=== PATIENT | male | born 1930 | race Caucasian/White ===

== ENCOUNTER 2016-04-03 12:03 | Emergency (ER) | payer MEDICARE, BC ==
[2016-04-03] MEDS ORDERED: Lidocaine 2% Jelly 10 ML Urojet ONE (12:18)
--- NOTE | 2016-04-03 12:25 | EDM.PDOC ---
ED HPI RENAL/ - General Chief Complaint: Genitourinary Problem Stated Complaint: NOT FEELING WELL Time Seen by Provider: 04/03/16 12:15 Source: Reports: Patient, Family History Limitations: Reports: No limitations - History of Present Illness INITIAL COMMENTS - FREE TEXT/NARRATIVE: 86-year-old male who recently had back surgery he has been having trouble with emptying his bladder and also was recently diagnosed with a UTI. He has been on sulfa for the past 2 days. This morning he was very uncomfortable and can't pass his urine, he just had a Weiss removed on Monday. Location: Reports: suprapubic Quality: Reports: fullness, stabbing Worsens with: Reports: urinating Associated Symptoms: Reports: burning, dysuria, unable to urinate. Denies: fever/chills - Related Data Allergies/ADRs: Allergies Allergy/AdvReac Type Severity Reaction Status Date / Time lisinopril Allergy Severe Anaphylactic Verified 03/01/16 08:06 Shock tetanus toxoid, adsorbed Allergy Cannot Verified 03/01/16 08:06 Remember Home Meds: Home Meds Clobetasol [Temovate 0.05% Crm] 1 lotion TOP ASDIRECTED 03/13/14 [History] Hydrochlorothiazide 25 mg PO DAILY 03/13/14 [History] Niacin [Niaspan] 1,000 mg PO DAILY 03/13/14 [History] Tamsulosin [Flomax] 0.4 mg PO DAILY 03/13/14 [History] atorvaSTATin [Lipitor] 10 mg PO BEDTIME 03/13/14 [History] Diltiazem [Cardizem CD] 360 mg PO DAILY 04/29/15 [History] Metoprolol Succinate [Toprol XL] 25 mg PO DAILY 09/30/15 [History] Naproxen Sodium [Naproxen Sodium Ds] 550 mg PO BID PRN 12/23/15 [History] Tadalafil [Cialis] 10 mg PO DAILY PRN 12/23/15 [History] Calcium Carbonate/Vitamin D3 [Calcium 500 + Vit D 400] 2 tab PO DAILY 02/25/16 [ History] Multivitamin [Multiple Vitamins] 1 tab PO DAILY 02/25/16 [History] Warfarin [Coumadin] 5 mg PO DAILY 02/25/16 [History] Acetaminophen/oxyCODONE [Percocet 325-5 MG] 1 tab PO Q6HR #120 tablet 03/04/16 [ Rx] Past Medical History HEENT History: Reports: Allergic rhinitis, Cataract, Impaired vision, Sinusitis Cardiovascular History: Reports: Arrhythmia, Heart murmur, High cholesterol, Hypertension Respiratory History: Reports: Other (see below) Other Respiratory History: silicosis Gastrointestinal History: Reports: Chronic constipation, Colon polyp, Hiatal hernia Genitourinary History: Reports: Prostate disorder Musculoskeletal History: Reports: Arthritis, Osteoarthritis Endocrine/Metabolic History: Reports: Diabetes, type II, Obesity/BMI 30+, Other (see below) Other Endocrine/Metabolic History: borderline type II Oncologic (Cancer) History: Reports: Other (see below) Other Oncologic History: skin Dermatologic History: Reports: Psoriasis, Other (see below) Other Dermatologic History: keratosis - Infectious Disease History Infectious Disease History: Reports: Mumps - Past Surgical History Cardiovascular Surgical History: Reports: None Respiratory Surgical History: Reports: None GI Surgical History: Reports: Colonoscopy Male Surgical History: Reports: None Endocrine Surgical History: Reports: None Oncologic Surgical History: Reports: Other (see below) Other Oncologic Surgeries/Procedures: skin bx. Dermatological Surgical History: Reports: None Social & Family History - Tobacco Use Smoking Status *Q: Never Smoker Second Hand Smoke Exposure: No - Caffeine Use Caffeine Use: Reports: Coffee - Alcohol Use Days Per Week of Alcohol Use: 7 Number of Drinks Per Day: 2 Total Drinks Per Week: 14 - Recreational Drug Use Recreational Drug Use: No ED ROS GENERAL - Review of Systems Review Of Systems: See Below Constitutional: Denies: fever, chills Respiratory: Denies: shortness of breath Cardiovascular: Denies: Chest pain GI/Abdominal: Reports: Abdominal pain : Reports: frequency, urinary retention ED EXAM, RENAL/ - Physical Exam Exam: See Below Exam Limited By: No limitations General Appearance: alert, anxious, mild distress (Very uncomfortable) Respiratory/Chest: no respiratory distress GI/Abdominal: tender (Lower abdomen is tender with a distended bladder) Course - Vital Signs Last Recorded V/S: Last Vital Signs Temp 97.4 F 04/03/16 12:55 Pulse 118 H 04/03/16 12:55 Resp 16 04/03/16 12:55 BP 126/72 04/03/16 12:55 Pulse Ox 95 04/03/16 12:55 - Orders/Labs/Meds Orders: Active Orders 24 hr Category Date Time Status Insert Weiss Catheter [Insert Urinary Catheter] [OM.PC] Care 04/03/16 12:30 Ordered Q24H Urinary Catheter Assessment [RC] ASDIRECTED Care 04/03/16 12:22 Active Meds: Medications Discontinued Medications Generic Name Dose Route Start Last Admin Trade Name Stephanie PRN Reason Stop Dose Admin Lidocaine HCl Confirm 04/03/16 12:18 04/03/16 13:10 Xylocaine 2% Jelly Administered 04/03/16 12:19 10 ml Dose Administration 10 ml .ROUTE .STK-MED ONE - Re-Assessments/Exams Free Text/Narrative Re-Assessment/Exam: 04/03/16 12:24 A bladder scan was done which showed over 1000 mL of urine in the bladder. A Weiss was then placed without difficulty. 04/03/16 12:46 Almost 2 L of urine was released after the Weiss was placed. Patient's symptoms improved, basically resolved and the Weiss was left in place. He was given 10 additional Percocet to use for pain control over the next 48 hours and should recheck in the clinic on Monday for Weiss removal. Hopefully after a few more days of antibiotic his bladder will function more normally Departure - Departure Time of Disposition: 13:27 Disposition: Home, Self-Care 01 Condition: good Clinical Impression: Acute urinary retention, UTI, Urinary tract infectious disease Instructions: Acute Urinary Retention, Male Referrals: Yogesh Monsivais MD [Primary Care Provider] - Forms: ED Department Discharge Care Plan Goals: Continue with antibiotic as prescribed. Use pain medication to help with resting or any recurrence of pain, and recheck at the clinic on Monday to have Weiss removed. Return sooner if worsening or concerns. - My Orders Last 24 Hours: My Active Orders 04/03/16 12:22 Urinary Catheter Assessment [RC] ASDIRECTED 04/03/16 12:30 Insert Weiss Catheter [Insert Urinary Catheter] [OM.PC] Q24H - Assessment/Plan Last 24 Hours: My Active Orders 04/03/16 12:22 Urinary Catheter Assessment [RC] ASDIRECTED 04/03/16 12:30 Insert Weiss Catheter [Insert Urinary Catheter] [OM.PC] Q24H
[2016-04-03 12:56] VITALS: BP 126/72
== END 2016-04-03 13:27 | disposition home or self-care (01) ==
LOC: JP.ED 12:03 → EEVIPCON 12:03 → JP.ED 13:27
DX: R33.8 Other retention of urine (principal); N39.0 Urinary tract infection, site not specified; I10 Essential (primary) hypertension; E78.00 Pure hypercholesterolemia, unspecified; E11.9 Type 2 diabetes mellitus without complications; E66.9 Obesity, unspecified; Z68.28 Body mass index [BMI] 28.0-28.9, adult; Z79.01 Long term (current) use of anticoagulants; Z79.899 Other long term (current) drug therapy; Z88.8 Allergy status to other drugs, medicaments and biological substances
CPT/HCPCS: 51702; 99282-25; 99283-25

== ENCOUNTER 2016-10-25 07:56 | Inpatient (IN) | payer MEDICARE, BC ==
[~2016-10-25 07:56] MED LIST: Gentamicin 40 MG/ML 2 ML Vial ONE; Midazolam 1 MG/ML 2 ML SDV ONE; Povidone-Iodine 10% Soln 118.25 ML Bottle ONE; Propofol 200 MG/20 ML SDV ONE; fentaNYL 100 MCG/2 ML SDV ONE
[2016-10-25] MEDS ORDERED: ceFAZolin 1 GM Vial ONE (08:06)
[2016-10-25] MEDS ORDERED: Lactated Ringers 1,000 ML IV SCH ×2 (08:50→09:15)
[2016-10-25] MEDS ORDERED: Gabapentin 300 MG Cap PO ONE (09:15)
[2016-10-25] MEDS ORDERED: Scopolamine 1.5 MG Transdermal Patch TOP SCH (09:15)
[2016-10-25] MEDS ORDERED: ceFAZolin 2 GM in Sodium Chloride 0.9% 50 ML IV ONE (09:15)
[2016-10-25] MEDS ORDERED: Ketamine 500 MG/5 ML MDV IV SCH (09:30)
[2016-10-25] MEDS ORDERED: Ropivacaine 49.25 ML, Ketorolac 30 MG, EPINEPHrine 0.5 MG, cloNIDine 80 MCG, Sodium Chl... INJECT ONE ×5 (09:30)
[2016-10-25] MEDS ORDERED: Sodium Chloride 0.9% 10 ML ONE (10:51)
[2016-10-25] MEDS ORDERED: Phenylephrine 1% 10 MG/ML SDV ONE (10:51)
[2016-10-25] MEDS ORDERED: Lactated Ringers 1,000 ML ONE (11:05)
[2016-10-25] MEDS ORDERED: Zolpidem 5 MG Tab PO PRN (12:36)
[2016-10-25] MEDS ORDERED: Bisacodyl 5 MG Tab PO PRN (12:36)
[2016-10-25] MEDS ORDERED: Ondansetron 4 MG/2 ML SDV IVPUSH PRN (12:36)
[2016-10-25] MEDS ORDERED: Sennosides 8.6 MG Tab PO PRN (12:36)
[2016-10-25] MEDS ORDERED: Morphine 2 MG/ML Syringe IVPUSH PRN (12:36)
[2016-10-25] MEDS ORDERED: Diazepam 5 MG Tab PO PRN (12:36)
[2016-10-25] MEDS ORDERED: Aluminum Hydroxide/Magnesium Hydroxide/Simethicone Susp 30 ML Cup PO PRN (12:36)
[2016-10-25] MEDS ORDERED: Magnesium Hydroxide 400 MG/5 ML Susp 30 ML Cup PO PRN (12:36)
[2016-10-25] MEDS ORDERED: traMADol 50 MG Tab PO PRN (12:36)
[2016-10-25] MEDS ORDERED: Ketorolac 30 MG/ML SDV IVPUSH PRN (12:36)
[2016-10-25] MEDS ORDERED: diphenhydrAMINE 50 MG/ML SDV IVPUSH PRN (12:36)
[2016-10-25] MEDS ORDERED: Naloxone 0.4 MG/ML SDV IVPUSH PRN (12:36)
[2016-10-25] MEDS ORDERED: Docusate Sodium 100 MG Cap PO PRN (12:36)
--- NOTE | 2016-10-25 13:18 | CR ---
Knee 1V or 2V Rt INDICATION: RIGHT PARTIAL KNEE REPLACEMENT FINDINGS: Postoperative changes medial compartment hemiarthroplasty. Negative for postoperative purpo ses.
[2016-10-25] MEDS ORDERED: Acetaminophen 1,000 MG in Premix Bag 1 BAG IV ONE (13:30)
[2016-10-25] MEDS: SCOPOLAMINE PATCH TOP SCH (14:31)
[2016-10-25] MEDS ORDERED: 50% Dextrose in Water 50 ML Syringe IV PRN (15:01)
[2016-10-25] MEDS ORDERED: Glucose Gel 15 GM in 37.5 GM Tube PO PRN (15:01)
[2016-10-25] MEDS: Insulin Aspart 100 Units/ML 3 ML Pen SUBCUT SCH ×2 (16:38→21:26)
--- NOTE | 2016-10-25 17:22 | PCM.CONS ---
H&P History of Present Illness - General Date of Service: 10/25/16 Admit Problem/Dx: Admission Diagnosis/Problem Admission Diagnosis/Problem Osteoarthritis Source of Information: Patient, Provider, RN Notes Reviewed History Limitations: Reports: No Limitations - History of Present Illness Initial Comments - Free Text/Narative: Mr. Marks is an 86-year-old gentleman who I been asked to see by Dr. Micheal Mustafa for assistance in medical management during the postoperative period. Mr. Marks underwent a total right knee arthroplasty earlier today by Dr. Mustafa. He is doing well during the initial postoperative period and denies any symptoms of chest pain, shortness of breath, nausea or vomiting. - Related Data Allergies/Adverse Reactions: Allergies Allergy/AdvReac Type Severity Reaction Status Date / Time lisinopril Allergy Severe Anaphylactic Verified 10/21/16 14:40 Shock tetanus toxoid, adsorbed Allergy Cannot Verified 10/21/16 14:40 Remember Home Medications: Home Meds Clobetasol [Temovate 0.05% Crm] 1 applic TOP ASDIRECTED PRN 03/13/14 [History] Hydrochlorothiazide 25 mg PO DAILY 03/13/14 [History] Niacin [Niaspan] 1,000 mg PO DAILY 03/13/14 [History] atorvaSTATin [Lipitor] 10 mg PO BEDTIME 03/13/14 [History] Diltiazem [Cardizem CD] 360 mg PO DAILY 04/29/15 [History] Metoprolol Succinate [Toprol XL] 25 mg PO DAILY 09/30/15 [History] Calcium Carbonate/Vitamin D3 [Calcium 500 + Vit D 400] 2 tab PO DAILY 02/25/16 [ History] Multivitamin [Multiple Vitamins] 1 tab PO DAILY 02/25/16 [History] Warfarin [Coumadin] 5 mg PO DAILY 02/25/16 [History] Magnesium Hydroxide [Milk of Magnesia] 30 ml PO DAILY PRN 10/25/16 [History] Past Medical History HEENT History: Reports: Allergic Rhinitis, Cataract, Impaired Vision, Sinusitis Cardiovascular History: Reports: Arrhythmia, Heart Murmur, High Cholesterol, Hypertension Respiratory History: Reports: Other (See Below) Other Respiratory History: silicosis Gastrointestinal History: Reports: Chronic Constipation, Colon Polyp, Hiatal Hernia Genitourinary History: Reports: Prostate Disorder Musculoskeletal History: Reports: Other (See Below) Other Musculoskeletal History: right knee pain Endocrine/Metabolic History: Reports: Diabetes, Type II, Obesity/BMI 30+, Other (See Below) Other Endocrine/Metabolic History: borderline type II - checks blood sugar just a few times a year Hematologic History: Reports: Other (See Below) Other Hematologic History: coumadin Oncologic (Cancer) History: Reports: Other (See Below) Other Oncologic History: skin Dermatologic History: Reports: Psoriasis, Other (See Below) Other Dermatologic History: keratosis - Infectious Disease History Infectious Disease History: Reports: Mumps - Past Surgical History Musculoskeletal Surgical History: Reports: Carpal Tunnel, Knee Replacement Other Musculoskeletal Surgeries/Procedures:: left knee x 4 Oncologic Surgical History: Reports: Other (See Below) Social & Family History - Family History Family Medical History: Noncontributory - Tobacco Use Smoking Status *Q: Former Smoker Used Tobacco, but Quit: Yes Month Tobacco Last Used: years Second Hand Smoke Exposure: No - Caffeine Use Caffeine Use: Reports: Coffee - Alcohol Use Days Per Week of Alcohol Use: 7 Number of Drinks Per Day: 2 Total Drinks Per Week: 14 Date of Last Drink: 10/23/16 Time of Last Drink: 18:00 - Recreational Drug Use Recreational Drug Use: No H&P Review of Systems - Review of Systems: Review Of Systems: See Below General: Reports: No Symptoms Pulmonary: Reports: No Symptoms Cardiovascular: Reports: No Symptoms Gastrointestinal: Reports: No Symptoms Genitourinary: Reports: No Symptoms Musculoskeletal: Reports: Joint Pain Skin: Reports: No Symptoms Exam - Exam Exam: See Below - Vital Signs Vital Signs: Last Vital Signs Temp 96 F 10/25/16 16:30 Pulse 75 10/25/16 16:30 Resp 16 10/25/16 16:30 BP 131/91 H 10/25/16 16:30 Pulse Ox 95 10/25/16 16:30 Weight: 185 lb - Exam Quality Assessment: Urinary Catheter, DVT Prophylaxis General: Alert, Oriented, Cooperative Neck: Supple, Trachea Midline, +2 Carotid Pulse wo Bruit Lungs: Clear to Auscultation, Normal Respiratory Effort Cardiovascular: Regular Rate, Regular Rhythm, Normal S1, Normal S2. No: Systolic Murmur, Diastolic Murmur GI/Abdominal Exam: Normal Bowel Sounds, Soft, Non-Tender, No Organomegaly, No Distention Skin: Warm, Dry, Intact Neurological: Cranial Nerves Intact, Strength Equal Bilateral, Normal Speech, Normal Tone, Sensation Intact. No: Focal Deficit - Patient Data Lab Results Last 24 hrs: Laboratory Results - last 24 hr 10/25/16 10/25/16 Range/Units 08:09 08:10 PT 11.6 (9.5-12.0) sec INR 1.08 (0.80-1.20) Blood Type B NEGATIVE Gel Antibody Screen Negative Consult PN Assessment/Plan Procedures: Procedures ASSAY OF CK (CPK) (04/29/15) ASSAY OF TROPONIN QUANT (04/29/15) BLOOD TYPING SEROLOGIC ABO (03/02/16) BLOOD TYPING SEROLOGIC RH(D) (03/02/16) CARDIOVASCULAR STRESS TEST (03/14/14) CARDIOVASCULAR STRESS TEST (03/14/14) CHEST X-RAY 2VW FRONTAL&LATL (02/11/16) COMPLETE CBC AUTOMATED (10/13/16) COMPLETE CBC W/AUTO DIFF WBC (03/02/16) COMPREHEN METABOLIC PANEL (10/13/16) CULTURE OTHR SPECIMN AEROBIC (10/13/16) ELECTROCARDIOGRAM REPORT (03/02/16) ELECTROCARDIOGRAM TRACING (10/13/16) EMERGENCY DEPT VISIT (04/03/16) EMERGENCY DEPT VISIT (04/29/15) EMERGENCY DEPT VISIT (03/13/14) EXTRACRANIAL BILAT STUDY (09/02/14) FLUOROSCOPE EXAM EXTENSIVE (03/02/16) GAIT TRAINING THERAPY (03/02/16) GLUCOSE BLOOD TEST (03/02/16) HT MUSCLE IMAGE SPECT MULT (03/14/14) INITIAL OBSERVATION CARE (03/02/16) INJECT SPINE LUMBAR/SACRAL (10/28/15) INSERT TEMP BLADDER CATH (04/03/16) MANUAL THERAPY 1/> REGIONS (03/02/16) MEASURE BLOOD OXYGEN LEVEL (03/02/16) METABOLIC PANEL TOTAL CA (03/02/16) MRI LUMBAR SPINE W/O DYE (12/04/15) OBSERVATION CARE DISCHARGE (03/02/16) OFFICE/OUTPATIENT VISIT NEW (12/24/15) OT EVAL LOW COMPLEX 30 MIN (03/02/16) POSTOP FOLLOW-UP VISIT (03/14/16) PROTHROMBIN TIME (03/02/16) PT EVAL LOW COMPLEX 20 MIN (03/02/16) RBC ANTIBODY SCREEN (03/02/16) REMOVE SPINE LAMINA 1 LMBR (03/02/16) REMOVE SPINE LAMINA >2 LMBR (03/02/16) ROUTINE VENIPUNCTURE (10/13/16) SELF CARE MNGMENT TRAINING (03/02/16) SUBSEQUENT OBSERVATION CARE (03/02/16) THER/PROPH/DIAG INJ IV PUSH (03/13/14) THERAPEUTIC ACTIVITIES (03/02/16) THERAPEUTIC EXERCISES (03/02/16) TTE W/DOPPLER COMPLETE (05/11/15) URINALYSIS AUTO W/O SCOPE (10/13/16) URINALYSIS AUTO W/SCOPE (03/02/16) US URINE CAPACITY MEASURE (03/02/16) X-RAY EXAM KNEE 4 OR MORE (10/13/16) X-RAY EXAM L-2 SPINE 4/>VWS (12/24/15) X-RAY EXAM NECK SPINE 2-3 VW (03/13/14) Problem List Initiated/Reviewed/Updated: Yes My Orders Last 24 Hours: My Active Orders 10/25/16 15:01 Blood Glucose Check, Bedside [RC] QIDACANDBED Communication Order [RC] ASDIRECTED Diabetes Education [RC] Click to Edit Notify Provider [RC] PRN Dextrose 50% in Water 50 ml IV ONETIME PRN Dextrose [Glutose 15] 15 gm PO ONETIME PRN 10/25/16 17:00 Insulin Aspart [NovoLOG] See Protocol SUBCUT QIDACANDBED 10/25/16 21:00 GLUCOSE POC LAB TO COLLECT [POC] QIDACANDBED atorvaSTATin [Lipitor] 10 mg PO BEDTIME 10/26/16 07:30 GLUCOSE POC LAB TO COLLECT [POC] QIDACANDBED 10/26/16 09:00 Diltiazem [Cardizem CD] 360 mg PO DAILY Hydrochlorothiazide 25 mg PO DAILY Metoprolol Succinate [Toprol XL] 25 mg PO DAILY 10/26/16 11:30 GLUCOSE POC LAB TO COLLECT [POC] QIDACANDBED 10/26/16 16:30 GLUCOSE POC LAB TO COLLECT [POC] QIDACANDBED 10/26/16 21:00 GLUCOSE POC LAB TO COLLECT [POC] QIDACANDBED 10/27/16 07:30 GLUCOSE POC LAB TO COLLECT [POC] QIDACANDBED 10/27/16 11:30 GLUCOSE POC LAB TO COLLECT [POC] QIDACANDBED 10/27/16 16:30 GLUCOSE POC LAB TO COLLECT [POC] QIDACANDBED 10/27/16 21:00 GLUCOSE POC LAB TO COLLECT [POC] QIDACANDBED 10/28/16 07:30 GLUCOSE POC LAB TO COLLECT [POC] QIDACANDBED 10/28/16 11:30 GLUCOSE POC LAB TO COLLECT [POC] QIDACANDBED 10/28/16 16:30 GLUCOSE POC LAB TO COLLECT [POC] QIDACANDBED 10/28/16 21:00 GLUCOSE POC LAB TO COLLECT [POC] QIDACANDBED 10/29/16 07:30 GLUCOSE POC LAB TO COLLECT [POC] QIDACANDBED 10/29/16 11:30 GLUCOSE POC LAB TO COLLECT [POC] QIDACANDBED 10/29/16 16:30 GLUCOSE POC LAB TO COLLECT [POC] QIDACANDBED 10/29/16 21:00 GLUCOSE POC LAB TO COLLECT [POC] QIDACANDBED 10/30/16 07:30 GLUCOSE POC LAB TO COLLECT [POC] QIDACANDBED 10/30/16 11:30 GLUCOSE POC LAB TO COLLECT [POC] QIDACANDBED 10/30/16 16:30 GLUCOSE POC LAB TO COLLECT [POC] QIDACANDBED 10/30/16 21:00 GLUCOSE POC LAB TO COLLECT [POC] QIDACANDBED 10/31/16 07:30 GLUCOSE POC LAB TO COLLECT [POC] QIDACANDBED 10/31/16 11:30 GLUCOSE POC LAB TO COLLECT [POC] QIDACANDBED 10/31/16 16:30 GLUCOSE POC LAB TO COLLECT [POC] QIDACANDBED 10/31/16 21:00 GLUCOSE POC LAB TO COLLECT [POC] QIDACANDBED 11/01/16 07:30 GLUCOSE POC LAB TO COLLECT [POC] QIDACANDBED 11/01/16 11:30 GLUCOSE POC LAB TO COLLECT [POC] QIDACANDBED 11/01/16 16:30 GLUCOSE POC LAB TO COLLECT [POC] QIDACANDBED 11/01/16 21:00 GLUCOSE POC LAB TO COLLECT [POC] QIDACANDBED 11/02/16 07:30 GLUCOSE POC LAB TO COLLECT [POC] QIDACANDBED 11/02/16 11:30 GLUCOSE POC LAB TO COLLECT [POC] QIDACANDBED 11/02/16 16:30 GLUCOSE POC LAB TO COLLECT [POC] QIDACANDBED 11/02/16 21:00 GLUCOSE POC LAB TO COLLECT [POC] QIDACANDBED 11/03/16 07:30 GLUCOSE POC LAB TO COLLECT [POC] QIDACANDBED 11/03/16 11:30 GLUCOSE POC LAB TO COLLECT [POC] QIDACANDBED 11/03/16 16:30 GLUCOSE POC LAB TO COLLECT [POC] QIDACANDBED 11/03/16 21:00 GLUCOSE POC LAB TO COLLECT [POC] QIDACANDBED 11/04/16 07:30 GLUCOSE POC LAB TO COLLECT [POC] QIDACANDBED 11/04/16 11:30 GLUCOSE POC LAB TO COLLECT [POC] QIDACANDBED 11/04/16 16:30 GLUCOSE POC LAB TO COLLECT [POC] QIDACANDBED 11/04/16 21:00 GLUCOSE POC LAB TO COLLECT [POC] QIDACANDBED 11/05/16 07:30 GLUCOSE POC LAB TO COLLECT [POC] QIDACANDBED 11/05/16 11:30 GLUCOSE POC LAB TO COLLECT [POC] QIDACANDBED Plan: ASSESSMENT AND RECOMMENDATIONS STATUS POST RIGHT TOTAL KNEE ARTHROPLASTY-stable and doing well during the initial postoperative period -Postoperative care per Dr. Mustafa HYPERTENSION -Continue outpatient medical regimen, adjust as needed during hospital stay TYPE 2 DIABETES MELLITUS -4 times a day glucometers -Low-dose sliding scale NovoLog Requesting Provider: ZURDO Date Consult Requested: 10/25/16 Reason for Consult: Postoperative medical management Patient History Reviewed: Yes
--- NOTE | 2016-10-25 18:19 | OR ---
DATE OF PROCEDURE: 10/25/2016 PREOPERATIVE DIAGNOSIS: Right knee primary osteoarthritis. POSTOPERATIVE DIAGNOSIS: Right knee primary osteoarthritis. PROCEDURE: Right knee unicompartmental medial arthroplasty. COMMODITY MANAGER: PHAN Huggins. ANESTHESIA: Spinal plus conscious sedation. FLUID: Lactated Ringer solution. ESTIMATED BLOOD LOSS: 25 mL. COMPLICATION: None. SPECIMEN: None. DISCHARGE DISPOSITION: Stable to PACU. INSTRUMENTATION: Biomet size F tibia, medium femur with 4 mm polyethylene. INDICATIONS: The patient is well known to me. I previously performed laminectomy many months ago. He failed nonoperative treatment, preoperative imaging confirmed the above- mentioned diagnosis. Risks and benefits of the procedure were explained to the patient. Informed consent was obtained. DETAILS OF PROCEDURE: The patient was seen preoperatively by myself and the Anesthesia Staff in the preoperative holding area where the operative site was marked. He was brought to the operative suite by the anesthesia staff where spinal and conscious sedation was administered. A well-padded tourniquet was placed on the right thigh. The right thigh was placed in a hip rivera. The left lower extremity was placed in the stirrup. The bed was dropped. The right lower extremity was then prepped and draped in sterile manner. Time-out was called identifying the correct patient, correct procedure, the correct site, and antibiotics had begun with appropriate period of time. I made an incision three fingerbreadths proximal to the patella down to the level of tibial tubercle and then made a medial parapatellar arthrotomy and then used Gelpi for retraction. I inserted a #2 spoon and then used my extramedullary tibial guide, which was pinned in place and then made a vertical cut in line with the anterior superior iliac spine and then made my horizontal cut. I then measured this to be a size F. I then drilled just 1 mm anterior to the medial notch from my reamer hole then all that and then placed my intramedullary guide alban. I then attached this to my femoral cutting guide. I then drilled my two holes for the guide. I then removed the intramedullary guide and then applied my posterior cutting block and then made my posterior cut on the femur. I then measured a 4 mm gap in flexion, which was appropriate. I then used my 0 spigot and then used a trial femur, which was 4 in flexion and 1 in extension. I then did a 3 spigot, which was too tight and so I did a 4 spigot for reaming. This provided good stability in flexion and extension with equal gaps and then at that point, I used my anterior reamer for the femur and removed some posterior osteophytes as well. I then focused on tibial preparation. I put the fin cutter base plate and then held this in place with the spike and then using the toothbrush saw I made my fin cut. I then inserted my tibia with a fin in the femur and then inserted my 4 trial which provided good stability. I then removed all my components, copiously irrigated with saline and then cemented these in place in 45 degrees of flexion with a [address] for my gaps let this harden. I then copiously irrigated with saline, removed any excess cement, inserted a 4 trial, which provided good stability. I then removed the trial and then placed the final implant, which was a 4 polyethylene right for medium femur. After this had been accomplished, we irrigated again with saline and then closed with #2 Stratafix, 3-0 Stratafix and arthur. The tourniquet was let down after cementing at 62 minutes. The patient was then taken, transferred to hospital bed, and taken to the PACU in stable condition. Gregory Mustafa DO /[id number]
[2016-10-25] MEDS: atorvaSTATin 10 MG Tab PO SCH (20:31)
[2016-10-25] MEDS: oxyCODONE 5 MG Tab PO PRN (21:30)
[2016-10-26] MEDS: Metoprolol Succinate 25 MG Tab.ER PO SCH (08:07)
[2016-10-26] MEDS: Hydrochlorothiazide 25 MG Tab PO SCH (08:07)
[2016-10-26] MEDS: Diltiazem 180 MG Cap.CD PO SCH (08:07)
[2016-10-26] MEDS: Aspirin 325 MG Tab.EC PO SCH (08:08)
[2016-10-26] MEDS: Insulin Aspart 100 Units/ML 3 ML Pen SUBCUT SCH ×4 (08:09→22:13)
[2016-10-26] MEDS: Sodium Chloride 0.9% 10 ML Syringe FLUSH SCH (08:11)
[2016-10-26] MEDS: SCOPOLAMINE PATCH TOP SCH (08:11)
[2016-10-26] MEDS ORDERED: Aspirin 325 MG Tab.EC PO SCH (09:00)
--- NOTE | 2016-10-26 12:16 | PCM.PN ---
- General Info Functional Status: Reports: Pain Controlled, Ambulating, Urinating - Review of Systems General: Reports: No Symptoms HEENT: Reports: No Symptoms Pulmonary: Reports: No Symptoms Cardiovascular: Reports: No Symptoms Gastrointestinal: Reports: No Symptoms Genitourinary: Reports: No Symptoms Musculoskeletal: Reports: Joint Pain Skin: Reports: No Symptoms Neurological: Reports: No Symptoms Psychiatric: Reports: No Symptoms - Patient Data Vitals - Most Recent: Last Vital Signs Temp 95.2 F L 10/26/16 08:01 Pulse 88 10/26/16 08:07 Resp 16 10/26/16 08:01 BP 133/94 H 10/26/16 08:07 Pulse Ox 93 L 10/26/16 08:01 Weight - Most Recent: 185 lb I&O - Last 24 Hours: Intake & Output 10/25/16 10/26/16 10/26/16 22:59 06:59 14:59 Intake Total 1080 240 Output Total 600 700 Balance 480 240 -700 Lab Results Last 24 Hours: Laboratory Results - last 24 hr 10/26/16 10/26/16 Range/Units 05:49 05:49 WBC 8.4 (4.5-11.0) K/uL RBC 3.79 L (4.30-5.90) M/uL Hgb 12.4 (12.0-15.0) g/dL Hct 36.3 L (40.0-54.0) % MCV 96 (80-98) fL MCH 33 H (27-31) pg MCHC 34 (32-36) % Plt Count 246 (150-400) K/uL Neut % (Auto) 60 (36-66) % Lymph % (Auto) 26 (24-44) % [facility] % (Auto) 13 H (2-6) % Eos % (Auto) 2 (2-4) % Baso % (Auto) 0 (0-1) % Sodium 139 L (140-148) mmol/L Potassium 4.2 (3.6-5.2) mmol/L Chloride 103 (100-108) mmol/L Carbon Dioxide 29 (21-32) mmol/L Anion Gap 11.2 (5.0-14.0) mmol/L BUN 15 (7-18) mg/dL Creatinine 0.9 (0.8-1.3) mg/dL Est Cr Clr Drug Dosing 58.06 mL/min Estimated GFR (MDRD) > 60 (>60) Glucose 86 (74-106) mg/dL Calcium 8.1 L (8.5-10.1) mg/dL Total Bilirubin 0.7 (0.2-1.0) mg/dL AST 24 (15-37) U/L ALT 21 (12-78) U/L Alkaline Phosphatase 117 H (46-116) U/L Total Protein 6.6 (6.4-8.2) g/dL Albumin 3.2 L (3.4-5.0) g/dL Globulin 3.4 (2.3-3.5) g/dL Albumin/Globulin Ratio 0.9 L (1.2-2.2) Med Orders - Current: Current Medications Al Hydroxide/Mg Hydroxide (Mag-Al Plus) 30 ml PO Q4H PRN PRN Reason: Constipation Aspirin (Ecotrin) 325 mg PO DAILY [facility] Last Admin: 10/26/16 08:08 Dose: 325 mg Atorvastatin Calcium (Lipitor) 10 mg PO BEDTIME [facility] Last Admin: 10/25/16 20:31 Dose: 10 mg Bisacodyl (Dulcolax) 10 mg PO DAILY PRN PRN Reason: Constipation Dextrose (Glutose 15) 15 gm PO ONETIME PRN PRN Reason: Hypoglycemia Dextrose/Water (Dextrose 50% In Water) 50 ml IV ONETIME PRN PRN Reason: Hypoglycemia Diazepam (Valium.) 5 mg PO Q6H PRN PRN Reason: Spasms Diltiazem HCl (Cardizem Cd) 360 mg PO DAILY [facility] Last Admin: 10/26/16 08:07 Dose: 360 mg Diphenhydramine HCl (Benadryl) 25 mg IVPUSH Q4H PRN PRN Reason: Itching Docusate Sodium (Colace) 100 mg PO BID PRN PRN Reason: Constipation Hydrochlorothiazide (Hydrochlorothiazide) 25 mg PO DAILY [facility] Last Admin: 10/26/16 08:07 Dose: 25 mg Lactated Ringer's (Ringers, Lactated) 1,000 mls @ 0 mls/hr IV ASDIRECTED [facility] PRN Reason: KVO Last Admin: 10/25/16 08:56 Dose: 500 mls/hr Insulin Aspart (Novolog) 0 unit SUBCUT QIDACANDBED [facility] PRN Reason: Protocol Last Admin: 10/26/16 08:09 Dose: Not Given Ketorolac Tromethamine (Toradol) 30 mg IVPUSH Q8H PRN PRN Reason: Pain Stop: 10/30/16 12:36 Magnesium Hydroxide (Milk Of Magnesia) 30 ml PO BID PRN PRN Reason: Constipation Metoprolol Succinate (Toprol Xl) 25 mg PO DAILY [facility] Last Admin: 10/26/16 08:07 Dose: 25 mg Morphine Sulfate (Morphine) 2 mg IVPUSH Q2H PRN PRN Reason: Pain Naloxone HCl (Narcan) 0.1 mg IVPUSH ONETIME PRN PRN Reason: Oversedation Scopolamine Patch 1 each TOP DAILY [facility] Last Admin: 10/26/16 08:11 Dose: 1 each Ondansetron HCl (Zofran) 8 mg IVPUSH Q4H PRN PRN Reason: Nausea/Vomiting Oxycodone HCl (Oxycodone) 10 mg PO Q4H PRN PRN Reason: Pain Last Admin: 10/25/16 21:30 Dose: 10 mg Scopolamine (Transderm-Scop) 1.5 mg TOP Q72H [facility] Stop: 10/28/16 09:00 Last Admin: 10/25/16 08:26 Dose: 1.5 mg Senna (Senna) 8.6 mg PO BID PRN PRN Reason: Constipation Sodium Chloride (Saline Flush) 10 ml FLUSH DAILY [facility] Last Admin: 10/26/16 08:11 Dose: 10 ml Tramadol HCl (Ultram) 100 mg PO Q6H PRN PRN Reason: Pain Last Admin: 10/26/16 10:27 Dose: 100 mg Zolpidem Tartrate (Ambien) 5 mg PO BEDTIME PRN PRN Reason: Sleep Discontinued Medications Aspirin (Ecotrin) 325 mg PO DAILY [facility] Cefazolin Sodium (Ancef) Confirm Administered Dose 2 gm .ROUTE .STK-MED ONE Stop: 10/25/16 08:07 Last Admin: 10/25/16 09:56 Dose: Not Given Ropivacaine 49.25 ml/Ketorolac Tromethamine 30 mg/Epinephrine HCl 0.5 mg/ Clonidine HCl 80 mcg/ Sodium Chloride 48.45 ml 0 ml INJECT ONETIME ONE Stop: 10/25/16 09:31 Last Admin: 10/25/16 11:36 Dose: 100 ml Fentanyl (Sublimaze) Confirm Administered Dose 100 mcg .ROUTE .STK-MED ONE Stop: 10/25/16 07:42 Gabapentin (Neurontin) 300 mg PO ONETIME ONE Stop: 10/25/16 09:16 Last Admin: 10/25/16 08:26 Dose: 300 mg Gentamicin Sulfate (Gentamicin) Confirm Administered Dose 240 mg .ROUTE .STK- MED ONE Stop: 10/25/16 06:58 Last Admin: 10/25/16 11:14 Dose: 240 mg Cefazolin Sodium 2 gm/ Sodium (Chloride) 50 mls @ 100 mls/hr IV ONETIME ONE Stop: 10/25/16 09:44 Last Admin: 10/25/16 10:24 Dose: 100 mls/hr Tranexamic Acid 870 mg/ Sodium (Chloride) 58.7 mls @ 234.8 mls/hr IV Q3H [facility] Stop: 10/25/16 12:44 Last Admin: 10/25/16 13:02 Dose: 234.8 mls/hr Lactated Ringer's (Ringers, Lactated) 1,000 mls @ 500 mls/hr IV .BOLUS [facility] Stop: 10/25/16 09:50 Sodium Chloride (Normal Saline) Confirm Administered Dose 10 mls @ as directed .ROUTE .ST-MED ONE Stop: 10/25/16 10:52 Lactated Ringer's (Ringers, Lactated) Confirm Administered Dose 1,000 mls @ as directed .ROUTE .STK-MED ONE Stop: 10/25/16 11:06 Acetaminophen 1,000 mg/ Premix 100 mls @ 400 mls/hr IV NOW ONE Stop: 10/25/16 13:44 Last Admin: 10/25/16 14:00 Dose: 400 mls/hr Ketamine HCl (Ketalar) 34 mg IV ASDIRECTED [facility] Midazolam HCl (Versed 1 Mg/Ml) Confirm Administered Dose 2 mg .ROUTE .STK-MED ONE Stop: 10/25/16 07:42 Phenylephrine HCl (Juan-Synephrine) Confirm Administered Dose 10 mg .ROUTE .STK- MED ONE Stop: 10/25/16 10:52 Povidone Iodine (Betadine 10% Soln) Confirm Administered Dose 1 ml .ROUTE .STK- MED ONE Stop: 10/25/16 06:59 Last Admin: 10/25/16 11:14 Dose: 30 ml Propofol (Diprivan 20 Ml) Confirm Administered Dose 200 mg .ROUTE .STK-MED ONE Stop: 10/25/16 07:42 - Exam General: Alert, Oriented HEENT: Pupils Equal, Pupils Reactive, EOMI, Mucous Membr. Moist/[place] Neck: Supple Back Exam: Normal Inspection, Decreased Range of Motion Extremities: Leg Pain Peripheral Pulses: 2+: Dorsalis Pedis (R) Skin: Warm, Dry, Intact Wound/Incisions: Drainage Neurological: No New Focal Deficit Psy/Mental Status: Alert, Normal Affect Physical Findings Comments:: rom [id number] - Problem List Review Problem List Initiated/Reviewed/Updated: Yes - My Orders Last 24 Hours: My Active Orders 10/25/16 12:00 Non-Formulary Medication [NF Drug] 1 each TOP DAILY - Plan Plan:: pt/ot pain control dvt prophylaxis d/c to home pt with [facility] starting monday
--- NOTE | 2016-10-26 17:37 | PCM.CONSN ---
- General Info Date of Service: 10/26/16 Functional Status: Reports: Pain Controlled, Tolerating Diet, Ambulating, Urinating - Review of Systems General: Denies: Fever, Weakness, Chills Pulmonary: Reports: No Symptoms Cardiovascular: Reports: No Symptoms Gastrointestinal: Reports: No Symptoms Systems Review Comment:: Mr. Marks has been stable and doing well since surgery yesterday, vital signs have been good and he has remained afebrile. Good appetite with no symptoms of nausea vomiting. Pain control has been adequate and he is already ambulated several times today. - Patient Data Vitals - Most Recent: Last Vital Signs Temp 97.5 F 10/26/16 13:47 Pulse 71 10/26/16 13:47 Resp 16 10/26/16 13:47 BP 126/75 10/26/16 13:47 Pulse Ox 100 10/26/16 13:47 Weight - Most Recent: 185 lb 0.014 oz I&O - Last 24 Hours: Intake & Output 10/26/16 10/26/16 10/26/16 06:59 14:59 22:59 Intake Total 240 Output Total 700 Balance 240 -700 Lab Results Last 24 Hours: Laboratory Results - last 24 hr 10/26/16 10/26/16 Range/Units 05:49 05:49 WBC 8.4 (4.5-11.0) K/uL RBC 3.79 L (4.30-5.90) M/uL Hgb 12.4 (12.0-15.0) g/dL Hct 36.3 L (40.0-54.0) % MCV 96 (80-98) fL MCH 33 H (27-31) pg MCHC 34 (32-36) % Plt Count 246 (150-400) K/uL Neut % (Auto) 60 (36-66) % Lymph % (Auto) 26 (24-44) % [facility] % (Auto) 13 H (2-6) % Eos % (Auto) 2 (2-4) % Baso % (Auto) 0 (0-1) % Sodium 139 L (140-148) mmol/L Potassium 4.2 (3.6-5.2) mmol/L Chloride 103 (100-108) mmol/L Carbon Dioxide 29 (21-32) mmol/L Anion Gap 11.2 (5.0-14.0) mmol/L BUN 15 (7-18) mg/dL Creatinine 0.9 (0.8-1.3) mg/dL Est Cr Clr Drug Dosing 58.06 mL/min Estimated GFR (MDRD) > 60 (>60) Glucose 86 (74-106) mg/dL Calcium 8.1 L (8.5-10.1) mg/dL Total Bilirubin 0.7 (0.2-1.0) mg/dL AST 24 (15-37) U/L ALT 21 (12-78) U/L Alkaline Phosphatase 117 H (46-116) U/L Total Protein 6.6 (6.4-8.2) g/dL Albumin 3.2 L (3.4-5.0) g/dL Globulin 3.4 (2.3-3.5) g/dL Albumin/Globulin Ratio 0.9 L (1.2-2.2) Med Orders - Current: Current Medications Al Hydroxide/Mg Hydroxide (Mag-Al Plus) 30 ml PO Q4H PRN PRN Reason: Constipation Aspirin (Ecotrin) 325 mg PO DAILY [facility] Last Admin: 10/26/16 08:08 Dose: 325 mg Atorvastatin Calcium (Lipitor) 10 mg PO BEDTIME [facility] Last Admin: 10/25/16 20:31 Dose: 10 mg Bisacodyl (Dulcolax) 10 mg PO DAILY PRN PRN Reason: Constipation Dextrose (Glutose 15) 15 gm PO ONETIME PRN PRN Reason: Hypoglycemia Dextrose/Water (Dextrose 50% In Water) 50 ml IV ONETIME PRN PRN Reason: Hypoglycemia Diazepam (Valium.) 5 mg PO Q6H PRN PRN Reason: Spasms Diltiazem HCl (Cardizem Cd) 360 mg PO DAILY [facility] Last Admin: 10/26/16 08:07 Dose: 360 mg Diphenhydramine HCl (Benadryl) 25 mg IVPUSH Q4H PRN PRN Reason: Itching Docusate Sodium (Colace) 100 mg PO BID PRN PRN Reason: Constipation Hydrochlorothiazide (Hydrochlorothiazide) 25 mg PO DAILY [facility] Last Admin: 10/26/16 08:07 Dose: 25 mg Lactated Ringer's (Ringers, Lactated) 1,000 mls @ 0 mls/hr IV ASDIRECTED [facility] PRN Reason: KVO Last Admin: 10/25/16 08:56 Dose: 500 mls/hr Insulin Aspart (Novolog) 0 unit SUBCUT QIDACANDBED [facility] PRN Reason: Protocol Last Admin: 10/26/16 14:08 Dose: Not Given Ketorolac Tromethamine (Toradol) 30 mg IVPUSH Q8H PRN PRN Reason: Pain Stop: 10/30/16 12:36 Last Admin: 10/26/16 15:02 Dose: 30 mg Magnesium Hydroxide (Milk Of Magnesia) 30 ml PO BID PRN PRN Reason: Constipation Metoprolol Succinate (Toprol Xl) 25 mg PO DAILY [facility] Last Admin: 10/26/16 08:07 Dose: 25 mg Morphine Sulfate (Morphine) 2 mg IVPUSH Q2H PRN PRN Reason: Pain Naloxone HCl (Narcan) 0.1 mg IVPUSH ONETIME PRN PRN Reason: Oversedation Scopolamine Patch 1 each TOP DAILY [facility] Last Admin: 10/26/16 08:11 Dose: 1 each Ondansetron HCl (Zofran) 8 mg IVPUSH Q4H PRN PRN Reason: Nausea/Vomiting Oxycodone HCl (Oxycodone) 10 mg PO Q4H PRN PRN Reason: Pain Last Admin: 10/25/16 21:30 Dose: 10 mg Scopolamine (Transderm-Scop) 1.5 mg TOP Q72H [facility] Stop: 10/28/16 09:00 Last Admin: 10/25/16 08:26 Dose: 1.5 mg Senna (Senna) 8.6 mg PO BID PRN PRN Reason: Constipation Sodium Chloride (Saline Flush) 10 ml FLUSH DAILY [facility] Last Admin: 10/26/16 08:11 Dose: 10 ml Tramadol HCl (Ultram) 100 mg PO Q6H PRN PRN Reason: Pain Last Admin: 10/26/16 10:27 Dose: 100 mg Zolpidem Tartrate (Ambien) 5 mg PO BEDTIME PRN PRN Reason: Sleep Discontinued Medications Aspirin (Ecotrin) 325 mg PO DAILY [facility] Cefazolin Sodium (Ancef) Confirm Administered Dose 2 gm .ROUTE .STK-MED ONE Stop: 10/25/16 08:07 Last Admin: 10/25/16 09:56 Dose: Not Given Ropivacaine 49.25 ml/Ketorolac Tromethamine 30 mg/Epinephrine HCl 0.5 mg/ Clonidine HCl 80 mcg/ Sodium Chloride 48.45 ml 0 ml INJECT ONETIME ONE Stop: 10/25/16 09:31 Last Admin: 10/25/16 11:36 Dose: 100 ml Fentanyl (Sublimaze) Confirm Administered Dose 100 mcg .ROUTE .STK-MED ONE Stop: 10/25/16 07:42 Gabapentin (Neurontin) 300 mg PO ONETIME ONE Stop: 10/25/16 09:16 Last Admin: 10/25/16 08:26 Dose: 300 mg Gentamicin Sulfate (Gentamicin) Confirm Administered Dose 240 mg .ROUTE .STK- MED ONE Stop: 10/25/16 06:58 Last Admin: 10/25/16 11:14 Dose: 240 mg Cefazolin Sodium 2 gm/ Sodium (Chloride) 50 mls @ 100 mls/hr IV ONETIME ONE Stop: 10/25/16 09:44 Last Admin: 10/25/16 10:24 Dose: 100 mls/hr Tranexamic Acid 870 mg/ Sodium (Chloride) 58.7 mls @ 234.8 mls/hr IV Q3H [facility] Stop: 10/25/16 12:44 Last Admin: 10/25/16 13:02 Dose: 234.8 mls/hr Lactated Ringer's (Ringers, Lactated) 1,000 mls @ 500 mls/hr IV .BOLUS [facility] Stop: 10/25/16 09:50 Sodium Chloride (Normal Saline) Confirm Administered Dose 10 mls @ as directed .ROUTE .STK-MED ONE Stop: 10/25/16 10:52 Lactated Ringer's (Ringers, Lactated) Confirm Administered Dose 1,000 mls @ as directed .ROUTE .STK-MED ONE Stop: 10/25/16 11:06 Acetaminophen 1,000 mg/ Premix 100 mls @ 400 mls/hr IV NOW ONE Stop: 10/25/16 13:44 Last Admin: 10/25/16 14:00 Dose: 400 mls/hr Ketamine HCl (Ketalar) 34 mg IV ASDIRECTED [facility] Midazolam HCl (Versed 1 Mg/Ml) Confirm Administered Dose 2 mg .ROUTE .STK-MED ONE Stop: 10/25/16 07:42 Phenylephrine HCl (Juan-Synephrine) Confirm Administered Dose 10 mg .ROUTE .STK- MED ONE Stop: 10/25/16 10:52 Povidone Iodine (Betadine 10% Soln) Confirm Administered Dose 1 ml .ROUTE .STK- MED ONE Stop: 10/25/16 06:59 Last Admin: 10/25/16 11:14 Dose: 30 ml Propofol (Diprivan 20 Ml) Confirm Administered Dose 200 mg .ROUTE .STK-MED ONE Stop: 10/25/16 07:42 - Exam General: Alert, Oriented, Cooperative, Mild Distress Lungs: Clear to Auscultation, Normal Respiratory Effort Cardiovascular: Regular Rate, Regular Rhythm, No Murmurs GI/Abdominal Exam: Normal Bowel Sounds, Soft, Non-Tender, No Organomegaly, No Distention Consult PN Assessment/Plan Procedures: Procedures ASSAY OF CK (CPK) (04/29/15) ASSAY OF TROPONIN QUANT (04/29/15) BLOOD TYPING SEROLOGIC ABO (03/02/16) BLOOD TYPING SEROLOGIC RH(D) (03/02/16) CARDIOVASCULAR STRESS TEST (03/14/14) CARDIOVASCULAR STRESS TEST (03/14/14) CHEST X-RAY 2VW FRONTAL&LATL (02/11/16) COMPLETE CBC AUTOMATED (10/13/16) COMPLETE CBC W/AUTO DIFF WBC (03/02/16) COMPREHEN METABOLIC PANEL (10/13/16) CULTURE OTHR SPECIMN AEROBIC (10/13/16) ELECTROCARDIOGRAM REPORT (03/02/16) ELECTROCARDIOGRAM TRACING (10/13/16) EMERGENCY DEPT VISIT (04/03/16) EMERGENCY DEPT VISIT (04/29/15) EMERGENCY DEPT VISIT (03/13/14) EXTRACRANIAL BILAT STUDY (09/02/14) FLUOROSCOPE EXAM EXTENSIVE (03/02/16) GAIT TRAINING THERAPY (03/02/16) GLUCOSE BLOOD TEST (03/02/16) HT MUSCLE IMAGE SPECT MULT (03/14/14) INITIAL OBSERVATION CARE (03/02/16) INJECT SPINE LUMBAR/SACRAL (10/28/15) INSERT TEMP BLADDER CATH (04/03/16) MANUAL THERAPY 1/> REGIONS (03/02/16) MEASURE BLOOD OXYGEN LEVEL (03/02/16) METABOLIC PANEL TOTAL CA (03/02/16) MRI LUMBAR SPINE W/O DYE (12/04/15) OBSERVATION CARE DISCHARGE (03/02/16) OFFICE/OUTPATIENT VISIT NEW (12/24/15) OT EVAL LOW COMPLEX 30 MIN (03/02/16) POSTOP FOLLOW-UP VISIT (03/14/16) PROTHROMBIN TIME (03/02/16) PT EVAL LOW COMPLEX 20 MIN (03/02/16) RBC ANTIBODY SCREEN (03/02/16) REMOVE SPINE LAMINA 1 LMBR (03/02/16) REMOVE SPINE LAMINA >2 LMBR (03/02/16) ROUTINE VENIPUNCTURE (10/13/16) SELF CARE MNGMENT TRAINING (03/02/16) SUBSEQUENT OBSERVATION CARE (03/02/16) THER/PROPH/DIAG INJ IV PUSH (03/13/14) THERAPEUTIC ACTIVITIES (03/02/16) THERAPEUTIC EXERCISES (03/02/16) TTE W/DOPPLER COMPLETE (05/11/15) URINALYSIS AUTO W/O SCOPE (10/13/16) URINALYSIS AUTO W/SCOPE (03/02/16) US URINE CAPACITY MEASURE (03/02/16) X-RAY EXAM KNEE 4 OR MORE (10/13/16) X-RAY EXAM L-2 SPINE 4/>VWS (12/24/15) X-RAY EXAM NECK SPINE 2-3 VW (03/13/14) Problem List Initiated/Reviewed/Updated: Yes My Orders Last 24 Hours: My Active Orders 10/25/16 17:00 Insulin Aspart [NovoLOG] See Protocol SUBCUT QIDACANDBED 10/25/16 21:00 atorvaSTATin [Lipitor] 10 mg PO BEDTIME 10/26/16 09:00 Diltiazem [Cardizem CD] 360 mg PO DAILY Hydrochlorothiazide 25 mg PO DAILY Metoprolol Succinate [Toprol XL] 25 mg PO DAILY 10/26/16 21:00 GLUCOSE POC LAB TO COLLECT [POC] QIDACANDBED 10/27/16 07:30 GLUCOSE POC LAB TO COLLECT [POC] QIDACANDBED 10/27/16 11:30 GLUCOSE POC LAB TO COLLECT [POC] QIDACANDBED 10/27/16 16:30 GLUCOSE POC LAB TO COLLECT [POC] QIDACANDBED 10/27/16 21:00 GLUCOSE POC LAB TO COLLECT [POC] QIDACANDBED 10/28/16 07:30 GLUCOSE POC LAB TO COLLECT [POC] QIDACANDBED 10/28/16 11:30 GLUCOSE POC LAB TO COLLECT [POC] QIDACANDBED 10/28/16 16:30 GLUCOSE POC LAB TO COLLECT [POC] QIDACANDBED 10/28/16 21:00 GLUCOSE POC LAB TO COLLECT [POC] QIDACANDBED 10/29/16 07:30 GLUCOSE POC LAB TO COLLECT [POC] QIDACANDBED 10/29/16 11:30 GLUCOSE POC LAB TO COLLECT [POC] QIDACANDBED 10/29/16 16:30 GLUCOSE POC LAB TO COLLECT [POC] QIDACANDBED 10/29/16 21:00 GLUCOSE POC LAB TO COLLECT [POC] QIDACANDBED 10/30/16 07:30 GLUCOSE POC LAB TO COLLECT [POC] QIDACANDBED 10/30/16 11:30 GLUCOSE POC LAB TO COLLECT [POC] QIDACANDBED 10/30/16 16:30 GLUCOSE POC LAB TO COLLECT [POC] QIDACANDBED 10/30/16 21:00 GLUCOSE POC LAB TO COLLECT [POC] QIDACANDBED 10/31/16 07:30 GLUCOSE POC LAB TO COLLECT [POC] QIDACANDBED 10/31/16 11:30 GLUCOSE POC LAB TO COLLECT [POC] QIDACANDBED 10/31/16 16:30 GLUCOSE POC LAB TO COLLECT [POC] QIDACANDBED 10/31/16 21:00 GLUCOSE POC LAB TO COLLECT [POC] QIDACANDBED 11/01/16 07:30 GLUCOSE POC LAB TO COLLECT [POC] QIDACANDBED 11/01/16 11:30 GLUCOSE POC LAB TO COLLECT [POC] QIDACANDBED 11/01/16 16:30 GLUCOSE POC LAB TO COLLECT [POC] QIDACANDBED 11/01/16 21:00 GLUCOSE POC LAB TO COLLECT [POC] QIDACANDBED 11/02/16 07:30 GLUCOSE POC LAB TO COLLECT [POC] QIDACANDBED 11/02/16 11:30 GLUCOSE POC LAB TO COLLECT [POC] QIDACANDBED 11/02/16 16:30 GLUCOSE POC LAB TO COLLECT [POC] QIDACANDBED 11/02/16 21:00 GLUCOSE POC LAB TO COLLECT [POC] QIDACANDBED 11/03/16 07:30 GLUCOSE POC LAB TO COLLECT [POC] QIDACANDBED 11/03/16 11:30 GLUCOSE POC LAB TO COLLECT [POC] QIDACANDBED 11/03/16 16:30 GLUCOSE POC LAB TO COLLECT [POC] QIDACANDBED 11/03/16 21:00 GLUCOSE POC LAB TO COLLECT [POC] QIDACANDBED 11/04/16 07:30 GLUCOSE POC LAB TO COLLECT [POC] QIDACANDBED 11/04/16 11:30 GLUCOSE POC LAB TO COLLECT [POC] QIDACANDBED 11/04/16 16:30 GLUCOSE POC LAB TO COLLECT [POC] QIDACANDBED 11/04/16 21:00 GLUCOSE POC LAB TO COLLECT [POC] QIDACANDBED 11/05/16 07:30 GLUCOSE POC LAB TO COLLECT [POC] QIDACANDBED 11/05/16 11:30 GLUCOSE POC LAB TO COLLECT [POC] QIDACANDBED Plan: ASSESSMENT AND RECOMMENDATIONS STATUS POST RIGHT TOTAL KNEE ARTHROPLASTY-stable and doing well since surgery yesterday -Postoperative care per Dr. Mustafa HYPERTENSION -Continue outpatient medical regimen, adjust as needed during hospital stay TYPE 2 DIABETES MELLITUS -4 times a day glucometers -Low-dose sliding scale NovoLog
[2016-10-26] MEDS: atorvaSTATin 10 MG Tab PO SCH (20:40)
[2016-10-26] MEDS: oxyCODONE 5 MG Tab PO PRN (21:53)
[2016-10-27] MEDS: Ondansetron 4 MG Tab.DIS PO PRN ×2 (07:40→12:23)
[2016-10-27] MEDS: Insulin Aspart 100 Units/ML 3 ML Pen SUBCUT SCH ×2 (07:41→12:23)
[2016-10-27] MEDS: Metoprolol Succinate 25 MG Tab.ER PO SCH (08:12)
[2016-10-27] MEDS: Diltiazem 180 MG Cap.CD PO SCH (08:12)
[2016-10-27] MEDS: SCOPOLAMINE PATCH TOP SCH (08:12)
[2016-10-27] MEDS: Hydrochlorothiazide 25 MG Tab PO SCH (08:12)
[2016-10-27] MEDS: Aspirin 325 MG Tab.EC PO SCH (08:12)
[2016-10-27] MEDS: Sodium Chloride 0.9% 10 ML Syringe FLUSH SCH (08:12)
--- NOTE | 2016-10-27 09:12 | PCM.DCSUM1 ---
Discharge Summary - Hospital Course Free Text/Narrative:: Abhishek is a pleasant 86-year-old male is status postop 2 days of partial right knee replacement. He is doing very well. He is ambulatory without any difficulties. Pain is under control with oral pain medication. - Discharge Data Discharge Date: 10/27/16 Discharge Disposition: Home, Self-Care 01 Condition: Good - Patient Summary/Data Consults: Consultations 10/25/16 12:36 Consult to Physician [CONS] Routine Consulting Provider: Jackson Tao Call Completed to Consulting Physician: Yes OT Evaluation and Treatment [CONS] Routine Please Evaluate and Treat. OT Reason for Consult: Strengthening This query below is only for informational purposes and is not editable. PT Evaluation and Treatment [CONS] Routine Please Evaluate and Treat. PT Reason for Consult: Strengthening This query below is only for informational purposes and is not editable. - Patient Instructions Diet: Usual Diet as Tolerated Activity: Apply Ice, As Tolerated Driving: Do Not Drive Showering/Bathing: May Shower, No Tub Bathing/Swimming Wound/Incision Care: Keep Operative Site/Wound Site Clean and Dry, Change Dressing Daily Notify Provider of: Fever, Increased Pain, Swelling and Redness, Drainage - Discharge Plan Prescriptions/Med Rec: Acetaminophen/oxyCODONE [Percocet 325-5 MG] 1 each PO Q6HR #90 tab Aspirin [Ecotrin] 325 mg PO DAILY #30 tab.ec Home Medications: Home Meds Clobetasol [Temovate 0.05% Crm] 1 applic TOP ASDIRECTED PRN 03/13/14 [History] Hydrochlorothiazide 25 mg PO DAILY 03/13/14 [History] Niacin [Niaspan] 1,000 mg PO DAILY 03/13/14 [History] atorvaSTATin [Lipitor] 10 mg PO BEDTIME 03/13/14 [History] Diltiazem [Cardizem CD] 360 mg PO DAILY 04/29/15 [History] Metoprolol Succinate [Toprol XL] 25 mg PO DAILY 09/30/15 [History] Calcium Carbonate/Vitamin D3 [Calcium 500 + Vit D 400] 2 tab PO DAILY 02/25/16 [ History] Multivitamin [Multiple Vitamins] 1 tab PO DAILY 02/25/16 [History] Warfarin [Coumadin] 5 mg PO DAILY 02/25/16 [History] Magnesium Hydroxide [Milk of Magnesia] 30 ml PO DAILY PRN 10/25/16 [History] Acetaminophen/oxyCODONE [Percocet 325-5 MG] 1 each PO Q6HR #90 tab 10/27/16 [Rx] Aspirin [Ecotrin] 325 mg PO DAILY #30 tab.ec 10/27/16 [Rx] Patient Handouts: Preventing Constipation After Surgery Referrals: Oneida Ocampo, [employer] [Nurse Practitioner] - (3 week recheck) - Discharge Summary/Plan Comment DC Time >30 min.: Yes Discharge Summary/Plan Comment: Patient will be discharged today to home. He will follow up with physical therapy within a few days. I want him to continue to work on exercises at home. I will send him home on Percocet. I did educate him to increase his fluids to avoid any constipation. Patient will see back in 3 weeks. - Patient Data Vitals - Most Recent: Last Vital Signs Temp 35.6 C 10/27/16 07:00 Pulse 77 10/27/16 08:12 Resp 18 10/27/16 07:00 BP 121/72 10/27/16 08:12 Pulse Ox 93 L 10/27/16 07:00 Weight - Most Recent: 185 lb 0.014 oz I&O - Last 24 hours: Intake & Output 10/26/16 10/27/16 10/27/16 22:59 06:59 14:59 Intake Total 740 Output Total 200 300 Balance -200 440 Lab Results - Last 24 hrs: Laboratory Results - last 24 hr 10/27/16 10/27/16 Range/Units 04:20 04:20 WBC 10.7 (4.5-11.0) K/uL RBC 3.96 L (4.30-5.90) M/uL Hgb 13.0 (12.0-15.0) g/dL Hct 37.6 L (40.0-54.0) % MCV 95 (80-98) fL MCH 33 H (27-31) pg MCHC 35 (32-36) % Plt Count 279 (150-400) K/uL Neut % (Auto) 79 H (36-66) % Lymph % (Auto) 10 L (24-44) % Gem % (Auto) 10 H (2-6) % Eos % (Auto) 1 L (2-4) % Baso % (Auto) 0 (0-1) % Sodium 134 L (140-148) mmol/L Potassium 3.7 (3.6-5.2) mmol/L Chloride 97 L (100-108) mmol/L Carbon Dioxide 28 (21-32) mmol/L Anion Gap 12.7 (5.0-14.0) mmol/L BUN 15 (7-18) mg/dL Creatinine 0.9 (0.8-1.3) mg/dL Est Cr Clr Drug Dosing 58.27 mL/min Estimated GFR (MDRD) > 60 (>60) Glucose 155 H (74-106) mg/dL Calcium 8.5 (8.5-10.1) mg/dL Total Bilirubin 0.9 (0.2-1.0) mg/dL AST 24 (15-37) U/L ALT 22 (12-78) U/L Alkaline Phosphatase 128 H (46-116) U/L Total Protein 7.4 (6.4-8.2) g/dL Albumin 3.5 (3.4-5.0) g/dL Globulin 3.9 H (2.3-3.5) g/dL Albumin/Globulin Ratio 0.9 L (1.2-2.2) Med Orders - Current: Current Medications Al Hydroxide/Mg Hydroxide (Mag-Al Plus) 30 ml PO Q4H PRN PRN Reason: Constipation Aspirin (Ecotrin) 325 mg PO DAILY [facility] Last Admin: 10/27/16 08:12 Dose: 325 mg Atorvastatin Calcium (Lipitor) 10 mg PO BEDTIME [facility] Last Admin: 10/26/16 20:40 Dose: 10 mg Bisacodyl (Dulcolax) 10 mg PO DAILY PRN PRN Reason: Constipation Last Admin: 10/27/16 07:32 Dose: 10 mg Dextrose (Glutose 15) 15 gm PO ONETIME PRN PRN Reason: Hypoglycemia Dextrose/Water (Dextrose 50% In Water) 50 ml IV ONETIME PRN PRN Reason: Hypoglycemia Diazepam (Valium.) 5 mg PO Q6H PRN PRN Reason: Spasms Diltiazem HCl (Cardizem Cd) 360 mg PO DAILY [facility] Last Admin: 10/27/16 08:12 Dose: 360 mg Diphenhydramine HCl (Benadryl) 25 mg IVPUSH Q4H PRN PRN Reason: Itching Docusate Sodium (Colace) 100 mg PO BID PRN PRN Reason: Constipation Last Admin: 10/26/16 21:54 Dose: 100 mg Hydrochlorothiazide (Hydrochlorothiazide) 25 mg PO DAILY [facility] Last Admin: 10/27/16 08:12 Dose: 25 mg Lactated Ringer's (Ringers, Lactated) 1,000 mls @ 0 mls/hr IV ASDIRECTED [facility] PRN Reason: KVO Last Admin: 10/25/16 08:56 Dose: 500 mls/hr Insulin Aspart (Novolog) 0 unit SUBCUT QIDACANDBED [facility] PRN Reason: Protocol Last Admin: 10/27/16 07:41 Dose: Not Given Ketorolac Tromethamine (Toradol) 30 mg IVPUSH Q8H PRN PRN Reason: Pain Stop: 10/30/16 12:36 Last Admin: 10/26/16 15:02 Dose: 30 mg Magnesium Hydroxide (Milk Of Magnesia) 30 ml PO BID PRN PRN Reason: Constipation Metoprolol Succinate (Toprol Xl) 25 mg PO DAILY [facility] Last Admin: 10/27/16 08:12 Dose: 25 mg Morphine Sulfate (Morphine) 2 mg IVPUSH Q2H PRN PRN Reason: Pain Naloxone HCl (Narcan) 0.1 mg IVPUSH ONETIME PRN PRN Reason: Oversedation Scopolamine Patch 1 each TOP DAILY [facility] Last Admin: 10/27/16 08:12 Dose: 1 each Ondansetron HCl (Zofran) 8 mg IVPUSH Q4H PRN PRN Reason: Nausea/Vomiting Last Admin: 10/27/16 01:55 Dose: 8 mg Ondansetron HCl (Zofran Odt) 4 mg PO Q4H PRN PRN Reason: Nausea/Vomiting Last Admin: 10/27/16 07:40 Dose: 4 mg Oxycodone HCl (Oxycodone) 10 mg PO Q4H PRN PRN Reason: Pain Last Admin: 10/26/16 21:53 Dose: 10 mg Scopolamine (Transderm-Scop) 1.5 mg TOP Q72H [facility] Stop: 10/28/16 09:00 Last Admin: 10/25/16 08:26 Dose: 1.5 mg Senna (Senna) 8.6 mg PO BID PRN PRN Reason: Constipation Sodium Chloride (Saline Flush) 10 ml FLUSH DAILY [facility] Last Admin: 10/27/16 08:12 Dose: 10 ml Tramadol HCl (Ultram) 100 mg PO Q6H PRN PRN Reason: Pain Last Admin: 10/26/16 10:27 Dose: 100 mg Zolpidem Tartrate (Ambien) 5 mg PO BEDTIME PRN PRN Reason: Sleep Discontinued Medications Aspirin (Ecotrin) 325 mg PO DAILY [facility] Cefazolin Sodium (Ancef) Confirm Administered Dose 2 gm .ROUTE .STK-MED ONE Stop: 10/25/16 08:07 Last Admin: 10/25/16 09:56 Dose: Not Given Ropivacaine 49.25 ml/Ketorolac Tromethamine 30 mg/Epinephrine HCl 0.5 mg/ Clonidine HCl 80 mcg/ Sodium Chloride 48.45 ml 0 ml INJECT ONETIME ONE Stop: 10/25/16 09:31 Last Admin: 10/25/16 11:36 Dose: 100 ml Fentanyl (Sublimaze) Confirm Administered Dose 100 mcg .ROUTE .STK-MED ONE Stop: 10/25/16 07:42 Gabapentin (Neurontin) 300 mg PO ONETIME ONE Stop: 10/25/16 09:16 Last Admin: 10/25/16 08:26 Dose: 300 mg Gentamicin Sulfate (Gentamicin) Confirm Administered Dose 240 mg .ROUTE .STK- MED ONE Stop: 10/25/16 06:58 Last Admin: 10/25/16 11:14 Dose: 240 mg Cefazolin Sodium 2 gm/ Sodium (Chloride) 50 mls @ 100 mls/hr IV ONETIME ONE Stop: 10/25/16 09:44 Last Admin: 10/25/16 10:24 Dose: 100 mls/hr Tranexamic Acid 870 mg/ Sodium (Chloride) 58.7 mls @ 234.8 mls/hr IV Q3H [facility] Stop: 10/25/16 12:44 Last Admin: 10/25/16 13:02 Dose: 234.8 mls/hr Lactated Ringer's (Ringers, Lactated) 1,000 mls @ 500 mls/hr IV .BOLUS [facility] Stop: 10/25/16 09:50 Sodium Chloride (Normal Saline) Confirm Administered Dose 10 mls @ as directed .ROUTE .STK-MED ONE Stop: 10/25/16 10:52 Lactated Ringer's (Ringers, Lactated) Confirm Administered Dose 1,000 mls @ as directed .ROUTE .STK-MED ONE Stop: 10/25/16 11:06 Acetaminophen 1,000 mg/ Premix 100 mls @ 400 mls/hr IV NOW ONE Stop: 10/25/16 13:44 Last Admin: 10/25/16 14:00 Dose: 400 mls/hr Ketamine HCl (Ketalar) 34 mg IV ASDIRECTED [facility] Midazolam HCl (Versed 1 Mg/Ml) Confirm Administered Dose 2 mg .ROUTE .STK-MED ONE Stop: 10/25/16 07:42 Phenylephrine HCl (Juan-Synephrine) Confirm Administered Dose 10 mg .ROUTE .STK- MED ONE Stop: 10/25/16 10:52 Povidone Iodine (Betadine 10% Soln) Confirm Administered Dose 1 ml .ROUTE .STK- MED ONE Stop: 10/25/16 06:59 Last Admin: 10/25/16 11:14 Dose: 30 ml Propofol (Diprivan 20 Ml) Confirm Administered Dose 200 mg .ROUTE .STK-MED ONE Stop: 10/25/16 07:42 - Exam General: Reports: Alert, Oriented Extremities: Normal Inspection, Normal Range of Motion, Non-Tender, No Pedal Edema, Normal Capillary Refill Skin: Reports: Warm, Dry, Intact Wound/Incisions: Reports: Healing Well, Dressing Dry and Intact Neurological: Reports: No New Focal Deficit Psy/Mental Status: Reports: Alert *Q Meaningful Use (DIS) - VTE *Q VTE Criteria *Q: - Stroke *Q Stroke Criteria *Q: - AMI *Q AMI Criteria *Q:
[2016-10-27 10:57] VITALS: BP 127/86
== END 2016-10-27 15:00 | disposition home or self-care (01) | DRG 470 ==
LOC: JP.SDS 07:56 → JP.MS 07:56 → EDSTATUS 09:30 → JP.MS 12:36
PROVIDERS: ADMIT Orthopaedic Surgery; ATTEND Orthopaedic Surgery
PROC: 0SRC0L9 Replacement of Right Knee Joint with Medial Unicondylar Synthetic Substitute, Cemented, Open Approach (ICD-10-PCS; principal; 2016-10-25)
DX: M17.11 Unilateral primary osteoarthritis, right knee (principal); I10 Essential (primary) hypertension; E78.00 Pure hypercholesterolemia, unspecified; E11.9 Type 2 diabetes mellitus without complications; K59.09 Other constipation; Z87.891 Personal history of nicotine dependence; K44.9 Diaphragmatic hernia without obstruction or gangrene; Z85.828 Personal history of other malignant neoplasm of skin; Z88.7 Allergy status to serum and vaccine; Z88.8 Allergy status to other drugs, medicaments and biological substances; Z79.82 Long term (current) use of aspirin; Z79.01 Long term (current) use of anticoagulants
CPT/HCPCS: 36415; 73560-26-RT; 73560-RT; 80053; 82962; 85025; 85610; 86850; 86900; 86901; 94762; 97110-GP; 97116-GP; 97161-GP; 97165-GO; 97530-GP; A9270-GY; C1713; C1776; J0131; J0171; J0690; J0735; J1580; J1885; J2250; J2370; J2405; J2704; J2795; J3010; J7050; J7120

== ENCOUNTER 2017-04-15 15:59 | Emergency (ER) | payer MEDICARE, BC ==
[2017-04-15 17:34] VITALS: BP 137/78
--- NOTE | 2017-04-15 17:43 | EDM.PDOC ---
ED HPI GENERAL MEDICAL PROBLEM - General Chief Complaint: General Stated Complaint: HAND NUMBNESS Time Seen by Provider: 04/15/17 17:33 Source of Information: Reports: Patient, Family, RN Notes Reviewed History Limitations: Reports: No Limitations - History of Present Illness INITIAL COMMENTS - FREE TEXT/NARRATIVE: 87-year-old gentleman presents to the emergency department today with complaint of bilateral shoulder pain he states he's had this a couple of times once about a week ago and then early today sharp stabbing pain down both arms equally lasted about 15 minutes and then resolved. Denies any shortness of breath chest pain nausea or vomiting, feels back to his normal self at this time, does have a history of severe arthritis - Related Data Allergies Allergy/AdvReac Type Severity Reaction Status Date / Time lisinopril Allergy Severe Anaphylactic Verified 04/15/17 17:20 Shock tetanus toxoid, adsorbed Allergy Cannot Verified 04/15/17 17:20 Remember Home Meds: Home Meds Clobetasol [Temovate 0.05% Crm] 1 applic TOP ASDIRECTED PRN 03/13/14 [History] Hydrochlorothiazide 25 mg PO DAILY 03/13/14 [History] Niacin [Niaspan] 1,000 mg PO DAILY 03/13/14 [History] atorvaSTATin [Lipitor] 10 mg PO BEDTIME 03/13/14 [History] Diltiazem [Cardizem CD] 360 mg PO DAILY 04/29/15 [History] Metoprolol Succinate [Toprol XL] 25 mg PO DAILY 09/30/15 [History] Calcium Carbonate/Vitamin D3 [Calcium 500 + Vit D 400] 2 tab PO DAILY 02/25/16 [ History] Multivitamin [Multiple Vitamins] 1 tab PO DAILY 02/25/16 [History] Warfarin [Coumadin] 5 mg PO DAILY 02/25/16 [History] Magnesium Hydroxide [Milk of Magnesia] 30 ml PO DAILY PRN 10/25/16 [History] Acetaminophen/oxyCODONE [Percocet 325-5 MG] 1 each PO Q6HR #90 tab 10/27/16 [Rx] Aspirin [Ecotrin] 325 mg PO DAILY #30 tab.ec 10/27/16 [Rx] methylPREDNISolone [Medrol] 4 mg PO ASDIRECTED #1 dosepk 03/13/17 [Rx] Past Medical History HEENT History: Reports: Allergic Rhinitis, Cataract, Impaired Vision, Sinusitis Cardiovascular History: Reports: Arrhythmia, Heart Murmur, High Cholesterol, Hypertension Respiratory History: Reports: Other (See Below) Other Respiratory History: silicosis Gastrointestinal History: Reports: Chronic Constipation, Colon Polyp, Hiatal Hernia Genitourinary History: Reports: Prostate Disorder Musculoskeletal History: Reports: Other (See Below) Other Musculoskeletal History: right knee pain Endocrine/Metabolic History: Reports: Diabetes, Type II, Obesity/BMI 30+, Other (See Below) Other Endocrine/Metabolic History: borderline type II - checks blood sugar just a few times a year Hematologic History: Reports: Other (See Below) Other Hematologic History: coumadin Oncologic (Cancer) History: Reports: Other (See Below) Other Oncologic History: skin Dermatologic History: Reports: Psoriasis, Other (See Below) Other Dermatologic History: keratosis - Infectious Disease History Infectious Disease History: Reports: Mumps - Past Surgical History Other Musculoskeletal Surgeries/Procedures:: left knee x 4 Oncologic Surgical History: Reports: Other (See Below) Social & Family History - Family History Family Medical History: Noncontributory - Tobacco Use Smoking Status *Q: Never Smoker Used Tobacco, but Quit: Yes Month Tobacco Last Used: 100 Second Hand Smoke Exposure: No - Caffeine Use Caffeine Use: Reports: Coffee - Alcohol Use Days Per Week of Alcohol Use: 7 Number of Drinks Per Day: 2 Total Drinks Per Week: 14 - Recreational Drug Use Recreational Drug Use: No ED ROS GENERAL - Review of Systems Review Of Systems: See Below Constitutional: Reports: No Symptoms HEENT: Reports: No Symptoms Respiratory: Reports: No Symptoms Cardiovascular: Reports: No Symptoms GI/Abdominal: Reports: No Symptoms : Reports: No Symptoms Musculoskeletal: Reports: Arm Pain (Bilateral) Skin: Reports: No Symptoms Neurological: Reports: Numbness, Tingling ED EXAM, GENERAL - Physical Exam Exam: See Below Free Text/Narrative:: General: Male, not in any distress, alert and oriented x3 HEENT: head is atraumatic normocephalic, eyes pupils equal round reactive to light, sclera clear no conjunctivitis appreciated. Ears tympanic membranes clear and engel landmarks and light reflex are present bilaterally canals are clear. Nose no septal deviation, nares are clear, no blood present. Mouth mucosa is moist and pink no erythema or exudate noted in soft palate, tongue is midline uvula is midline, dentition is intact. Neck: Supple no thyromegaly no tracheal deviation. No tenderness to palpation Nodes: Cervical nodes subclavicular nodes nontender no palpable lymphadenopathy noted. Lungs: clear to auscultation bilaterally with symmetrical respirations, no adventitious noise appreciated. CV: Regular rate and rhythm S1 and S2 appreciated 2/6 systolic ejection murmur best appreciated left sternal border, no rubs no gallops noted. Abdomen: Soft, nontender, no palpable masses or organomegaly appreciated, no distention no guarding bowel sounds are present, . Neuro: Cranial nerves II through XII grossly intact, power is 5 x 5 in upper and lower extremities no dysdiadochokinesis noted Skin: Warm and dry, intact Extremities: No lower extremity edema appreciated, Course - Vital Signs Last Recorded V/S: Last Vital Signs Temp 97.9 F 04/15/17 17:27 Pulse 92 04/15/17 17:27 Resp 12 04/15/17 17:27 BP 137/78 04/15/17 17:27 Pulse Ox 95 04/15/17 17:27 - Orders/Labs/Meds Orders: Active Orders 24 hr Category Date Time Status Cardiac Monitoring [RC] .As Directed Care 04/15/17 17:40 Active Labs: Laboratory Tests 04/15/17 04/15/17 04/15/17 Range/Units 17:54 17:54 17:54 WBC 9.0 (4.5-11.0) K/uL RBC 4.29 L (4.30-5.90) M/uL Hgb 14.1 (12.0-15.0) g/dL Hct 40.5 (40.0-54.0) % MCV 94 (80-98) fL MCH 33 H (27-31) pg MCHC 35 (32-36) % Plt Count 288 (150-400) K/uL Neut % (Auto) 65 (36-66) % Lymph % (Auto) 21 L (24-44) % Mckenzie % (Auto) 13 H (2-6) % Eos % (Auto) 1 L (2-4) % Baso % (Auto) 0 (0-1) % PT 20.3 H (9.5-12.0) sec INR 1.85 H (0.80-1.20) Sodium 140 (140-148) mmol/L Potassium 4.1 (3.6-5.2) mmol/L Chloride 103 (100-108) mmol/L Carbon Dioxide 27 (21-32) mmol/L Anion Gap 9.7 (5.0-14.0) mmol/L BUN 16 (7-18) mg/dL Creatinine 1.1 (0.8-1.3) mg/dL Est Cr Clr Drug Dosing 46.64 mL/min Estimated GFR (MDRD) > 60 (>60) Glucose 128 H (74-106) mg/dL Calcium 8.9 (8.5-10.1) mg/dL Total Bilirubin 0.5 (0.2-1.0) mg/dL AST 26 (15-37) U/L ALT 26 (12-78) U/L Alkaline Phosphatase 138 H (46-116) U/L CK-MB (CK-2) 2.0 (0-3.6) mg/mL Troponin I < 0.017 (0.000-0.056) ng/mL Total Protein 7.0 (6.4-8.2) g/dL Albumin 3.8 (3.4-5.0) g/dL Globulin 3.2 (2.3-3.5) g/dL Albumin/Globulin Ratio 1.2 (1.2-2.2) Departure - Departure Time of Disposition: 18:42 Disposition: Home, Self-Care 01 Condition: Fair Clinical Impression: Arm pain Qualifiers: Laterality: bilateral Qualified Code(s): M79.601 - Pain in right arm; M79.602 - Pain in left arm; M79.602 - Pain in left arm - Discharge Information Referrals: Yogesh Monsivais MD [Primary Care Provider] - Forms: ED Department Discharge Additional Instructions: Continue with your regular medications, Please followup with your primary care provider in 3-5 days if not better, please call return to the emergency department with worsening of symptoms. - My Orders Last 24 Hours: My Active Orders 04/15/17 17:40 Cardiac Monitoring [RC] .As Directed - Assessment/Plan Last 24 Hours: My Active Orders 04/15/17 17:40 Cardiac Monitoring [RC] .As Directed Plan: Assessment Acuity = acute Site and laterality = bilateral arm pain now resolved Etiology = unclear etiology Manifestations = none Location of injury = Home Lab values = CBC, CMP unremarkable INR subtherapeutic at 1.86 Plan I did review lab work with him he remained pain-free while in the emergency department he is going to follow-up with his primary care in the next 3-5 days for reevaluation This note was dictated using [employer] voice recognition software please call with any questions on syntax or padmini.
== END 2017-04-15 18:42 | disposition home or self-care (01) ==
LOC: JP.ED 15:59
DX: M79.601 Pain in right arm (principal); M79.602 Pain in left arm; I10 Essential (primary) hypertension; E78.00 Pure hypercholesterolemia, unspecified; E11.9 Type 2 diabetes mellitus without complications; Z87.891 Personal history of nicotine dependence; Z79.82 Long term (current) use of aspirin; Z79.01 Long term (current) use of anticoagulants; Z79.899 Other long term (current) drug therapy; Z88.7 Allergy status to serum and vaccine; Z88.8 Allergy status to other drugs, medicaments and biological substances
CPT/HCPCS: 36415; 80053; 82553; 84484; 85025; 85610; 99282; 99284

== ENCOUNTER 2019-11-01 20:15 | Observation (INO) | payer MEDICARE, BC ==
--- NOTE | 2019-11-01 21:04 | EDM.PDOC ---
ED HPI GENERAL MEDICAL PROBLEM - General Chief Complaint: Neuro Symptoms/Deficits Stated Complaint: SPEACH PROBLEMS Time Seen by Provider: 11/01/19 20:42 Source of Information: Reports: Patient, Family, RN Notes Reviewed History Limitations: Reports: No Limitations - History of Present Illness INITIAL COMMENTS - FREE TEXT/NARRATIVE: 89-year-old gentleman presents emergency department today with complaint of difficulty with speech. He has a known history of diet-controlled diabetes mellitus type 2 as well as atrial fibrillation on chronic anticoagulation therapy. He recently has come off his anticoagulation but is bridged with Lovenox for a surgical procedure. He states his had 3 events with difficulty speaking the first 1 happened approximately 630 this evening 10 minutes where he describes garbled gibberish speech, next about an hour later he had a second event this time he could identify some of the words lasted less than 10 minutes and then another event about 1/2-hour later short duration this time he describes more slurring of words. No headache no nausea vomiting no shortness of breath or chest pain, describes no neurologic weakness - Related Data Allergies Allergy/AdvReac Type Severity Reaction Status Date / Time lisinopril Allergy Severe Anaphylactic Verified 11/01/19 20:26 Shock tetanus toxoid, adsorbed Allergy Cannot Verified 11/01/19 20:26 Remember Home Meds: Home Meds Clobetasol [Temovate 0.05% Oint] 1 applic TOP ASDIRECTED PRN 03/13/14 [History] Niacin [Niaspan] 1,000 mg PO DAILY 03/13/14 [History] atorvaSTATin [Lipitor] 10 mg PO BEDTIME 03/13/14 [History] Diltiazem [Cardizem CD] 360 mg PO DAILY 04/29/15 [History] Metoprolol Succinate [Toprol XL] 100 mg PO DAILY 09/30/15 [History] Calcium Carbonate/Vitamin D3 [Calcium 500 + Vit D 400] 2 tab PO DAILY 02/25/16 [History] Multivitamin [Multiple Vitamins] 1 tab PO DAILY 02/25/16 [History] Warfarin [Coumadin] 7.5 mg PO .WED 02/25/16 [History] Albuterol/Ipratropium [DuoNeb 3.0-0.5 MG/3 ML] 3 ml INH Q4H PRN 09/10/19 [History] Ferrous Sulfate 325 mg PO DAILY 09/10/19 [History] Furosemide [Lasix] 40 mg PO DAILY 09/10/19 [History] Ibuprofen 400 mg PO ASDIRECTED 09/10/19 [History] Losartan Potassium 25 mg PO DAILY 09/10/19 [History] Warfarin [Coumadin] 5 mg PO .ALLMINUSWED 09/10/19 [History] rOPINIRole [Requip] 0.25 mg PO BEDTIME 09/10/19 [History] cephALEXin [Keflex] 500 mg PO ASDIRECTED PRN 09/25/19 [History] Clobetasol [Clobetasol 0.05%] 1 gm TOP BID 11/01/19 [History] Enoxaparin Sodium [Lovenox] 120 mg SQ DAILY 11/01/19 [History] Halobetasol Propionate [Ultravate] 60 ml TP BID 11/01/19 [History] Past Medical History HEENT History: Reports: Allergic Rhinitis, Cataract, Impaired Vision, Sinusitis Cardiovascular History: Reports: Afib, Arrhythmia, Heart Murmur, High Cholesterol, Hypertension Respiratory History: Reports: Other (See Below) Other Respiratory History: silicosis Gastrointestinal History: Reports: Chronic Constipation, Colon Polyp, Hiatal Hernia Genitourinary History: Reports: Prostate Disorder Musculoskeletal History: Reports: Fracture, Other (See Below) Other Musculoskeletal History: right knee pain Endocrine/Metabolic History: Reports: Diabetes, Type II, Obesity/BMI 30+, Other (See Below) Other Endocrine/Metabolic History: borderline type II - checks blood sugar just a few times a year Hematologic History: Reports: Anticoagulation Therapy, Other (See Below) Other Hematologic History: coumadin Immunologic History: Reports: None Oncologic (Cancer) History: Reports: Prostate, Squamous Cell Carcinoma, Other (See Below) Other Oncologic History: skin Dermatologic History: Reports: Psoriasis, Other (See Below) Other Dermatologic History: keratosis - Infectious Disease History Infectious Disease History: Reports: Chicken Pox, Measles, Mumps - Past Surgical History HEENT Surgical History: Reports: Cataract Surgery Cardiovascular Surgical History: Reports: None Respiratory Surgical History: Reports: Thoracentesis Other Respiratory Surgeries/Procedures: recent thoracentesis GI Surgical History: Reports: Colonoscopy Male Surgical History: Reports: None Endocrine Surgical History: Reports: None Neurological Surgical History: Reports: None Musculoskeletal Surgical History: Reports: Joint Replacement Other Musculoskeletal Surgeries/Procedures:: left knee x 4. right partial knee Dermatological Surgical History: Reports: Skin Biopsy Social & Family History - Family History Family Medical History: Noncontributory - Tobacco Use Smoking Status *Q: Former Smoker Used Tobacco, but Quit: Yes Month/Year Tobacco Last Used: 1969 - Caffeine Use Caffeine Use: Reports: Coffee Caffeine Use Comment: 0-3 cups per day - Alcohol Use Days Per Week of Alcohol Use: 7 Number of Drinks Per Day: 1 Total Drinks Per Week: 7 - Recreational Drug Use Recreational Drug Use: No ED ROS GENERAL - Review of Systems Review Of Systems: See Below Constitutional: Reports: No Symptoms HEENT: Reports: No Symptoms Respiratory: Reports: No Symptoms Cardiovascular: Reports: No Symptoms GI/Abdominal: Reports: No Symptoms : Reports: No Symptoms Musculoskeletal: Reports: No Symptoms Skin: Reports: No Symptoms Neurological: Reports: Trouble Speaking, Other (Also describes a change in vision with the symptoms) ED EXAM, NEURO - Physical Exam Exam: See Below Text/Narrative:: General: Elderly male, not in any distress, alert and oriented x3 HEENT: head is atraumatic normocephalic, eyes pupils equal round reactive to light, sclera clear no conjunctivitis appreciated, extraocular eye movements are intact. Ears tympanic membranes clear and engel landmarks and light reflex are present bilaterally canals are clear. Nose no septal deviation, nares are clear, no blood present. Mouth mucosa is moist and pink no erythema or exudate noted in soft palate, tongue is midline uvula is midline, dentures in place. Neck: Supple no thyromegaly no tracheal deviation. Nodes: Cervical nodes subclavicular nodes nontender no palpable lymphadenopathy noted. Lungs: clear to auscultation bilaterally with symmetrical respirations, no adventitious noise appreciated. CV: IIR S1 and S2 appreciated 3/6 ROCIO at LSB, no rubs or gallops noted. Abdomen: Soft, nontender, no palpable masses or organomegaly appreciated, no distention no guarding bowel sounds are present, [scars ]. Neuro: Cranial nerves II test with pupillary light reflex 3 mm to 2 mm bilaterally, CN III test pupillary constriction, lid elevation and eye abduction bilaterally, however the right lid is slightly depressed with ptosis as baseline, CN IV downward movement of eyes bilaterally, CN V good jaw movement, CN lateral deviation of the eyes bilaterally to finger movement, CN VII symmetrical smile shows teeth without difficulty, CN VIII pass finger rub to ears bilaterally, CN IX adequate voice and tone, CN X adequate voice and tone no difficulty swallowing, CN XI can shrug shoulders without difficulty, CN XII can stick tongue out without difficulty, cranial nerves II to XII intact as tested, power is 5 x 5 upper lower extremities, no speech pattern deficits appreciated Skin: Warm and dry, intact Extremities: No lower extremity edema appreciated, Course - Vital Signs Last Recorded V/S: Last Vital Signs Temp 97.3 F 11/01/19 20:32 Pulse 73 11/01/19 23:25 Resp 12 11/01/19 23:25 BP 135/78 11/01/19 23:25 Pulse Ox 97 11/01/19 23:25 - Orders/Labs/Meds Orders: Active Orders 24 hr Category Date Time Status EKG Documentation Completion [RC] ASDIRECTED Care 11/01/19 20:57 Active UA W/MICROSCOPIC [URIN] Urgent Lab 11/01/19 20:58 Ordered Iopamidol [Isovue-370 (76%)] Med 11/01/19 22:45 Active 100 ml IV . DIRECTED Sodium Chloride 0.9% [Normal Saline] 1,000 ml Med 11/01/19 22:30 Active IV ASDIRECTED Sodium Chloride 0.9% [Normal Saline] 100 ml Med 11/01/19 22:45 Active IV ASDIRECTED EKG 12 Lead [EK] Stat Ther 11/01/19 20:57 Ordered Medication Orders Sodium Chloride (Normal Saline) 1,000 mls @ 500 mls/hr IV ASDIRECTED [facility] Last Admin: 11/01/19 22:23 Dose: 500 mls/hr Documented by: YVETTE Sodium Chloride (Normal Saline) 100 mls @ 3 mls/sec IV ASDIRECTED REBECA Last Admin: 11/01/19 23:04 Dose: 3 mls/sec Documented by: SIVA Iopamidol (Isovue-370 (76%)) 100 ml IV . DIRECTED [facility] Last Admin: 11/01/19 23:04 Dose: 100 ml Documented by: SIVA Labs: Laboratory Tests 11/01/19 11/01/19 11/01/19 Range/Units 21:15 21:15 21:15 WBC 5.5 (4.5-11.0) K/uL RBC 3.87 L (4.30-5.90) M/uL Hgb 11.6 L D (12.0-15.0) g/dL Hct 34.9 L (40.0-54.0) % MCV 90 (80-98) fL MCH 30 (27-31) pg MCHC 33 (32-36) % Plt Count 267 (150-400) K/uL Neut % (Auto) 48 (36-66) % Lymph % (Auto) 30 (24-44) % Bibb % (Auto) 18 H (2-6) % Eos % (Auto) 3 (2-4) % Baso % (Auto) 1 (0-1) % PT 11.9 (9.5-12.0) sec INR 1.09 (0.80-1.20) Sodium 135 L (140-148) mmol/L Potassium 4.3 (3.6-5.2) mmol/L Chloride 100 (100-108) mmol/L Carbon Dioxide 28 (21-32) mmol/L Anion Gap 11.3 (5.0-14.0) mmol/L BUN 26 H D (7-18) mg/dL Creatinine 1.1 (0.8-1.3) mg/dL Est Cr Clr Drug Dosing 44.91 mL/min Estimated GFR (MDRD) > 60 (>60) Glucose 110 H (74-106) mg/dL Calcium 8.8 (8.5-10.1) mg/dL Total Bilirubin 0.6 (0.2-1.0) mg/dL AST 36 (15-37) U/L ALT 34 (12-78) U/L Alkaline Phosphatase 366 H D (46-116) U/L Troponin I (0.000-0.056) ng/mL Total Protein 6.7 (6.4-8.2) g/dL Albumin 3.0 L (3.4-5.0) g/dL Globulin 3.7 H (2.3-3.5) g/dL Albumin/Globulin Ratio 0.8 L (1.2-2.2) 10/31/ Range/Units 21:15 WBC (4.5-11.0) K/uL RBC (4.30-5.90) M/uL Hgb (12.0-15.0) g/dL Hct (40.0-54.0) % MCV (80-98) fL MCH (27-31) pg MCHC (32-36) % Plt Count (150-400) K/uL Neut % (Auto) (36-66) % Lymph % (Auto) (24-44) % Bibb % (Auto) (2-6) % Eos % (Auto) (2-4) % Baso % (Auto) (0-1) % PT (9.5-12.0) sec INR (0.80-1.20) Sodium (140-148) mmol/L Potassium (3.6-5.2) mmol/L Chloride (100-108) mmol/L Carbon Dioxide (21-32) mmol/L Anion Gap (5.0-14.0) mmol/L BUN (7-18) mg/dL Creatinine (0.8-1.3) mg/dL Est Cr Clr Drug Dosing mL/min Estimated GFR (MDRD) (>60) Glucose (74-106) mg/dL Calcium (8.5-10.1) mg/dL Total Bilirubin (0.2-1.0) mg/dL AST (15-37) U/L ALT (12-78) U/L Alkaline Phosphatase (46-116) U/L Troponin I < 0.017 (0.000-0.056) ng/mL Total Protein (6.4-8.2) g/dL Albumin (3.4-5.0) g/dL Globulin (2.3-3.5) g/dL Albumin/Globulin Ratio (1.2-2.2) Meds: Medications Generic Name Dose Route Start Last Admin Trade Name Freq PRN Reason Stop Dose Admin Sodium Chloride 1,000 mls @ 500 mls/hr 11/01/19 22:30 11/01/19 22:23 Normal Saline IV 500 mls/hr ASDIRECTED REBECA Administration Sodium Chloride 100 mls @ 3 mls/sec 11/01/19 22:45 11/01/19 23:04 Normal Saline IV 3 mls/sec ASDIRECTED REBECA Administration Iopamidol 100 ml 11/01/19 22:45 11/01/19 23:04 Isovue-370 (76%) IV 100 ml . DIRECTED REBECA Administration Discontinued Medications Generic Name Dose Route Start Last Admin Trade Name Freq PRN Reason Stop Dose Admin Sodium Chloride 10 ml 11/01/19 22:39 11/01/19 23:04 Saline Flush FLUSH 11/01/19 22:40 10 ml ONETIME ONE Administration Departure - Departure Time of Disposition: 00:06 Disposition: Admitted As Inpatient 67 Condition: Fair Clinical Impression: Expressive aphasia - Discharge Information Referrals: Yogesh Monsivais MD [Primary Care Provider] - Forms: ED Department Discharge Sepsis Event Note (ED) - Evaluation Sepsis Screening Result: No Definite Risk - Focused Exam Vital Signs: Vital Signs Temp Pulse Resp BP Pulse Ox 11/01/19 23:25 73 12 135/78 97 11/01/19 22:25 71 128/66 11/01/19 21:55 62 13 121/62 95 11/01/19 21:25 67 15 117/66 95 11/01/19 20:32 97.3 F 66 18 134/70 97 - My Orders Last 24 Hours: My Active Orders 11/01/19 20:57 EKG Documentation Completion [RC] ASDIRECTED EKG 12 Lead [EK] Stat 11/01/19 20:58 UA W/MICROSCOPIC [URIN] Urgent 11/01/19 22:30 Sodium Chloride 0.9% [Normal Saline] 1,000 ml IV ASDIRECTED 11/01/19 22:45 Iopamidol [Isovue-370 (76%)] 100 ml IV . DIRECTED Sodium Chloride 0.9% [Normal Saline] 100 ml IV ASDIRECTED - Assessment/Plan Last 24 Hours: My Active Orders 11/01/19 20:57 EKG Documentation Completion [RC] ASDIRECTED EKG 12 Lead [EK] Stat 11/01/19 20:58 UA W/MICROSCOPIC [URIN] Urgent 11/01/19 22:30 Sodium Chloride 0.9% [Normal Saline] 1,000 ml IV ASDIRECTED 11/01/19 22:45 Iopamidol [Isovue-370 (76%)] 100 ml IV . DIRECTED Sodium Chloride 0.9% [Normal Saline] 100 ml IV ASDIRECTED Plan: Assessment Acuity = acute Site and laterality = expressive aphasia now resolved Etiology = unknown concern for underlying cerebrovascular accident Manifestations = none Location of injury = Home Lab values = CBC, CMP unremarkable troponin was negative EKG demonstrates atrial fibrillation there is no sign of ST elevation or depression initial CT scan shows no acute process CTA of the head reveals no hemodynamically significant stenosis in the anterior or posterior circulation CT of the neck does reveal mild arthrosclerotic calcifications left vertebral artery without significant stenosis as well as stenosis left carotid however less than 50% 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 Schultz at midnight he kindly agreed to admit the patient is hospital he will evaluate in the hospital I also discussed case initially with Dr. Peres interventional neurology [facility] recommended admission if CTA is normal for observation and an MRI as soon as practical and that will be Monday. This note was dictated using [employer] voice recognition software please call with any questions on syntax or grammar.
--- NOTE | 2019-11-01 22:02 | CRLCT ---
INDICATION: Expressive aphasia TECHNIQUE: CT head without contrast. COMPARISON: None FINDINGS: CSF spaces: Within normal limits for age. Brain parenchyma: The engel-white differentiation is normal. No sign of mass, hemorrhage, or midline shift. Periventricular white matter changes consistent chronic microvascular disease. Diffuse volume loss. Skull base and calvarium: The visualized paranasal sinuses and mastoid air cells demonstrate no acute or significant findings. The visualized orbits are grossly unremarkable. No skull fractures. IMPRESSION: No acute intracranial abnormalities. Periventricular white matter changes consistent chronic microvascular disease. Diffuse volume loss. Dictated by Justin Escobar MD @ 11/01/2019 10:02:04 PM Please note that all CT scans at this facility use dose modulation, iterative reconstruction, and/or weight-based dosing when appropriate to reduce radiation dose to as low as reasonably achievable. Dictated by: Justin Escobar MD @ 11/01/2019 22:02:11 (Electronically Signed)
[2019-11-01] MEDS ORDERED: Sodium Chloride 0.9% 1,000 ML IV SCH (22:30)
[2019-11-01] MEDS ORDERED: Sodium Chloride 0.9% 10 ML Syringe FLUSH ONE (22:39)
[2019-11-01] MEDS ORDERED: Sodium Chloride 0.9% 100 ML IV SCH (22:45)
[2019-11-01] MEDS ORDERED: Iopamidol 755 Mg/ML 100 ML Bottle IV SCH (22:45)
--- NOTE | 2019-11-01 23:39 | CRLCT ---
DATE: 11/01/2019. CLINICAL HISTORY: Patient with expressive aphasia. TECHNIQUE: Standard helical CT image acquisition through the head and neck was performed after intravenous contrast bolus enhancement. Multiplanar reconstructed images were performed and interpreted. COMPARISON: None. FINDINGS: The origins of the great vessels from the aortic arch are patent, noting atherosclerotic mild stenosis at the origin of the left common carotid and subclavian arteries. The origin of the right vertebral artery is patent. Moderate to severe atherosclerotic stenosis at the origin of the left vertebral artery. The common carotid arteries are patent. Atherosclerotic calcification involves the bilateral carotid bifurcations and carotid bulbs with mild luminal stenosis of the proximal right ICA (less than 50 percent by NASCET criteria) and no luminal stenosis of the proximal left ICA. The rest of the cervical segments of the internal carotid arteries are patent up to their intracranial segments. The intracranial segments of the internal carotid arteries are patent, noting dense atherosclerotic calcification of the cavernous and clinoid segments of the bilateral ICAs. The left vertebral artery is dominant. The cervical segments of the vertebral arteries are patent. The intracranial segments of the vertebral arteries are patent. The middle cerebral arteries are normal without aneurysm or proximal occlusion identified. The anterior cerebral arteries are normal without aneurysm or proximal occlusion identified. Note is made of markedly hypoplastic A1 segment of the right GARY. The anterior communicating artery is well visualized and appears normal. The basilar artery is normal without aneurysm or occlusion. The posterior cerebral arteries are normal without aneurysm or proximal occlusion. Note is made of origin of the right posterior cerebral artery. There is normal opacification of major intracranial venous structures. Mild emphysematous changes are seen at the visualized lung apices. The thyroid gland is unremarkable. Chronic fracture deformity of the odontoid process is visualized. Advanced degenerative changes of the cervical spine are present. IMPRESSION: 1. No intracranial proximal large vessel occlusion. 2. 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 3. Atherosclerotic calcification of the bilateral carotid bifurcations and carotid bulbs with resulting mild luminal stenosis of the proximal right internal carotid artery, less than 50 percent by NASCET criteria. Please note that all CT scans at this facility use dose modulation, iterative reconstruction, and/or weight-based dosing when appropriate to reduce radiation dose to as low as reasonably achievable. Dictated by Luis Borges MD @ Nov 02 2019 12:16PM Signed by Dr. Luis Borges @ Nov 02 2019 12:27PM
[2019-11-02] MEDS ORDERED: Sodium Chloride 0.9% 10 ML Syringe FLUSH PRN (00:08)
[2019-11-02] MEDS ORDERED: Albuterol/Ipratropium 3.0-0.5 MG/3 ML Neb Soln INH PRN (00:11)
[2019-11-02] MEDS ORDERED: CLOBETASOL 0.05% TOP PRN (00:11)
[2019-11-02] MEDS ORDERED: CEPHALEXIN 500 MG PO PRN (00:11)
[2019-11-02 07:32] VITALS: BP 132/69; PULSE 75
[2019-11-02] MEDS ORDERED: Ibuprofen 400 MG Tab PO PRN (07:45)
[2019-11-02] MEDS ORDERED: Metoprolol Succinate 50 MG Tab.ER PO SCH (09:00)
[2019-11-02] MEDS ORDERED: Furosemide 40 MG Tab PO SCH (09:00)
[2019-11-02] MEDS ORDERED: HALOBETASOL PROPIONATE TOP SCH ×2 (09:00)
[2019-11-02] MEDS ORDERED: Clobetasol 0.05% Crm 30 GM Tube TOP SCH (09:00)
[2019-11-02] MEDS ORDERED: Ferrous Sulfate 325 MG Tab PO SCH (09:00)
[2019-11-02] MEDS ORDERED: Multivitamins with Iron/Calcium/Folic Acid/Minerals Tab PO SCH (09:00)
[2019-11-02] MEDS ORDERED: Calcium Carbonate/Vitamin D3 1500 MG-400 Units Tab PO SCH (09:00)
[2019-11-02] MEDS ORDERED: Losartan 25 MG Tab PO SCH (09:00)
[2019-11-02] MEDS ORDERED: Niacin 500 MG Cap.ER PO SCH (09:00)
[2019-11-02] MEDS ORDERED: Diltiazem 180 MG Cap.CD PO SCH (09:00)
[2019-11-02] MEDS ORDERED: Enoxaparin 120 MG/0.8 ML Syringe SUBCUT SCH (09:00)
--- NOTE | 2019-11-02 11:51 | DISCH ---
DISCHARGE DIAGNOSIS: Expressive aphasia. REASON FOR HOSPITALIZATION: An 89-year-old who has chronic atrial fibrillation on chronic anticoagulation, but currently his Coumadin has been held and bridging with Lovenox, although he did restart his Coumadin yesterday. He is going to have heart valve surgery, is not sure exactly which valve, but the date is pending and so they are restarting his Coumadin. He had an episode on the evening of admission about 6:30 where he had garbled slurred speech. It lasted about 10 minutes, then an hour later it happened again, although he was able to understand some of his speech. It did go away after about 10 minutes and then had a short episode again about half hour later. He came into the emergency room. By the time he got into the emergency room, his symptoms completely resolved. He had no further episodes of speech trouble. He had a CTA of his head and neck and CT of his head which showed no acute abnormality in his brain, some mild disease in the left vertebral and left carotid artery, and the patient was admitted under observation for further evaluation and neuro checks as recommended by Interventional Neurology. Officer did talk to him in the emergency room. SIGNIFICANT FINDINGS: White count was 5.5, hemoglobin platelets 267,000. INR was 1.09. Sodium 135, potassium 4.3, chloride 100, BUN is 26, creatinine 1.1, glucose 110. Liver functions were normal other than alkaline phosphatase was 366. Troponin less than 0.017. Urinalysis was unremarkable. A CT of his brain was unremarkable with no acute findings. CTA of his head and neck showed mild disease in the left vertebral and carotid artery. HOSPITAL COURSE: The patient was admitted to observation, was watched overnight with neuro checks. No change in his neuro status. Had intact speech, was alert and oriented. No other neurologic findings and was felt to be able to be discharged. DISCHARGE DISPOSITION: Discharged to home. Activity as tolerated. He will follow up with Dr. Monsivais next week. Resume previous diet. He is supposed to have an MRI early this week which we will try to set up as an outpatient. MEDICATIONS: DuoNeb p.r.n., Lipitor 10 mg at bedtime, calcium and vitamin D two daily, topical clobetasol p.r.n., diltiazem CD 360 mg daily, Lovenox 120 mg daily until Monday, ferrous sulfate 325 mg daily, furosemide 40 mg daily, losartan 25 mg daily, metoprolol-XL 100 mg daily, multivitamin niacin 1000 mg daily, Ultravate b.i.d., Requip 0.25 mg at bedtime, warfarin 5 mg daily except 7.5 on Wednesdays.
--- NOTE | 2019-11-02 12:06 | HP ---
HISTORY OF PRESENT ILLNESS: An 89-year-old who has a valve that they are going to replace. He has history of atrial fibrillation on chronic anticoagulation, which is Coumadin, has been recently held and has been on Lovenox, and just started his Coumadin yesterday. He is going to have the valve replaced. He is not sure exactly which one it is, but the surgery date is pending. Otherwise, has been feeling well up until about 6:30 this evening. He had 10-minute episode of garbled gibberish speech, lasted about 10 minutes and then went away. About an hour later, had a 2nd event, at that time he could identify some of the speech, this again lasted for another 10 minutes. Then had another event about 1/2 hour later of short duration of more slurring of words. Came in to the emergency room for further evaluation. By the time he arrived in the emergency room, his symptoms had completely resolved and his exam was normal. Dr. Baxterr, the emergency room physician did contact [facility] in [place], being that his symptoms had resolved and his CTA and CAT scan were essentially unremarkable, to admit him under observation with neuro checks and if he did well, potentially be discharged and set up for an MRI as an outpatient. I was asked to admit the patient for further evaluation and treatment. PAST MEDICAL HISTORY: 1. 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 He is not sure exactly which one. 2. History of chronic atrial fibrillation, on anticoagulation. 3. Hyperlipidemia. 4. Essential hypertension. 5. Allergic rhinitis. 6. Cataract. 7. History of silicosis. 8. Chronic constipation. 9. Colon polyp. 10.Hiatal hernia. 11.Chronic right knee pain. 12.Type 2 diabetes mellitus, diet controlled. 13.Obesity. 14.History of prostate cancer. 15.Squamous cell carcinoma. 16.Psoriasis. 17.Cataract surgery. 18.History of thoracentesis. 19.Left knee surgery, partial knee replacement on the right knee. ALLERGIES: TO LISINOPRIL, ANAPHYLACTIC SHOCK; TETANUS, HE CANNOT REMEMBER. CURRENT MEDICATIONS: 1. Lovenox 120 mg daily. 2. Warfarin 5 mg daily. 3. Requip 0.25 mg at bedtime. 4. Keflex p.r.n. 5. Clobetasol topically b.i.d. 6. Ultravate b.i.d. 7. Clobetasol topically p.r.n. 8. Niacin 1000 mg daily. 9. Lipitor 10 mg at bedtime. 10.Diltiazem CD 360 mg daily. 11.Metoprolol-XL 100 mg daily. 12.Calcium with vitamin D 2 daily. 13.Multivitamin daily. 14.DuoNeb p.r.n. 15.Ferrous sulfate 325 mg daily. 16.Lasix 40 mg daily. 17.Ibuprofen 400 mg p.r.n., which he really should not be doing if he is on warfarin. 18.Losartan 25 mg daily. SOCIAL HISTORY: Previous smoker, quit in 1969. Does drink alcohol daily, 1 per day he states. FAMILY HISTORY: There is cancer that runs in his family, heart disease and diabetes. REVIEW OF SYSTEMS: Denies headaches, vision changes, upper respiratory symptoms, chest pain, shortness of breath, cough, nausea, vomiting, diarrhea. He does have chronic problems with constipation. Denies any current swelling in his legs, but has had this in the past. NEUROLOGIC: He did have the garbled slurred speech 3 episodes earlier in the day, but none now. Denies any numbness or weakness of his extremities. No trouble swallowing. OBJECTIVE: VITAL SIGNS: Temp 97.3, pulse 73, respirations 12, blood pressure 135/78, pulse ox 97% on room air. GENERAL: The patient is alert and oriented to time, place, and person. HEENT: Pharynx is clear. Dentures in place. Ears, clear bilaterally. NECK: Supple. No adenopathy, thyromegaly, JVD, carotid bruits. LUNGS: Clear. HEART: Regular with a grade 3/6 systolic murmur, best heard at left sternal border. ABDOMEN: Soft, nontender. No mass or organomegaly palpated. EXTREMITIES: No edema. NEUROLOGIC: Cranial nerves 2 through 12 grossly intact. Strength and sensation are intact to the upper and lower extremities and symmetric bilaterally. SKIN: Negative. LABORATORY AND X-RAY DATA: White count 5.5, hemoglobin is 11.6, platelets 267,000. PT was 11.9, with an INR of 1.09. Sodium 135, potassium 4.3, chloride 100, BUN was 26, creatinine 1.1, glucose 110, calcium 8.8. Liver functions normal except alkaline phosphatase was elevated at 366. CT scan of the brain was unremarkable, so had no evidence of any bleeding or stroke. CTA of head and neck revealed mild atherosclerotic calcification left vertebral artery, no significant stenosis, as well as stenosis left carotid artery less than 50%. ASSESSMENT: 1. Abnormal speech, certainly concern of possible stroke. Officer did talk to [facility], who recommended that he be admitted for observation and watched overnight and if he has no further spells set him up for an outpatient MRI. 2. Abnormal heart valve that he is supposed to have replaced, but date is pending, so they put him back on his Coumadin which he started yesterday. He will continue bridging with Lovenox until Monday the patient states. 3. Type 2 diabetes mellitus, diet controlled. 4. Essential hypertension. 5. Chronic atrial fibrillation, on anticoagulation. 6. Other surgeries and medical problems as listed above. Justin Schultz MD /[id number]
[2019-11-02] MEDS ORDERED: Warfarin 5 MG Tab PO SCH (13:00)
[2019-11-02] MEDS ORDERED: atorvaSTATin 10 MG Tab PO SCH (21:00)
[2019-11-02] MEDS ORDERED: rOPINIRole 0.5 MG Tab PO SCH (21:00)
[2019-11-06] MEDS ORDERED: Warfarin 5 MG Tab PO SCH (13:00)
== END 2019-11-02 09:50 | disposition home or self-care (01) ==
LOC: JP.ED 20:15 → JP.ICU 11-02 00:08
PROVIDERS: ADMIT Family Medicine; ATTEND Family Medicine
DX: R47.01 Aphasia (principal); E78.00 Pure hypercholesterolemia, unspecified; I10 Essential (primary) hypertension; E66.9 Obesity, unspecified; E78.5 Hyperlipidemia, unspecified; I48.20 Chronic atrial fibrillation, unspecified; E11.9 Type 2 diabetes mellitus without complications; Z79.01 Long term (current) use of anticoagulants; Z79.899 Other long term (current) drug therapy; Z88.8 Allergy status to other drugs, medicaments and biological substances; Z88.7 Allergy status to serum and vaccine; Z87.891 Personal history of nicotine dependence; Z98.890 Other specified postprocedural states; Z68.26 Body mass index [BMI] 26.0-26.9, adult
CPT/HCPCS: 36415; 70450; 70496; 70498; 80053; 81001; 84484; 85025; 85610; 93005; A9270; J7030; J7050; Q9967

== ENCOUNTER 2020-06-05 17:01 | Inpatient (IN) | payer MEDICARE, BC ==
[2020-06-05] MEDS ORDERED: Lidocaine 2% Jelly 10 ML Urojet MUCMEM ONE (17:39)
[2020-06-05] MEDS ORDERED: Sodium Chloride 0.9% 10 ML Syringe FLUSH PRN ×2 (17:46→19:56)
--- NOTE | 2020-06-05 17:58 | EDM.PDOC ---
ED HPI GENERAL MEDICAL PROBLEM - General Chief Complaint: Genitourinary Problem Stated Complaint: UNABLE TO URINATE Time Seen by Provider: 06/05/20 17:46 Source of Information: Reports: Patient History Limitations: Reports: No Limitations - History of Present Illness INITIAL COMMENTS - FREE TEXT/NARRATIVE: Srinivasan is an 89-year-old male presenting to the ED for evaluation of possible urinary retention. Patient symptoms started several days ago when he was only able to pass small amounts of urine at a time. During that time he is also developed right lower quadrant abdominal pain radiating from the groin up to the right upper current. He has had decreased appetite and has been able to pass small amounts of stool at a time. Stools been fairly hard. Today he started doing really of his water intake because he felt very thirsty. He reports that he took in 3 bottles of water which is roughly 36 ounces. He has not had any urine output today. He denies any fever or chills. He has had some nausea but no vomiting. He denies any diarrhea. He does have a history for prostate cancer status post TURP. He said after the procedure he has been able to urinate just fine, however, that was several years ago. He denies any hematuria. - Related Data Allergies Allergy/AdvReac Type Severity Reaction Status Date / Time lisinopril Allergy Severe Anaphylactic Verified 06/05/20 17:49 Shock tetanus toxoid, adsorbed Allergy Cannot Verified 06/05/20 17:49 Remember Home Meds: Home Meds Clobetasol [Temovate 0.05% Oint] 1 applic TOP ASDIRECTED PRN 03/13/14 [History] atorvaSTATin [Lipitor] 10 mg PO BEDTIME 03/13/14 [History] Metoprolol Succinate [Toprol XL] 50 mg PO DAILY 09/30/15 [History] Calcium Carbonate/Vitamin D3 [Calcium 500 + Vit D 400] 2 tab PO DAILY 02/25/16 [History] Warfarin [Coumadin] 7.5 mg PO ASDIRECTED 02/25/16 [History] Albuterol/Ipratropium [DuoNeb 3.0-0.5 MG/3 ML] 3 ml INH Q4H PRN 09/10/19 [History] Ferrous Sulfate 325 mg PO DAILY 09/10/19 [History] Furosemide [Lasix] 40 mg PO DAILY 09/10/19 [History] Losartan Potassium 25 mg PO DAILY 09/10/19 [History] Warfarin [Coumadin] 10 mg PO ASDIRECTED 09/10/19 [History] rOPINIRole [Requip] 0.25 mg PO BEDTIME 09/10/19 [History] cephALEXin [Keflex] 500 mg PO ASDIRECTED PRN 09/25/19 [History] Clobetasol [Clobetasol 0.05%] 1 gm TOP BID 11/01/19 [History] Enoxaparin Sodium [Lovenox] 120 mg SQ DAILY 11/01/19 [History] Halobetasol Propionate [Ultravate] 60 ml TP BID 11/01/19 [History] Aspirin 1 tab PO DAILY 06/05/20 [History] Magnesium Hydroxide [Milk of Magnesia] 30 ml PO DAILY PRN 06/05/20 [History] Past Medical History HEENT History: Reports: Allergic Rhinitis, Cataract, Impaired Vision, Sinusitis Cardiovascular History: Reports: Afib, Arrhythmia, Heart Murmur, High Cholesterol, Hypertension Respiratory History: Reports: Other (See Below) Other Respiratory History: silicosis Gastrointestinal History: Reports: Chronic Constipation, Colon Polyp, Hiatal Hernia Genitourinary History: Reports: Prostate Disorder Musculoskeletal History: Reports: Fracture, Other (See Below) Other Musculoskeletal History: right knee pain Neurological History: Reports: None Psychiatric History: Reports: None Endocrine/Metabolic History: Reports: Diabetes, Type II, Obesity/BMI 30+, Other (See Below) Other Endocrine/Metabolic History: borderline type II - checks blood sugar just a few times a year Hematologic History: Reports: Anticoagulation Therapy, Other (See Below) Other Hematologic History: coumadin Immunologic History: Reports: None Oncologic (Cancer) History: Reports: Prostate, Squamous Cell Carcinoma, Other (See Below) Other Oncologic History: skin Dermatologic History: Reports: Psoriasis, Other (See Below) Other Dermatologic History: keratosis - Infectious Disease History Infectious Disease History: Reports: Chicken Pox, Measles, Mumps - Past Surgical History HEENT Surgical History: Reports: Cataract Surgery Cardiovascular Surgical History: Reports: None Respiratory Surgical History: Reports: Thoracentesis Other Respiratory Surgeries/Procedures: recent thoracentesis GI Surgical History: Reports: Colonoscopy Male Surgical History: Reports: None Endocrine Surgical History: Reports: None Neurological Surgical History: Reports: None Musculoskeletal Surgical History: Reports: Joint Replacement Other Musculoskeletal Surgeries/Procedures:: left knee x 4. right partial knee Dermatological Surgical History: Reports: Skin Biopsy Social & Family History - Family History Family Medical History: No Pertinent Family History - Caffeine Use Caffeine Use: Reports: Coffee Caffeine Use Comment: 0-3 cups per day ED ROS GENERAL - Review of Systems Review Of Systems: See Below Constitutional: Reports: Malaise, Decreased Appetite, Other (Generalized body aches) HEENT: Reports: No Symptoms Respiratory: Reports: No Symptoms Cardiovascular: Reports: No Symptoms Endocrine: Reports: No Symptoms GI/Abdominal: Reports: Abdominal Pain (Right lower quadrant pain), Anorexia, Constipation, Nausea. Denies: Vomiting : Reports: Urinary Retention Musculoskeletal: Reports: Muscle Pain Skin: Reports: No Symptoms Neurological: Reports: No Symptoms Psychiatric: Reports: No Symptoms Hematologic/Lymphatic: Reports: No Symptoms Immunologic: Reports: No Symptoms ED EXAM, RENAL/ - Physical Exam Exam: See Below Exam Limited By: No Limitations General Appearance: Alert, No Apparent Distress Eye Exam: Bilateral Eye: EOMI, PERRL Throat/Mouth: Normal Inspection, Normal Lips, Normal Oropharynx, Normal Voice, No Airway Compromise Head: Atraumatic, Normocephalic Neck: Normal Inspection, Supple Respiratory/Chest: No Respiratory Distress, Lungs Clear, Normal Breath Sounds Cardiovascular: Normal Peripheral Pulses, Regular Rate, Rhythm, No Edema, No Murmur GI/Abdominal: Distended (Mild abdominal distention), Tender (Right lower quadrant tenderness to palpation), Abnormal Bowel Sounds (Markedly diminished bowel sounds). No: Guarding, Rigid, Rebound Extremities: Normal Inspection, Normal Range of Motion Neurological: Alert, Oriented, Normal Cognition, No Motor/Sensory Deficits Psychiatric: Normal Affect, Normal Mood Skin Exam: Warm, Dry Lymphatic: No Adenopathy Course - Vital Signs Last Recorded V/S: Last Vital Signs Temp 36.4 C 06/05/20 17:58 Pulse 91 06/05/20 17:58 Resp 16 06/05/20 17:58 BP 96/46 L 06/05/20 17:58 Pulse Ox 92 L 06/05/20 17:58 - Orders/Labs/Meds Orders: Active Orders 24 hr Category Date Time Status Insert Urinary Catheter [OM.PC] Q24H Care 06/05/20 17:45 Ordered Urinary Catheter Assessment [RC] ASDIRECTED Care 06/05/20 17:35 Active Abdomen Pelvis wo Cont [CT] Stat Exams 06/05/20 17:46 Taken COVID-19/FLU A+B/RSV [MOLEC] Stat Lab 06/05/20 18:55 Ordered UA W/MICROSCOPIC [URIN] Stat Lab 06/05/20 17:34 Ordered Sodium Chloride 0.9% [Normal Saline] 1,000 ml Med 06/05/20 18:28 Active IV .BOLUS Sodium Chloride 0.9% [Saline Flush] Med 06/05/20 17:46 Active 10 ml FLUSH ASDIRECTED PRN Isolation [COMM] Stat Oth 06/05/20 18:55 Ordered Saline Lock Insert [OM.PC] Routine Oth 06/05/20 17:46 Ordered Medication Orders Sodium Chloride (Normal Saline) 1,000 mls @ 999 mls/hr IV .BOLUS ONE Stop: 06/05/20 19:28 Last Admin: 06/05/20 18:53 Dose: 999 mls/hr Documented by: MISTI Sodium Chloride (Sodium Chloride 0.9% 10 Ml Syringe) 10 ml FLUSH ASDIRECTED PRN PRN Reason: Keep Vein Open Last Admin: 06/05/20 17:57 Dose: 10 ml Documented by: MISTI Labs: Laboratory Tests 06/05/20 06/05/20 Range/Units 17:46 17:46 WBC 18.6 H (4.5-11.0) K/uL RBC 3.67 L (4.30-5.90) M/uL Hgb 11.8 L (12.0-15.0) g/dL Hct 34.6 L (40.0-54.0) % MCV 94 (80-98) fL MCH 32 H (27-31) pg MCHC 34 (32-36) % Plt Count 198 (150-400) K/uL Add Manual Diff Yes Neutrophils % (Manual) 79 H (36-66) % Band Neutrophils % 9 (5-11) % Lymphocytes % (Manual) 4 L (24-44) % Monocytes % (Manual) 8 H (2-6) % Sodium 139 L (140-148) mmol/L Potassium 5.0 (3.6-5.2) mmol/L Chloride 100 (100-108) mmol/L Carbon Dioxide 24 (21-32) mmol/L Anion Gap 20.0 H (5.0-14.0) mmol/L BUN 78 H* D (7-18) mg/dL Creatinine 2.5 H D (0.8-1.3) mg/dL Est Cr Clr Drug Dosing 18.08 mL/min Estimated GFR (MDRD) 24 L (>60) Glucose 129 H (74-106) mg/dL Calcium 9.0 (8.5-10.1) mg/dL Total Bilirubin 1.3 H D (0.2-1.0) mg/dL AST 78 H D (15-37) U/L ALT 61 D (12-78) U/L Alkaline Phosphatase 157 H (46-116) U/L Total Protein 6.4 (6.4-8.2) g/dL Albumin 2.6 L (3.4-5.0) g/dL Globulin 3.8 H (2.3-3.5) g/dL Albumin/Globulin Ratio 0.7 L (1.2-2.2) Meds: Medications Generic Name Dose Route Start Last Admin Trade Name Freq PRN Reason Stop Dose Admin Sodium Chloride 1,000 mls @ 999 mls/hr 06/05/20 18:28 06/05/20 18:53 Normal Saline IV 06/05/20 19:28 999 mls/hr .BOLUS ONE Administration Sodium Chloride 10 ml 06/05/20 17:46 06/05/20 17:57 Sodium Chloride 0.9% 10 Ml Syringe FLUSH 10 ml ASDIRECTED PRN Administration Keep Vein Open Discontinued Medications Generic Name Dose Route Start Last Admin Trade Name Freq PRN Reason Stop Dose Admin Lidocaine HCl 10 ml 06/05/20 17:39 Lidocaine 2% Jelly 10 Ml Urojet MUCMEM 06/05/20 17:40 ONETIME ONE - Radiology Interpretation Free Text/Narrative:: I reviewed the patient's CT of the abdomen and pelvis without contrast showing a large right lower lobe pneumonia with a large pleural effusion. His intra- abdominal exam is unremarkable for any significant findings. Bladder size is small. No evidence for nephro or ureterolithiasis. - Re-Assessments/Exams Free Text/Narrative Re-Assessment/Exam: 06/05/20 19:00 reviewed the patient's labs showing a significant leukocytosis at 18.9 with a left shift and 9% bands. He is very dry with a BUN of 78 and a creatinine of 2.5. We initiated fluids with a liter of normal saline. Blood cultures were drawn. We will initiate antibiotics with Levaquin 750 mg IV the patient does not normally wear oxygen at home and has been here satting at 92% on 2 L via nasal cannula. We will see what his oxygenation does off of the supplemental O2. If he becomes desaturated less than 90% we will likely admit him for treatment of pneumonia. 06/05/20 19:07 off supplemental oxygen, the patient desaturated to 86% on room air. He was placed back on 2 L nasal cannula. I will arrange for him to be admitted for IV antibiotics and oxygen for treatment of his right lower quadrant pneumonia. Of it is pending. Departure - Departure Time of Disposition: 19:08 Disposition: Admitted As Inpatient 67 Clinical Impression: Community acquired bacterial pneumonia, Hypoxia, Dehydration, Pleural effusion, right - Discharge Information Referrals: Yogesh Monsivais MD [Primary Care Provider] - Forms: ED Department Discharge Sepsis Event Note (ED) - Focused Exam Vital Signs: Vital Signs Temp Pulse Resp BP Pulse Ox 06/05/20 17:58 36.4 C 91 16 96/46 L 92 L 06/05/20 17:41 36.4 C 91 16 96/46 L 92 L - Problem List & Annotations (1) Type 2 diabetes mellitus SNOMED Code(s): 56981006 Code(s): E11.9 - TYPE 2 DIABETES MELLITUS WITHOUT COMPLICATIONS Status: Chronic Priority: Medium Current Visit: No (2) Community acquired bacterial pneumonia SNOMED Code(s): 792769060, 402137218 Code(s): J15.9 - UNSPECIFIED BACTERIAL PNEUMONIA Status: Acute Priority: High Current Visit: Yes (3) Dehydration SNOMED Code(s): 85604954 Code(s): E86.0 - DEHYDRATION Status: Acute Priority: High Current Visit: Yes (4) Hypoxia SNOMED Code(s): 474455361 Code(s): R09.02 - HYPOXEMIA Status: Acute Priority: High Current Visit: Yes (5) Pleural effusion, right SNOMED Code(s): 18478160 Code(s): J90 - PLEURAL EFFUSION, NOT ELSEWHERE CLASSIFIED Status: Acute Priority: High Current Visit: Yes - Problem List Review Problem List Initiated/Reviewed/Updated: Yes - My Orders Last 24 Hours: My Active Orders 06/05/20 17:34 UA W/MICROSCOPIC [URIN] Stat 06/05/20 17:35 Urinary Catheter Assessment [RC] ASDIRECTED 06/05/20 17:45 Insert Urinary Catheter [OM.PC] Q24H 06/05/20 17:46 Abdomen Pelvis wo Cont [CT] Stat Sodium Chloride 0.9% [Saline Flush] 10 ml FLUSH ASDIRECTED PRN Saline Lock Insert [OM.PC] Routine 06/05/20 18:28 Sodium Chloride 0.9% [Normal Saline] 1,000 ml IV .BOLUS 06/05/20 18:55 COVID-19/FLU A+B/RSV [MOLEC] Stat Isolation [COMM] Stat - Assessment/Plan Last 24 Hours: My Active Orders 06/05/20 17:34 UA W/MICROSCOPIC [URIN] Stat 06/05/20 17:35 Urinary Catheter Assessment [RC] ASDIRECTED 06/05/20 17:45 Insert Urinary Catheter [OM.PC] Q24H 06/05/20 17:46 Abdomen Pelvis wo Cont [CT] Stat Sodium Chloride 0.9% [Saline Flush] 10 ml FLUSH ASDIRECTED PRN Saline Lock Insert [OM.PC] Routine 06/05/20 18:28 Sodium Chloride 0.9% [Normal Saline] 1,000 ml IV .BOLUS 06/05/20 18:55 COVID-19/FLU A+B/RSV [MOLEC] Stat Isolation [COMM] Stat
[2020-06-05] MEDS ORDERED: Sodium Chloride 0.9% 1,000 ML IV ONE ×2 (18:28→19:33)
[2020-06-05] MEDS ORDERED: Levofloxacin/Dextrose 5%-Water 750 MG in Premix Bag 1 BAG IV ONE (19:03)
--- NOTE | 2020-06-05 19:15 | CRLCT ---
INDICATION: Urinary retention. Right lower quadrant pain. Anorexia. COMPARISON: None available TECHNIQUE: CT examination of the abdomen and pelvis was performed without contrast enhancement using 3 mm thick axial sections from the lung bases through the pubic symphysis. Oral contrast was not administered. Please note that all CT scans at this facility use dose modulation, iterative reconstruction, and/or weight-based dosing when appropriate to reduce radiation dose to as low as reasonably achievable. FINDINGS: In the abdomen, the unenhanced liver, spleen, pancreas, and adrenals are normal in appearance. The unenhanced kidneys are normal in appearance. The gallbladder is normal in appearance. The abdominal aorta is normal in caliber with no sign of dilatation. There is no sign of retroperitoneal mass or adenopathy. The stomach, loops of small bowel, and colon in the abdomen are normal in appearance. In the pelvis, the appendix is nonvisualized, but there is no sign of an inflammatory process in the area of the appendix. There is mild sigmoid diverticulosis without evidence of diverticulitis. The loops of small bowel and colon in the pelvis are otherwise normal in appearance. The prostate is absent, consistent with prostatectomy. The seminal vesicles are normal in appearance. The urinary bladder is normal in appearance. There is no sign of pelvic or inguinal mass or adenopathy. There is a small fat containing left inguinal hernia. There is no sign of free air or free fluid in the abdomen or pelvis. There is a moderate loculated right pleural effusion, with pleural fluid seen surrounding the right lower lung and extending superiorly along the posterior and lateral lung. There is moderate compressive atelectasis of the posterior right lower lobe and mild patchy density throughout the rest of the right lower lobe consistent with additional atelectasis. There is mild patchy density in the inferior right middle lobe which is probably also atelectasis. There is mild patchy infiltrate in the left lung base with tree-in-bud appearance consistent with inflammatory disease, possible aspiration. There is heavy calcification of the aortic valve annulus. There is heavy LAD coronary calcification. The heart is normal in size. There is severe disc degenerative disease throughout the lumbar spine. There are changes of laminectomy at L4-5. There is fusion of both sacroiliac joints from mild primary osteoarthritis. 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 IMPRESSION: Moderate right pleural effusion loculated along the posterior and lateral [place] of the right lower chest. Prominent compressive atelectasis of the posterior aspect of the right lower lobe with moderate patchy infiltrates throughout the rest of the right lower lobe. Mild patchy infiltrate in the left lung base with tree-in-bud appearance, suggestive of aspiration. CT of the abdomen shows no significant abnormality. CT of the pelvis shows mild sigmoid diverticulosis with no sign of diverticulitis. Status post prostatectomy. Small fat containing left inguinal hernia. Please note that all CT scans at this facility use dose modulation, iterative reconstruction, and/or weight-based dosing when appropriate to reduce radiation dose to as low as reasonably achievable. Dictated by Chukcy Stephens MD @ 06/05/2020 7:13:[address] Chucky Stephens @ Jun 05 2020 7:13PM
[2020-06-05] MEDS ORDERED: Clindamycin Phosphate 900 MG in Sodium Chloride 0.9% 100 ML IV ONE (19:16)
[2020-06-05] MEDS ORDERED: Piperacillin/Tazobactam 4.5 GM in Sodium Chloride 0.9% 100 ML IV ONE (19:33)
[2020-06-05 19:38] LABS: CORONAVIRUS COVID-19 NAA NEGATIVE (NEGATIVE)
[2020-06-05] MEDS ORDERED: Glucagon,Human Recombinant 1 MG Vial IM PRN (19:38)
[2020-06-05] MEDS ORDERED: 50% Dextrose in Water 50 ML Syringe IVPUSH PRN (19:38)
[2020-06-05] MEDS ORDERED: Warfarin 5 MG Tab PO SCH ×2 (19:45)
[2020-06-05] MEDS ORDERED: Ondansetron 4 MG/2 ML SDV IV PRN (19:56)
[2020-06-05] MEDS: cefTRIAXone 1 GM in Sodium Chloride 0.9% 50 ML IV SCH (19:58)
[2020-06-05] MEDS: Albuterol/Ipratropium 3.0-0.5 MG/3 ML Neb Soln NEB SCH (19:59)
--- NOTE | 2020-06-05 20:05 | PCM.SN.2 ---
- Free Text/Narrative Note: START OF DOCTOR EMAMIS HISTORY AND PHYSICAL / CONSULTATION NOTE Chief Complaint: Weakness History of Present Illness: The patient is a 10-year-old male who presents require generalized weakness. He states he started feeling unwell approximately 4 to 5 days prior to hospitalization. Since that time he is also developed anorexia. Upon further review of systems he admits to chills and cough which is nonproductive. He denies fever, nausea, vomiting, wheeze, abdominal pain, diarrhea, myalgia, dyspnea. He denies peripheral edema, a nose mouth, dysgeusia. He presents for further evaluation Surgical History: Left knee surgery x4, bilateral cataract surgery, left third finger surgical repair, right partial knee surgery, lumbar laminectomy, bioprosthetic cardiac valve replacementpatient uncertain as to which valve, prostatectomy-patient uncertain of whether he underwent this procedure, documented history of carpal tunnel surgery which the patient denies Family History: Cancer, stroke, diabetes, coronary artery disease, hypertension, hyperlipidemia Social History: Tobacco: Former smoker Alcohol: Denies Caffeine: Coffee Drugs: Never Allergies: Lisinopril, tetanus toxoid Code Status: DNR, DNI Pertinent Laboratory Results / Pertinent Radiology Results / Pertinent Diagnostic Results / Pertinent Vital Signs: Blood pressure 96/46, pulse 91, respirations 16, temperature 9 7.5 degrees, 92% room air, creatinine 2.5, alkaline phosphatase 157, AST 78, total bili is 1.3, white blood cell count 18.6, hemoglobin 11.8 Physical Examination: General: -Alert -No acute distress -No dyspnea -No tachypnea Head: -Atraumatic -Normocephalic Eyes: -Pupils equally round and reactive to light and accommodation -Extraocular muscles intact Neurological: -Cranial nerves II-XII intact Neck: -No jugular venous distention -No thyromegaly -No cervical lymphadenopathy Heart: -Regular rate -Regular rhythm -No murmurs -No gallops -No rubs Lungs: -No wheeze -No rhonchi -No rales -Distant breath sounds bilaterally Abdomen: -Normal bowel sounds in all four quadrants -No rebound -No guarding -No tenderness Extremities: -2/4 pulse in all four extremities -No clubbing -No cyanosis -Nonpitting bipedal edema present -No calf tenderness present bilaterally -Negative Homans sign bilaterally Musculoskeletal: -5/5 bilateral upper extremity strength -5/5 bilateral lower extremity strength -Sensorium of bilateral upper extremities are equal and intact -Sensorium of bilateral lower extremities are equal and intact Additional Details / Additional Findings / Exceptions / Miscellaneous: Assessment / Plan: Pneumonia. Azithromycin 500 mg IV daily plus Rocephin 1 g IV daily plus DuoNeb every 6 hours Moderate right pleural effusion, recurrence. I requested surgery evaluate the patient for thoracocentesis Elevated liver function test. Will monitor LFTs periodically with CMP Acute renal insufficiency. Will monitor creatinine level intermittently. IV normal saline at 75 mL's per hour History of prostate cancer, with questionable history of prostatectomy. Outpatient follow-up with his primary care physician or provider who indicates monitors his medical condition Osteoarthritis History of bioprosthetic cardiac valve replacement Psoriasis Spinal stenosis Anemia. Will monitor hemoglobin level intermittently. Ferrous sulfate 325 mg p.o. daily. Check serum ferritin, iron panel, fecal occult blood COPD Grade 2 diastolic dysfunction. Toprol-XL 50 mg p.o. daily Coronary artery disease, status post [place]. Aspirin 81 mg p.o. daily plus Lipitor 10 mg p.o. nightly plus Toprol-XL 50 mg p.o. daily Diabetes. Will check fasting glucose before every meal and at bedtime and provide insulin sliding scale Hyperlipidemia. Lipitor 10 mg p.o. nightly Hypertension. Toprol-XL 50 mg p.o. daily Restless leg syndrome. Requip 0.25 mg p.o. nightly Diverticulosis Seasonal allergies Atrial fibrillation. Toprol-XL 50 mg p.o. daily plus Coumadin p.o. per home dose/frequency Silicosis Constipation Erectile dysfunction Degenerative disc disease Obstructive sleep apnea. CPAP/BiPAP: Okay to use home device and/or pressure when sleeping if the patient uses CPAP/BiPAP at home DVT prophylaxis. Coumadin p.o. per home dose/frequency Disposition: Anticipate discharge within 48 hours END OF DOCTOR EMAMIS HISTORY AND PHYSICAL / CONSULTATION NOTE
[2020-06-05] MEDS: Azithromycin 500 MG in Sodium Chloride 0.9% 250 ML IV SCH (20:07)
[2020-06-05] MEDS ORDERED: Non-Formulary Medication 1 Each (Ropinirole [Requip] 0.25 MG Tablet) PO SCH (21:00)
[2020-06-05] MEDS ORDERED: Iron Sucrose Complex 200 MG in Sodium Chloride 0.9% 100 ML IV SCH (21:30)
[2020-06-05] MEDS: atorvaSTATin 10 MG Tab PO SCH (22:13)
[2020-06-05] MEDS: rOPINIRole 0.5 MG Tab PO SCH (22:13)
[2020-06-06] MEDS: Sodium Chloride 0.9% 1,000 ML IV SCH ×2 (01:06→14:32)
[2020-06-06] MEDS: Albuterol/Ipratropium 3.0-0.5 MG/3 ML Neb Soln NEB SCH ×4 (01:08→19:24)
[2020-06-06] MEDS: Insulin Lispro 100 Unit/ML 3 ML KwikPen SUBCUT SCH ×3 (08:13→18:08)
[2020-06-06] MEDS ORDERED: Bacitracin Oint 1 GM U/D Packet ONE (08:57)
[2020-06-06] MEDS ORDERED: Ferrous Sulfate 325 MG Tab PO SCH (09:00)
[2020-06-06] MEDS ORDERED: Metoprolol Succinate 25 MG Tab.ER PO SCH (09:00)
[2020-06-06] MEDS: Metoprolol Succinate 50 MG Tab.ER PO SCH (09:08)
[2020-06-06] MEDS: Ascorbic Acid 500 MG Tab PO SCH (09:08)
[2020-06-06] MEDS: Aspirin 81 MG Tab.EC PO SCH (09:08)
--- NOTE | 2020-06-06 09:49 | CRLCR ---
INDICATION: Status post right thoracentesis. TECHNIQUE: Chest 1 view. COMPARISON: Chest radiograph 09/26/2019. FINDINGS: Moderate right pleural effusion which has increased in size since prior exam. Consolidation in the right mid and lower lung may represent atelectasis or infiltrate. No pneumothorax. Near complete resolution of previously seen left midlung opacities. There are multiple tiny nodular densities in the left lower lung. Stable mild cardiomegaly. Degenerative changes of the shoulders. IMPRESSION: 1. Moderate right pleural effusion which has increased in size since prior exam. No pneumothorax. 2. Consolidation in the right mid and lower lung may represent atelectasis or infiltrate. 3. Near complete resolution of previously seen left midlung opacities. 4. Multiple tiny nodules in the left lower lung. Dictated by Cari Hernández MD @ 06/06/2020 9:48:[address] Cari Hernández @ Jun 06 2020 9:48AM
--- NOTE | 2020-06-06 10:42 | PCM.SN.2 ---
- Free Text/Narrative Note: START OF DOCTOR STUART PROGRESS NOTE Subjective: The patient Jaiden that his respiratory status has greatly improved compared to my encounter with him on May 09, 2020. Currently rates his respiratory status as an 8 out of 10 if 10 is his baseline. He denies fever, rigors, nausea, vomiting, wheeze, abdominal pain, chest pain. He states that he has occasional cough which is nonproductive. I explained to the patient his current medical c ondition and plan of care and I have answered all of his questions Objective: General: -Alert -No acute distress -No dyspnea -No tachypnea Heart: -iRegular rate -Regular rhythm -No murmurs -No gallops -No rubs Lungs: -No wheeze -No rhonchi -No rales Abdomen: -Normal bowel sounds in all four quadrants -No rebound -No guarding -No tenderness Extremities: -2/4 pulse in all four extremities -No clubbing -No cyanosis -No edema Additional Details / Additional Findings / Exceptions / Miscellaneous: Pertinent Laboratory Results / Pertinent Radiology Results / Pertinent Diagnostic Results / Pertinent Vital Signs: Heart rate 105 bpm, patient saturating at 7% 3 L, respirations 22, white blood count 20,000, hemoglobin 10.8, INR 4.36, creatinine 2, AST 64, alkaline phosphatase 129 Assessment / Plan: Pneumonia. Azithromycin 500 mg IV daily plus Rocephin 1 g IV daily plus DuoNeb every 6 hours plus Solu-Medrol 40 mg IV every 8 hours Urinary tract infection. Rocephin 1 g IV daily. PSA within normal limits Moderate right pleural effusion, recurrence. I appreciate surgery evaluate the patient. Patient status post thoracocentesis on June 06, 2020 Elevated liver function test. Will monitor LFTs periodically with CMP Acute renal insufficiency. Will monitor creatinine level intermittently. IV normal saline at 75 mL's per hour History of prostate cancer, with questionable history of prostatectomy. Outpatient follow-up with his primary care physician or provider who indicates monitors his medical condition Osteoarthritis History of bioprosthetic cardiac valve replacement Psoriasis Spinal stenosis Iron deficiency anemia. Will monitor hemoglobin level intermittently. Fecal occult blood pending. Vitamin C 500 mg p.o. daily plus Venna fair 200 mg IV every 48 hours COPD Grade 2 diastolic dysfunction. Toprol-XL 50 mg p.o. daily Coronary artery disease, status post [place]. Aspirin 81 mg p.o. daily plus Lipitor 10 mg p.o. nightly plus Toprol-XL 50 mg p.o. daily Diabetes. Will check fasting glucose before every meal and at bedtime and provide insulin sliding scale Hyperlipidemia. Lipitor 10 mg p.o. nightly Hypertension. Toprol-XL 50 mg p.o. daily Restless leg syndrome. Requip 0.25 mg p.o. nightly Diverticulosis Seasonal allergies Atrial fibrillation. Toprol-XL 50 mg p.o. daily. I will resume the patient's home dose/frequency of Coumadin once his PT/INR is therapeutic between the range of 2 and 3 Silicosis Constipation Erectile dysfunction Degenerative disc disease Obstructive sleep apnea. CPAP/BiPAP: Okay to use home device and/or pressure when sleeping if the patient uses CPAP/BiPAP at home Left pulmonary nodules. Outpatient follow-up with his primary care physician or provider although I would advise against further evaluation given the fact that the patient would not be a candidate for surgical intervention/treatment given his numerous medical comorbidities and age GI prophylaxis. Protonix 40 mg p.o. daily DVT prophylaxis. Bilateral SCD Disposition: Hopeful discharge within 48 hours END OF DOCTOR ASHANTIS PROGRESS NOTE
[2020-06-06] MEDS: methylPREDNISolone Sodium Succinate 40 MG/1 ML SDV IVPUSH SCH ×2 (12:13→18:12)
[2020-06-06] MEDS: Azithromycin 500 MG in Sodium Chloride 0.9% 250 ML IV SCH (19:26)
[2020-06-06] MEDS: atorvaSTATin 10 MG Tab PO SCH (20:33)
[2020-06-06] MEDS: rOPINIRole 0.5 MG Tab PO SCH (20:33)
[2020-06-06] MEDS: cefTRIAXone 1 GM in Sodium Chloride 0.9% 50 ML IV SCH (20:33)
[2020-06-06] MEDS: Acetaminophen 325 MG Tab PO PRN (20:39)
[2020-06-06] MEDS ORDERED: Insulin Lispro 100 Unit/ML 3 ML KwikPen SUBCUT ONE ×2 (21:35→23:10)
[2020-06-06] MEDS ORDERED: Benzocaine/Cetylpyridinium/Menthol Lozenge MUCMEM PRN (22:28)
[2020-06-07] MEDS: Albuterol/Ipratropium 3.0-0.5 MG/3 ML Neb Soln NEB SCH ×4 (00:34→19:43)
[2020-06-07] MEDS: methylPREDNISolone Sodium Succinate 40 MG/1 ML SDV IVPUSH SCH ×3 (02:42→17:59)
[2020-06-07] MEDS: Sodium Chloride 0.9% 1,000 ML IV SCH ×2 (05:25→19:40)
--- NOTE | 2020-06-07 05:32 | CRLCR ---
INDICATION: Shortness of breath TECHNIQUE: Chest 2 views. COMPARISON: June 06, 2020 FINDINGS/IMPRESSION: : Stable cardiomediastinal silhouette. Status post valve replacement. Normal pulmonary vasculature. Unchanged moderate-sized right pleural effusion with atelectasis or infiltrate in the right mid to lower lung field. No pneumothorax. Moderate degenerative changes in the spine. Dictated by Leah Fang MD @ 06/07/2020 5:29:[address] Leah Fang @ Jun 07 2020 5:29AM
[2020-06-07] MEDS: Pantoprazole 40 MG Tab.CR PO SCH (07:33)
[2020-06-07] MEDS: Insulin Lispro 100 Unit/ML 3 ML KwikPen SUBCUT SCH ×4 (07:33→21:48)
[2020-06-07] MEDS: Aspirin 81 MG Tab.EC PO SCH (08:25)
[2020-06-07] MEDS: Metoprolol Succinate 50 MG Tab.ER PO SCH (08:25)
[2020-06-07] MEDS: Ascorbic Acid 500 MG Tab PO SCH (08:25)
--- NOTE | 2020-06-07 08:25 | PCM.SN.2 ---
- Free Text/Narrative Note: START OF DOCTOR DEXMITraci PROGRESS NOTE Subjective: The patient endorses no complaints at this time. He denies fever, rigors, nausea, vomiting, cough, wheeze, abdominal pain, chest pain, dyspnea. I explained to the patient his current medical condition and plan of care and I have answered all his questions Objective: General: -Alert -No acute distress -No dyspnea -No tachypnea Heart: -iRegular rate -Regular rhythm -No murmurs -No gallops -No rubs Lungs: -No wheeze -No rhonchi -Bibasilar rales present however they are more prominent at the right lung base Abdomen: -Normal bowel sounds in all four quadrants -No rebound -No guarding -No tenderness Extremities: -2/4 pulse in all four extremities -No clubbing -No cyanosis -No edema Additional Details / Additional Findings / Exceptions / Miscellaneous: Pertinent Laboratory Results / Pertinent Radiology Results / Pertinent Diagnostic Results / Pertinent Vital Signs: Patient saturating 99% on 1.5 L, white blood cell count 20.3.2, hemoglobin 10.8, INR 4.76, alkaline phosphatase 163, AST 65 Assessment / Plan: Pneumonia. Azithromycin 500 mg IV daily plus Rocephin 1 g IV daily plus DuoNeb every 6 hours plus Solu-Medrol 40 mg IV every 8 hours Urinary tract infection. Rocephin 1 g IV daily. PSA within normal limits Moderate right pleural effusion, recurrence. I appreciate surgery evaluate the patient. Patient status post thoracocentesis on June 06, 2020 Elevated liver function test. Will monitor LFTs periodically with CMP. Right upper quadrant ultrasound pending Acute renal insufficiency. Will monitor creatinine level intermittently. IV normal saline at 75 mL's per hour History of prostate cancer, with questionable history of prostatectomy. Outpatient follow-up with his primary care physician or provider who indicates monitors his medical condition Osteoarthritis History of bioprosthetic cardiac valve replacement Psoriasis Spinal stenosis Iron deficiency anemia. Will monitor hemoglobin level intermittently. Fecal occult blood pending. Vitamin C 500 mg p.o. daily plus Venna fair 200 mg IV every 48 hours COPD Grade 2 diastolic dysfunction. Toprol-XL 50 mg p.o. daily Coronary artery disease, status post [place]. Aspirin 81 mg p.o. daily plus Lipitor 10 mg p.o. nightly plus Toprol-XL 50 mg p.o. daily Diabetes. Will check fasting glucose before every meal and at bedtime and provide insulin sliding scale Hyperlipidemia. Lipitor 10 mg p.o. nightly Hypertension. Toprol-XL 50 mg p.o. daily Restless leg syndrome. Requip 0.25 mg p.o. nightly Diverticulosis Seasonal allergies Atrial fibrillation. Toprol-XL 50 mg p.o. daily. I will resume the patient's home dose/frequency of Coumadin once his PT/INR is therapeutic between the range of 2 and 3 Silicosis Constipation Erectile dysfunction Degenerative disc disease Obstructive sleep apnea. CPAP/BiPAP: Okay to use home device and/or pressure when sleeping if the patient uses CPAP/BiPAP at home Left pulmonary nodules. Outpatient follow-up with his primary care physician or provider although I would advise against further evaluation given the fact that the patient would not be a candidate for surgical intervention/treatment given his numerous medical comorbidities and age GI prophylaxis. Protonix 40 mg p.o. daily DVT prophylaxis. Bilateral SCD Disposition: The patient may potentially be a candidate for discharge on this day of June 07, 2020. This will depend on whether we are able to wean the patient off of supplemental oxygen, the results of his INR to be rechecked at 1600 after administration of vitamin K, and the results of his right upper quadrant ultrasound. Although the patient exhibits leukocytosis, he is afebrile END OF DOCTOR STUART PROGRESS NOTE
[2020-06-07] MEDS ORDERED: Phytonadione 5 MG Tab PO ONE ×2 (09:30→17:06)
--- NOTE | 2020-06-07 13:17 | CRLUS ---
CLINICAL HISTORY: Elevated liver functions. FINDINGS: Sonographic imaging demonstrates normal size and uniform echotexture of the liver. The spleen is of normal size. Pancreas poorly seen. The proximal abdominal aorta and IVC appear normal. There is no evidence of ascites. The gallbladder is of normal size and there is no evidence of sludge or stones within the gallbladder lumen. Gallbladder appears contracted. The gallbladder wall measures 3 mm in thickness. The common bile duct measures 5 mm in size within the keo hepatis. Right pleural effusion. Right kidney measures 10.2 cm and appears unremarkable. IMPRESSION: Unremarkable abdominal ultrasound. Right pleural effusion. Dictated by Katlin Wright MD @ 06/07/2020 1:15:[address] Katlin Wright @ Jun 07 2020 1:15PM
[2020-06-07] MEDS: Iron Sucrose Complex 200 MG in Sodium Chloride 0.9% 100 ML IV SCH (15:40)
[2020-06-07] MEDS: Azithromycin 500 MG in Sodium Chloride 0.9% 250 ML IV SCH (19:41)
[2020-06-07] MEDS: cefTRIAXone 1 GM in Sodium Chloride 0.9% 50 ML IV SCH (20:58)
[2020-06-07] MEDS: rOPINIRole 0.5 MG Tab PO SCH (21:00)
[2020-06-07] MEDS: atorvaSTATin 10 MG Tab PO SCH (21:01)
[2020-06-08] MEDS: Albuterol/Ipratropium 3.0-0.5 MG/3 ML Neb Soln NEB SCH ×5 (00:14→20:36)
[2020-06-08] MEDS: methylPREDNISolone Sodium Succinate 40 MG/1 ML SDV IVPUSH SCH (01:51)
[2020-06-08] MEDS: Pantoprazole 40 MG Tab.CR PO SCH (07:15)
[2020-06-08] MEDS: Insulin Lispro 100 Unit/ML 3 ML KwikPen SUBCUT SCH ×4 (08:08→21:52)
[2020-06-08] MEDS: Aspirin 81 MG Tab.EC PO SCH (08:09)
[2020-06-08] MEDS: Metoprolol Succinate 50 MG Tab.ER PO SCH (08:09)
[2020-06-08] MEDS: Ascorbic Acid 500 MG Tab PO SCH (08:09)
--- NOTE | 2020-06-08 08:16 | OR ---
DATE OF PROCEDURE: 06/06/2020 SURGEON: Josesito Owens MD PROCEDURE: Thoracentesis. FINDINGS: Approximately 100 mL of thick, stahl-colored fluid concerning for infectious process. COMPLICATIONS: None. CHAIR MECHANIC: None. ANESTHESIA: MAC. PREOPERATIVE DIAGNOSIS: Pleural effusion, right. POSTOPERATIVE DIAGNOSIS: Pleural effusion, right. RISKS: Risks, benefits, alternatives, and limitations including but not limited to infection, bleeding, pneumothorax, or false positives and false negatives were explained to the patient who wished to proceed. PROCEDURE IN DETAIL: The patient was placed in supine position. The right chest was prepped and draped. This was anesthetized with lidocaine. A single makenzie was created in the skin. I did review the case before the case. the printing technician felt there was a small pocket of thick fluid. This was consistent with the results, which was approximately 100 mL to 150 mL of thick colored material concerning for infection. This was removed and sent for culture. This was then removed using the vacuum bottle system. Dressings were applied. The patient tolerated the procedure well. Josesito Owens MD /[id number]
--- NOTE | 2020-06-08 10:56 | PCM.PN ---
- General Info Date of Service: 06/08/20 Subjective Update: There were no acute events overnight. Patient does continue to require supplemental oxygen but this is minimal at this time and steadily improving. He is feeling stronger each day and has standby assist only at this time. He does not feel short of breath. Appetite is improving. He has not had any fevers. INR was therapeutic this morning. He did have a positive blood culture with gram-negative rods reported early this morning but identification is pending. Functional Status: Reports: Pain Controlled, Tolerating Diet - Review of Systems General: Denies: Fever Pulmonary: Denies: Shortness of Breath - Patient Data Vitals - Most Recent: Last Vital Signs Temp 35.4 C L 06/08/20 07:17 Pulse 78 06/08/20 08:09 Resp 22 H 06/08/20 07:17 BP 136/85 06/08/20 08:09 Pulse Ox 94 L 06/08/20 07:17 Weight - Most Recent: 81.374 kg I&O - Last 24 Hours: Intake & Output 06/07/20 06/08/20 06/08/20 22:59 06:59 14:59 Intake Total 2927 600 960 Balance 2927 600 960 Lab Results Last 24 Hours: Laboratory Results - last 24 hr 06/07/20 06/07/20 06/07/20 Range/Units 11:20 16:26 16:32 WBC (4.5-11.0) K/uL RBC (4.30-5.90) M/uL Hgb (12.0-15.0) g/dL Hct (40.0-54.0) % MCV (80-98) fL MCH (27-31) pg MCHC (32-36) % Plt Count (150-400) K/uL Add Manual Diff Neutrophils % (Manual) (36-66) % Band Neutrophils % (5-11) % Lymphocytes % (Manual) (24-44) % Monocytes % (Manual) (2-6) % PT 49.5 H (9.5-12.0) sec INR 4.68 H* (0.80-1.20) Sodium (140-148) mmol/L Potassium (3.6-5.2) mmol/L Chloride (100-108) mmol/L Carbon Dioxide (21-32) mmol/L Anion Gap (5.0-14.0) mmol/L BUN (7-18) mg/dL Creatinine (0.8-1.3) mg/dL Est Cr Clr Drug Dosing mL/min Estimated GFR (MDRD) (>60) Glucose (74-106) mg/dL POC Glucose 259 H 213 H (74-106) mg/dL Calcium (8.5-10.1) mg/dL Total Bilirubin (0.2-1.0) mg/dL AST (15-37) U/L ALT (12-78) U/L Alkaline Phosphatase (46-116) U/L Total Protein (6.4-8.2) g/dL Albumin (3.4-5.0) g/dL Globulin (2.3-3.5) g/dL Albumin/Globulin Ratio (1.2-2.2) 06/07/20 06/08/20 06/08/20 Range/Units 21:01 04:10 04:10 WBC 25.4 H (4.5-11.0) K/uL RBC 3.28 L (4.30-5.90) M/uL Hgb 10.5 L (12.0-15.0) g/dL Hct 30.8 L (40.0-54.0) % MCV 94 (80-98) fL MCH 32 H (27-31) pg MCHC 34 (32-36) % Plt Count 215 (150-400) K/uL Add Manual Diff Yes Neutrophils % (Manual) 92 H (36-66) % Band Neutrophils % 2 L (5-11) % Lymphocytes % (Manual) 4 L (24-44) % Monocytes % (Manual) 2 (2-6) % PT 21.3 H (9.5-12.0) sec INR 1.98 H D (0.80-1.20) Sodium (140-148) mmol/L Potassium (3.6-5.2) mmol/L Chloride (100-108) mmol/L Carbon Dioxide (21-32) mmol/L Anion Gap (5.0-14.0) mmol/L BUN (7-18) mg/dL Creatinine (0.8-1.3) mg/dL Est Cr Clr Drug Dosing mL/min Estimated GFR (MDRD) (>60) Glucose (74-106) mg/dL POC Glucose 272 H (74-106) mg/dL Calcium (8.5-10.1) mg/dL Total Bilirubin (0.2-1.0) mg/dL AST (15-37) U/L ALT (12-78) U/L Alkaline Phosphatase (46-116) U/L Total Protein (6.4-8.2) g/dL Albumin (3.4-5.0) g/dL Globulin (2.3-3.5) g/dL Albumin/Globulin Ratio (1.2-2.2) 06/08/20 06/08/20 Range/Units 04:10 07:27 WBC (4.5-11.0) K/uL RBC (4.30-5.90) M/uL Hgb (12.0-15.0) g/dL Hct (40.0-54.0) % MCV (80-98) fL MCH (27-31) pg MCHC (32-36) % Plt Count (150-400) K/uL Add Manual Diff Neutrophils % (Manual) (36-66) % Band Neutrophils % (5-11) % Lymphocytes % (Manual) (24-44) % Monocytes % (Manual) (2-6) % PT (9.5-12.0) sec INR (0.80-1.20) Sodium 142 (140-148) mmol/L Potassium 3.9 (3.6-5.2) mmol/L Chloride 106 (100-108) mmol/L Carbon Dioxide 22 (21-32) mmol/L Anion Gap 14.3 H (5.0-14.0) mmol/L BUN 56 H (7-18) mg/dL Creatinine 1.2 (0.8-1.3) mg/dL Est Cr Clr Drug Dosing 37.66 mL/min Estimated GFR (MDRD) 57 L (>60) Glucose 209 H (74-106) mg/dL POC Glucose 172 H (74-106) mg/dL Calcium 9.2 (8.5-10.1) mg/dL Total Bilirubin 0.9 (0.2-1.0) mg/dL AST 64 H (15-37) U/L ALT 75 (12-78) U/L Alkaline Phosphatase 201 H (46-116) U/L Total Protein 6.3 L (6.4-8.2) g/dL Albumin 2.2 L (3.4-5.0) g/dL Globulin 4.1 H (2.3-3.5) g/dL Albumin/Globulin Ratio 0.5 L (1.2-2.2) Atul Results Last 24 Hours: Microbiology 06/05/20 19:15 Aerobic Blood Culture - Preliminary Blood - Arm, Left Anaerobic Blood Culture - Preliminary NO GROWTH AFTER 2 DAYS 06/06/20 09:05 Gram Stain - Final Thoracentesis Fluid Body Fluid Culture - Preliminary NO GROWTH AFTER 2 DAYS 06/05/20 19:25 Aerobic Blood Culture - Preliminary Blood - Arm, Left NO GROWTH AFTER 2 DAYS Anaerobic Blood Culture - Preliminary NO GROWTH AFTER 2 DAYS Med Orders - Current: Current Medications Acetaminophen (Acetaminophen 325 Mg Tab) 650 mg PO Q4H PRN PRN Reason: Pain (Mild 1-3)/fever Last Admin: 06/06/20 20:39 Dose: 650 mg Documented by: Ascorbic Acid (Ascorbic Acid 500 Mg Tab) 500 mg PO DAILY [facility] Last Admin: 06/08/20 08:09 Dose: 500 mg Documented by: Aspirin (Aspirin 81 Mg Tab.Ec) 81 mg PO DAILY [facility] Last Admin: 06/08/20 08:09 Dose: 81 mg Documented by: Atorvastatin Calcium (Atorvastatin 10 Mg Tab) 10 mg PO BEDTIME [facility] Last Admin: 06/07/20 21:01 Dose: 10 mg Documented by: Benzocaine/Menthol (Benzocaine/Cetylpyridinium/Menthol Lozenge) 1 lozenge MUCMEM Q2H PRN PRN Reason: Sore Throat Last Admin: 06/06/20 22:34 Dose: 1 lozenge Documented by: Dextrose/Water (50% Dextrose In Water 50 Ml Syringe) 50 ml IVPUSH ASDIRECTED PRN PRN Reason: Hypoglycemia Glucagon (Glucagon,Human Recombinant 1 Mg Vial) 1 mg IM ASDIRECTED PRN PRN Reason: Hypoglycemia Ceftriaxone Sodium 1 gm/ (Sodium Chloride) 50 mls @ 100 mls/hr IV Q24H [facility] Last Admin: 06/07/20 20:58 Dose: 100 mls/hr Documented by: Iron Sucrose 200 mg/ Sodium (Chloride) 110 mls @ 400 mls/hr IV Q48H [facility] Stop: 06/13/20 15:47 Last Admin: 06/07/20 15:40 Dose: 400 mls/hr Documented by: Insulin Human Lispro (Insulin Lispro 100 Unit/Ml 3 Ml Kwikpen) 0 unit SUBCUT QIDACANDBED [facility]; Protocol Last Admin: 06/08/20 08:08 Dose: 1 units Documented by: Metoprolol Succinate (Metoprolol Succinate 50 Mg Tab.Er) 50 mg PO DAILY [facility] Last Admin: 06/08/20 08:09 Dose: 50 mg Documented by: Ondansetron HCl (Ondansetron 4 Mg/2 Ml Sdv) 4 mg IV Q4H PRN PRN Reason: Nausea/Vomiting Pantoprazole Sodium (Pantoprazole 40 Mg Tab.Cr) 40 mg PO ACBREAKFAST [facility] Last Admin: 06/08/20 07:15 Dose: 40 mg Documented by: Prednisone (Prednisone 20 Mg Tab) 20 mg PO ONETIME ONE Stop: 06/08/20 12:01 Prednisone (Prednisone 20 Mg Tab) 20 mg PO WITHBREAKFAST [facility] Stop: 06/10/20 08:01 Ropinirole HCl (Ropinirole 0.5 Mg Tab) 0.25 mg PO BEDTIME [facility] Last Admin: 06/07/20 21:00 Dose: 0.25 mg Documented by: Sodium Chloride (Sodium Chloride 0.9% 10 Ml Syringe) 10 ml FLUSH ASDIRECTED PRN PRN Reason: Keep Vein Open Discontinued Medications Albuterol/Ipratropium (Albuterol/Ipratropium 3.0-0.5 Mg/3 Ml Neb Soln) 3 ml NEB Q6H [facility] Last Admin: 06/06/20 07:02 Dose: 3 ml Documented by: Albuterol/Ipratropium (Albuterol/Ipratropium 3.0-0.5 Mg/3 Ml Neb Soln) 3 ml NEB Q6H [facility] Last Admin: 06/08/20 07:24 Dose: 3 ml Documented by: Bacitracin (Bacitracin Oint 1 Gm U/D Packet) Confirm Administered Dose 3 dose .ROUTE .STK-MED ONE Stop: 06/06/20 08:58 Last Admin: 06/06/20 09:08 Dose: Not Given Documented by: Ferrous Sulfate (Ferrous Sulfate 325 Mg Tab) 325 mg PO DAILY [facility] Sodium Chloride (Normal Saline) 1,000 mls @ 999 mls/hr IV .BOLUS ONE Stop: 06/05/20 19:28 Last Admin: 06/05/20 18:53 Dose: 999 mls/hr Documented by: Levofloxacin/Dextrose 750 mg/ (Premix) 150 mls @ 100 mls/hr IV ONETIME ONE Stop: 06/05/20 20:32 Last Admin: 06/05/20 22:00 Dose: Not Given Documented by: Clindamycin Phosphate 900 mg/ (Sodium Chloride) 106 mls @ 200 mls/hr IV ONETIME ONE Stop: 06/05/20 19:47 Last Admin: 06/05/20 22:01 Dose: Not Given Documented by: Sodium Chloride (Normal Saline) 1,000 mls @ 999 mls/hr IV BOLUS ONE; Protocol Stop: 06/05/20 20:33 Last Admin: 06/05/20 19:58 Dose: 999 mls/hr Documented by: Vancomycin HCl 1 gm/ Sodium (Chloride) 250 mls @ 167 mls/hr IV STAT ONE Stop: 06/05/20 21:02 Last Admin: 06/05/20 20:06 Dose: Not Given Documented by: Piperacillin Sod/Tazobactam (Sod 4.5 gm/ Sodium Chloride) 100 mls @ 100 mls/hr IV STAT ONE Stop: 06/05/20 20:32 Last Admin: 06/05/20 21:58 Dose: Not Given Documented by: Sodium Chloride (Normal Saline) 1,000 mls @ 75 mls/hr IV ASDIRECTED [facility] Last Admin: 06/07/20 19:40 Dose: 75 mls/hr Documented by: Azithromycin 500 mg/ Sodium (Chloride) 250 mls @ 250 mls/hr IV Q24H [facility] Last Admin: 06/07/20 19:41 Dose: 250 mls/hr Documented by: Iron Sucrose 200 mg/ Sodium (Chloride) 110 mls @ 400 mls/hr IV Q48H [facility] Last Admin: 06/05/20 23:28 Dose: 400 mls/hr Documented by: Insulin Human Lispro (Insulin Lispro 100 Unit/Ml 3 Ml Kwikpen) 0 unit SUBCUT TIDMEALS [facility]; Protocol Last Admin: 06/07/20 17:59 Dose: 2 unit Documented by: Insulin Human Lispro (Insulin Lispro 100 Unit/Ml 3 Ml Kwikpen) 14 unit SUBCUT O NETIME ONE Stop: 06/06/20 21:36 Last Admin: 06/06/20 21:46 Dose: 14 units Documented by: Insulin Human Lispro (Insulin Lispro 100 Unit/Ml 3 Ml Kwikpen) 6 unit SUBCUT ONETIME ONE Stop: 06/06/20 23:11 Last Admin: 06/06/20 23:19 Dose: 6 unit Documented by: Lidocaine HCl (Lidocaine 2% Jelly 10 Ml Urojet) 10 ml MUCMEM ONETIME ONE Stop: 06/05/20 17:40 Last Admin: 06/05/20 20:06 Dose: Not Given Documented by: Methylprednisolone Sodium Succinate (Methylprednisolone Sodium Succinate 40 Mg/1 Ml Sdv) 40 mg IVPUSH Q8H [facility] Last Admin: 06/08/20 01:51 Dose: 40 mg Documented by: Metoprolol Succinate (Metoprolol Succinate 25 Mg Tab.Er) 50 mg PO DAILY [facility] Non-Formulary Medication (Ropinirole [Requip]) 0.25 mg PO BEDTIME [facility] Last Admin: 06/05/20 22:01 Dose: Not Given Documented by: Phytonadione (Phytonadione 5 Mg Tab) 2.5 mg PO ONETIME ONE Stop: 06/07/20 09:31 Last Admin: 06/07/20 09:30 Dose: 2.5 mg Documented by: Phytonadione (Phytonadione 5 Mg Tab) 5 mg PO ONETIME ONE Stop: 06/07/20 17:07 Last Admin: 06/07/20 17:59 Dose: 5 mg Documented by: Sodium Chloride (Sodium Chloride 0.9% 10 Ml Syringe) 10 ml FLUSH ASDIRECTED PRN PRN Reason: Keep Vein Open Last Admin: 06/05/20 17:57 Dose: 10 ml Documented by: Warfarin Sodium (Warfarin 5 Mg Tab) 7.5 mg PO ASDIRECTED REBECA Warfarin Sodium (Warfarin 5 Mg Tab) 10 mg PO ASDIRECTED REBECA - Exam Quality Assessment: Supplemental Oxygen General: Alert, Oriented, Cooperative, No Acute Distress Lungs: Normal Respiratory Effort, Decreased Breath Sounds (right lower lung ), Crackles (few right mid lung ) Cardiovascular: Regular Rate, Regular Rhythm GI/Abdominal Exam: Soft, No Distention Extremities: No Pedal Edema. No: Increased Warmth Skin: Warm, Dry Psy/Mental Status: Alert, Normal Affect - Patient Data Lab Results Last 24 hrs: Laboratory Results - last 24 hr 06/07/20 06/07/20 06/07/20 Range/Units 11:20 16:26 16:32 WBC (4.5-11.0) K/uL RBC (4.30-5.90) M/uL Hgb (12.0-15.0) g/dL Hct (40.0-54.0) % MCV (80-98) fL MCH (27-31) pg MCHC (32-36) % Plt Count (150-400) K/uL Add Manual Diff Neutrophils % (Manual) (36-66) % Band Neutrophils % (5-11) % Lymphocytes % (Manual) (24-44) % Monocytes % (Manual) (2-6) % PT 49.5 H (9.5-12.0) sec INR 4.68 H* (0.80-1.20) Sodium (140-148) mmol/L Potassium (3.6-5.2) mmol/L Chloride (100-108) mmol/L Carbon Dioxide (21-32) mmol/L Anion Gap (5.0-14.0) mmol/L BUN (7-18) mg/dL Creatinine (0.8-1.3) mg/dL Est Cr Clr Drug Dosing mL/min Estimated GFR (MDRD) (>60) Glucose (74-106) mg/dL POC Glucose 259 H 213 H (74-106) mg/dL Calcium (8.5-10.1) mg/dL Total Bilirubin (0.2-1.0) mg/dL AST (15-37) U/L ALT (12-78) U/L Alkaline Phosphatase (46-116) U/L Total Protein (6.4-8.2) g/dL Albumin (3.4-5.0) g/dL Globulin (2.3-3.5) g/dL Albumin/Globulin Ratio (1.2-2.2) 06/07/20 06/08/20 06/08/20 Range/Units 21:01 04:10 04:10 WBC 25.4 H (4.5-11.0) K/uL RBC 3.28 L (4.30-5.90) M/uL Hgb 10.5 L (12.0-15.0) g/dL Hct 30.8 L (40.0-54.0) % MCV 94 (80-98) fL MCH 32 H (27-31) pg MCHC 34 (32-36) % Plt Count 215 (150-400) K/uL Add Manual Diff Yes Neutrophils % (Manual) 92 H (36-66) % Band Neutrophils % 2 L (5-11) % Lymphocytes % (Manual) 4 L (24-44) % Monocytes % (Manual) 2 (2-6) % PT 21.3 H (9.5-12.0) sec INR 1.98 H D (0.80-1.20) Sodium (140-148) mmol/L Potassium (3.6-5.2) mmol/L Chloride (100-108) mmol/L Carbon Dioxide (21-32) mmol/L Anion Gap (5.0-14.0) mmol/L BUN (7-18) mg/dL Creatinine (0.8-1.3) mg/dL Est Cr Clr Drug Dosing mL/min Estimated GFR (MDRD) (>60) Glucose (74-106) mg/dL POC Glucose 272 H (74-106) mg/dL Calcium (8.5-10.1) mg/dL Total Bilirubin (0.2-1.0) mg/dL AST (15-37) U/L ALT (12-78) U/L Alkaline Phosphatase (46-116) U/L Total Protein (6.4-8.2) g/dL Albumin (3.4-5.0) g/dL Globulin (2.3-3.5) g/dL Albumin/Globulin Ratio (1.2-2.2) 06/08/20 06/08/20 Range/Units 04:10 07:27 WBC (4.5-11.0) K/uL RBC (4.30-5.90) M/uL Hgb (12.0-15.0) g/dL Hct (40.0-54.0) % MCV (80-98) fL MCH (27-31) pg MCHC (32-36) % Plt Count (150-400) K/uL Add Manual Diff Neutrophils % (Manual) (36-66) % Band Neutrophils % (5-11) % Lymphocytes % (Manual) (24-44) % Monocytes % (Manual) (2-6) % PT (9.5-12.0) sec INR (0.80-1.20) Sodium 142 (140-148) mmol/L Potassium 3.9 (3.6-5.2) mmol/L Chloride 106 (100-108) mmol/L Carbon Dioxide 22 (21-32) mmol/L Anion Gap 14.3 H (5.0-14.0) mmol/L BUN 56 H (7-18) mg/dL Creatinine 1.2 (0.8-1.3) mg/dL Est Cr Clr Drug Dosing 37.66 mL/min Estimated GFR (MDRD) 57 L (>60) Glucose 209 H (74-106) mg/dL POC Glucose 172 H (74-106) mg/dL Calcium 9.2 (8.5-10.1) mg/dL Total Bilirubin 0.9 (0.2-1.0) mg/dL AST 64 H (15-37) U/L ALT 75 (12-78) U/L Alkaline Phosphatase 201 H (46-116) U/L Total Protein 6.3 L (6.4-8.2) g/dL Albumin 2.2 L (3.4-5.0) g/dL Globulin 4.1 H (2.3-3.5) g/dL Albumin/Globulin Ratio 0.5 L (1.2-2.2) Result Diagrams: 06/08/20 04:10 06/08/20 04:10 Atul Results Last 24 hrs: Microbiology 06/05/20 19:15 Aerobic Blood Culture - Preliminary Blood - Arm, Left Anaerobic Blood Culture - Preliminary NO GROWTH AFTER 2 DAYS 06/06/20 09:05 Gram Stain - Final Thoracentesis Fluid Body Fluid Culture - Preliminary NO GROWTH AFTER 2 DAYS 06/05/20 19:25 Aerobic Blood Culture - Preliminary Blood - Arm, Left NO GROWTH AFTER 2 DAYS Anaerobic Blood Culture - Preliminary NO GROWTH AFTER 2 DAYS Sepsis Event Note - Evaluation Sepsis Screening Result: Sepsis Risk - Focused Exam Vital Signs: Vital Signs Temp Pulse Pulse Resp BP BP Pulse Ox 06/08/20 08:09 78 136/85 06/08/20 07:17 35.4 C L 78 22 H 136/85 94 L 06/08/20 04:12 36.1 C 65 18 126/78 90 L 06/08/20 01:20 35.7 C L 92 18 146/90 H 94 L - Problem List Review Problem List Initiated/Reviewed/Updated: Yes - My Orders Last 24 Hours: My Active Orders 06/08/20 10:54 Convert IV to Saline Lock [OM.PC] Routine 06/08/20 11:00 Albuterol/Ipratropium [DuoNeb 3.0-0.5 MG/3 ML] 3 ml NEB QIDRT 06/08/20 12:00 predniSONE 20 mg PO ONETIME ONE 06/08/20 13:00 Warfarin [Coumadin] 10 mg PO DAILY@1300 06/08/20 21:00 Azithromycin [Zithromax] 500 mg PO BEDTIME 06/09/20 05:00 BASIC METABOLIC PANEL,BMP [CHEM] Timed CBC W/O DIFF,HEMOGRAM [HEME] Timed (1) INR,PT,PROTHROMBIN TIME [COAG] Timed 06/09/20 08:00 predniSONE 20 mg PO WITHBREAKFAST - Plan Plan:: ASSESSMENT AND PLAN - Bilateral lower lobe pneumonia-complicated by sepsis, complex pleural effusion on the right and acute respiratory failure with hypoxia. Status post thoracent esis on 06/06. Still requiring supplemental oxygen but steadily improving. He does now have a positive blood culture with gram-negative rods growing. Clinically he is doing well and steadily improving. White blood cell count is slightly higher but this could be related to his steroids. He is not having any fevers. -Continue ceftriaxone and a azithromycin -Transition to prednisone at reduced dose and plan to discontinue in 2 to 3 days -Follow-up cultures -Repeat chest x-ray in the morning -Supplement oxygen, wean as able -Physical therapy Acute kidney injury-resolved. Type 2 diabetes mellitus-diet controlled at home. He has had hyperglycemia here probably related to steroid use. -Sliding scale insulin Coronary artery disease-complicated by mild diastolic heart failure. Stable. -Medical management Chronic atrial fibrillation-rate controlled. Chronically anticoagulated. INR therapeutic today. -Restart warfarin Maintenance issues - -DVT prophylaxis-warfarin -GI prophylaxis-not indicated -Nutrition-heart healthy Disposition -I anticipate discharge home with home care after the hospital stay Remy Reyes M.D.
[2020-06-08] MEDS ORDERED: Furosemide 40 MG/4 ML VIAL IVPUSH ONE (11:10)
[2020-06-08] MEDS ORDERED: predniSONE 20 MG Tab PO ONE (12:00)
[2020-06-08] MEDS: Warfarin 5 MG Tab PO SCH (12:44)
[2020-06-08] MEDS: cefTRIAXone 1 GM in Sodium Chloride 0.9% 50 ML IV SCH (20:25)
[2020-06-08] MEDS: Azithromycin 250 MG Tab PO SCH (20:35)
[2020-06-08] MEDS: rOPINIRole 0.5 MG Tab PO SCH (20:36)
[2020-06-08] MEDS: atorvaSTATin 10 MG Tab PO SCH (20:36)
[2020-06-09] MEDS: Albuterol/Ipratropium 3.0-0.5 MG/3 ML Neb Soln NEB SCH ×4 (07:02→20:29)
[2020-06-09] MEDS: Furosemide 40 MG Tab PO SCH (08:59)
[2020-06-09] MEDS: predniSONE 20 MG Tab PO SCH (08:59)
[2020-06-09] MEDS: Metoprolol Succinate 50 MG Tab.ER PO SCH (08:59)
[2020-06-09] MEDS: Aspirin 81 MG Tab.EC PO SCH (08:59)
[2020-06-09] MEDS: Pantoprazole 40 MG Tab.CR PO SCH (08:59)
[2020-06-09] MEDS: Ascorbic Acid 500 MG Tab PO SCH (09:00)
[2020-06-09] MEDS: Insulin Lispro 100 Unit/ML 3 ML KwikPen SUBCUT SCH ×4 (09:01→21:08)
--- NOTE | 2020-06-09 11:10 | CR ---
CHEST: 2 view CLINICAL HISTORY:Follow-up pleural effusion COMPARISON:06/07/2020 FINDINGS: There is a moderate right pleural effusion which is similar to prior study. There is diffuse calcified pleural plaque formation bilaterally. Heart and pulmonary vascularity are normal. There is a slight increase in airspace disease in the right lung which may be some compressive atelectasis. There are atherosclerotic changes in the aorta.. Impression: Moderate right pleural effusion persists without significant change Mild increase in airspace disease in the right lung may represent some superimposed patchy atelectasis. Infiltrate is not excluded Asbestosis
--- NOTE | 2020-06-09 13:30 | PCM.PN ---
- General Info Date of Service: 06/09/20 Subjective Update: No acute events overnight. No fevers. No significant shortness of breath at rest but does get dyspneic with activity. White blood cell count is higher again today. Appetite has been good. A little weak but overall his strength is good. Chest x-ray this morning showed persistent pleural effusion. CT scan of the chest showed moderate right pleural effusion with possible loculations as well as some calcified pleural plaques. Functional Status: Reports: Pain Controlled, Tolerating Diet - Review of Systems General: Denies: Fever Cardiovascular: Reports: Dyspnea on Exertion - Patient Data Vitals - Most Recent: Last Vital Signs Temp 35.4 C L 06/09/20 11:39 Pulse 73 06/09/20 11:39 Resp 18 06/09/20 11:39 BP 148/100 H 06/09/20 11:39 Pulse Ox 94 L 06/09/20 11:39 Weight - Most Recent: 81.374 kg I&O - Last 24 Hours: Intake & Output 06/08/20 06/09/20 06/09/20 22:59 06:59 14:59 Intake Total 1070 Output Total 1250 550 Balance -180 -550 Lab Results Last 24 Hours: Laboratory Results - last 24 hr 06/08/20 06/08/20 06/09/20 Range/Units 16:22 21:50 05:30 WBC 28.1 H (4.5-11.0) K/uL RBC 3.35 L (4.30-5.90) M/uL Hgb 10.5 L (12.0-15.0) g/dL Hct 31.1 L (40.0-54.0) % MCV 93 (80-98) fL MCH 31 (27-31) pg MCHC 34 (32-36) % Plt Count 272 (150-400) K/uL PT (9.5-12.0) sec INR (0.80-1.20) Sodium (140-148) mmol/L Potassium (3.6-5.2) mmol/L Chloride (100-108) mmol/L Carbon Dioxide (21-32) mmol/L Anion Gap (5.0-14.0) mmol/L BUN (7-18) mg/dL Creatinine (0.8-1.3) mg/dL Est Cr Clr Drug Dosing mL/min Estimated GFR (MDRD) (>60) Glucose (74-106) mg/dL POC Glucose 304 H 232 H (74-106) mg/dL Calcium (8.5-10.1) mg/dL 06/09/20 06/09/20 06/09/20 Range/Units 05:30 05:30 07:30 WBC (4.5-11.0) K/uL RBC (4.30-5.90) M/uL Hgb (12.0-15.0) g/dL Hct (40.0-54.0) % MCV (80-98) fL MCH (27-31) pg MCHC (32-36) % Plt Count (150-400) K/uL PT 23.0 H (9.5-12.0) sec INR 2.14 H (0.80-1.20) Sodium 139 L (140-148) mmol/L Potassium 4.4 (3.6-5.2) mmol/L Chloride 104 (100-108) mmol/L Carbon Dioxide 19 L (21-32) mmol/L Anion Gap 20.4 H (5.0-14.0) mmol/L BUN 65 H (7-18) mg/dL Creatinine 1.4 H (0.8-1.3) mg/dL Est Cr Clr Drug Dosing 32.44 mL/min Estimated GFR (MDRD) 48 L (>60) Glucose 243 H (74-106) mg/dL POC Glucose 218 H (74-106) mg/dL Calcium 9.5 (8.5-10.1) mg/dL 06/09/20 Range/Units 11:23 WBC (4.5-11.0) K/uL RBC (4.30-5.90) M/uL Hgb (12.0-15.0) g/dL Hct (40.0-54.0) % MCV (80-98) fL MCH (27-31) pg MCHC (32-36) % Plt Count (150-400) K/uL PT (9.5-12.0) sec INR (0.80-1.20) Sodium (140-148) mmol/L Potassium (3.6-5.2) mmol/L Chloride (100-108) mmol/L Carbon Dioxide (21-32) mmol/L Anion Gap (5.0-14.0) mmol/L BUN (7-18) mg/dL Creatinine (0.8-1.3) mg/dL Est Cr Clr Drug Dosing mL/min Estimated GFR (MDRD) (>60) Glucose (74-106) mg/dL POC Glucose 246 H (74-106) mg/dL Calcium (8.5-10.1) mg/dL Atul Results Last 24 Hours: Microbiology 06/05/20 19:15 Aerobic Blood Culture - Final Blood - Arm, Left Haemophilus Influenzae V Anaerobic Blood Culture - Preliminary NO GROWTH AFTER 3 DAYS 06/05/20 19:25 Aerobic Blood Culture - Final Blood - Arm, Left Haemophilus Influenzae V Anaerobic Blood Culture - Preliminary NO GROWTH AFTER 3 DAYS 06/06/20 09:05 Gram Stain - Final Thoracentesis Fluid Body Fluid Culture - Final NO GROWTH AFTER 3 DAYS Med Orders - Current: Current Medications Acetaminophen (Acetaminophen 325 Mg Tab) 650 mg PO Q4H PRN PRN Reason: Pain (Mild 1-3)/fever Last Admin: 06/06/20 20:39 Dose: 650 mg Documented by: Albuterol/Ipratropium (Albuterol/Ipratropium 3.0-0.5 Mg/3 Ml Neb Soln) 3 ml NEB QIDRT [facility] Last Admin: 06/09/20 10:35 Dose: 3 ml Documented by: Ascorbic Acid (Ascorbic Acid 500 Mg Tab) 500 mg PO DAILY [facility] Last Admin: 06/09/20 09:00 Dose: 500 mg Documented by: Aspirin (Aspirin 81 Mg Tab.Ec) 81 mg PO DAILY [facility] Last Admin: 06/09/20 08:59 Dose: 81 mg Documented by: Atorvastatin Calcium (Atorvastatin 10 Mg Tab) 10 mg PO BEDTIME [facility] Last Admin: 06/08/20 20:36 Dose: 10 mg Documented by: Azithromycin (Azithromycin 250 Mg Tab) 500 mg PO BEDTIME [facility] Last Admin: 06/08/20 20:35 Dose: 500 mg Documented by: Benzocaine/Menthol (Benzocaine/Cetylpyridinium/Menthol Lozenge) 1 lozenge MUCMEM Q2H PRN PRN Reason: Sore Throat Last Admin: 06/06/20 22:34 Dose: 1 lozenge Documented by: Dextrose/Water (50% Dextrose In Water 50 Ml Syringe) 50 ml IVPUSH ASDIRECTED PRN PRN Reason: Hypoglycemia Furosemide (Furosemide 40 Mg Tab) 40 mg PO DAILY [facility] Last Admin: 06/09/20 08:59 Dose: 40 mg Documented by: Glucagon (Glucagon,Human Recombinant 1 Mg Vial) 1 mg IM ASDIRECTED PRN PRN Reason: Hypoglycemia Ceftriaxone Sodium 1 gm/ (Sodium Chloride) 50 mls @ 100 mls/hr IV Q24H [facility] Last Admin: 06/08/20 20:25 Dose: 100 mls/hr Documented by: Iron Sucrose 200 mg/ Sodium (Chloride) 110 mls @ 400 mls/hr IV Q48H [facility] Stop: 06/13/20 15:47 Last Admin: 06/07/20 15:40 Dose: 400 mls/hr Documented by: Insulin Human Lispro (Insulin Lispro 100 Unit/Ml 3 Ml Kwikpen) 0 unit SUBCUT QIDACANDBED [facility]; Protocol Last Admin: 06/09/20 11:43 Dose: 2 units Documented by: Metoprolol Succinate (Metoprolol Succinate 50 Mg Tab.Er) 50 mg PO DAILY [facility] Last Admin: 06/09/20 08:59 Dose: 50 mg Documented by: Ondansetron HCl (Ondansetron 4 Mg/2 Ml Sdv) 4 mg IV Q4H PRN PRN Reason: Nausea/Vomiting Pantoprazole Sodium (Pantoprazole 40 Mg Tab.Cr) 40 mg PO ACBREAKFAST [facility] Last Admin: 06/09/20 08:59 Dose: 40 mg Documented by: Prednisone (Prednisone 20 Mg Tab) 20 mg PO WITHBREAKFAST [facility] Stop: 06/10/20 08:01 Last Admin: 06/09/20 08:59 Dose: 20 mg Documented by: Ropinirole HCl (Ropinirole 0.5 Mg Tab) 0.25 mg PO BEDTIME [facility] Last Admin: 06/08/20 20:36 Dose: 0.25 mg Documented by: Sodium Chloride (Sodium Chloride 0.9% 10 Ml Syringe) 10 ml FLUSH ASDIRECTED PRN PRN Reason: Keep Vein Open Warfarin Sodium (Warfarin 5 Mg Tab) 10 mg PO DAILY@1300 [facility] Last Admin: 06/08/20 12:44 Dose: 10 mg Documented by: Discontinued Medications Albuterol/Ipratropium (Albuterol/Ipratropium 3.0-0.5 Mg/3 Ml Neb Soln) 3 ml NEB Q6H [facility] Last Admin: 06/06/20 07:02 Dose: 3 ml Documented by: Albuterol/Ipratropium (Albuterol/Ipratropium 3.0-0.5 Mg/3 Ml Neb Soln) 3 ml NEB Q6H REBECA Last Admin: 06/08/20 07:24 Dose: 3 ml Documented by: Bacitracin (Bacitracin Oint 1 Gm U/D Packet) Confirm Administered Dose 3 dose .ROUTE .STK-MED ONE Stop: 06/06/20 08:58 Last Admin: 06/06/20 09:08 Dose: Not Given Documented by: Ferrous Sulfate (Ferrous Sulfate 325 Mg Tab) 325 mg PO DAILY REBECA Furosemide (Furosemide 40 Mg/4 Ml Vial) 40 mg IVPUSH ONETIME ONE Stop: 06/08/20 11:11 Last Admin: 06/08/20 12:47 Dose: 40 mg Documented by: Sodium Chloride (Normal Saline) 1,000 mls @ 999 mls/hr IV .BOLUS ONE Stop: 06/05/20 19:28 Last Admin: 06/05/20 18:53 Dose: 999 mls/hr Documented by: Levofloxacin/Dextrose 750 mg/ (Premix) 150 mls @ 100 mls/hr IV ONETIME ONE Stop: 06/05/20 20:32 Last Admin: 06/05/20 22:00 Dose: Not Given Documented by: Clindamycin Phosphate 900 mg/ (Sodium Chloride) 106 mls @ 200 mls/hr IV ONETIME ONE Stop: 06/05/20 19:47 Last Admin: 06/05/20 22:01 Dose: Not Given Documented by: Sodium Chloride (Normal Saline) 1,000 mls @ 999 mls/hr IV BOLUS ONE; Protocol Stop: 06/05/20 20:33 Last Admin: 06/05/20 19:58 Dose: 999 mls/hr Documented by: Vancomycin HCl 1 gm/ Sodium (Chloride) 250 mls @ 167 mls/hr IV STAT ONE Stop: 06/05/20 21:02 Last Admin: 06/05/20 20:06 Dose: Not Given Documented by: Piperacillin Sod/Tazobactam (Sod 4.5 gm/ Sodium Chloride) 100 mls @ 100 mls/hr IV STAT ONE Stop: 06/05/20 20:32 Last Admin: 06/05/20 21:58 Dose: Not Given Documented by: Sodium Chloride (Normal Saline) 1,000 mls @ 75 mls/hr IV ASDIRECTED [facility] Last Admin: 06/07/20 19:40 Dose: 75 mls/hr Documented by: Azithromycin 500 mg/ Sodium (Chloride) 250 mls @ 250 mls/hr IV Q24H [facility] Last Admin: 06/07/20 19:41 Dose: 250 mls/hr Documented by: Iron Sucrose 200 mg/ Sodium (Chloride) 110 mls @ 400 mls/hr IV Q48H [facility] Last Admin: 06/05/20 23:28 Dose: 400 mls/hr Documented by: Insulin Human Lispro (Insulin Lispro 100 Unit/Ml 3 Ml Kwikpen) 0 unit SUBCUT TIDMEALS [facility]; Protocol Last Admin: 06/07/20 17:59 Dose: 2 unit Documented by: Insulin Human Lispro (Insulin Lispro 100 Unit/Ml 3 Ml Kwikpen) 14 unit SUBCUT ONETIME ONE Stop: 06/06/20 21:36 Last Admin: 06/06/20 21:46 Dose: 14 units Documented by: Insulin Human Lispro (Insulin Lispro 100 Unit/Ml 3 Ml Kwikpen) 6 unit SUBCUT ONETIME ONE Stop: 06/06/20 23:11 Last Admin: 06/06/20 23:19 Dose: 6 unit Documented by: Lidocaine HCl (Lidocaine 2% Jelly 10 Ml Urojet) 10 ml MUCMEM ONETIME ONE Stop: 06/05/20 17:40 Last Admin: 06/05/20 20:06 Dose: Not Given Documented by: Methylprednisolone Sodium Succinate (Methylprednisolone Sodium Succinate 40 Mg/1 Ml Sdv) 40 mg IVPUSH Q8H [facility] Last Admin: 06/08/20 01:51 Dose: 40 mg Documented by: Metoprolol Succinate (Metoprolol Succinate 25 Mg Tab.Er) 50 mg PO DAILY [facility] Non-Formulary Medication (Ropinirole [Requip]) 0.25 mg PO BEDTIME [facility] Last Admin: 06/05/20 22:01 Dose: Not Given Documented by: Phytonadione (Phytonadione 5 Mg Tab) 2.5 mg PO ONETIME ONE Stop: 06/07/20 09:31 Last Admin: 06/07/20 09:30 Dose: 2.5 mg Documented by: Phytonadione (Phytonadione 5 Mg Tab) 5 mg PO ONETIME ONE Stop: 06/07/20 17:07 Last Admin: 06/07/20 17:59 Dose: 5 mg Documented by: Prednisone (Prednisone 20 Mg Tab) 20 mg PO ONETIME ONE Stop: 06/08/20 12:01 Last Admin: 06/08/20 12:40 Dose: 20 mg Documented by: Sodium Chloride (Sodium Chloride 0.9% 10 Ml Syringe) 10 ml FLUSH ASDIRECTED PRN PRN Reason: Keep Vein Open Last Admin: 06/05/20 17:57 Dose: 10 ml Documented by: Warfarin Sodium (Warfarin 5 Mg Tab) 7.5 mg PO ASDIRECTED REBECA Warfarin Sodium (Warfarin 5 Mg Tab) 10 mg PO ASDIRECTED REBECA - Exam Quality Assessment: No: Supplemental Oxygen General: Alert, Oriented, Cooperative, No Acute Distress Lungs: Normal Respiratory Effort, Crackles (few right lung base) Cardiovascular: Regular Rate, Regular Rhythm GI/Abdominal Exam: Soft, No Distention Extremities: No Pedal Edema. No: Increased Warmth Skin: Warm, Dry Psy/Mental Status: Alert, Normal Affect - Patient Data Lab Results Last 24 hrs: Laboratory Results - last 24 hr 06/08/20 06/08/20 06/09/20 Range/Units 16:22 21:50 05:30 WBC 28.1 H (4.5-11.0) K/uL RBC 3.35 L (4.30-5.90) M/uL Hgb 10.5 L (12.0-15.0) g/dL Hct 31.1 L (40.0-54.0) % MCV 93 (80-98) fL MCH 31 (27-31) pg MCHC 34 (32-36) % Plt Count 272 (150-400) K/uL PT (9.5-12.0) sec INR (0.80-1.20) Sodium (140-148) mmol/L Potassium (3.6-5.2) mmol/L Chloride (100-108) mmol/L Carbon Dioxide (21-32) mmol/L Anion Gap (5.0-14.0) mmol/L BUN (7-18) mg/dL Creatinine (0.8-1.3) mg/dL Est Cr Clr Drug Dosing mL/min Estimated GFR (MDRD) (>60) Glucose (74-106) mg/dL POC Glucose 304 H 232 H (74-106) mg/dL Calcium (8.5-10.1) mg/dL 06/09/20 06/09/20 06/09/20 Range/Units 05:30 05:30 07:30 WBC (4.5-11.0) K/uL RBC (4.30-5.90) M/uL Hgb (12.0-15.0) g/dL Hct (40.0-54.0) % MCV (80-98) fL MCH (27-31) pg MCHC (32-36) % Plt Count (150-400) K/uL PT 23.0 H (9.5-12.0) sec INR 2.14 H (0.80-1.20) Sodium 139 L (140-148) mmol/L Potassium 4.4 (3.6-5.2) mmol/L Chloride 104 (100-108) mmol/L Carbon Dioxide 19 L (21-32) mmol/L Anion Gap 20.4 H (5.0-14.0) mmol/L BUN 65 H (7-18) mg/dL Creatinine 1.4 H (0.8-1.3) mg/dL Est Cr Clr Drug Dosing 32.44 mL/min Estimated GFR (MDRD) 48 L (>60) Glucose 243 H (74-106) mg/dL POC Glucose 218 H (74-106) mg/dL Calcium 9.5 (8.5-10.1) mg/dL 06/09/20 Range/Units 11:23 WBC (4.5-11.0) K/uL RBC (4.30-5.90) M/uL Hgb (12.0-15.0) g/dL Hct (40.0-54.0) % MCV (80-98) fL MCH (27-31) pg MCHC (32-36) % Plt Count (150-400) K/uL PT (9.5-12.0) sec INR (0.80-1.20) Sodium (140-148) mmol/L Potassium (3.6-5.2) mmol/L Chloride (100-108) mmol/L Carbon Dioxide (21-32) mmol/L Anion Gap (5.0-14.0) mmol/L BUN (7-18) mg/dL Creatinine (0.8-1.3) mg/dL Est Cr Clr Drug Dosing mL/min Estimated GFR (MDRD) (>60) Glucose (74-106) mg/dL POC Glucose 246 H (74-106) mg/dL Calcium (8.5-10.1) mg/dL Result Diagrams: 06/09/20 05:30 06/09/20 05:30 Atul Results Last 24 hrs: Microbiology 06/05/20 19:15 Aerobic Blood Culture - Final Blood - Arm, Left Haemophilus Influenzae V Anaerobic Blood Culture - Preliminary NO GROWTH AFTER 3 DAYS 06/05/20 19:25 Aerobic Blood Culture - Final Blood - Arm, Left Haemophilus Influenzae V Anaerobic Blood Culture - Preliminary NO GROWTH AFTER 3 DAYS 06/06/20 09:05 Gram Stain - Final Thoracentesis Fluid Body Fluid Culture - Final NO GROWTH AFTER 3 DAYS Sepsis Event Note - Evaluation Sepsis Screening Result: Severe Sepsis Risk - Focused Exam Vital Signs: Vital Signs Temp Pulse Pulse Resp BP BP Pulse Ox 06/09/20 11:39 35.4 C L 73 18 148/100 H 94 L 06/09/20 08:59 50 L 121/81 06/09/20 08:00 35.7 C L 50 L 18 121/81 93 L 06/09/20 03:35 35.8 C L 74 20 128/93 H 91 L - Problem List Review Problem List Initiated/Reviewed/Updated: Yes - My Orders Last 24 Hours: My Active Orders 06/08/20 13:00 Warfarin [Coumadin] 10 mg PO DAILY@1300 06/08/20 21:00 Azithromycin [Zithromax] 500 mg PO BEDTIME 06/09/20 08:00 predniSONE 20 mg PO WITHBREAKFAST 06/09/20 09:00 Furosemide [Lasix] 40 mg PO DAILY 06/09/20 13:28 Chest wo Cont [CT] Routine 06/10/20 05:00 BASIC METABOLIC PANEL,BMP [CHEM] Timed CBC W/O DIFF,HEMOGRAM [HEME] Timed (1) INR,PT,PROTHROMBIN TIME [COAG] Timed - Plan Plan:: ASSESSMENT AND PLAN - Bilateral lower lobe pneumonia-complicated by sepsis, complex pleural effusion on the right and acute respiratory failure with hypoxia. Status post thoracentesis on 06/06. He is off oxygen at this time but does have a persistent and seemingly increasing right pleural effusion. I think he would benefit from either thoracentesis or possibly chest tube drainage with the potential for loculations. Blood cultures grew out Haemophilus influenza. -Consultation with Dr. Mustafa for thoracentesis versus chest tube -Continue ceftriaxone and a azithromycin -Transition to prednisone at reduced dose and plan to discontinue after tomorrow's dose -Follow-up cultures -Supplement oxygen, wean as able -Physical therapy Acute kidney injury-resolved. Type 2 diabetes mellitus-diet controlled at home. He has had hyperglycemia here probably related to steroid use. Blood sugars have been improving. -Sliding scale insulin Coronary artery disease-complicated by mild diastolic heart failure. Stable. -Medical management Chronic atrial fibrillation-rate controlled. Chronically anticoagulated. INR therapeutic today. -Continue warfarin Maintenance issues - -DVT prophylaxis-warfarin -GI prophylaxis-not indicated -Nutrition-heart healthy Disposition -I anticipate discharge home with home care after the hospital stay Remy Reyes M.D.
[2020-06-09] MEDS: Warfarin 5 MG Tab PO SCH (13:55)
--- NOTE | 2020-06-09 15:19 | CT ---
Chest wo Cont CLINICAL HISTORY: Follow-up loculated effusion TECHNIQUE: Transverse scans were obtained from the thoracic inlet to the lung bases without contrast. Auto dosage reduction in intervertebral reconstruction techniques were employed COMPARISONS: July 2017 FINDINGS: Patient has a large right pleural effusion. There is diffuse calcified pleural plaque on the right. Patient has diffuse bilateral patchy groundglass opacities. There is some consolidation and atelectasis in the right lower lobe. There is aortic valve replacement. There are atherosclerotic changes in the aorta. There are moderate coronary artery calcifications. No mediastinal mass or is identified. There is numerous small lymph nodes in the mediastinum similar to prior study. There is some intra-abdominal ascites. 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 Right pleural effusion raises some concern for mesothelioma. Right pleural fluid sampling is consideration. Bilateral groundglass opacities suggesting pneumonitis Moderate right lower lobe atelectasis with some consolidation
[2020-06-09] MEDS: Iron Sucrose Complex 200 MG in Sodium Chloride 0.9% 100 ML IV SCH (15:49)
[2020-06-09] MEDS ORDERED: Phytonadione 5 MG in Sodium Chloride 0.9% 50 ML IV ONE (17:35)
[2020-06-09] MEDS: atorvaSTATin 10 MG Tab PO SCH (20:29)
[2020-06-09] MEDS: rOPINIRole 0.5 MG Tab PO SCH (20:29)
[2020-06-09] MEDS: Azithromycin 250 MG Tab PO SCH (20:29)
[2020-06-09] MEDS: cefTRIAXone 1 GM in Sodium Chloride 0.9% 50 ML IV SCH (20:33)
[2020-06-09] MEDS: Melatonin 3 MG Tab PO PRN (22:23)
[2020-06-10] MEDS ORDERED: Bupivacaine 0.5%/EPINEPHrine 1:200,000 50 ML MDV ONE (06:49)
[2020-06-10] MEDS ORDERED: Propofol 200 MG/20 ML SDV ONE (06:56)
[2020-06-10] MEDS: Albuterol/Ipratropium 3.0-0.5 MG/3 ML Neb Soln NEB SCH ×4 (07:06→20:30)
[2020-06-10] MEDS: Metoprolol Succinate 50 MG Tab.ER PO SCH (08:50)
[2020-06-10] MEDS: predniSONE 20 MG Tab PO SCH (08:53)
[2020-06-10] MEDS: Pantoprazole 40 MG Tab.CR PO SCH (08:53)
[2020-06-10] MEDS: Ascorbic Acid 500 MG Tab PO SCH (08:54)
[2020-06-10] MEDS: Furosemide 40 MG Tab PO SCH (08:54)
[2020-06-10] MEDS: Aspirin 81 MG Tab.EC PO SCH (08:55)
[2020-06-10] MEDS ORDERED: Diltiazem 25 MG/5 ML SDV IVPUSH ONE ×3 (09:06→11:45)
--- NOTE | 2020-06-10 09:08 | PCM.PN ---
- General Info Date of Service: 06/10/20 Subjective Update: There were no acute events overnight. Vital signs were stable. Patient did not sleep well. This morning he had a tube thoracostomy of the right side. He has been in atrial fibrillation with rapid ventricular response since then. 900 mL of fluid was removed and sent to the lab for analysis this morning. He is complaining of some pain in the right side of his chest in the area of the tube insertion. He does not feel short of breath more than he had. He is coughing but not producing any sputum. Functional Status: Reports: Pain Controlled, Tolerating Diet - Review of Systems General: Denies: Fever Pulmonary: Reports: Cough Cardiovascular: Denies: Chest Pain - Patient Data Vitals - Most Recent: Last Vital Signs Temp 34.7 C L 06/10/20 08:39 Pulse 146 H 06/10/20 08:50 Resp 20 06/10/20 08:39 BP 122/72 06/10/20 08:50 Pulse Ox 98 06/10/20 08:39 Weight - Most Recent: 81.374 kg I&O - Last 24 Hours: Intake & Output 06/09/20 06/10/20 06/10/20 22:59 06:59 14:59 Intake Total 1530 50 Output Total 1150 500 900 Balance 380 -500 -850 Lab Results Last 24 Hours: Laboratory Results - last 24 hr 06/09/20 06/09/20 06/09/20 Range/Units 11:23 16:22 21:01 WBC (4.5-11.0) K/uL RBC (4.30-5.90) M/uL Hgb (12.0-15.0) g/dL Hct (40.0-54.0) % MCV (80-98) fL MCH (27-31) pg MCHC (32-36) % Plt Count (150-400) K/uL PT (9.5-12.0) sec INR (0.80-1.20) Sodium (140-148) mmol/L Potassium (3.6-5.2) mmol/L Chloride (100-108) mmol/L Carbon Dioxide (21-32) mmol/L Anion Gap (5.0-14.0) mmol/L BUN (7-18) mg/dL Creatinine (0.8-1.3) mg/dL Est Cr Clr Drug Dosing mL/min Estimated GFR (MDRD) (>60) Glucose (74-106) mg/dL POC Glucose 246 H 221 H 266 H (74-106) mg/dL Calcium (8.5-10.1) mg/dL 06/10/20 06/10/20 06/10/20 Range/Units 04:00 04:00 04:00 WBC 29.1 H (4.5-11.0) K/uL RBC 3.22 L (4.30-5.90) M/uL Hgb 10.3 L (12.0-15.0) g/dL Hct 29.8 L (40.0-54.0) % MCV 93 (80-98) fL MCH 32 H (27-31) pg MCHC 35 (32-36) % Plt Count 273 (150-400) K/uL PT 31.1 H (9.5-12.0) sec INR 2.91 H (0.80-1.20) Sodium 142 (140-148) mmol/L Potassium 4.7 (3.6-5.2) mmol/L Chloride 105 (100-108) mmol/L Carbon Dioxide 21 (21-32) mmol/L Anion Gap 15.6 H (5.0-14.0) mmol/L BUN 65 H (7-18) mg/dL Creatinine 1.4 H (0.8-1.3) mg/dL Est Cr Clr Drug Dosing 32.44 mL/min Estimated GFR (MDRD) 48 L (>60) Glucose 217 H (74-106) mg/dL POC Glucose (74-106) mg/dL Calcium 9.1 (8.5-10.1) mg/dL Atul Results Last 24 Hours: Microbiology 06/10/20 07:38 Gram Stain - Final Lung - Right 06/05/20 19:15 Aerobic Blood Culture - Final Blood - Arm, Left Haemophilus Influenzae V Anaerobic Blood Culture - Preliminary NO GROWTH AFTER 4 DAYS 06/05/20 19:25 Aerobic Blood Culture - Final Blood - Arm, Left Haemophilus Influenzae V Anaerobic Blood Culture - Preliminary NO GROWTH AFTER 4 DAYS 06/06/20 09:05 Gram Stain - Final Thoracentesis Fluid Body Fluid Culture - Final NO GROWTH AFTER 3 DAYS Med Orders - Current: Current Medications Acetaminophen (Acetaminophen 325 Mg Tab) 650 mg PO Q4H PRN PRN Reason: Pain (Mild 1-3)/fever Last Admin: 06/06/20 20:39 Dose: 650 mg Documented by: Albuterol/Ipratropium (Albuterol/Ipratropium 3.0-0.5 Mg/3 Ml Neb Soln) 3 ml NEB QIDRT [facility] Last Admin: 06/10/20 07:06 Dose: 3 ml Documented by: Ascorbic Acid (Ascorbic Acid 500 Mg Tab) 500 mg PO DAILY [facility] Last Admin: 06/10/20 08:54 Dose: 500 mg Documented by: Aspirin (Aspirin 81 Mg Tab.Ec) 81 mg PO DAILY [facility] Last Admin: 06/10/20 08:55 Dose: 81 mg Documented by: Atorvastatin Calcium (Atorvastatin 10 Mg Tab) 10 mg PO BEDTIME [facility] Last Admin: 06/09/20 20:29 Dose: 10 mg Documented by: Azithromycin (Azithromycin 250 Mg Tab) 500 mg PO BEDTIME [facility] Last Admin: 06/09/20 20:29 Dose: 500 mg Documented by: Benzocaine/Menthol (Benzocaine/Cetylpyridinium/Menthol Lozenge) 1 lozenge MUCMEM Q2H PRN PRN Reason: Sore Throat Last Admin: 06/06/20 22:34 Dose: 1 lozenge Documented by: Dextrose/Water (50% Dextrose In Water 50 Ml Syringe) 50 ml IVPUSH ASDIRECTED PRN PRN Reason: Hypoglycemia Diltiazem HCl (Diltiazem 25 Mg/5 Ml Sdv) 10 mg IVPUSH ONETIME ONE Stop: 06/10/20 09:07 Furosemide (Furosemide 40 Mg Tab) 40 mg PO DAILY [facility] Last Admin: 06/10/20 08:54 Dose: 40 mg Documented by: Glucagon (Glucagon,Human Recombinant 1 Mg Vial) 1 mg IM ASDIRECTED PRN PRN Reason: Hypoglycemia Ceftriaxone Sodium 1 gm/ (Sodium Chloride) 50 mls @ 100 mls/hr IV Q24H [facility] Last Admin: 06/09/20 20:33 Dose: 100 mls/hr Documented by: Diltiazem HCl 100 mg/ Sodium (Chloride) 100 mls @ 5 mls/hr IV TITRATE [facility]; Protocol Insulin Human Lispro (Insulin Lispro 100 Unit/Ml 3 Ml Kwikpen) 0 unit SUBCUT QIDACANDBED [facility]; Protocol Last Admin: 06/09/20 21:08 Dose: 3 units Documented by: Melatonin (Melatonin 3 Mg Tab) 9 mg PO BEDTIME PRN PRN Reason: Sleep Last Admin: 06/09/20 22:23 Dose: 9 mg Documented by: Metoprolol Succinate (Metoprolol Succinate 50 Mg Tab.Er) 50 mg PO DAILY [facility] Last Admin: 06/10/20 08:50 Dose: 50 mg Documented by: Ondansetron HCl (Ondansetron 4 Mg/2 Ml Sdv) 4 mg IV Q4H PRN PRN Reason: Nausea/Vomiting Pantoprazole Sodium (Pantoprazole 40 Mg Tab.Cr) 40 mg PO ACBREAKFAST [facility] Last Admin: 06/10/20 08:53 Dose: 40 mg Documented by: Ropinirole HCl (Ropinirole 0.5 Mg Tab) 0.25 mg PO BEDTIME [facility] Last Admin: 06/09/20 20:29 Dose: 0.25 mg Documented by: Sodium Chloride (Sodium Chloride 0.9% 10 Ml Syringe) 10 ml FLUSH ASDIRECTED PRN PRN Reason: Keep Vein Open Discontinued Medications Albuterol/Ipratropium (Albuterol/Ipratropium 3.0-0.5 Mg/3 Ml Neb Soln) 3 ml NEB Q6H [facility] Last Admin: 06/06/20 07:02 Dose: 3 ml Documented by: Albuterol/Ipratropium (Albuterol/Ipratropium 3.0-0.5 Mg/3 Ml Neb Soln) 3 ml NEB Q6H [facility] Last Admin: 06/08/20 07:24 Dose: 3 ml Documented by: Bacitracin (Bacitracin Oint 1 Gm U/D Packet) Confirm Administered Dose 3 dose .ROUTE .STK-MED ONE Stop: 06/06/20 08:58 Last Admin: 06/06/20 09:08 Dose: Not Given Documented by: Bupivacaine HCl/Epinephrine Bitart (Bupivacaine 0.5%/Epinephrine 1:200,000 50 Ml Mdv) Confirm Administered Dose 50 ml .ROUTE .STK-MED ONE Stop: 06/10/20 06:50 Last Admin: 06/10/20 07:35 Dose: 40 ml Documented by: Ferrous Sulfate (Ferrous Sulfate 325 Mg Tab) 325 mg PO DAILY [facility] Furosemide (Furosemide 40 Mg/4 Ml Vial) 40 mg IVPUSH ONETIME ONE Stop: 06/08/20 11:11 Last Admin: 06/08/20 12:47 Dose: 40 mg Documented by: Sodium Chloride (Normal Saline) 1,000 mls @ 999 mls/hr IV .BOLUS ONE Stop: 06/05/20 19:28 Last Admin: 06/05/20 18:53 Dose: 999 mls/hr Documented by: Levofloxacin/Dextrose 750 mg/ (Premix) 150 mls @ 100 mls/hr IV ONETIME ONE Stop: 06/05/20 20:32 Last Admin: 06/05/20 22:00 Dose: Not Given Documented by: Clindamycin Phosphate 900 mg/ (Sodium Chloride) 106 mls @ 200 mls/hr IV ONETIME ONE Stop: 06/05/20 19:47 Last Admin: 06/05/20 22:01 Dose: Not Given Documented by: Sodium Chloride (Normal Saline) 1,000 mls @ 999 mls/hr IV BOLUS ONE; Protocol Stop: 06/05/20 20:33 Last Admin: 06/05/20 19:58 Dose: 999 mls/hr Documented by: Vancomycin HCl 1 gm/ Sodium (Chloride) 250 mls @ 167 mls/hr IV STAT ONE Stop: 06/05/20 21:02 Last Admin: 06/05/20 20:06 Dose: Not Given Documented by: Piperacillin Sod/Tazobactam (Sod 4.5 gm/ Sodium Chloride) 100 mls @ 100 mls/hr IV STAT ONE Stop: 06/05/20 20:32 Last Admin: 06/05/20 21:58 Dose: Not Given Documented by: Sodium Chloride (Normal Saline) 1,000 mls @ 75 mls/hr IV ASDIRECTED [facility] Last Admin: 06/07/20 19:40 Dose: 75 mls/hr Documented by: Azithromycin 500 mg/ Sodium (Chloride) 250 mls @ 250 mls/hr IV Q24H [facility] Last Admin: 06/07/20 19:41 Dose: 250 mls/hr Documented by: Iron Sucrose 200 mg/ Sodium (Chloride) 110 mls @ 400 mls/hr IV Q48H [facility] Last Admin: 06/05/20 23:28 Dose: 400 mls/hr Documented by: Iron Sucrose 200 mg/ Sodium (Chloride) 110 mls @ 400 mls/hr IV Q48H [facility] Stop: 06/13/20 15:47 Last Admin: 06/09/20 15:49 Dose: 400 mls/hr Documented by: Phytonadione 5 mg/ Sodium (Chloride) 50.5 mls @ 100 mls/hr IV NOW ONE Stop: 06/09/20 18:05 Last Admin: 06/09/20 19:19 Dose: 100 mls/hr Documented by: Insulin Human Lispro (Insulin Lispro 100 Unit/Ml 3 Ml Kwikpen) 0 unit SUBCUT TIDMEALS [facility]; Protocol Last Admin: 06/07/20 17:59 Dose: 2 unit Documented by: Insulin Human Lispro (Insulin Lispro 100 Unit/Ml 3 Ml Kwikpen) 14 unit SUBCUT ONETIME ONE Stop: 06/06/20 21:36 Last Admin: 06/06/20 21:46 Dose: 14 units Documented by: Insulin Human Lispro (Insulin Lispro 100 Unit/Ml 3 Ml Kwikpen) 6 unit SUBCUT ONETIME ONE Stop: 06/06/20 23:11 Last Admin: 06/06/20 23:19 Dose: 6 unit Documented by: Lidocaine HCl (Lidocaine 2% Jelly 10 Ml Urojet) 10 ml MUCMEM ONETIME ONE Stop: 06/05/20 17:40 Last Admin: 06/05/20 20:06 Dose: Not Given Documented by: Methylprednisolone Sodium Succinate (Methylprednisolone Sodium Succinate 40 Mg/1 Ml Sdv) 40 mg IVPUSH Q8H [facility] Last Admin: 06/08/20 01:51 Dose: 40 mg Documented by: Metoprolol Succinate (Metoprolol Succinate 25 Mg Tab.Er) 50 mg PO DAILY [facility] Non-Formulary Medication (Ropinirole [Requip]) 0.25 mg PO BEDTIME [facility] Last Admin: 06/05/20 22:01 Dose: Not Given Documented by: Phytonadione (Phytonadione 5 Mg Tab) 2.5 mg PO ONETIME ONE Stop: 06/07/20 09:31 Last Admin: 06/07/20 09:30 Dose: 2.5 mg Documented by: Phytonadione (Phytonadione 5 Mg Tab) 5 mg PO ONETIME ONE Stop: 06/07/20 17:07 Last Admin: 06/07/20 17:59 Dose: 5 mg Documented by: Prednisone (Prednisone 20 Mg Tab) 20 mg PO ONETIME ONE Stop: 06/08/20 12:01 Last Admin: 06/08/20 12:40 Dose: 20 mg Documented by: Prednisone (Prednisone 20 Mg Tab) 20 mg PO WITHBREAKFAST [facility] Stop: 06/10/20 08:01 Last Admin: 06/10/20 08:53 Dose: 20 mg Documented by: Propofol (Propofol 200 Mg/20 Ml Sdv) Confirm Administered Dose 200 mg .ROUTE .STK-MED ONE Stop: 06/10/20 06:57 Sodium Chloride (Sodium Chloride 0.9% 10 Ml Syringe) 10 ml FLUSH ASDIRECTED PRN PRN Reason: Keep Vein Open Last Admin: 06/05/20 17:57 Dose: 10 ml Documented by: Warfarin Sodium (Warfarin 5 Mg Tab) 7.5 mg PO ASDIRECTED [facility] Warfarin Sodium (Warfarin 5 Mg Tab) 10 mg PO ASDIRECTED [facility] Warfarin Sodium (Warfarin 5 Mg Tab) 10 mg PO DAILY@1300 [facility] Last Admin: 06/09/20 13:55 Dose: 10 mg Documented by: - Exam Quality Assessment: Supplemental Oxygen General: Alert, Oriented, Cooperative, No Acute Distress Lungs: Normal Respiratory Effort, Crackles (right mid and lower lung ). No: Wheezing Cardiovascular: Irregular Rhythm, Tachycardia GI/Abdominal Exam: Soft, No Distention Extremities: No Pedal Edema. No: Increased Warmth Skin: Warm, Dry Psy/Mental Status: Alert, Normal Affect - Patient Data Lab Results Last 24 hrs: Laboratory Results - last 24 hr 06/09/20 06/09/20 06/09/20 Range/Units 11:23 16:22 21:01 WBC (4.5-11.0) K/uL RBC (4.30-5.90) M/uL Hgb (12.0-15.0) g/dL Hct (40.0-54.0) % MCV (80-98) fL MCH (27-31) pg MCHC (32-36) % Plt Count (150-400) K/uL PT (9.5-12.0) sec INR (0.80-1.20) Sodium (140-148) mmol/L Potassium (3.6-5.2) mmol/L Chloride (100-108) mmol/L Carbon Dioxide (21-32) mmol/L Anion Gap (5.0-14.0) mmol/L BUN (7-18) mg/dL Creatinine (0.8-1.3) mg/dL Est Cr Clr Drug Dosing mL/min Estimated GFR (MDRD) (>60) Glucose (74-106) mg/dL POC Glucose 246 H 221 H 266 H (74-106) mg/dL Calcium (8.5-10.1) mg/dL 06/10/20 06/10/20 06/10/20 Range/Units 04:00 04:00 04:00 WBC 29.1 H (4.5-11.0) K/uL RBC 3.22 L (4.30-5.90) M/uL Hgb 10.3 L (12.0-15.0) g/dL Hct 29.8 L (40.0-54.0) % MCV 93 (80-98) fL MCH 32 H (27-31) pg MCHC 35 (32-36) % Plt Count 273 (150-400) K/uL PT 31.1 H (9.5-12.0) sec INR 2.91 H (0.80-1.20) Sodium 142 (140-148) mmol/L Potassium 4.7 (3.6-5.2) mmol/L Chloride 105 (100-108) mmol/L Carbon Dioxide 21 (21-32) mmol/L Anion Gap 15.6 H (5.0-14.0) mmol/L BUN 65 H (7-18) mg/dL Creatinine 1.4 H (0.8-1.3) mg/dL Est Cr Clr Drug Dosing 32.44 mL/min Estimated GFR (MDRD) 48 L (>60) Glucose 217 H (74-106) mg/dL POC Glucose (74-106) mg/dL Calcium 9.1 (8.5-10.1) mg/dL Result Diagrams: 06/10/20 04:00 06/10/20 04:00 Atul Results Last 24 hrs: Microbiology 06/10/20 07:38 Gram Stain - Final Lung - Right 06/05/20 19:15 Aerobic Blood Culture - Final Blood - Arm, Left Haemophilus Influenzae V Anaerobic Blood Culture - Preliminary NO GROWTH AFTER 4 DAYS 06/05/20 19:25 Aerobic Blood Culture - Final Blood - Arm, Left Haemophilus Influenzae V Anaerobic Blood Culture - Preliminary NO GROWTH AFTER 4 DAYS 06/06/20 09:05 Gram Stain - Final Thoracentesis Fluid Body Fluid Culture - Final NO GROWTH AFTER 3 DAYS Sepsis Event Note - Evaluation Sepsis Screening Result: No Definite Risk - Focused Exam Vital Signs: Vital Signs Temp Temp Pulse Pulse Resp BP BP 06/10/20 08:50 146 H 122/72 06/10/20 08:39 34.7 C L 158 H 20 122/72 06/10/20 08:20 36.4 C 146 H 14 06/10/20 08:15 156 H 14 06/10/20 08:10 138 H 14 06/10/20 08:05 36.5 C 147 H 14 06/10/20 08:00 149 H 14 06/10/20 07:55 137 H 14 06/10/20 07:50 144 H 14 06/10/20 07:45 36.1 C 146 H 14 06/10/20 02:36 35.4 C L 88 22 H 06/09/20 22:07 35.4 C L 81 20 BP Pulse Ox 06/10/20 08:50 06/10/20 08:39 98 06/10/20 08:20 109/69 96 06/10/20 08:15 104/63 96 06/10/20 08:10 112/75 94 L 06/10/20 08:05 100/71 94 L 06/10/20 08:00 102/69 97 06/10/20 07:55 106/57 L 94 L 06/10/20 07:50 106/55 L 92 L 06/10/20 07:45 94/58 L 91 L 06/10/20 02:36 120/99 H 91 L 06/09/20 22:07 134/84 90 L - Problem List Review Problem List Initiated/Reviewed/Updated: Yes - My Orders Last 24 Hours: My Active Orders 06/09/20 09:00 Furosemide [Lasix] 40 mg PO DAILY 06/09/20 15:33 US Guidance Thoracentesis NC [US] Routine 06/09/20 22:06 Melatonin 9 mg PO BEDTIME PRN 06/10/20 Breakfast Consistent Carbohydrate Diet [DIET] 06/10/20 09:05 Transfer Patient (Change bed) [ADT] Routine Cardiac Monitoring [RC] .As Directed 06/10/20 09:06 Diltiazem 10 mg IVPUSH ONETIME ONE 06/10/20 09:15 Diltiazem 100 MG in Normal Saline Adv @ 5 MG/HR(100ml) Diltiazem [Cardizem] 100 mg Sodium Chloride 0.9% [Normal Saline] 100 ml IV TITRATE - Plan Plan:: ASSESSMENT AND PLAN - Bilateral lower lobe pneumonia-complicated by sepsis, complex pleural effusion/empyema on the right side and acute respiratory failure with hypoxia. Status post thoracentesis on 06/06 and now tube thoracostomy on 06/10. He is back on oxygen. So far the cultures have only grown out Haemophilus influenza. -Consultation with Dr. Mustafa for chest tube management -Symptomatic management of pain and cough -Continue ceftriaxone and azithromycin -Discontinue prednisone -Follow-up cultures -Supplement oxygen, wean as able -Physical therapy Atrial fibrillation with rapid ventricular response-history of atrial fibrillation. Previously had been in sinus rhythm but went into A. fib this morning. -Transferred to the intensive care unit -Diltiazem bolus followed by infusion -Digoxin if needed for additional tachycardia -Continue metoprolol -Consider additional metoprolol if needed -Cardiac monitoring Acute kidney injury-resolved. Type 2 diabetes mellitus-diet controlled at home. He has had hyperglycemia here probably related to steroid use. Blood sugars have been improving. -Sliding scale insulin Coronary artery disease-complicated by mild diastolic heart failure. Stable. -Medical management Chronic atrial fibrillation-rate controlled. Chronically anticoagulated. INR slightly supra therapeutic today. -Hold warfarin Maintenance issues - -DVT prophylaxis-warfarin -GI prophylaxis-not indicated -Nutrition-heart healthy Disposition -I anticipate discharge home with home care after the hospital stay Remy Reyes M.D.
[2020-06-10] MEDS ORDERED: Diltiazem 125 MG in Sodium Chloride 0.9% 100 ML IV SCH ×2 (09:15→18:59)
--- NOTE | 2020-06-10 09:21 | CR ---
CHEST: Portable 06/10/2020 CLINICAL HISTORY:Post chest tube placement COMPARISON:CT 06/09/2020 FINDINGS: Patient is lordotically positioned. There is a low-level of inspiration. Lung pillai are increased. This may represent some CHF or fluid overload. There is reduction in right pleural effusion. There is also some pleural thickening. Impression: Very limited study Right chest tube placement with some reduction in right pleural effusion Increased lung markings may represent some CHF or fluid overload
[2020-06-10] MEDS: Insulin Lispro 100 Unit/ML 3 ML KwikPen SUBCUT SCH ×4 (09:48→20:31)
[2020-06-10] MEDS ORDERED: HYDROmorphone 2 MG Tab PO PRN (10:00)
[2020-06-10] MEDS: Acetaminophen 325 MG Tab PO PRN ×2 (10:57→14:58)
[2020-06-10] MEDS ORDERED: Digoxin 500 MCG/2 ML Amp IVPUSH ONE (13:12)
--- NOTE | 2020-06-10 13:29 | CT ---
Chest wo Cont CLINICAL HISTORY: Chest tube TECHNIQUE: Thin section axial contiguous tomographic sections were taken through the chest after bolus IV iodinated contrast administration. Coronal and sagittal images were reconstructed. Auto dosage reduction and iterative reconstruction techniques employed. FINDINGS: Patient has patchy bilateral infiltrates and some groundglass opacity similar to prior study. There has been decrease in atelectasis in the right lower lobe. There is still some consolidation. The chest tube remains in place posteriorly. There is a decrease in left pleural fluid. There is a small amount of pleural air. Patient has diffuse plaque formation previously described. IMPRESSION: Right chest tube is in place. There is a decrease in right pleural fluid. Decrease in atelectasis when compared to prior study. There is still a small area consolidation in the right lower lobe Scattered bilateral infiltrates and groundglass opacities are unchanged
[2020-06-10] MEDS ORDERED: Ketorolac 30 MG/ML SDV IVPUSH ONE (14:45)
[2020-06-10] MEDS ORDERED: Metoprolol Tartrate 25 MG Tab PO ONE (14:45)
[2020-06-10] MEDS ORDERED: Naloxone 0.4 MG/ML SDV IVPUSH PRN (15:51)
[2020-06-10] MEDS ORDERED: diphenhydrAMINE 50 MG/ML SDV IVPUSH PRN (15:51)
[2020-06-10] MEDS ORDERED: Ondansetron 4 MG/2 ML SDV IVPUSH PRN (15:51)
[2020-06-10] MEDS ORDERED: diphenhydrAMINE 25 MG Cap PO PRN (15:51)
[2020-06-10] MEDS ORDERED: HYDROmorphone/Normal Saline 15 MG/30 ML PCA IV PRN (16:00)
[2020-06-10] MEDS: Diltiazem 100 MG in Sodium Chloride 0.9% 100 ML IV SCH (19:09)
[2020-06-10] MEDS: cefTRIAXone 1 GM in Sodium Chloride 0.9% 50 ML IV SCH (20:20)
[2020-06-10] MEDS: Azithromycin 250 MG Tab PO SCH (20:31)
[2020-06-10] MEDS: atorvaSTATin 10 MG Tab PO SCH (20:32)
[2020-06-10] MEDS: rOPINIRole 0.5 MG Tab PO SCH (20:32)
[2020-06-11] MEDS: Diltiazem 100 MG in Sodium Chloride 0.9% 100 ML IV SCH ×2 (01:34→08:05)
[2020-06-11] MEDS: Albuterol/Ipratropium 3.0-0.5 MG/3 ML Neb Soln NEB SCH ×4 (07:09→20:48)
[2020-06-11] MEDS: Pantoprazole 40 MG Tab.CR PO SCH (07:57)
[2020-06-11] MEDS: Insulin Lispro 100 Unit/ML 3 ML KwikPen SUBCUT SCH ×4 (07:58→20:33)
--- NOTE | 2020-06-11 09:06 | CR ---
CHEST: Portable 06/11/2020 at 4:34 AM CLINICAL HISTORY:Chest tube COMPARISON:06/10/2020 FINDINGS: Right chest tube remains in place. There is a decrease in pleural fluid since prior study. There is also improved aeration in both lung pillai with some residual airspace disease in the right lower lung. IMPRESSION: Further decrease in right pleural effusion Improved aeration in both lung pillai
--- NOTE | 2020-06-11 09:57 | PCM.PN ---
- General Info Date of Service: 06/11/20 Subjective Update: There were no acute events overnight. He is still in atrial fibrillation but heart rate control has improved. He had some difficulty with right-sided chest pain yesterday afternoon but is much more comfortable today. He is on supplemental oxygen. Chest tube output has been greater than 200 mL since insertion yesterday. He does not feel short of breath and is able to take a deep breath. Minimal cough. Cultures are pending. Functional Status: Reports: Pain Controlled, Tolerating Diet - Review of Systems General: Denies: Fever Pulmonary: Denies: Cough - Patient Data Vitals - Most Recent: Last Vital Signs Temp 36.5 C 06/11/20 08:00 Pulse 96 06/11/20 07:10 Resp 15 06/11/20 08:00 BP 109/65 06/11/20 08:00 Pulse Ox 95 06/11/20 08:43 Weight - Most Recent: 81.374 kg I&O - Last 24 Hours: Intake & Output 06/10/20 06/11/20 06/11/20 22:59 06:59 14:59 Intake Total 400 238 Output Total 720 Balance 400 -482 Lab Results Last 24 Hours: Laboratory Results - last 24 hr 06/10/20 06/10/20 06/10/20 Range/Units 11:50 17:04 20:27 WBC (4.5-11.0) K/uL RBC (4.30-5.90) M/uL Hgb (12.0-15.0) g/dL Hct (40.0-54.0) % MCV (80-98) fL MCH (27-31) pg MCHC (32-36) % Plt Count (150-400) K/uL PT (9.5-12.0) sec INR (0.80-1.20) Sodium (140-148) mmol/L Potassium (3.6-5.2) mmol/L Chloride (100-108) mmol/L Carbon Dioxide (21-32) mmol/L Anion Gap (5.0-14.0) mmol/L BUN (7-18) mg/dL Creatinine (0.8-1.3) mg/dL Est Cr Clr Drug Dosing mL/min Estimated GFR (MDRD) (>60) Glucose (74-106) mg/dL POC Glucose 199 H 250 H 240 H (74-106) mg/dL Calcium (8.5-10.1) mg/dL Phosphorus (2.5-4.9) mg/dL Magnesium (1.8-2.4) mg/dL Total Bilirubin (0.2-1.0) mg/dL AST (15-37) U/L ALT (12-78) U/L Alkaline Phosphatase (46-116) U/L NT-Pro-B Natriuret Pep (5-450) pg/mL Total Protein (6.4-8.2) g/dL Albumin (3.4-5.0) g/dL Globulin (2.3-3.5) g/dL Albumin/Globulin Ratio (1.2-2.2) 06/11/20 06/11/20 06/11/20 Range/Units 04:01 04:01 04:01 WBC 24.8 H (4.5-11.0) K/uL RBC 2.94 L (4.30-5.90) M/uL Hgb 9.4 L (12.0-15.0) g/dL Hct 27.9 L (40.0-54.0) % MCV 95 (80-98) fL MCH 32 H (27-31) pg MCHC 34 (32-36) % Plt Count 315 (150-400) K/uL PT 24.6 H (9.5-12.0) sec INR 2.29 H (0.80-1.20) Sodium 146 (140-148) mmol/L Potassium 4.9 (3.6-5.2) mmol/L Chloride 108 (100-108) mmol/L Carbon Dioxide 26 (21-32) mmol/L Anion Gap 11.8 (5.0-14.0) mmol/L BUN 59 H (7-18) mg/dL Creatinine 1.3 (0.8-1.3) mg/dL Est Cr Clr Drug Dosing 34.94 mL/min Estimated GFR (MDRD) 52 L (>60) Glucose 215 H (74-106) mg/dL POC Glucose (74-106) mg/dL Calcium 8.5 (8.5-10.1) mg/dL Phosphorus 3.5 (2.5-4.9) mg/dL Magnesium 1.8 (1.8-2.4) mg/dL Total Bilirubin 0.9 (0.2-1.0) mg/dL AST 47 H (15-37) U/L ALT 82 H (12-78) U/L Alkaline Phosphatase 173 H (46-116) U/L NT-Pro-B Natriuret Pep 14256 H (5-450) pg/mL Total Protein 5.5 L (6.4-8.2) g/dL Albumin 2.1 L (3.4-5.0) g/dL Globulin 3.4 (2.3-3.5) g/dL Albumin/Globulin Ratio 0.6 L (1.2-2.2) Atul Results Last 24 Hours: Microbiology 06/10/20 07:38 Gram Stain - Final Lung - Right Wound Culture - Preliminary NO GROWTH AFTER 1 DAY Anaerobic Culture - Preliminary NO GROWTH AFTER 1 DAY 06/05/20 19:15 Aerobic Blood Culture - Final Blood - Arm, Left Haemophilus Influenzae V Anaerobic Blood Culture - Final NO GROWTH AFTER 5 DAYS 06/05/20 19:25 Aerobic Blood Culture - Final Blood - Arm, Left Haemophilus Influenzae V Anaerobic Blood Culture - Final NO GROWTH AFTER 5 DAYS Med Orders - Current: Current Medications Acetaminophen (Acetaminophen 325 Mg Tab) 650 mg PO Q4H PRN PRN Reason: Pain (Mild 1-3)/fever Last Admin: 06/10/20 14:58 Dose: 650 mg Documented by: Albuterol/Ipratropium (Albuterol/Ipratropium 3.0-0.5 Mg/3 Ml Neb Soln) 3 ml NEB QIDRT [facility] Last Admin: 06/11/20 07:09 Dose: 3 ml Documented by: Ascorbic Acid (Ascorbic Acid 500 Mg Tab) 500 mg PO DAILY [facility] Last Admin: 06/10/20 08:54 Dose: 500 mg Documented by: Aspirin (Aspirin 81 Mg Tab.Ec) 81 mg PO DAILY [facility] Last Admin: 06/10/20 08:55 Dose: 81 mg Documented by: Atorvastatin Calcium (Atorvastatin 10 Mg Tab) 10 mg PO BEDTIME [facility] Last Admin: 06/10/20 20:32 Dose: 10 mg Documented by: Azithromycin (Azithromycin 250 Mg Tab) 500 mg PO BEDTIME [facility] Last Admin: 06/10/20 20:31 Dose: 500 mg Documented by: Benzocaine/Menthol (Benzocaine/Cetylpyridinium/Menthol Lozenge) 1 lozenge MUCMEM Q2H PRN PRN Reason: Sore Throat Last Admin: 06/06/20 22:34 Dose: 1 lozenge Documented by: Bisacodyl (Bisacodyl 5 Mg Tab) 10 mg PO BID [facility] Dextrose/Water (50% Dextrose In Water 50 Ml Syringe) 50 ml IVPUSH ASDIRECTED PRN PRN Reason: Hypoglycemia Docusate Sodium (Docusate Sodium 100 Mg Cap) 100 mg PO BID [facility] Furosemide (Furosemide 40 Mg Tab) 40 mg PO DAILY [facility] Last Admin: 06/10/20 08:54 Dose: 40 mg Documented by: Glucagon (Glucagon,Human Recombinant 1 Mg Vial) 1 mg IM ASDIRECTED PRN PRN Reason: Hypoglycemia Hydromorphone HCl (Hydromorphone 2 Mg Tab) 2 mg PO Q6H PRN PRN Reason: PAIN Last Admin: 06/10/20 12:56 Dose: 2 mg Documented by: Hydromorphone HCl (Hydromorphone/Normal Saline 15 Mg/30 Ml Product Development Engineer) 0 mg IV ASDIRECTED PRN; Protocol PRN Reason: PAIN Last Admin: 06/10/20 16:04 Dose: 15 mg Documented by: Ceftriaxone Sodium 1 gm/ (Sodium Chloride) 50 mls @ 100 mls/hr IV Q24H [facility] Last Admin: 06/10/20 20:20 Dose: 100 mls/hr Documented by: Diltiazem HCl 100 mg/ Sodium (Chloride) 100 mls @ 5 mls/hr IV TITRATE [facility]; Protocol Stop: 06/11/20 13:45 Last Admin: 06/11/20 08:05 Dose: 15 mg/hr, 15 mls/hr Documented by: Diltiazem HCl 125 mg/ Sodium (Chloride) 125 mls @ 5 mls/hr IV TITRATE [facility]; Protocol Insulin Human Lispro (Insulin Lispro 100 Unit/Ml 3 Ml Kwikpen) 0 unit SUBCUT QIDACANDBED [facility]; Protocol Last Admin: 06/11/20 07:58 Dose: 2 units Documented by: Melatonin (Melatonin 3 Mg Tab) 9 mg PO BEDTIME PRN PRN Reason: Sleep Last Admin: 06/09/20 22:23 Dose: 9 mg Documented by: Metoprolol Succinate (Metoprolol Succinate 50 Mg Tab.Er) 50 mg PO DAILY [facility] Last Admin: 06/10/20 08:50 Dose: 50 mg Documented by: Naloxone HCl (Naloxone 0.4 Mg/Ml Sdv) 0.04 mg IVPUSH Q3M PRN PRN Reason: Respiratory Depression Ondansetron HCl (Ondansetron 4 Mg/2 Ml Sdv) 4 mg IV Q4H PRN PRN Reason: Nausea/Vomiting Pantoprazole Sodium (Pantoprazole 40 Mg Tab.Cr) 40 mg PO ACBREAKFAST [facility] Last Admin: 06/11/20 07:57 Dose: 40 mg Documented by: Ropinirole HCl (Ropinirole 0.5 Mg Tab) 0.25 mg PO BEDTIME [facility] Last Admin: 06/10/20 20:32 Dose: 0.25 mg Documented by: Sodium Chloride (Sodium Chloride 0.9% 10 Ml Syringe) 10 ml FLUSH ASDIRECTED PRN PRN Reason: Keep Vein Open Discontinued Medications Albuterol/Ipratropium (Albuterol/Ipratropium 3.0-0.5 Mg/3 Ml Neb Soln) 3 ml NEB Q6H [facility] Last Admin: 06/06/20 07:02 Dose: 3 ml Documented by: Albuterol/Ipratropium (Albuterol/Ipratropium 3.0-0.5 Mg/3 Ml Neb Soln) 3 ml NEB Q6H [facility] Last Admin: 06/08/20 07:24 Dose: 3 ml Documented by: Bacitracin (Bacitracin Oint 1 Gm U/D Packet) Confirm Administered Dose 3 dose .ROUTE .STK-MED ONE Stop: 06/06/20 08:58 Last Admin: 06/06/20 09:08 Dose: Not Given Documented by: Bupivacaine HCl/Epinephrine Bitart (Bupivacaine 0.5%/Epinephrine 1:200,000 50 Ml Mdv) Confirm Administered Dose 50 ml .ROUTE .STK-MED ONE Stop: 06/10/20 06:50 Last Admin: 06/10/20 07:35 Dose: 40 ml Documented by: Digoxin (Digoxin 500 Mcg/2 Ml Amp) 125 mcg IVPUSH ONETIME ONE Stop: 06/10/20 13:13 Last Admin: 06/10/20 13:22 Dose: 125 mcg Documented by: Diltiazem HCl (Diltiazem 25 Mg/5 Ml Sdv) 10 mg IVPUSH ONETIME ONE Stop: 06/10/20 09:07 Last Admin: 06/10/20 09:21 Dose: 10 mg Documented by: Diltiazem HCl (Diltiazem 25 Mg/5 Ml Sdv) 5 mg IVPUSH ONETIME ONE Stop: 06/10/20 10:31 Last Admin: 06/10/20 10:44 Dose: 5 mg Documented by: Diltiazem HCl (Diltiazem 25 Mg/5 Ml Sdv) 5 mg IVPUSH ONETIME ONE Stop: 06/10/20 11:46 Last Admin: 06/10/20 11:51 Dose: 5 mg Documented by: Ferrous Sulfate (Ferrous Sulfate 325 Mg Tab) 325 mg PO DAILY [facility] Furosemide (Furosemide 40 Mg/4 Ml Vial) 40 mg IVPUSH ONETIME ONE Stop: 06/08/20 11:11 Last Admin: 06/08/20 12:47 Dose: 40 mg Documented by: Sodium Chloride (Normal Saline) 1,000 mls @ 999 mls/hr IV .BOLUS ONE Stop: 06/05/20 19:28 Last Admin: 06/05/20 18:53 Dose: 999 mls/hr Documented by: Levofloxacin/Dextrose 750 mg/ (Premix) 150 mls @ 100 mls/hr IV ONETIME ONE Stop: 06/05/20 20:32 Last Admin: 06/05/20 22:00 Dose: Not Given Documented by: Clindamycin Phosphate 900 mg/ (Sodium Chloride) 106 mls @ 200 mls/hr IV ONETIME ONE Stop: 06/05/20 19:47 Last Admin: 06/05/20 22:01 Dose: Not Given Documented by: Sodium Chloride (Normal Saline) 1,000 mls @ 999 mls/hr IV BOLUS ONE; Protocol Stop: 06/05/20 20:33 Last Admin: 06/05/20 19:58 Dose: 999 mls/hr Documented by: Vancomycin HCl 1 gm/ Sodium (Chloride) 250 mls @ 167 mls/hr IV STAT ONE Stop: 06/05/20 21:02 Last Admin: 06/05/20 20:06 Dose: Not Given Documented by: Piperacillin Sod/Tazobactam (Sod 4.5 gm/ Sodium Chloride) 100 mls @ 100 mls/hr IV STAT ONE Stop: 06/05/20 20:32 Last Admin: 06/05/20 21:58 Dose: Not Given Documented by: Sodium Chloride (Normal Saline) 1,000 mls @ 75 mls/hr IV ASDIRECTED [facility] Last Admin: 06/07/20 19:40 Dose: 75 mls/hr Documented by: Azithromycin 500 mg/ Sodium (Chloride) 250 mls @ 250 mls/hr IV Q24H [facility] Last Admin: 06/07/20 19:41 Dose: 250 mls/hr Documented by: Iron Sucrose 200 mg/ Sodium (Chloride) 110 mls @ 400 mls/hr IV Q48H [facility] Last Admin: 06/05/20 23:28 Dose: 400 mls/hr Documented by: Iron Sucrose 200 mg/ Sodium (Chloride) 110 mls @ 400 mls/hr IV Q48H [facility] Stop: 06/13/20 15:47 Last Admin: 06/09/20 15:49 Dose: 400 mls/hr Documented by: Phytonadione 5 mg/ Sodium (Chloride) 50.5 mls @ 100 mls/hr IV NOW ONE Stop: 06/09/20 18:05 Last Admin: 06/09/20 19:19 Dose: 100 mls/hr Documented by: Diltiazem HCl 125 mg/ Sodium (Chloride) 125 mls @ 5 mls/hr IV TITRATE [facility]; Protocol Last Titration: 06/10/20 11:59 Dose: 15 mg/hr, 15 mls/hr Documented by: Diltiazem HCl 125 mg/ Sodium (Chloride) 125 mls @ 5 mls/hr IV TITRATE [facility]; Protocol Insulin Human Lispro (Insulin Lispro 100 Unit/Ml 3 Ml Kwikpen) 0 unit SUBCUT TIDMEALS [facility]; Protocol Last Admin: 06/07/20 17:59 Dose: 2 unit Documented by: Insulin Human Lispro (Insulin Lispro 100 Unit/Ml 3 Ml Kwikpen) 14 unit SUBCUT ONETIME ONE Stop: 06/06/20 21:36 Last Admin: 06/06/20 21:46 Dose: 14 units Documented by: Insulin Human Lispro (Insulin Lispro 100 Unit/Ml 3 Ml Kwikpen) 6 unit SUBCUT ONETIME ONE Stop: 06/06/20 23:11 Last Admin: 06/06/20 23:19 Dose: 6 unit Documented by: Ketorolac Tromethamine (Ketorolac 30 Mg/Ml Sdv) 15 mg IVPUSH ONETIME ONE Stop: 06/10/20 14:46 Last Admin: 06/10/20 14:56 Dose: 15 mg Documented by: Lidocaine HCl (Lidocaine 2% Jelly 10 Ml Urojet) 10 ml MUCMEM ONETIME ONE Stop: 06/05/20 17:40 Last Admin: 06/05/20 20:06 Dose: Not Given Documented by: Methylprednisolone Sodium Succinate (Methylprednisolone Sodium Succinate 40 Mg/1 Ml Sdv) 40 mg IVPUSH Q8H [facility] Last Admin: 06/08/20 01:51 Dose: 40 mg Documented by: Metoprolol Succinate (Metoprolol Succinate 25 Mg Tab.Er) 50 mg PO DAILY [facility] Metoprolol Tartrate (Metoprolol Tartrate 25 Mg Tab) 25 mg PO ONETIME ONE Stop: 06/10/20 14:46 Last Admin: 06/10/20 14:59 Dose: 25 mg Documented by: Non-Formulary Medication (Ropinirole [Requip]) 0.25 mg PO BEDTIME [facility] Last Admin: 06/05/20 22:01 Dose: Not Given Documented by: Phytonadione (Phytonadione 5 Mg Tab) 2.5 mg PO ONETIME ONE Stop: 06/07/20 09:31 Last Admin: 06/07/20 09:30 Dose: 2.5 mg Documented by: Phytonadione (Phytonadione 5 Mg Tab) 5 mg PO ONETIME ONE Stop: 06/07/20 17:07 Last Admin: 06/07/20 17:59 Dose: 5 mg Documented by: Prednisone (Prednisone 20 Mg Tab) 20 mg PO ONETIME ONE Stop: 06/08/20 12:01 Last Admin: 06/08/20 12:40 Dose: 20 mg Documented by: Prednisone (Prednisone 20 Mg Tab) 20 mg PO WITHBREAKFAST [facility] Stop: 06/10/20 08:01 Last Admin: 06/10/20 08:53 Dose: 20 mg Documented by: Propofol (Propofol 200 Mg/20 Ml Sdv) Confirm Administered Dose 200 mg .ROUTE .STK-MED ONE Stop: 06/10/20 06:57 Sodium Chloride (Sodium Chloride 0.9% 10 Ml Syringe) 10 ml FLUSH ASDIRECTED PRN PRN Reason: Keep Vein Open Last Admin: 06/05/20 17:57 Dose: 10 ml Documented by: Warfarin Sodium (Warfarin 5 Mg Tab) 7.5 mg PO ASDIRECTED [facility] Warfarin Sodium (Warfarin 5 Mg Tab) 10 mg PO ASDIRECTED [facility] Warfarin Sodium (Warfarin 5 Mg Tab) 10 mg PO DAILY@1300 [facility] Last Admin: 06/09/20 13:55 Dose: 10 mg Documented by: - Exam Quality Assessment: Supplemental Oxygen General: Alert, Oriented, Cooperative, No Acute Distress Neck: JVD Lungs: Normal Respiratory Effort, Crackles (right lower and mid lung ) Cardiovascular: Irregular Rhythm, Tachycardia GI/Abdominal Exam: Soft, No Distention Extremities: No Pedal Edema. No: Increased Warmth Skin: Warm, Dry Psy/Mental Status: Alert, Normal Affect - Patient Data Lab Results Last 24 hrs: Laboratory Results - last 24 hr 06/10/20 06/10/20 06/10/20 Range/Units 11:50 17:04 20:27 WBC (4.5-11.0) K/uL RBC (4.30-5.90) M/uL Hgb (12.0-15.0) g/dL Hct (40.0-54.0) % MCV (80-98) fL MCH (27-31) pg MCHC (32-36) % Plt Count (150-400) K/uL PT (9.5-12.0) sec INR (0.80-1.20) Sodium (140-148) mmol/L Potassium (3.6-5.2) mmol/L Chloride (100-108) mmol/L Carbon Dioxide (21-32) mmol/L Anion Gap (5.0-14.0) mmol/L BUN (7-18) mg/dL Creatinine (0.8-1.3) mg/dL Est Cr Clr Drug Dosing mL/min Estimated GFR (MDRD) (>60) Glucose (74-106) mg/dL POC Glucose 199 H 250 H 240 H (74-106) mg/dL Calcium (8.5-10.1) mg/dL Phosphorus (2.5-4.9) mg/dL Magnesium (1.8-2.4) mg/dL Total Bilirubin (0.2-1.0) mg/dL AST (15-37) U/L ALT (12-78) U/L Alkaline Phosphatase (46-116) U/L NT-Pro-B Natriuret Pep (5-450) pg/mL Total Protein (6.4-8.2) g/dL Albumin (3.4-5.0) g/dL Globulin (2.3-3.5) g/dL Albumin/Globulin Ratio (1.2-2.2) 06/11/20 06/11/20 06/11/20 Range/Units 04:01 04:01 04:01 WBC 24.8 H (4.5-11.0) K/uL RBC 2.94 L (4.30-5.90) M/uL Hgb 9.4 L (12.0-15.0) g/dL Hct 27.9 L (40.0-54.0) % MCV 95 (80-98) fL MCH 32 H (27-31) pg MCHC 34 (32-36) % Plt Count 315 (150-400) K/uL PT 24.6 H (9.5-12.0) sec INR 2.29 H (0.80-1.20) Sodium 146 (140-148) mmol/L Potassium 4.9 (3.6-5.2) mmol/L Chloride 108 (100-108) mmol/L Carbon Dioxide 26 (21-32) mmol/L Anion Gap 11.8 (5.0-14.0) mmol/L BUN 59 H (7-18) mg/dL Creatinine 1.3 (0.8-1.3) mg/dL Est Cr Clr Drug Dosing 34.94 mL/min Estimated GFR (MDRD) 52 L (>60) Glucose 215 H (74-106) mg/dL POC Glucose (74-106) mg/dL Calcium 8.5 (8.5-10.1) mg/dL Phosphorus 3.5 (2.5-4.9) mg/dL Magnesium 1.8 (1.8-2.4) mg/dL Total Bilirubin 0.9 (0.2-1.0) mg/dL AST 47 H (15-37) U/L ALT 82 H (12-78) U/L Alkaline Phosphatase 173 H (46-116) U/L NT-Pro-B Natriuret Pep 18136 H (5-450) pg/mL Total Protein 5.5 L (6.4-8.2) g/dL Albumin 2.1 L (3.4-5.0) g/dL Globulin 3.4 (2.3-3.5) g/dL Albumin/Globulin Ratio 0.6 L (1.2-2.2) Result Diagrams: 06/11/20 04:01 06/11/20 04:01 Atul Results Last 24 hrs: Microbiology 06/10/20 07:38 Gram Stain - Final Lung - Right Wound Culture - Preliminary NO GROWTH AFTER 1 DAY Anaerobic Culture - Preliminary NO GROWTH AFTER 1 DAY 06/05/20 19:15 Aerobic Blood Culture - Final Blood - Arm, Left Haemophilus Influenzae V Anaerobic Blood Culture - Final NO GROWTH AFTER 5 DAYS 06/05/20 19:25 Aerobic Blood Culture - Final Blood - Arm, Left Haemophilus Influenzae V Anaerobic Blood Culture - Final NO GROWTH AFTER 5 DAYS Sepsis Event Note - Evaluation Sepsis Screening Result: Severe Sepsis Risk - Focused Exam Vital Signs: Vital Signs Temp Pulse Resp BP Pulse Ox Pulse Ox 06/11/20 08:43 95 06/11/20 08:00 36.5 C 15 109/65 95 06/11/20 07:10 96 94 L 06/11/20 07:00 16 104/63 95 06/11/20 06:00 22 H 111/63 93 L 06/11/20 05:00 14 102/52 L 91 L 06/11/20 04:00 19 107/46 L 93 L 06/11/20 03:00 13 104/68 94 L 06/11/20 02:00 12 102/60 95 06/11/20 01:00 36.3 C 14 102/59 L 95 06/11/20 00:00 13 104/68 95 06/10/20 23:00 14 103/62 95 06/10/20 22:00 12 95/61 93 L - Problem List Review Problem List Initiated/Reviewed/Updated: Yes - My Orders Last 24 Hours: My Active Orders 06/10/20 09:05 Transfer Patient (Change bed) [ADT] Routine Cardiac Monitoring [RC] Q6H 06/10/20 09:10 Blood Glucose Check, Bedside [RC] QIDACANDBED 06/10/20 09:11 Notify Provider Consults [RC] ASDIRECTED Consult to Physician [CONS] Routine 06/10/20 19:02 Diltiazem [Cardizem] 100 mg Sodium Chloride 0.9% [Normal Saline] 100 ml IV TITRATE 06/11/20 09:54 Metoprolol Succinate [Toprol XL] 25 mg PO ONETIME ONE 06/11/20 09:55 PT Evaluation and Treatment [CONS] Routine 06/11/20 14:00 Diltiazem 125 mg Sodium Chloride 0.9% [Normal Saline] 100 ml IV TITRATE 06/11/20 15:00 Furosemide [Lasix] 40 mg PO ONETIME ONE 06/12/20 05:00 BASIC METABOLIC PANEL,BMP [CHEM] Timed CBC W/O DIFF,HEMOGRAM [HEME] Timed (1) INR,PT,PROTHROMBIN TIME [COAG] Timed - Plan Plan:: ASSESSMENT AND PLAN - Bilateral lower lobe pneumonia-complicated by sepsis, complex pleural effusion/empyema on the right side and acute respiratory failure with hypoxia. Status post thoracentesis on 06/06 and tube thoracostomy on 06/10. He continues to require supplemental oxygen but overall is doing fairly well. -Chest tube management per Dr. Mustafa -Follow-up cultures -Symptomatic management of pain and cough -Continue ceftriaxone -Stop azithromycin (7 doses complete) -Follow-up cultures -Supplement oxygen, wean as able -Physical therapy Atrial fibrillation with rapid ventricular response-rate control has improved. -Diltiazem infusion -Increased dose of metoprolol to 75 mg this morning -Digoxin if needed for additional tachycardia -Cardiac monitoring Acute kidney injury-resolved. Type 2 diabetes mellitus-well controlled so far. -Sliding scale insulin Coronary artery disease-complicated by mild diastolic heart failure. Stable. -Medical management Chronic atrial fibrillation-rate controlled. Chronically anticoagulated. INR therapeutic. -Hold warfarin -INR in the morning Maintenance issues - -DVT prophylaxis-warfarin -GI prophylaxis-not indicated -Nutrition-heart healthy Disposition -I anticipate discharge home with home care after the hospital stay Remy Reyes M.D.
[2020-06-11] MEDS ORDERED: Metoprolol Succinate 25 MG Tab.ER PO ONE (10:00)
[2020-06-11] MEDS: Bisacodyl 5 MG Tab PO SCH ×2 (10:12→20:39)
[2020-06-11] MEDS: Aspirin 81 MG Tab.EC PO SCH (10:12)
[2020-06-11] MEDS: Ascorbic Acid 500 MG Tab PO SCH (10:12)
[2020-06-11] MEDS: Docusate Sodium 100 MG Cap PO SCH ×2 (10:12→20:38)
[2020-06-11] MEDS: Furosemide 40 MG Tab PO SCH (10:13)
[2020-06-11] MEDS: Metoprolol Succinate 50 MG Tab.ER PO SCH (10:13)
[2020-06-11] MEDS: Diltiazem 125 MG in Sodium Chloride 0.9% 100 ML IV SCH (14:32)
[2020-06-11] MEDS ORDERED: Furosemide 40 MG Tab PO ONE (15:00)
[2020-06-11] MEDS: cefTRIAXone 1 GM in Sodium Chloride 0.9% 50 ML IV SCH (20:34)
[2020-06-11] MEDS: atorvaSTATin 10 MG Tab PO SCH (20:38)
[2020-06-11] MEDS: rOPINIRole 0.5 MG Tab PO SCH (20:38)
[2020-06-12] MEDS ORDERED: Diltiazem 25 MG/5 ML SDV ONE (02:57)
[2020-06-12] MEDS ORDERED: Sodium Chloride 0.9% 0 ML ONE (03:02)
[2020-06-12] MEDS ORDERED: Diltiazem 100 MG AdvVial ONE (03:07)
[2020-06-12] MEDS ORDERED: Sodium Chloride 0.9% 100 ML ONE (03:08)
[2020-06-12] MEDS: Albuterol/Ipratropium 3.0-0.5 MG/3 ML Neb Soln NEB SCH ×4 (07:04→20:46)
[2020-06-12] MEDS: Pantoprazole 40 MG Tab.CR PO SCH (07:42)
[2020-06-12] MEDS: Insulin Lispro 100 Unit/ML 3 ML KwikPen SUBCUT SCH ×4 (07:42→20:41)
--- NOTE | 2020-06-12 07:49 | CRLCR ---
Indication: Chest tube, follow-up pleural effusion Comparison: Single view chest June 11, 2020 Technique: Single AP view chest Findings: There is hyperinflation and chronic interstitial change. There is stable right-sided thoracostomy tube with right basilar pleural effusion. Patchy airspace opacities with right upper and right lower lobes are again seen. Additional airspace opacity within the left upper lobe is appreciated. There is no significant pneumothorax. The cardiac silhouette is stably enlarged. The bony thorax is grossly intact. Impression: Stable right-sided thoracostomy tube with minimal right sided residual pleural fluid. Persistent consolidative opacities in the right upper and right lower lobes with developing airspace disease within the left upper lobe which may represent developing infiltrate. Dictated by Odilon Alonzo MD @ 06/12/2020 7:48:[address] Odilon Alonzo @ Jun 12 2020 7:48AM
[2020-06-12] MEDS: Docusate Sodium 100 MG Cap PO SCH ×2 (08:06→20:43)
[2020-06-12] MEDS: Aspirin 81 MG Tab.EC PO SCH (08:06)
[2020-06-12] MEDS: Furosemide 40 MG Tab PO SCH (08:07)
[2020-06-12] MEDS: Metoprolol Succinate 50 MG Tab.ER PO SCH (08:07)
[2020-06-12] MEDS: Ascorbic Acid 500 MG Tab PO SCH (08:07)
[2020-06-12] MEDS: Bisacodyl 5 MG Tab PO SCH ×2 (08:07→20:43)
[2020-06-12] MEDS ORDERED: Phytonadione 5 MG Tab PO ONE (08:15)
[2020-06-12] MEDS: Diltiazem 125 MG in Sodium Chloride 0.9% 100 ML IV SCH (08:58)
[2020-06-12] MEDS: Diltiazem IR 30 MG Tab PO SCH ×3 (09:22→21:02)
--- NOTE | 2020-06-12 14:18 | PCM.PN ---
- General Info Date of Service: 06/12/20 Subjective Update: There were no acute events overnight. No fevers overnight. Cough is a little better. Shortness of breath is a little better. Still requiring 3 L of oxygen. He remains in atrial fibrillation but has had pretty good rate control. We were able to transition him to oral diltiazem this morning. He did have a bowel movement today. Appetite has been decent. Strength slowly improving. He has had a fair amount of chest tube output since yesterday with a light clear yellow fluid noted. Cultures from the chest tube insertion remain negative. Functional Status: Reports: Pain Controlled, Tolerating Diet - Patient Data Vitals - Most Recent: Last Vital Signs Temp 36.4 C 06/12/20 13:00 Pulse 101 H 06/12/20 10:55 Resp 16 06/12/20 13:00 BP 116/55 L 06/12/20 13:00 Pulse Ox 95 06/12/20 13:00 Weight - Most Recent: 81.374 kg I&O - Last 24 Hours: Intake & Output 06/11/20 06/12/20 06/12/20 22:59 06:59 14:59 Intake Total 675 260 840 Output Total 2075 50 700 Balance -1400 210 140 Lab Results Last 24 Hours: Laboratory Results - last 24 hr 06/11/20 06/11/20 06/12/20 Range/Units 16:55 20:31 04:35 WBC 20.3 H (4.5-11.0) K/uL RBC 2.93 L (4.30-5.90) M/uL Hgb 9.4 L (12.0-15.0) g/dL Hct 28.1 L (40.0-54.0) % MCV 96 (80-98) fL MCH 32 H (27-31) pg MCHC 34 (32-36) % Plt Count 310 (150-400) K/uL PT (9.5-12.0) sec INR (0.80-1.20) Sodium (140-148) mmol/L Potassium (3.6-5.2) mmol/L Chloride (100-108) mmol/L Carbon Dioxide (21-32) mmol/L Anion Gap (5.0-14.0) mmol/L BUN (7-18) mg/dL Creatinine (0.8-1.3) mg/dL Est Cr Clr Drug Dosing mL/min Estimated GFR (MDRD) (>60) Glucose (74-106) mg/dL POC Glucose 173 H 170 H (74-106) mg/dL Calcium (8.5-10.1) mg/dL 06/12/20 06/12/20 06/12/20 Range/Units 04:35 04:35 11:03 WBC (4.5-11.0) K/uL RBC (4.30-5.90) M/uL Hgb (12.0-15.0) g/dL Hct (40.0-54.0) % MCV (80-98) fL MCH (27-31) pg MCHC (32-36) % Plt Count (150-400) K/uL PT 50.0 H (9.5-12.0) sec INR 4.73 H* D (0.80-1.20) Sodium 143 (140-148) mmol/L Potassium 3.8 (3.6-5.2) mmol/L Chloride 105 (100-108) mmol/L Carbon Dioxide 27 (21-32) mmol/L Anion Gap 10.9 (5.0-14.0) mmol/L BUN 40 H (7-18) mg/dL Creatinine 1.0 (0.8-1.3) mg/dL Est Cr Clr Drug Dosing 45.42 mL/min Estimated GFR (MDRD) > 60 (>60) Glucose 133 H (74-106) mg/dL POC Glucose 210 H (74-106) mg/dL Calcium 8.2 L (8.5-10.1) mg/dL Atul Results Last 24 Hours: Microbiology 06/10/20 07:38 Gram Stain - Final Lung - Right Wound Culture - Preliminary NO GROWTH AFTER 2 DAYS Anaerobic Culture - Preliminary NO GROWTH AFTER 2 DAYS Med Orders - Current: Current Medications Acetaminophen (Acetaminophen 325 Mg Tab) 650 mg PO Q4H PRN PRN Reason: Pain (Mild 1-3)/fever Last Admin: 06/10/20 14:58 Dose: 650 mg Documented by: Albuterol/Ipratropium (Albuterol/Ipratropium 3.0-0.5 Mg/3 Ml Neb Soln) 3 ml NEB QIDRT [facility]BE[facility] Last Admin: 06/12/20 10:54 Dose: 3 ml Documented by: Ascorbic Acid (Ascorbic Acid 500 Mg Tab) 500 mg PO DAILY [facility] Last Admin: 06/12/20 08:07 Dose: 500 mg Documented by: Aspirin (Aspirin 81 Mg Tab.Ec) 81 mg PO DAILY [facility] Last Admin: 06/12/20 08:06 Dose: 81 mg Documented by: Atorvastatin Calcium (Atorvastatin 10 Mg Tab) 10 mg PO BEDTIME [facility] Last Admin: 06/11/20 20:38 Dose: 10 mg Documented by: Benzocaine/Menthol (Benzocaine/Cetylpyridinium/Menthol Lozenge) 1 lozenge MUCMEM Q2H PRN PRN Reason: Sore Throat Last Admin: 06/06/20 22:34 Dose: 1 lozenge Documented by: Bisacodyl (Bisacodyl 5 Mg Tab) 10 mg PO BID [facility] Last Admin: 06/12/20 08:07 Dose: 10 mg Documented by: Dextrose/Water (50% Dextrose In Water 50 Ml Syringe) 50 ml IVPUSH ASDIRECTED PRN PRN Reason: Hypoglycemia Diltiazem HCl (Diltiazem Ir 30 Mg Tab) 90 mg PO Q6HR [facility] Last Admin: 06/12/20 09:22 Dose: 90 mg Documented by: Docusate Sodium (Docusate Sodium 100 Mg Cap) 100 mg PO BID [facility] Last Admin: 06/12/20 08:06 Dose: 100 mg Documented by: Furosemide (Furosemide 40 Mg Tab) 40 mg PO DAILY [facility] Last Admin: 06/12/20 08:07 Dose: 40 mg Documented by: Glucagon (Glucagon,Human Recombinant 1 Mg Vial) 1 mg IM ASDIRECTED PRN PRN Reason: Hypoglycemia Hydromorphone HCl (Hydromorphone 2 Mg Tab) 2 mg PO Q6H PRN PRN Reason: PAIN Last Admin: 06/10/20 12:56 Dose: 2 mg Documented by: Ceftriaxone Sodium 1 gm/ (Sodium Chloride) 50 mls @ 100 mls/hr IV Q24H [facility] Last Admin: 06/11/20 20:34 Dose: 100 mls/hr Documented by: Insulin Human Lispro (Insulin Lispro 100 Unit/Ml 3 Ml Kwikpen) 0 unit SUBCUT QIDACANDBED [facility]; Protocol Last Admin: 06/12/20 11:11 Dose: 2 units Documented by: Melatonin (Melatonin 3 Mg Tab) 9 mg PO BEDTIME PRN PRN Reason: Sleep Last Admin: 06/09/20 22:23 Dose: 9 mg Documented by: Metoprolol Succinate (Metoprolol Succinate 50 Mg Tab.Er) 50 mg PO DAILY [facility] Last Admin: 06/12/20 08:07 Dose: 50 mg Documented by: Naloxone HCl (Naloxone 0.4 Mg/Ml Sdv) 0.04 mg IVPUSH Q3M PRN PRN Reason: Respiratory Depression Ondansetron HCl (Ondansetron 4 Mg/2 Ml Sdv) 4 mg IV Q4H PRN PRN Reason: Nausea/Vomiting Pantoprazole Sodium (Pantoprazole 40 Mg Tab.Cr) 40 mg PO ACBREAKFAST [facility] Last Admin: 06/12/20 07:42 Dose: 40 mg Documented by: Ropinirole HCl (Ropinirole 0.5 Mg Tab) 0.25 mg PO BEDTIME [facility] Last Admin: 06/11/20 20:38 Dose: 0.25 mg Documented by: Sodium Chloride (Sodium Chloride 0.9% 10 Ml Syringe) 10 ml FLUSH ASDIRECTED PRN PRN Reason: Keep Vein Open Discontinued Medications Albuterol/Ipratropium (Albuterol/Ipratropium 3.0-0.5 Mg/3 Ml Neb Soln) 3 ml NEB Q6H [facility] Last Admin: 06/06/20 07:02 Dose: 3 ml Documented by: Albuterol/Ipratropium (Albuterol/Ipratropium 3.0-0.5 Mg/3 Ml Neb Soln) 3 ml NEB Q6H [facility] Last Admin: 06/08/20 07:24 Dose: 3 ml Documented by: Azithromycin (Azithromycin 250 Mg Tab) 500 mg PO BEDTIME [facility] Last Admin: 06/10/20 20:31 Dose: 500 mg Documented by: Bacitracin (Bacitracin Oint 1 Gm U/D Packet) Confirm Administered Dose 3 dose .ROUTE .[employer]-MED ONE Stop: 06/06/20 08:58 Last Admin: 06/06/20 09:08 Dose: Not Given Documented by: Bupivacaine HCl/Epinephrine Bitart (Bupivacaine 0.5%/Epinephrine 1:200,000 50 Ml Mdv) Confirm Administered Dose 50 ml .ROUTE .STK-MED ONE Stop: 06/10/20 06:50 Last Admin: 06/10/20 07:35 Dose: 40 ml Documented by: Digoxin (Digoxin 500 Mcg/2 Ml Amp) 125 mcg IVPUSH ONETIME ONE Stop: 06/10/20 13:13 Last Admin: 06/10/20 13:22 Dose: 125 mcg Documented by: Diltiazem HCl (Diltiazem 25 Mg/5 Ml Sdv) 10 mg IVPUSH ONETIME ONE Stop: 06/10/20 09:07 Last Admin: 06/10/20 09:21 Dose: 10 mg Documented by: Diltiazem HCl (Diltiazem 25 Mg/5 Ml Sdv) 5 mg IVPUSH ONETIME ONE Stop: 06/10/20 10:31 Last Admin: 06/10/20 10:44 Dose: 5 mg Documented by: Diltiazem HCl (Diltiazem 25 Mg/5 Ml Sdv) 5 mg IVPUSH ONETIME ONE Stop: 06/10/20 11:46 Last Admin: 06/10/20 11:51 Dose: 5 mg Documented by: Diltiazem HCl (Diltiazem 25 Mg/5 Ml Sdv) Confirm Administered Dose 25 mg .ROUTE .STK-MED ONE Stop: 06/12/20 02:58 Last Admin: 06/12/20 07:13 Dose: Not Given Documented by: Diltiazem HCl (Diltiazem 100 Mg Advvial) Confirm Administered Dose 100 mg .ROUTE .STK-MED ONE Stop: 06/12/20 03:08 Last Admin: 06/12/20 07:13 Dose: Not Given Documented by: Ferrous Sulfate (Ferrous Sulfate 325 Mg Tab) 325 mg PO DAILY [facility] Furosemide (Furosemide 40 Mg/4 Ml Vial) 40 mg IVPUSH ONETIME ONE Stop: 06/08/20 11:11 Last Admin: 06/08/20 12:47 Dose: 40 mg Documented by: Furosemide (Furosemide 40 Mg Tab) 40 mg PO ONETIME ONE Stop: 06/11/20 15:01 Last Admin: 06/11/20 15:09 Dose: 40 mg Documented by: Hydromorphone HCl (Hydromorphone/Normal Saline 15 Mg/30 Ml [employer]) 0 mg IV ASDIRECTED PRN; Protocol PRN Reason: PAIN Last Admin: 06/10/20 16:04 Dose: 15 mg Documented by: Sodium Chloride (Normal Saline) 1,000 mls @ 999 mls/hr IV .BOLUS ONE Stop: 06/05/20 19:28 Last Admin: 06/05/20 18:53 Dose: 999 mls/hr Documented by: Levofloxacin/Dextrose 750 mg/ (Premix) 150 mls @ 100 mls/hr IV ONETIME ONE Stop: 06/05/20 20:32 Last Admin: 06/05/20 22:00 Dose: Not Given Documented by: Clindamycin Phosphate 900 mg/ (Sodium Chloride) 106 mls @ 200 mls/hr IV ONETIME ONE Stop: 06/05/20 19:47 Last Admin: 06/05/20 22:01 Dose: Not Given Documented by: Sodium Chloride (Normal Saline) 1,000 mls @ 999 mls/hr IV BOLUS ONE; Protocol Stop: 06/05/20 20:33 Last Admin: 06/05/20 19:58 Dose: 999 mls/hr Documented by: Vancomycin HCl 1 gm/ Sodium (Chloride) 250 mls @ 167 mls/hr IV STAT ONE Stop: 06/05/20 21:02 Last Admin: 06/05/20 20:06 Dose: Not Given Documented by: Piperacillin Sod/Tazobactam (Sod 4.5 gm/ Sodium Chloride) 100 mls @ 100 mls/hr IV STAT ONE Stop: 06/05/20 20:32 Last Admin: 06/05/20 21:58 Dose: Not Given Documented by: Sodium Chloride (Normal Saline) 1,000 mls @ 75 mls/hr IV ASDIRECTED [facility] Last Admin: 06/07/20 19:40 Dose: 75 mls/hr Documented by: Azithromycin 500 mg/ Sodium (Chloride) 250 mls @ 250 mls/hr IV Q24H [facility] Last Admin: 06/07/20 19:41 Dose: 250 mls/hr Documented by: Iron Sucrose 200 mg/ Sodium (Chloride) 110 mls @ 400 mls/hr IV Q48H [facility] Last Admin: 06/05/20 23:28 Dose: 400 mls/hr Documented by: Iron Sucrose 200 mg/ Sodium (Chloride) 110 mls @ 400 mls/hr IV Q48H [facility] Stop: 06/13/20 15:47 Last Admin: 06/09/20 15:49 Dose: 400 mls/hr Documented by: Phytonadione 5 mg/ Sodium (Chloride) 50.5 mls @ 100 mls/hr IV NOW ONE Stop: 06/09/20 18:05 Last Admin: 06/09/20 19:19 Dose: 100 mls/hr Documented by: Diltiazem HCl 125 mg/ Sodium (Chloride) 125 mls @ 5 mls/hr IV TITRATE [facility]; Protocol Last Titration: 06/10/20 11:59 Dose: 15 mg/hr, 15 mls/hr Documented by: Diltiazem HCl 125 mg/ Sodium (Chloride) 125 mls @ 5 mls/hr IV TITRATE [facility]; Protocol Diltiazem HCl 100 mg/ Sodium (Chloride) 100 mls @ 5 mls/hr IV TITRATE [facility]; Protocol Stop: 06/11/20 13:45 Last Admin: 06/11/20 08:05 Dose: 15 mg/hr, 15 mls/hr Documented by: Diltiazem HCl 125 mg/ Sodium (Chloride) 125 mls @ 5 mls/hr IV TITRATE [facility]; Protocol Last Titration: 06/12/20 10:40 Dose: 0 mg/hr, 0 mls/hr Documented by: Sodium Chloride (Normal Saline) Confirm Administered Dose 100 mls @ as directed .ROUTE .STK-MED ONE Stop: 06/12/20 03:03 Last Admin: 06/12/20 07:13 Dose: Not Given Documented by: Sodium Chloride (Normal Saline) Confirm Administered Dose 100 mls @ as directed .ROUTE .STK-MED ONE Stop: 06/12/20 03:09 Last Admin: 06/12/20 07:13 Dose: Not Given Documented by: Insulin Human Lispro (Insulin Lispro 100 Unit/Ml 3 Ml Kwikpen) 0 unit SUBCUT TIDMEALS [facility]; Protocol Last Admin: 06/07/20 17:59 Dose: 2 unit Documented by: Insulin Human Lispro (Insulin Lispro 100 Unit/Ml 3 Ml Kwikpen) 14 unit SUBCUT ONETIME ONE Stop: 06/06/20 21:36 Last Admin: 06/06/20 21:46 Dose: 14 units Documented by: Insulin Human Lispro (Insulin Lispro 100 Unit/Ml 3 Ml Kwikpen) 6 unit SUBCUT ONETIME ONE Stop: 06/06/20 23:11 Last Admin: 06/06/20 23:19 Dose: 6 unit Documented by: Ketorolac Tromethamine (Ketorolac 30 Mg/Ml Sdv) 15 mg IVPUSH ONETIME ONE Stop: 06/10/20 14:46 Last Admin: 06/10/20 14:56 Dose: 15 mg Documented by: Lidocaine HCl (Lidocaine 2% Jelly 10 Ml [employer]ro[employer]) 10 ml MUCMEM ONETIME ONE Stop: 06/05/20 17:40 Last Admin: 06/05/20 20:06 Dose: Not Given Documented by: Methylprednisolone Sodium Succinate (Methylprednisolone Sodium Succinate 40 Mg/1 Ml Sdv) 40 mg IVPUSH Q8H [facility] Last Admin: 06/08/20 01:51 Dose: 40 mg Documented by: Metoprolol Succinate (Metoprolol Succinate 25 Mg Tab.Er) 50 mg PO DAILY [facility] Metoprolol Succinate (Metoprolol Succinate 25 Mg Tab.Er) 25 mg PO ONETIME ONE Stop: 06/11/20 10:01 Last Admin: 06/11/20 10:13 Dose: 25 mg Documented by: Metoprolol Tartrate (Metoprolol Tartrate 25 Mg Tab) 25 mg PO ONETIME ONE Stop: 06/10/20 14:46 Last Admin: 06/10/20 14:59 Dose: 25 mg Documented by: Non-Formulary Medication (Ropinirole [Requip]) 0.25 mg PO BEDTIME [facility] Last Admin: 06/05/20 22:01 Dose: Not Given Documented by: Phytonadione (Phytonadione 5 Mg Tab) 2.5 mg PO ONETIME ONE Stop: 06/07/20 09:31 Last Admin: 06/07/20 09:30 Dose: 2.5 mg Documented by: Phytonadione (Phytonadione 5 Mg Tab) 5 mg PO ONETIME ONE Stop: 06/07/20 17:07 Last Admin: 06/07/20 17:59 Dose: 5 mg Documented by: Phytonadione (Phytonadione 5 Mg Tab) 5 mg PO ONETIME ONE Stop: 06/12/20 08:16 Last Admin: 06/12/20 08:16 Dose: 5 mg Documented by: Prednisone (Prednisone 20 Mg Tab) 20 mg PO ONETIME ONE Stop: 06/08/20 12:01 Last Admin: 06/08/20 12:40 Dose: 20 mg Documented by: Prednisone (Prednisone 20 Mg Tab) 20 mg PO WITHBREAKFAST [facility] Stop: 06/10/20 08:01 Last Admin: 06/10/20 08:53 Dose: 20 mg Documented by: Propofol (Propofol 200 Mg/20 Ml Sdv) Confirm Administered Dose 200 mg .ROUTE .STK-MED ONE Stop: 06/10/20 06:57 Sodium Chloride (Sodium Chloride 0.9% 10 Ml Syringe) 10 ml FLUSH ASDIRECTED PRN PRN Reason: Keep Vein Open Last Admin: 06/05/20 17:57 Dose: 10 ml Documented by: Warfarin Sodium (Warfarin 5 Mg Tab) 7.5 mg PO ASDIRECTED [facility] Warfarin Sodium (Warfarin 5 Mg Tab) 10 mg PO ASDIRECTED [facility] Warfarin Sodium (Warfarin 5 Mg Tab) 10 mg PO DAILY@1300 [facility] Last Admin: 06/09/20 13:55 Dose: 10 mg Documented by: - Exam Quality Assessment: Supplemental Oxygen General: Alert, Oriented, Cooperative, No Acute Distress Neck: Supple Lungs: Normal Respiratory Effort, Crackles (Right mid and lower lung) Cardiovascular: Regular Rate, Irregular Rhythm GI/Abdominal Exam: Soft, No Distention Extremities: No Pedal Edema. No: Increased Warmth Skin: Warm, Dry Psy/Mental Status: Alert, Normal Affect - Patient Data Lab Results Last 24 hrs: Laboratory Results - last 24 hr 06/11/20 06/11/20 06/12/20 Range/Units 16:55 20:31 04:35 WBC 20.3 H (4.5-11.0) K/uL RBC 2.93 L (4.30-5.90) M/uL Hgb 9.4 L (12.0-15.0) g/dL Hct 28.1 L (40.0-54.0) % MCV 96 (80-98) fL MCH 32 H (27-31) pg MCHC 34 (32-36) % Plt Count 310 (150-400) K/uL PT (9.5-12.0) sec INR (0.80-1.20) Sodium (140-148) mmol/L Potassium (3.6-5.2) mmol/L Chloride (100-108) mmol/L Carbon Dioxide (21-32) mmol/L Anion Gap (5.0-14.0) mmol/L BUN (7-18) mg/dL Creatinine (0.8-1.3) mg/dL Est Cr Clr Drug Dosing mL/min Estimated GFR (MDRD) (>60) Glucose (74-106) mg/dL POC Glucose 173 H 170 H (74-106) mg/dL Calcium (8.5-10.1) mg/dL 06/12/20 06/12/20 06/12/20 Range/Units 04:35 04:35 11:03 WBC (4.5-11.0) K/uL RBC (4.30-5.90) M/uL Hgb (12.0-15.0) g/dL Hct (40.0-54.0) % MCV (80-98) fL MCH (27-31) pg MCHC (32-36) % Plt Count (150-400) K/uL PT 50.0 H (9.5-12.0) sec INR 4.73 H* D (0.80-1.20) Sodium 143 (140-148) mmol/L Potassium 3.8 (3.6-5.2) mmol/L Chloride 105 (100-108) mmol/L Carbon Dioxide 27 (21-32) mmol/L Anion Gap 10.9 (5.0-14.0) mmol/L BUN 40 H (7-18) mg/dL Creatinine 1.0 (0.8-1.3) mg/dL Est Cr Clr Drug Dosing 45.42 mL/min Estimated GFR (MDRD) > 60 (>60) Glucose 133 H (74-106) mg/dL POC Glucose 210 H (74-106) mg/dL Calcium 8.2 L (8.5-10.1) mg/dL Result Diagrams: 06/12/20 04:35 06/12/20 04:35 Atul Results Last 24 hrs: Microbiology 06/10/20 07:38 Gram Stain - Final Lung - Right Wound Culture - Preliminary NO GROWTH AFTER 2 DAYS Anaerobic Culture - Preliminary NO GROWTH AFTER 2 DAYS Sepsis Event Note - Evaluation Sepsis Screening Result: Severe Sepsis Risk - Focused Exam Vital Signs: Vital Signs Temp Pulse Pulse Resp BP BP Pulse Ox 06/12/20 13:00 36.4 C 16 116/55 L 95 06/12/20 12:00 36.4 C 16 110/58 L 96 06/12/20 11:00 36.6 C 19 112/58 L 96 06/12/20 10:55 101 H 06/12/20 10:00 36.7 C 14 108/62 98 06/12/20 09:00 13 106/59 L 06/12/20 08:42 06/12/20 08:07 106 H 109/64 06/12/20 08:00 36.7 C 12 109/64 96 06/12/20 07:00 36.4 C 17 114/65 96 06/12/20 06:00 36.7 C 19 108/67 97 06/12/20 05:00 12 109/63 95 06/12/20 04:00 12 121/58 L 95 06/12/20 03:00 12 115/55 L 95 Pulse Ox 06/12/20 13:00 06/12/20 12:00 06/12/20 11:00 06/12/20 10:55 06/12/20 10:00 06/12/20 09:00 06/12/20 08:42 96 06/12/20 08:07 06/12/20 08:00 06/12/20 07:00 06/12/20 06:00 06/12/20 05:00 06/12/20 04:00 06/12/20 03:00 - Problem List Review Problem List Initiated/Reviewed/Updated: Yes - My Orders Last 24 Hours: My Active Orders 06/12/20 10:00 Diltiazem IR [Cardizem] 90 mg PO Q6HR 06/12/20 14:04 Transfer Patient (Change bed) [ADT] Routine 06/12/20 14:06 PT Evaluation and Treatment [CONS] Routine 06/12/20 14:08 Convert IV to Saline Lock [OM.PC] Routine 06/13/20 05:00 BASIC METABOLIC PANEL,BMP [CHEM] Timed CBC W/O DIFF,HEMOGRAM [HEME] Timed (1) INR,PT,PROTHROMBIN TIME [COAG] Timed - Plan Plan:: ASSESSMENT AND PLAN - Bilateral lower lobe pneumonia-complicated by sepsis, complex pleural effusion/empyema on the right side and acute respiratory failure with hypoxia. Status post thoracentesis on 06/06 and tube thoracostomy on 06/10. He continues to require supplemental oxygen but overall is doing fairly well. Moderate chest tube output overnight. -Chest tube management per Dr. Mustafa -Follow-up cultures -Symptomatic management of pain and cough -Continue ceftriaxone -Follow-up cultures -Supplement oxygen, wean as able -Physical therapy Atrial fibrillation with rapid ventricular response-rate control has improved. -Transition to oral diltiazem -Continue metoprolol -Digoxin if needed for additional tachycardia -Cardiac monitoring Acute kidney injury-resolved. Type 2 diabetes mellitus-well controlled so far. -Sliding scale insulin Coronary artery disease-complicated by mild diastolic heart failure. Stable. -Medical management Chronic atrial fibrillation Chronically anticoagulated. INR supra therapeutic. -5 mg of vitamin K given this morning -Hold warfarin -INR in the morning Maintenance issues - -DVT prophylaxis-warfarin -GI prophylaxis-not indicated -Nutrition-heart healthy Disposition -I anticipate discharge home with home care after the hospital stay. He is stable and safe for transition to medical/surgical status this morning. Remy Reyes M.D.
[2020-06-12] MEDS: cefTRIAXone 1 GM in Sodium Chloride 0.9% 50 ML IV SCH (20:42)
[2020-06-12] MEDS: rOPINIRole 0.5 MG Tab PO SCH (20:43)
[2020-06-12] MEDS: atorvaSTATin 10 MG Tab PO SCH (20:43)
[2020-06-13] MEDS: Diltiazem IR 30 MG Tab PO SCH (04:51)
[2020-06-13] MEDS: Albuterol/Ipratropium 3.0-0.5 MG/3 ML Neb Soln NEB SCH ×4 (06:56→20:27)
[2020-06-13] MEDS: Insulin Lispro 100 Unit/ML 3 ML KwikPen SUBCUT SCH (07:26)
[2020-06-13] MEDS: Pantoprazole 40 MG Tab.CR PO SCH (07:55)
[2020-06-13] MEDS: Aspirin 81 MG Tab.EC PO SCH (08:52)
[2020-06-13] MEDS: Diltiazem 180 MG Cap.CD PO SCH (08:52)
[2020-06-13] MEDS: Furosemide 40 MG Tab PO SCH (08:52)
[2020-06-13] MEDS: Docusate Sodium 100 MG Cap PO SCH ×2 (08:52→20:42)
[2020-06-13] MEDS: Bisacodyl 5 MG Tab PO SCH ×2 (08:52→20:42)
[2020-06-13] MEDS: Ascorbic Acid 500 MG Tab PO SCH (08:53)
[2020-06-13] MEDS: Metoprolol Succinate 25 MG Tab.ER PO SCH (08:53)
--- NOTE | 2020-06-13 09:04 | PCM.PN ---
- General Info Date of Service: 06/13/20 Subjective Update: No acute events overnight. No significant pain on the right side of the chest. He does have a cough that is occasionally productive for thick sputum. He remai ns in atrial fibrillation and rate control has been borderline with heart rates in the 90s and 100s. He does not feel significantly short of breath but does continue to require supplemental oxygen. Chest tube drainage was about 300 mL in the past 24 hours. No fevers. No new positive culture results. Blood sugars have been well controlled. Functional Status: Reports: Pain Controlled, Tolerating Diet - Review of Systems General: Reports: Weakness Pulmonary: Reports: Shortness of Breath, Cough - Patient Data Vitals - Most Recent: Last Vital Signs Temp 36.1 C 06/13/20 08:15 Pulse 110 H 06/13/20 08:53 Resp 17 06/13/20 08:15 BP 118/59 L 06/13/20 08:53 Pulse Ox 95 06/13/20 08:15 Weight - Most Recent: 81.374 kg I&O - Last 24 Hours: Intake & Output 06/12/20 06/13/20 06/13/20 22:59 06:59 14:59 Intake Total 400 550 Output Total 750 1010 Balance -350 -460 Lab Results Last 24 Hours: Laboratory Results - last 24 hr 06/12/20 06/12/20 06/12/20 Range/Units 11:03 16:42 20:40 WBC (4.5-11.0) K/uL RBC (4.30-5.90) M/uL Hgb (12.0-15.0) g/dL Hct (40.0-54.0) % MCV (80-98) fL MCH (27-31) pg MCHC (32-36) % Plt Count (150-400) K/uL PT (9.5-12.0) sec INR (0.80-1.20) Sodium (140-148) mmol/L Potassium (3.6-5.2) mmol/L Chloride (100-108) mmol/L Carbon Dioxide (21-32) mmol/L Anion Gap (5.0-14.0) mmol/L BUN (7-18) mg/dL Creatinine (0.8-1.3) mg/dL Est Cr Clr Drug Dosing mL/min Estimated GFR (MDRD) (>60) Glucose (74-106) mg/dL POC Glucose 210 H 164 H 222 H (74-106) mg/dL Calcium (8.5-10.1) mg/dL 06/13/20 06/13/20 06/13/20 Range/Units 05:47 05:47 05:47 WBC 18.0 H (4.5-11.0) K/uL RBC 2.93 L (4.30-5.90) M/uL Hgb 9.4 L (12.0-15.0) g/dL Hct 28.6 L (40.0-54.0) % MCV 98 (80-98) fL MCH 32 H (27-31) pg MCHC 33 (32-36) % Plt Count 328 (150-400) K/uL PT 21.8 H (9.5-12.0) sec INR 2.03 H D (0.80-1.20) Sodium 142 (140-148) mmol/L Potassium 3.7 (3.6-5.2) mmol/L Chloride 104 (100-108) mmol/L Carbon Dioxide 30 (21-32) mmol/L Anion Gap 8.1 (5.0-14.0) mmol/L BUN 25 H (7-18) mg/dL Creatinine 0.8 (0.8-1.3) mg/dL Est Cr Clr Drug Dosing 56.78 mL/min Estimated GFR (MDRD) > 60 (>60) Glucose 97 (74-106) mg/dL POC Glucose (74-106) mg/dL Calcium 8.0 L (8.5-10.1) mg/dL Atul Results Last 24 Hours: Microbiology 06/10/20 07:38 Gram Stain - Final Lung - Right Wound Culture - Final NO GROWTH AFTER 3 DAYS Anaerobic Culture - Final NO GROWTH AFTER 3 DAYS Med Orders - Current: Current Medications Acetaminophen (Acetaminophen 325 Mg Tab) 650 mg PO Q4H PRN PRN Reason: Pain (Mild 1-3)/fever Last Admin: 06/10/20 14:58 Dose: 650 mg Documented by: Albuterol/Ipratropium (Albuterol/Ipratropium 3.0-0.5 Mg/3 Ml Neb Soln) 3 ml NEB QIDRT REBECA Last Admin: 06/13/20 06:56 Dose: 3 ml Documented by: Ascorbic Acid (Ascorbic Acid 500 Mg Tab) 500 mg PO DAILY [facility] Last Admin: 06/13/20 08:53 Dose: 500 mg Documented by: Aspirin (Aspirin 81 Mg Tab.Ec) 81 mg PO DAILY [facility] Last Admin: 06/13/20 08:52 Dose: 81 mg Documented by: Atorvastatin Calcium (Atorvastatin 10 Mg Tab) 10 mg PO BEDTIME [facility] Last Admin: 06/12/20 20:43 Dose: 10 mg Documented by: Benzocaine/Menthol (Benzocaine/Cetylpyridinium/Menthol Lozenge) 1 lozenge MUCMEM Q2H PRN PRN Reason: Sore Throat Last Admin: 06/06/20 22:34 Dose: 1 lozenge Documented by: Bisacodyl (Bisacodyl 5 Mg Tab) 10 mg PO BID [facility] Last Admin: 06/13/20 08:52 Dose: 10 mg Documented by: Dextrose/Water (50% Dextrose In Water 50 Ml Syringe) 50 ml IVPUSH ASDIRECTED PRN PRN Reason: Hypoglycemia Diltiazem HCl (Diltiazem 180 Mg Cap.Cd) 360 mg PO DAILY [facility] Last Admin: 06/13/20 08:52 Dose: 360 mg Documented by: Docusate Sodium (Docusate Sodium 100 Mg Cap) 100 mg PO BID [facility] Last Admin: 06/13/20 08:52 Dose: 100 mg Documented by: Furosemide (Furosemide 40 Mg Tab) 40 mg PO DAILY [facility] Last Admin: 06/13/20 08:52 Dose: 40 mg Documented by: Glucagon (Glucagon,Human Recombinant 1 Mg Vial) 1 mg IM ASDIRECTED PRN PRN Reason: Hypoglycemia Hydromorphone HCl (Hydromorphone 2 Mg Tab) 2 mg PO Q6H PRN PRN Reason: PAIN Last Admin: 06/10/20 12:56 Dose: 2 mg Documented by: Ceftriaxone Sodium 1 gm/ (Sodium Chloride) 50 mls @ 100 mls/hr IV Q24H [facility] Last Admin: 06/12/20 20:42 Dose: 100 mls/hr Documented by: Melatonin (Melatonin 3 Mg Tab) 9 mg PO BEDTIME PRN PRN Reason: Sleep Last Admin: 06/09/20 22:23 Dose: 9 mg Documented by: Metoprolol Succinate (Metoprolol Succinate 25 Mg Tab.Er) 75 mg PO DAILY [facility] Last Admin: 06/13/20 08:53 Dose: 75 mg Documented by: Naloxone HCl (Naloxone 0.4 Mg/Ml Sdv) 0.04 mg IVPUSH Q3M PRN PRN Reason: Respiratory Depression Ondansetron HCl (Ondansetron 4 Mg/2 Ml Sdv) 4 mg IV Q4H PRN PRN Reason: Nausea/Vomiting Last Admin: 06/12/20 15:13 Dose: 4 mg Documented by: Pantoprazole Sodium (Pantoprazole 40 Mg Tab.Cr) 40 mg PO ACBREAKFAST [facility] Last Admin: 06/13/20 07:55 Dose: 40 mg Documented by: Ropinirole HCl (Ropinirole 0.5 Mg Tab) 0.25 mg PO BEDTIME [facility] Last Admin: 06/12/20 20:43 Dose: 0.25 mg Documented by: Sodium Chloride (Sodium Chloride 0.9% 10 Ml Syringe) 10 ml FLUSH ASDIRECTED PRN PRN Reason: Keep Vein Open Discontinued Medications Albuterol/Ipratropium (Albuterol/Ipratropium 3.0-0.5 Mg/3 Ml Neb Soln) 3 ml NEB Q6H [facility] Last Admin: 06/06/20 07:02 Dose: 3 ml Documented by: Albuterol/Ipratropium (Albuterol/Ipratropium 3.0-0.5 Mg/3 Ml Neb Soln) 3 ml NEB Q6H [facility] Last Admin: 06/08/20 07:24 Dose: 3 ml Documented by: Azithromycin (Azithromycin 250 Mg Tab) 500 mg PO BEDTIME [facility] Last Admin: 06/10/20 20:31 Dose: 500 mg Documented by: Bacitracin (Bacitracin Oint 1 Gm U/D Packet) Confirm Administered Dose 3 dose .ROUTE .STK-MED ONE Stop: 06/06/20 08:58 Last Admin: 06/06/20 09:08 Dose: Not Given Documented by: Bupivacaine HCl/Epinephrine Bitart (Bupivacaine 0.5%/Epinephrine 1:200,000 50 Ml Mdv) Confirm Administered Dose 50 ml .ROUTE .STK-MED ONE Stop: 06/10/20 06:50 Last Admin: 06/10/20 07:35 Dose: 40 ml Documented by: Digoxin (Digoxin 500 Mcg/2 Ml Amp) 125 mcg IVPUSH ONETIME ONE Stop: 06/10/20 13:13 Last Admin: 06/10/20 13:22 Dose: 125 mcg Documented by: Diltiazem HCl (Diltiazem 25 Mg/5 Ml Sdv) 10 mg IVPUSH ONETIME ONE Stop: 06/10/20 09:07 Last Admin: 06/10/20 09:21 Dose: 10 mg Documented by: Diltiazem HCl (Diltiazem 25 Mg/5 Ml Sdv) 5 mg IVPUSH ONETIME ONE Stop: 06/10/20 10:31 Last Admin: 06/10/20 10:44 Dose: 5 mg Documented by: Diltiazem HCl (Diltiazem 25 Mg/5 Ml Sdv) 5 mg IVPUSH ONETIME ONE Stop: 06/10/20 11:46 Last Admin: 06/10/20 11:51 Dose: 5 mg Documented by: Diltiazem HCl (Diltiazem 25 Mg/5 Ml Sdv) Confirm Administered Dose 25 mg .ROUTE .STK-MED ONE Stop: 06/12/20 02:58 Last Admin: 06/12/20 07:13 Dose: Not Given Documented by: Diltiazem HCl (Diltiazem 100 Mg Advvial) Confirm Administered Dose 100 mg .ROUTE .STK-MED ONE Stop: 06/12/20 03:08 Last Admin: 06/12/20 07:13 Dose: Not Given Documented by: Diltiazem HCl (Diltiazem Ir 30 Mg Tab) 90 mg PO Q6HR REBECA Last Admin: 06/13/20 04:51 Dose: 90 mg Documented by: Ferrous Sulfate (Ferrous Sulfate 325 Mg Tab) 325 mg PO DAILY REBECA Furosemide (Furosemide 40 Mg/4 Ml Vial) 40 mg IVPUSH ONETIME ONE Stop: 06/08/20 11:11 Last Admin: 06/08/20 12:47 Dose: 40 mg Documented by: Furosemide (Furosemide 40 Mg Tab) 40 mg PO ONETIME ONE Stop: 06/11/20 15:01 Last Admin: 06/11/20 15:09 Dose: 40 mg Documented by: Hydromorphone HCl (Hydromorphone/Normal Saline 15 Mg/30 Ml Post Doctoral Fellow) 0 mg IV ASDI RECTED PRN; Protocol PRN Reason: PAIN Last Admin: 06/10/20 16:04 Dose: 15 mg Documented by: Sodium Chloride (Normal Saline) 1,000 mls @ 999 mls/hr IV .BOLUS ONE Stop: 06/05/20 19:28 Last Admin: 06/05/20 18:53 Dose: 999 mls/hr Documented by: Levofloxacin/Dextrose 750 mg/ (Premix) 150 mls @ 100 mls/hr IV ONETIME ONE Stop: 06/05/20 20:32 Last Admin: 06/05/20 22:00 Dose: Not Given Documented by: Clindamycin Phosphate 900 mg/ (Sodium Chloride) 106 mls @ 200 mls/hr IV ONETIME ONE Stop: 06/05/20 19:47 Last Admin: 06/05/20 22:01 Dose: Not Given Documented by: Sodium Chloride (Normal Saline) 1,000 mls @ 999 mls/hr IV BOLUS ONE; Protocol Stop: 06/05/20 20:33 Last Admin: 06/05/20 19:58 Dose: 999 mls/hr Documented by: Vancomycin HCl 1 gm/ Sodium (Chloride) 250 mls @ 167 mls/hr IV STAT ONE Stop: 06/05/20 21:02 Last Admin: 06/05/20 20:06 Dose: Not Given Documented by: Piperacillin Sod/Tazobactam (Sod 4.5 gm/ Sodium Chloride) 100 mls @ 100 mls/hr IV STAT ONE Stop: 06/05/20 20:32 Last Admin: 06/05/20 21:58 Dose: Not Given Documented by: Sodium Chloride (Normal Saline) 1,000 mls @ 75 mls/hr IV ASDIRECTED [facility] Last Admin: 06/07/20 19:40 Dose: 75 mls/hr Documented by: Azithromycin 500 mg/ Sodium (Chloride) 250 mls @ 250 mls/hr IV Q24H [facility] Last Admin: 06/07/20 19:41 Dose: 250 mls/hr Documented by: Iron Sucrose 200 mg/ Sodium (Chloride) 110 mls @ 400 mls/hr IV Q48H [facility] Last Admin: 06/05/20 23:28 Dose: 400 mls/hr Documented by: Iron Sucrose 200 mg/ Sodium (Chloride) 110 mls @ 400 mls/hr IV Q48H [facility] Stop: 06/13/20 15:47 Last Admin: 06/09/20 15:49 Dose: 400 mls/hr Documented by: Phytonadione 5 mg/ Sodium (Chloride) 50.5 mls @ 100 mls/hr IV NOW ONE Stop: 06/09/20 18:05 Last Admin: 06/09/20 19:19 Dose: 100 mls/hr Documented by: Diltiazem HCl 125 mg/ Sodium (Chloride) 125 mls @ 5 mls/hr IV TITRATE REBECA; Protocol Last Titration: 06/10/20 11:59 Dose: 15 mg/hr, 15 mls/hr Documented by: Diltiazem HCl 125 mg/ Sodium (Chloride) 125 mls @ 5 mls/hr IV TITRATE REBECA; Protocol Diltiazem HCl 100 mg/ Sodium (Chloride) 100 mls @ 5 mls/hr IV TITRATE REBECA; Protocol Stop: 06/11/20 13:45 Last Admin: 06/11/20 08:05 Dose: 15 mg/hr, 15 mls/hr Documented by: Diltiazem HCl 125 mg/ Sodium (Chloride) 125 mls @ 5 mls/hr IV TITRATE REBECA; Protocol Last Titration: 06/12/20 10:40 Dose: 0 mg/hr, 0 mls/hr Documented by: Sodium Chloride (Normal Saline) Confirm Administered Dose 100 mls @ as directed .ROUTE .[facility] ONE Stop: 06/12/20 03:03 Last Admin: 06/12/20 07:13 Dose: Not Given Documented by: Sodium Chloride (Normal Saline) Confirm Administered Dose 100 mls @ as directed .ROUTE .STK-MED ONE Stop: 06/12/20 03:09 Last Admin: 06/12/20 07:13 Dose: Not Given Documented by: Insulin Human Lispro (Insulin Lispro 100 Unit/Ml 3 Ml Kwikpen) 0 unit SUBCUT TIDMEALS REBECA; Protocol Last Admin: 06/07/20 17:59 Dose: 2 unit Documented by: Insulin Human Lispro (Insulin Lispro 100 Unit/Ml 3 Ml Kwikpen) 14 unit SUBCUT ONETIME ONE Stop: 06/06/20 21:36 Last Admin: 06/06/20 21:46 Dose: 14 units Documented by: Insulin Human Lispro (Insulin Lispro 100 Unit/Ml 3 Ml Kwikpen) 6 unit SUBCUT ONETIME ONE Stop: 06/06/20 23:11 Last Admin: 06/06/20 23:19 Dose: 6 unit Documented by: Insulin Human Lispro (Insulin Lispro 100 Unit/Ml 3 Ml Kwikpen) 0 unit SUBCUT QIDACANDBED [facility]; Protocol Last Admin: 06/13/20 07:26 Dose: Not Given Documented by: Ketorolac Tromethamine (Ketorolac 30 Mg/Ml Sdv) 15 mg IVPUSH ONETIME ONE Stop: 06/10/20 14:46 Last Admin: 06/10/20 14:56 Dose: 15 mg Documented by: Lidocaine HCl (Lidocaine 2% Jelly 10 Ml Urojet) 10 ml MUCMEM ONETIME ONE Stop: 06/05/20 17:40 Last Admin: 06/05/20 20:06 Dose: Not Given Documented by: Methylprednisolone Sodium Succinate (Methylprednisolone Sodium Succinate 40 Mg/1 Ml Sdv) 40 mg IVPUSH Q8H [facility] Last Admin: 06/08/20 01:51 Dose: 40 mg Documented by: Metoprolol Succinate (Metoprolol Succinate 25 Mg Tab.Er) 50 mg PO DAILY [facility] Metoprolol Succinate (Metoprolol Succinate 50 Mg Tab.Er) 50 mg PO DAILY [facility] Last Admin: 06/12/20 08:07 Dose: 50 mg Documented by: Metoprolol Succinate (Metoprolol Succinate 25 Mg Tab.Er) 25 mg PO ONETIME ONE Stop: 06/11/20 10:01 Last Admin: 06/11/20 10:13 Dose: 25 mg Documented by: Metoprolol Tartrate (Metoprolol Tartrate 25 Mg Tab) 25 mg PO ONETIME ONE Stop: 06/10/20 14:46 Last Admin: 06/10/20 14:59 Dose: 25 mg Documented by: Non-Formulary Medication (Ropinirole [Requip]) 0.25 mg PO BEDTIME [facility] Last Admin: 06/05/20 22:01 Dose: Not Given Documented by: Phytonadione (Phytonadione 5 Mg Tab) 2.5 mg PO ONETIME ONE Stop: 06/07/20 09:31 Last Admin: 06/07/20 09:30 Dose: 2.5 mg Documented by: Phytonadione (Phytonadione 5 Mg Tab) 5 mg PO ONETIME ONE Stop: 06/07/20 17:07 Last Admin: 06/07/20 17:59 Dose: 5 mg Documented by: Phytonadione (Phytonadione 5 Mg Tab) 5 mg PO ONETIME ONE Stop: 06/12/20 08:16 Last Admin: 06/12/20 08:16 Dose: 5 mg Documented by: Prednisone (Prednisone 20 Mg Tab) 20 mg PO ONETIME ONE Stop: 06/08/20 12:01 Last Admin: 06/08/20 12:40 Dose: 20 mg Documented by: Prednisone (Prednisone 20 Mg Tab) 20 mg PO WITHBREAKFAST [facility] Stop: 06/10/20 08:01 Last Admin: 06/10/20 08:53 Dose: 20 mg Documented by: Propofol (Propofol 200 Mg/20 Ml Sdv) Confirm Administered Dose 200 mg .ROUTE .STK-MED ONE Stop: 06/10/20 06:57 Sodium Chloride (Sodium Chloride 0.9% 10 Ml Syringe) 10 ml FLUSH ASDIRECTED PRN PRN Reason: Keep Vein Open Last Admin: 06/05/20 17:57 Dose: 10 ml Documented by: Warfarin Sodium (Warfarin 5 Mg Tab) 7.5 mg PO ASDIRECTED [facility] Warfarin Sodium (Warfarin 5 Mg Tab) 10 mg PO ASDIRECTED [facility] Warfarin Sodium (Warfarin 5 Mg Tab) 10 mg PO DAILY@1300 [facility] Last Admin: 06/09/20 13:55 Dose: 10 mg Documented by: - Exam Quality Assessment: Supplemental Oxygen General: Alert, Oriented, Cooperative, No Acute Distress Neck: JVD Lungs: Normal Respiratory Effort, Crackles (right lung base) Cardiovascular: Irregular Rhythm, Tachycardia, Murmurs GI/Abdominal Exam: Soft, No Distention Extremities: No Pedal Edema. No: Increased Warmth Skin: Warm, Dry Psy/Mental Status: Alert, Normal Affect - Patient Data Lab Results Last 24 hrs: Laboratory Results - last 24 hr 06/12/20 06/12/20 06/12/20 Range/Units 11:03 16:42 20:40 WBC (4.5-11.0) K/uL RBC (4.30-5.90) M/uL Hgb (12.0-15.0) g/dL Hct (40.0-54.0) % MCV (80-98) fL MCH (27-31) pg MCHC (32-36) % Plt Count (150-400) K/uL PT (9.5-12.0) sec INR (0.80-1.20) Sodium (140-148) mmol/L Potassium (3.6-5.2) mmol/L Chloride (100-108) mmol/L Carbon Dioxide (21-32) mmol/L Anion Gap (5.0-14.0) mmol/L BUN (7-18) mg/dL Creatinine (0.8-1.3) mg/dL Est Cr Clr Drug Dosing mL/min Estimated GFR (MDRD) (>60) Glucose (74-106) mg/dL POC Glucose 210 H 164 H 222 H (74-106) mg/dL Calcium (8.5-10.1) mg/dL 06/13/20 06/13/20 06/13/20 Range/Units 05:47 05:47 05:47 WBC 18.0 H (4.5-11.0) K/uL RBC 2.93 L (4.30-5.90) M/uL Hgb 9.4 L (12.0-15.0) g/dL Hct 28.6 L (40.0-54.0) % MCV 98 (80-98) fL MCH 32 H (27-31) pg MCHC 33 (32-36) % Plt Count 328 (150-400) K/uL PT 21.8 H (9.5-12.0) sec INR 2.03 H D (0.80-1.20) Sodium 142 (140-148) mmol/L Potassium 3.7 (3.6-5.2) mmol/L Chloride 104 (100-108) mmol/L Carbon Dioxide 30 (21-32) mmol/L Anion Gap 8.1 (5.0-14.0) mmol/L BUN 25 H (7-18) mg/dL Creatinine 0.8 (0.8-1.3) mg/dL Est Cr Clr Drug Dosing 56.78 mL/min Estimated GFR (MDRD) > 60 (>60) Glucose 97 (74-106) mg/dL POC Glucose (74-106) mg/dL Calcium 8.0 L (8.5-10.1) mg/dL Result Diagrams: 06/13/20 05:47 06/13/20 05:47 Atul Results Last 24 hrs: Microbiology 06/10/20 07:38 Gram Stain - Final Lung - Right Wound Culture - Final NO GROWTH AFTER 3 DAYS Anaerobic Culture - Final NO GROWTH AFTER 3 DAYS Sepsis Event Note - Evaluation Sepsis Screening Result: Severe Sepsis Risk - Focused Exam Vital Signs: Vital Signs Temp Temp Pulse Pulse Resp BP BP 06/13/20 08:53 110 H 118/59 L 06/13/20 08:15 36.1 C 17 118/59 L 06/13/20 03:00 36.6 C 91 19 107/55 L 06/12/20 23:00 95 12 103/47 L Pulse Ox 06/13/20 08:53 06/13/20 08:15 95 06/13/20 03:00 96 06/12/20 23:00 95 - Problem List Review Problem List Initiated/Reviewed/Updated: Yes - My Orders Last 24 Hours: My Active Orders 06/12/20 14:04 Transfer Patient (Change bed) [ADT] Routine 06/12/20 14:06 PT Evaluation and Treatment [CONS] Routine 06/12/20 14:08 Convert IV to Saline Lock [OM.PC] Routine 06/13/20 09:00 Diltiazem [Cardizem CD] 360 mg PO DAILY Metoprolol Succinate [Toprol XL] 75 mg PO DAILY 06/13/20 09:01 Dextromethorphan/guaiFENesin [Robitussin DM] 10 ml PO Q4H PRN Potassium Chloride [Klor-Con M20] 40 meq PO ONETIME ONE 06/13/20 15:00 Furosemide [Lasix] 40 mg IVPUSH ONETIME ONE 06/14/20 05:00 BASIC METABOLIC PANEL,BMP [CHEM] Timed CBC W/O DIFF,HEMOGRAM [HEME] Timed (1) INR,PT,PROTHROMBIN TIME [COAG] Timed - Plan Plan:: ASSESSMENT AND PLAN - Bilateral lower lobe pneumonia-complicated by sepsis, complex pleural effusion/empyema on the right side and acute respiratory failure with hypoxia. Status post thoracentesis on 06/06 and tube thoracostomy on 06/10. He continues to require supplemental oxygen but is slowly improving. Still having a fair amount of chest tube drainage. -Second dose of furosemide this afternoon -Chest tube management per Dr. Mustafa -Follow-up cultures -Symptomatic management of pain and cough -Continue ceftriaxone -Follow-up cultures -Supplement oxygen, wean as able -Physical therapy Atrial fibrillation with rapid ventricular response-rate control has improved. -Transition to long-acting oral diltiazem -Continue metoprolol -Digoxin if needed for additional tachycardia -Continue cardiac monitoring Acute kidney injury-resolved. Type 2 diabetes mellitus-well controlled so far. -Discontinue sliding scale insulin Coronary artery disease-complicated by mild diastolic heart failure. Stable. -Medical management Chronic atrial fibrillation Chronically anticoagulated. INR therapeutic. -Hold warfarin -INR in the morning Maintenance issues - -DVT prophylaxis-warfarin -GI prophylaxis-not indicated -Nutrition-heart healthy Disposition -I anticipate discharge home with home care after the hospital stay. Remy Reyes M.D.
[2020-06-13] MEDS ORDERED: Potassium Chloride 20 MEQ Tab.ER PO ONE (10:00)
[2020-06-13] MEDS: guaiFENesin/Dextromethorphan 100-10 MG/5 ML Soln 10 ML Cup PO PRN ×2 (10:56→14:54)
[2020-06-13] MEDS: Acetaminophen 325 MG Tab PO PRN ×2 (12:16→22:21)
[2020-06-13] MEDS ORDERED: Furosemide 40 MG/4 ML VIAL IVPUSH ONE (15:00)
[2020-06-13] MEDS: cefTRIAXone 1 GM in Sodium Chloride 0.9% 50 ML IV SCH (20:31)
[2020-06-13] MEDS: rOPINIRole 0.5 MG Tab PO SCH (20:42)
[2020-06-13] MEDS: atorvaSTATin 10 MG Tab PO SCH (20:42)
[2020-06-13] MEDS: Melatonin 3 MG Tab PO PRN (22:27)
[2020-06-14] MEDS: Albuterol/Ipratropium 3.0-0.5 MG/3 ML Neb Soln NEB SCH ×4 (07:03→20:32)
[2020-06-14] MEDS: Diltiazem 180 MG Cap.CD PO SCH (08:09)
[2020-06-14] MEDS: Ascorbic Acid 500 MG Tab PO SCH (08:09)
[2020-06-14] MEDS: Furosemide 40 MG Tab PO SCH (08:09)
[2020-06-14] MEDS: Metoprolol Succinate 25 MG Tab.ER PO SCH (08:09)
[2020-06-14] MEDS: Bisacodyl 5 MG Tab PO SCH ×2 (08:09→20:32)
[2020-06-14] MEDS: Pantoprazole 40 MG Tab.CR PO SCH (08:10)
[2020-06-14] MEDS: Docusate Sodium 100 MG Cap PO SCH ×2 (08:10→20:36)
[2020-06-14] MEDS: Aspirin 81 MG Tab.EC PO SCH (08:10)
--- NOTE | 2020-06-14 11:19 | PCM.PN ---
- General Info Date of Service: 06/14/20 Subjective Update: No acute events overnight. Chest tube drainage was about 200 mL. This is a clear yellow-brown fluid. No fevers. White count is better today. Heart rate has been fairly well controlled. Good response to diuresis yesterday. No nausea or abdominal pain. Still weak but slowly improving. INR just below therapeutic range today. No significant pain in the right chest. Functional Status: Reports: Pain Controlled, Tolerating Diet - Review of Systems General: Reports: Weakness. Denies: Fever Cardiovascular: Denies: Chest Pain - Patient Data Vitals - Most Recent: Last Vital Signs Temp 36.6 C 06/14/20 11:00 Pulse 92 06/14/20 11:00 Resp 18 06/14/20 11:00 BP 107/58 L 06/14/20 11:00 Pulse Ox 97 06/14/20 11:00 Weight - Most Recent: 81.374 kg I&O - Last 24 Hours: Intake & Output 06/13/20 06/14/20 06/14/20 22:59 06:59 14:59 Intake Total 240 240 Output Total 110 125 Balance -110 115 240 Lab Results Last 24 Hours: Laboratory Results - last 24 hr 06/13/20 06/13/20 06/13/20 Range/Units 11:42 16:33 21:08 WBC (4.5-11.0) K/uL RBC (4.30-5.90) M/uL Hgb (12.0-15.0) g/dL Hct (40.0-54.0) % MCV (80-98) fL MCH (27-31) pg MCHC (32-36) % Plt Count (150-400) K/uL PT (9.5-12.0) sec INR (0.80-1.20) Sodium (140-148) mmol/L Potassium (3.6-5.2) mmol/L Chloride (100-108) mmol/L Carbon Dioxide (21-32) mmol/L Anion Gap (5.0-14.0) mmol/L BUN (7-18) mg/dL Creatinine (0.8-1.3) mg/dL Est Cr Clr Drug Dosing mL/min Estimated GFR (MDRD) (>60) Glucose (74-106) mg/dL POC Glucose 151 H 185 H 175 H (74-106) mg/dL Calcium (8.5-10.1) mg/dL 06/14/20 06/14/20 06/14/20 Range/Units 04:20 04:20 04:20 WBC 14.0 H (4.5-11.0) K/uL RBC 2.83 L (4.30-5.90) M/uL Hgb 8.9 L (12.0-15.0) g/dL Hct 27.7 L (40.0-54.0) % MCV 98 (80-98) fL MCH 31 (27-31) pg MCHC 32 (32-36) % Plt Count 313 (150-400) K/uL PT 20.1 H (9.5-12.0) sec INR 1.87 H (0.80-1.20) Sodium 144 (140-148) mmol/L Potassium 4.0 (3.6-5.2) mmol/L Chloride 104 (100-108) mmol/L Carbon Dioxide 30 (21-32) mmol/L Anion Gap 10.5 (5.0-14.0) mmol/L BUN 22 H (7-18) mg/dL Creatinine 0.9 (0.8-1.3) mg/dL Est Cr Clr Drug Dosing 50.47 mL/min Estimated GFR (MDRD) > 60 (>60) Glucose 124 H (74-106) mg/dL POC Glucose (74-106) mg/dL Calcium 7.9 L (8.5-10.1) mg/dL Med Orders - Current: Current Medications Acetaminophen (Acetaminophen 325 Mg Tab) 650 mg PO Q4H PRN PRN Reason: Pain (Mild 1-3)/fever Last Admin: 06/13/20 22:21 Dose: 650 mg Documented by: Albuterol/Ipratropium (Albuterol/Ipratropium 3.0-0.5 Mg/3 Ml Neb Soln) 3 ml NEB QIDRT [facility] Last Admin: 06/14/20 10:30 Dose: 3 ml Documented by: Ascorbic Acid (Ascorbic Acid 500 Mg Tab) 500 mg PO DAILY [facility] Last Admin: 06/14/20 08:09 Dose: 500 mg Documented by: Aspirin (Aspirin 81 Mg Tab.Ec) 81 mg PO DAILY [facility] Last Admin: 06/14/20 08:10 Dose: 81 mg Documented by: Atorvastatin Calcium (Atorvastatin 10 Mg Tab) 10 mg PO BEDTIME [facility] Last Admin: 06/13/20 20:42 Dose: 10 mg Documented by: Benzocaine/Menthol (Benzocaine/Cetylpyridinium/Menthol Lozenge) 1 lozenge MUC MEM Q2H PRN PRN Reason: Sore Throat Last Admin: 06/06/20 22:34 Dose: 1 lozenge Documented by: Bisacodyl (Bisacodyl 5 Mg Tab) 10 mg PO BID [facility] Last Admin: 06/14/20 08:09 Dose: 10 mg Documented by: Dextrose/Water (50% Dextrose In Water 50 Ml Syringe) 50 ml IVPUSH ASDIRECTED PRN PRN Reason: Hypoglycemia Diltiazem HCl (Diltiazem 180 Mg Cap.Cd) 360 mg PO DAILY [facility] Last Admin: 06/14/20 08:09 Dose: 360 mg Documented by: Docusate Sodium (Docusate Sodium 100 Mg Cap) 100 mg PO BID [facility] Last Admin: 06/14/20 08:10 Dose: 100 mg Documented by: Furosemide (Furosemide 40 Mg Tab) 40 mg PO DAILY [facility] Last Admin: 06/14/20 08:09 Dose: 40 mg Documented by: Glucagon (Glucagon,Human Recombinant 1 Mg Vial) 1 mg IM ASDIRECTED PRN PRN Reason: Hypoglycemia Guaifenesin/Dextromethorphan (Guaifenesin/Dextromethorphan 100-10 Mg/5 Ml Soln 10 Ml Cup) 10 ml PO Q4H PRN PRN Reason: Cough Last Admin: 06/13/20 14:54 Dose: 10 ml Documented by: Hydromorphone HCl (Hydromorphone 2 Mg Tab) 2 mg PO Q6H PRN PRN Reason: PAIN Last Admin: 06/10/20 12:56 Dose: 2 mg Documented by: Ceftriaxone Sodium 1 gm/ (Sodium Chloride) 50 mls @ 100 mls/hr IV Q24H [facility] Last Admin: 06/13/20 20:31 Dose: 100 mls/hr Documented by: Melatonin (Melatonin 3 Mg Tab) 9 mg PO BEDTIME PRN PRN Reason: Sleep Last Admin: 06/13/20 22:27 Dose: 9 mg Documented by: Metoprolol Succinate (Metoprolol Succinate 25 Mg Tab.Er) 75 mg PO DAILY [facility] Last Admin: 06/14/20 08:09 Dose: 75 mg Documented by: Ondansetron HCl (Ondansetron 4 Mg/2 Ml Sdv) 4 mg IV Q4H PRN PRN Reason: Nausea/Vomiting Last Admin: 06/12/20 15:13 Dose: 4 mg Documented by: Pantoprazole Sodium (Pantoprazole 40 Mg Tab.Cr) 40 mg PO ACBREAKFAST [facility] Last Admin: 06/14/20 08:10 Dose: 40 mg Documented by: Ropinirole HCl (Ropinirole 0.5 Mg Tab) 0.25 mg PO BEDTIME [facility] Last Admin: 06/13/20 20:42 Dose: 0.25 mg Documented by: Sodium Chloride (Sodium Chloride 0.9% 10 Ml Syringe) 10 ml FLUSH ASDIRECTED PRN PRN Reason: Keep Vein Open Discontinued Medications Albuterol/Ipratropium (Albuterol/Ipratropium 3.0-0.5 Mg/3 Ml Neb Soln) 3 ml NEB Q6H [facility] Last Admin: 06/06/20 07:02 Dose: 3 ml Documented by: Albuterol/Ipratropium (Albuterol/Ipratropium 3.0-0.5 Mg/3 Ml Neb Soln) 3 ml NEB Q6H [facility] Last Admin: 06/08/20 07:24 Dose: 3 ml Documented by: Azithromycin (Azithromycin 250 Mg Tab) 500 mg PO BEDTIME [facility] Last Admin: 06/10/20 20:31 Dose: 500 mg Documented by: Bacitracin (Bacitracin Oint 1 Gm U/D Packet) Confirm Administered Dose 3 dose .ROUTE .STK-MED ONE Stop: 06/06/20 08:58 Last Admin: 06/06/20 09:08 Dose: Not Given Documented by: Bupivacaine HCl/Epinephrine Bitart (Bupivacaine 0.5%/Epinephrine 1:200,000 50 Ml Mdv) Confirm Administered Dose 50 ml .ROUTE .STK-MED ONE Stop: 06/10/20 06:50 Last Admin: 06/10/20 07:35 Dose: 40 ml Documented by: Digoxin (Digoxin 500 Mcg/2 Ml Amp) 125 mcg IVPUSH ONETIME ONE Stop: 06/10/20 13:13 Last Admin: 06/10/20 13:22 Dose: 125 mcg Documented by: Diltiazem HCl (Diltiazem 25 Mg/5 Ml Sdv) 10 mg IVPUSH ONETIME ONE Stop: 06/10/20 09:07 Last Admin: 06/10/20 09:21 Dose: 10 mg Documented by: Diltiazem HCl (Diltiazem 25 Mg/5 Ml Sdv) 5 mg IVPUSH ONETIME ONE Stop: 06/10/20 10:31 Last Admin: 06/10/20 10:44 Dose: 5 mg Documented by: Diltiazem HCl (Diltiazem 25 Mg/5 Ml Sdv) 5 mg IVPUSH ONETIME ONE Stop: 06/10/20 11:46 Last Admin: 06/10/20 11:51 Dose: 5 mg Documented by: Diltiazem HCl (Diltiazem 25 Mg/5 Ml Sdv) Confirm Administered Dose 25 mg .ROUTE .STK-MED ONE Stop: 06/12/20 02:58 Last Admin: 06/12/20 07:13 Dose: Not Given Documented by: Diltiazem HCl (Diltiazem 100 Mg Advvial) Confirm Administered Dose 100 mg .ROUTE .STK-MED ONE Stop: 06/12/20 03:08 Last Admin: 06/12/20 07:13 Dose: Not Given Documented by: Diltiazem HCl (Diltiazem Ir 30 Mg Tab) 90 mg PO Q6HR [facility] Last Admin: 06/13/20 04:51 Dose: 90 mg Documented by: Ferrous Sulfate (Ferrous Sulfate 325 Mg Tab) 325 mg PO DAILY [facility] Furosemide (Furosemide 40 Mg/4 Ml Vial) 40 mg IVPUSH ONETIME ONE Stop: 06/08/20 11:11 Last Admin: 06/08/20 12:47 Dose: 40 mg Documented by: Furosemide (Furosemide 40 Mg Tab) 40 mg PO ONETIME ONE Stop: 06/11/20 15:01 Last Admin: 06/11/20 15:09 Dose: 40 mg Documented by: Furosemide (Furosemide 40 Mg/4 Ml Vial) 40 mg IVPUSH ONETIME ONE Stop: 06/13/20 15:01 Last Admin: 06/13/20 14:45 Dose: 40 mg Documented by: Hydromorphone HCl (Hydromorphone/Normal Saline 15 Mg/30 Ml [employer]) 0 mg IV ASDIRECTED PRN; Protocol PRN Reason: PAIN Last Admin: 06/10/20 16:04 Dose: 15 mg Documented by: Sodium Chloride (Normal Saline) 1,000 mls @ 999 mls/hr IV .BOLUS ONE Stop: 06/05/20 19:28 Last Admin: 06/05/20 18:53 Dose: 999 mls/hr Documented by: Levofloxacin/Dextrose 750 mg/ (Premix) 150 mls @ 100 mls/hr IV ONETIME ONE Stop: 06/05/20 20:32 Last Admin: 06/05/20 22:00 Dose: Not Given Documented by: Clindamycin Phosphate 900 mg/ (Sodium Chloride) 106 mls @ 200 mls/hr IV ONETIME ONE Stop: 06/05/20 19:47 Last Admin: 06/05/20 22:01 Dose: Not Given Documented by: Sodium Chloride (Normal Saline) 1,000 mls @ 999 mls/hr IV BOLUS ONE; Protocol Stop: 06/05/20 20:33 Last Admin: 06/05/20 19:58 Dose: 999 mls/hr Documented by: Vancomycin HCl 1 gm/ Sodium (Chloride) 250 mls @ 167 mls/hr IV STAT ONE Stop: 06/05/20 21:02 Last Admin: 06/05/20 20:06 Dose: Not Given Documented by: Piperacillin Sod/Tazobactam (Sod 4.5 gm/ Sodium Chloride) 100 mls @ 100 mls/hr IV STAT ONE Stop: 06/05/20 20:32 Last Admin: 06/05/20 21:58 Dose: Not Given Documented by: Sodium Chloride (Normal Saline) 1,000 mls @ 75 mls/hr IV ASDIRECTED [facility] Last Admin: 06/07/20 19:40 Dose: 75 mls/hr Documented by: Azithromycin 500 mg/ Sodium (Chloride) 250 mls @ 250 mls/hr IV Q24H [facility] Last Admin: 06/07/20 19:41 Dose: 250 mls/hr Documented by: Iron Sucrose 200 mg/ Sodium (Chloride) 110 mls @ 400 mls/hr IV Q48H [facility] Last Admin: 06/05/20 23:28 Dose: 400 mls/hr Documented by: Iron Sucrose 200 mg/ Sodium (Chloride) 110 mls @ 400 mls/hr IV Q48H [facility] Stop: 06/13/20 15:47 Last Admin: 06/09/20 15:49 Dose: 400 mls/hr Documented by: Phytonadione 5 mg/ Sodium (Chloride) 50.5 mls @ 100 mls/hr IV NOW ONE Stop: 06/09/20 18:05 Last Admin: 06/09/20 19:19 Dose: 100 mls/hr Documented by: Diltiazem HCl 125 mg/ Sodium (Chloride) 125 mls @ 5 mls/hr IV TITRATE [facility]; Protocol Last Titration: 06/10/20 11:59 Dose: 15 mg/hr, 15 mls/hr Documented by: Diltiazem HCl 125 mg/ Sodium (Chloride) 125 mls @ 5 mls/hr IV TITRATE [facility]; Protocol Diltiazem HCl 100 mg/ Sodium (Chloride) 100 mls @ 5 mls/hr IV TITRATE [facility]; Protocol Stop: 06/11/20 13:45 Last Admin: 06/11/20 08:05 Dose: 15 mg/hr, 15 mls/hr Documented by: Diltiazem HCl 125 mg/ Sodium (Chloride) 125 mls @ 5 mls/hr IV TITRATE [facility]; Protocol Last Titration: 06/12/20 10:40 Dose: 0 mg/hr, 0 mls/hr Documented by: Sodium Chloride (Normal Saline) Confirm Administered Dose 100 mls @ as directed .ROUTE .STK-MED ONE Stop: 06/12/20 03:03 Last Admin: 06/12/20 07:13 Dose: Not Given Documented by: Sodium Chloride (Normal Saline) Confirm Administered Dose 100 mls @ as directed .ROUTE .STK-MED ONE Stop: 06/12/20 03:09 Last Admin: 06/12/20 07:13 Dose: Not Given Documented by: Insulin Human Lispro (Insulin Lispro 100 Unit/Ml 3 Ml Kwikpen) 0 unit SUBCUT TIDMEALS [facility]; Protocol Last Admin: 06/07/20 17:59 Dose: 2 unit Documented by: Insulin Human Lispro (Insulin Lispro 100 Unit/Ml 3 Ml Kwikpen) 14 unit SUBCUT ONETIME ONE Stop: 06/06/20 21:36 Last Admin: 06/06/20 21:46 Dose: 14 units Documented by: Insulin Human Lispro (Insulin Lispro 100 Unit/Ml 3 Ml Kwikpen) 6 unit SUBCUT ONETIME ONE Stop: 06/06/20 23:11 Last Admin: 06/06/20 23:19 Dose: 6 unit Documented by: Insulin Human Lispro (Insulin Lispro 100 Unit/Ml 3 Ml Kwikpen) 0 unit SUBCUT QI DACANDBED [facility]; Protocol Last Admin: 06/13/20 07:26 Dose: Not Given Documented by: Ketorolac Tromethamine (Ketorolac 30 Mg/Ml Sdv) 15 mg IVPUSH ONETIME ONE Stop: 06/10/20 14:46 Last Admin: 06/10/20 14:56 Dose: 15 mg Documented by: Lidocaine HCl (Lidocaine 2% Jelly 10 Ml Urojet) 10 ml MUCMEM ONETIME ONE Stop: 06/05/20 17:40 Last Admin: 06/05/20 20:06 Dose: Not Given Documented by: Methylprednisolone Sodium Succinate (Methylprednisolone Sodium Succinate 40 Mg/1 Ml Sdv) 40 mg IVPUSH Q8H [facility] Last Admin: 06/08/20 01:51 Dose: 40 mg Documented by: Metoprolol Succinate (Metoprolol Succinate 25 Mg Tab.Er) 50 mg PO DAILY [facility] Metoprolol Succinate (Metoprolol Succinate 50 Mg Tab.Er) 50 mg PO DAILY [facility] Last Admin: 06/12/20 08:07 Dose: 50 mg Documented by: Metoprolol Succinate (Metoprolol Succinate 25 Mg Tab.Er) 25 mg PO ONETIME ONE Stop: 06/11/20 10:01 Last Admin: 06/11/20 10:13 Dose: 25 mg Documented by: Metoprolol Tartrate (Metoprolol Tartrate 25 Mg Tab) 25 mg PO ONETIME ONE Stop: 06/10/20 14:46 Last Admin: 06/10/20 14:59 Dose: 25 mg Documented by: Naloxone HCl (Naloxone 0.4 Mg/Ml Sdv) 0.04 mg IVPUSH Q3M PRN PRN Reason: Respiratory Depression Non-Formulary Medication (Ropinirole [Requip]) 0.25 mg PO BEDTIME [facility] Last Admin: 06/05/20 22:01 Dose: Not Given Documented by: Phytonadione (Phytonadione 5 Mg Tab) 2.5 mg PO ONETIME ONE Stop: 06/07/20 09:31 Last Admin: 06/07/20 09:30 Dose: 2.5 mg Documented by: Phytonadione (Phytonadione 5 Mg Tab) 5 mg PO ONETIME ONE Stop: 06/07/20 17:07 Last Admin: 06/07/20 17:59 Dose: 5 mg Documented by: Phytonadione (Phytonadione 5 Mg Tab) 5 mg PO ONETIME ONE Stop: 06/12/20 08:16 Last Admin: 06/12/20 08:16 Dose: 5 mg Documented by: Potassium Chloride (Potassium Chloride 20 Meq Tab.Er) 40 meq PO ONETIME ONE Stop: 06/13/20 10:01 Last Admin: 06/13/20 09:25 Dose: 40 meq Documented by: Prednisone (Prednisone 20 Mg Tab) 20 mg PO ONETIME ONE Stop: 06/08/20 12:01 Last Admin: 06/08/20 12:40 Dose: 20 mg Documented by: Prednisone (Prednisone 20 Mg Tab) 20 mg PO WITHBREAKFAST [facility] Stop: 06/10/20 08:01 Last Admin: 06/10/20 08:53 Dose: 20 mg Documented by: Propofol (Propofol 200 Mg/20 Ml Sdv) Confirm Administered Dose 200 mg .ROUTE .STK-MED ONE Stop: 06/10/20 06:57 Sodium Chloride (Sodium Chloride 0.9% 10 Ml Syringe) 10 ml FLUSH ASDIRECTED PRN PRN Reason: Keep Vein Open Last Admin: 06/05/20 17:57 Dose: 10 ml Documented by: Warfarin Sodium (Warfarin 5 Mg Tab) 7.5 mg PO ASDIRECTED [facility] Warfarin Sodium (Warfarin 5 Mg Tab) 10 mg PO ASDIRECTED [facility] Warfarin Sodium (Warfarin 5 Mg Tab) 10 mg PO DAILY@1300 [facility] Last Admin: 06/09/20 13:55 Dose: 10 mg Documented by: - Exam Quality Assessment: Supplemental Oxygen General: Alert, Oriented, Cooperative, No Acute Distress Neck: JVD Lungs: Normal Respiratory Effort, Crackles (right lower lung ) Cardiovascular: Irregular Rhythm, Tachycardia, Murmurs GI/Abdominal Exam: Soft, No Distention Extremities: No Pedal Edema. No: Increased Warmth Skin: Warm, Dry Psy/Mental Status: Alert, Normal Affect - Patient Data Lab Results Last 24 hrs: Laboratory Results - last 24 hr 06/13/20 06/13/20 06/13/20 Range/Units 11:42 16:33 21:08 WBC (4.5-11.0) K/uL RBC (4.30-5.90) M/uL Hgb (12.0-15.0) g/dL Hct (40.0-54.0) % MCV (80-98) fL MCH (27-31) pg MCHC (32-36) % Plt Count (150-400) K/uL PT (9.5-12.0) sec INR (0.80-1.20) Sodium (140-148) mmol/L Potassium (3.6-5.2) mmol/L Chloride (100-108) mmol/L Carbon Dioxide (21-32) mmol/L Anion Gap (5.0-14.0) mmol/L BUN (7-18) mg/dL Creatinine (0.8-1.3) mg/dL Est Cr Clr Drug Dosing mL/min Estimated GFR (MDRD) (>60) Glucose (74-106) mg/dL POC Glucose 151 H 185 H 175 H (74-106) mg/dL Calcium (8.5-10.1) mg/dL 06/14/20 06/14/20 06/14/20 Range/Units 04:20 04:20 04:20 WBC 14.0 H (4.5-11.0) K/uL RBC 2.83 L (4.30-5.90) M/uL Hgb 8.9 L (12.0-15.0) g/dL Hct 27.7 L (40.0-54.0) % MCV 98 (80-98) fL MCH 31 (27-31) pg MCHC 32 (32-36) % Plt Count 313 (150-400) K/uL PT 20.1 H (9.5-12.0) sec INR 1.87 H (0.80-1.20) Sodium 144 (140-148) mmol/L Potassium 4.0 (3.6-5.2) mmol/L Chloride 104 (100-108) mmol/L Carbon Dioxide 30 (21-32) mmol/L Anion Gap 10.5 (5.0-14.0) mmol/L BUN 22 H (7-18) mg/dL Creatinine 0.9 (0.8-1.3) mg/dL Est Cr Clr Drug Dosing 50.47 mL/min Estimated GFR (MDRD) > 60 (>60) Glucose 124 H (74-106) mg/dL POC Glucose (74-106) mg/dL Calcium 7.9 L (8.5-10.1) mg/dL Result Diagrams: 06/14/20 04:20 06/14/20 04:20 Sepsis Event Note - Evaluation Sepsis Screening Result: No Definite Risk - Focused Exam Vital Signs: Vital Signs Temp Pulse Pulse Resp BP BP BP 06/14/20 11:00 36.6 C 92 18 107/58 L 06/14/20 08:09 95 121/63 06/14/20 07:53 06/14/20 07:00 36.5 C 95 18 121/63 06/14/20 03:00 35.9 C L 106 H 108/58 L 06/14/20 01:00 Pulse Ox 06/14/20 11:00 97 06/14/20 08:09 06/14/20 07:53 94 L 06/14/20 07:00 98 06/14/20 03:00 97 06/14/20 01:00 98 - Problem List Review Problem List Initiated/Reviewed/Updated: Yes - My Orders Last 24 Hours: My Active Orders 06/14/20 11:18 Cardiac Monitoring Discontinue [RC] Click to Edit 06/14/20 13:00 Warfarin [Coumadin] 7.5 mg PO DAILY@1300 06/14/20 15:00 Furosemide [Lasix] 40 mg IVPUSH ONETIME ONE 06/15/20 05:00 BASIC METABOLIC PANEL,BMP [CHEM] Timed CBC W/O DIFF,HEMOGRAM [HEME] Timed (1) INR,PT,PROTHROMBIN TIME [COAG] Timed - Plan Plan:: ASSESSMENT AND PLAN - Bilateral lower lobe pneumonia-complicated by sepsis, complex pleural effusion/empyema on the right side and acute respiratory failure with hypoxia. Status post thoracentesis on 06/06 and tube thoracostomy on 06/10. He continues to require supplemental oxygen but is slowly improving. Moderate but decreasing chest tube drainage. Clinically improving. Mild evidence for volume overload again today. -Second dose of furosemide this afternoon -Chest tube management per Dr. Mustafa, plan is to remove this tomorrow -Symptomatic management of pain and cough -Continue ceftriaxone (day 10) -Follow-up cultures -Supplement oxygen, wean as able -Physical therapy Atrial fibrillation with rapid ventricular response-rate control has improved. -Continue long-acting oral diltiazem -Continue metoprolol -Digoxin if needed for additional tachycardia -Continue cardiac monitoring Acute kidney injury-resolved. Type 2 diabetes mellitus-diet controlled at home. He did have some hyperglycemia when he was on steroids but blood sugars have improved. -Discontinue sliding scale insulin Coronary artery disease-complicated by mild diastolic heart failure. Mild volume overload. -Second dose of Lasix today -Medical management Chronic atrial fibrillation Chronically anticoagulated. INR slightly sub-therapeutic. -Restart warfarin -INR in the morning Maintenance issues - -DVT prophylaxis-warfarin -GI prophylaxis-not indicated -Nutrition-heart healthy Disposition -I anticipate discharge [facility] the [facility] for subacute rehab after the hospital stay Remy Reyes M.D.
[2020-06-14] MEDS: Warfarin 2.5 MG Tab PO SCH (12:34)
[2020-06-14] MEDS ORDERED: Furosemide 40 MG/4 ML VIAL IVPUSH ONE (15:00)
[2020-06-14] MEDS: cefTRIAXone 1 GM in Sodium Chloride 0.9% 50 ML IV SCH (19:37)
[2020-06-14] MEDS: rOPINIRole 0.5 MG Tab PO SCH (20:31)
[2020-06-14] MEDS: atorvaSTATin 10 MG Tab PO SCH (20:32)
[2020-06-14] MEDS: Melatonin 3 MG Tab PO PRN (20:32)
[2020-06-15] MEDS: Albuterol/Ipratropium 3.0-0.5 MG/3 ML Neb Soln NEB SCH ×4 (07:33→20:54)
[2020-06-15] MEDS: Metoprolol Succinate 25 MG Tab.ER PO SCH (08:10)
[2020-06-15] MEDS: Docusate Sodium 100 MG Cap PO SCH ×2 (08:10→20:51)
[2020-06-15] MEDS: Furosemide 40 MG Tab PO SCH (08:10)
[2020-06-15] MEDS: Bisacodyl 5 MG Tab PO SCH ×2 (08:10→20:51)
[2020-06-15] MEDS: Pantoprazole 40 MG Tab.CR PO SCH (08:10)
[2020-06-15] MEDS: Aspirin 81 MG Tab.EC PO SCH (08:10)
[2020-06-15] MEDS: Ascorbic Acid 500 MG Tab PO SCH (08:11)
[2020-06-15] MEDS: Diltiazem 180 MG Cap.CD PO SCH (08:11)
--- NOTE | 2020-06-15 10:04 | PN ---
DATE OF SERVICE: 06/15/2020 SUBJECTIVE: Abhishek had his chest tube removed this morning. Chest x-ray was reviewed by Sameer Mustafa MD. He has no questions or concerns. Denies any pain. Vital signs have been stable. O2 is 92% to 93% on room air. OBJECTIVE: GENERAL: Abhishek Marks is a pleasant 89-year-old male. VITAL SIGNS: TPR is 96.7, 95, 18, blood pressure 97/56. HEENT: Negative. NECK: Supple. HEART: Regular rate and rhythm. LUNGS: Revealed decreased breath sounds on right. EXTREMITIES: Negative. ASSESSMENT: Placement of chest tube for right empyema. PLAN: Discharge per hospitalist. The chest tube pressure dressing is to be removed in a.m. and continue changing chest tube dressing as long as there is drainage. He is to follow up with his primary care provider and Yogesh Monsivais MD, in approximately 7 to 10 days, and to have a chest x-ray prior to that appointment. Discharge per hospitalist. Cari Crowe PA-C /[id number]
[2020-06-15] MEDS: Warfarin 2.5 MG Tab PO SCH (12:17)
--- NOTE | 2020-06-15 12:48 | PCM.PN ---
- General Info Date of Service: 06/15/20 Subjective Update: Mr. Marks has been stable over the last 24 hours. Chest tube was removed by Dr. Mustafa this morning and he has done well since that time. He does continue to require supplemental oxygen and remains fairly weak. Functional Status: Reports: Pain Controlled, Tolerating Diet, Urinating - Review of Systems General: Reports: Weakness, Fatigue Pulmonary: Reports: Shortness of Breath, Cough. Denies: Sputum, Hemoptysis, Wheezing Cardiovascular: Reports: Dyspnea on Exertion. Denies: Chest Pain, Palpitations, Orthopnea, PND, Edema Gastrointestinal: Reports: No Symptoms - Patient Data Vitals - Most Recent: Last Vital Signs Temp 96.3 F L 06/15/20 10:11 Pulse 96 06/15/20 10:11 Resp 18 06/15/20 10:11 BP 103/54 L 06/15/20 10:11 Pulse Ox 99 06/15/20 10:11 Weight - Most Recent: 179 lb 6.383 oz I&O - Last 24 Hours: Intake & Output 06/14/20 06/15/20 06/15/20 22:59 06:59 14:59 Intake Total 600 Output Total 2700 400 Balance -2100 -400 Lab Results Last 24 Hours: Laboratory Results - last 24 hr 06/15/20 06/15/20 06/15/20 Range/Units 04:10 04:10 04:10 WBC 12.9 H (4.5-11.0) K/uL RBC 2.77 L (4.30-5.90) M/uL Hgb 8.6 L (12.0-15.0) g/dL Hct 27.1 L (40.0-54.0) % MCV 98 (80-98) fL MCH 31 (27-31) pg MCHC 32 (32-36) % Plt Count 296 (150-400) K/uL PT 20.1 H (9.5-12.0) sec INR 1.87 H (0.80-1.20) Sodium 144 (140-148) mmol/L Potassium 3.4 L (3.6-5.2) mmol/L Chloride 103 (100-108) mmol/L Carbon Dioxide 32 (21-32) mmol/L Anion Gap 12.4 (5.0-14.0) mmol/L BUN 18 (7-18) mg/dL Creatinine 0.8 (0.8-1.3) mg/dL Est Cr Clr Drug Dosing 56.78 mL/min Estimated GFR (MDRD) > 60 (>60) Glucose 109 H (74-106) mg/dL Calcium 7.7 L (8.5-10.1) mg/dL Med Orders - Current: Current Medications Acetaminophen (Acetaminophen 325 Mg Tab) 650 mg PO Q4H PRN PRN Reason: Pain (Mild 1-3)/fever Last Admin: 06/13/20 22:21 Dose: 650 mg Documented by: Albuterol/Ipratropium (Albuterol/Ipratropium 3.0-0.5 Mg/3 Ml Neb Soln) 3 ml NEB QIDRT [facility] Last Admin: 06/15/20 10:58 Dose: 3 ml Documented by: Ascorbic Acid (Ascorbic Acid 500 Mg Tab) 500 mg PO DAILY [facility] Last Admin: 06/15/20 08:11 Dose: 500 mg Documented by: Aspirin (Aspirin 81 Mg Tab.Ec) 81 mg PO DAILY [facility] Last Admin: 06/15/20 08:10 Dose: 81 mg Documented by: Atorvastatin Calcium (Atorvastatin 10 Mg Tab) 10 mg PO BEDTIME [facility] Last Admin: 06/14/20 20:32 Dose: 10 mg Documented by: Benzocaine/Menthol (Benzocaine/Cetylpyridinium/Menthol Lozenge) 1 lozenge MUCMEM Q2H PRN PRN Reason: Sore Throat Last Admin: 06/06/20 22:34 Dose: 1 lozenge Documented by: Bisacodyl (Bisacodyl 5 Mg Tab) 10 mg PO BID [facility] Last Admin: 06/15/20 08:10 Dose: 10 mg Documented by: Dextrose/Water (50% Dextrose In Water 50 Ml Syringe) 50 ml IVPUSH ASDIRECTED PRN PRN Reason: Hypoglycemia Diltiazem HCl (Diltiazem 180 Mg Cap.Cd) 360 mg PO DAILY [facility] Last Admin: 06/15/20 08:11 Dose: 360 mg Documented by: Docusate Sodium (Docusate Sodium 100 Mg Cap) 100 mg PO BID [facility] Last Admin: 06/15/20 08:10 Dose: 100 mg Documented by: Furosemide (Furosemide 40 Mg Tab) 40 mg PO DAILY [facility] Last Admin: 06/15/20 08:10 Dose: 40 mg Documented by: Glucagon (Glucagon,Human Recombinant 1 Mg Vial) 1 mg IM ASDIRECTED PRN PRN Reason: Hypoglycemia Guaifenesin/Dextromethorphan (Guaifenesin/Dextromethorphan 100-10 Mg/5 Ml Soln 10 Ml Cup) 10 ml PO Q4H PRN PRN Reason: Cough Last Admin: 06/13/20 14:54 Dose: 10 ml Documented by: Hydromorphone HCl (Hydromorphone 2 Mg Tab) 2 mg PO Q6H PRN PRN Reason: PAIN Last Admin: 06/10/20 12:56 Dose: 2 mg Documented by: Ceftriaxone Sodium 1 gm/ (Sodium Chloride) 50 mls @ 100 mls/hr IV Q24H [facility] Last Admin: 06/14/20 19:37 Dose: 100 mls/hr Documented by: Melatonin (Melatonin 3 Mg Tab) 9 mg PO BEDTIME PRN PRN Reason: Sleep Last Admin: 06/14/20 20:32 Dose: 9 mg Documented by: Metoprolol Succinate (Metoprolol Succinate 25 Mg Tab.Er) 75 mg PO DAILY [facility] Last Admin: 06/15/20 08:10 Dose: 75 mg Documented by: Ondansetron HCl (Ondansetron 4 Mg/2 Ml Sdv) 4 mg IV Q4H PRN PRN Reason: Nausea/Vomiting Last Admin: 06/12/20 15:13 Dose: 4 mg Documented by: Pantoprazole Sodium (Pantoprazole 40 Mg Tab.Cr) 40 mg PO ACBREAKFAST [facility] Last Admin: 06/15/20 08:10 Dose: 40 mg Documented by: Ropinirole HCl (Ropinirole 0.5 Mg Tab) 0.25 mg PO BEDTIME [facility] Last Admin: 06/14/20 20:31 Dose: 0.25 mg Documented by: Sodium Chloride (Sodium Chloride 0.9% 10 Ml Syringe) 10 ml FLUSH ASDIRECTED PRN PRN Reason: Keep Vein Open Warfarin Sodium (Warfarin 2.5 Mg Tab) 7.5 mg PO DAILY@1300 [facility] Last Admin: 06/15/20 12:17 Dose: 7.5 mg Documented by: Discontinued Medications Albuterol/Ipratropium (Albuterol/Ipratropium 3.0-0.5 Mg/3 Ml Neb Soln) 3 ml NEB Q6H [facility] Last Admin: 06/06/20 07:02 Dose: 3 ml Documented by: Albuterol/Ipratropium (Albuterol/Ipratropium 3.0-0.5 Mg/3 Ml Neb Soln) 3 ml NEB Q6H [facility] Last Admin: 06/08/20 07:24 Dose: 3 ml Documented by: Azithromycin (Azithromycin 250 Mg Tab) 500 mg PO BEDTIME [facility] Last Admin: 06/10/20 20:31 Dose: 500 mg Documented by: Bacitracin (Bacitracin Oint 1 Gm U/D Packet) Confirm Administered Dose 3 dose .ROUTE .STK-MED ONE Stop: 06/06/20 08:58 Last Admin: 06/06/20 09:08 Dose: Not Given Documented by: Bupivacaine HCl/Epinephrine Bitart (Bupivacaine 0.5%/Epinephrine 1:200,000 50 Ml Mdv) Confirm Administered Dose 50 ml .ROUTE .STK-MED ONE Stop: 06/10/20 06:50 Last Admin: 06/10/20 07:35 Dose: 40 ml Documented by: Digoxin (Digoxin 500 Mcg/2 Ml Amp) 125 mcg IVPUSH ONETIME ONE Stop: 06/10/20 13:13 Last Admin: 06/10/20 13:22 Dose: 125 mcg Documented by: Diltiazem HCl (Diltiazem 25 Mg/5 Ml Sdv) 10 mg IVPUSH ONETIME ONE Stop: 06/10/20 09:07 Last Admin: 06/10/20 09:21 Dose: 10 mg Documented by: Diltiazem HCl (Diltiazem 25 Mg/5 Ml Sdv) 5 mg IVPUSH ONETIME ONE Stop: 06/10/20 10:31 Last Admin: 06/10/20 10:44 Dose: 5 mg Documented by: Diltiazem HCl (Diltiazem 25 Mg/5 Ml Sdv) 5 mg IVPUSH ONETIME ONE Stop: 06/10/20 11:46 Last Admin: 06/10/20 11:51 Dose: 5 mg Documented by: Diltiazem HCl (Diltiazem 25 Mg/5 Ml Sdv) Confirm Administered Dose 25 mg .ROUTE .STK-MED ONE Stop: 06/12/20 02:58 Last Admin: 06/12/20 07:13 Dose: Not Given Documented by: Diltiazem HCl (Diltiazem 100 Mg Advvial) Confirm Administered Dose 100 mg .ROUTE .STK-MED ONE Stop: 06/12/20 03:08 Last Admin: 06/12/20 07:13 Dose: Not Given Documented by: Diltiazem HCl (Diltiazem Ir 30 Mg Tab) 90 mg PO Q6HR [facility] Last Admin: 06/13/20 04:51 Dose: 90 mg Documented by: Ferrous Sulfate (Ferrous Sulfate 325 Mg Tab) 325 mg PO DAILY [facility] Furosemide (Furosemide 40 Mg/4 Ml Vial) 40 mg IVPUSH ONETIME ONE Stop: 06/08/20 11:11 Last Admin: 06/08/20 12:47 Dose: 40 mg Documented by: Furosemide (Furosemide 40 Mg Tab) 40 mg PO ONETIME ONE Stop: 06/11/20 15:01 Last Admin: 06/11/20 15:09 Dose: 40 mg Documented by: Furosemide (Furosemide 40 Mg/4 Ml Vial) 40 mg IVPUSH ONETIME ONE Stop: 06/13/20 15:01 Last Admin: 06/13/20 14:45 Dose: 40 mg Documented by: Furosemide (Furosemide 40 Mg/4 Ml Vial) 40 mg IVPUSH ONETIME ONE Stop: 06/14/20 15:01 Last Admin: 06/14/20 15:35 Dose: 40 mg Documented by: Hydromorphone HCl (Hydromorphone/Normal Saline 15 Mg/30 Ml Medical Records Custodian) 0 mg IV ASDIRECTED PRN; Protocol PRN Reason: PAIN Last Admin: 06/10/20 16:04 Dose: 15 mg Documented by: Sodium Chloride (Normal Saline) 1,000 mls @ 999 mls/hr IV .BOLUS ONE Stop: 06/05/20 19:28 Last Admin: 06/05/20 18:53 Dose: 999 mls/hr Documented by: Levofloxacin/Dextrose 750 mg/ (Premix) 150 mls @ 100 mls/hr IV ONETIME ONE Stop: 06/05/20 20:32 Last Admin: 06/05/20 22:00 Dose: Not Given Documented by: Clindamycin Phosphate 900 mg/ (Sodium Chloride) 106 mls @ 200 mls/hr IV ONETIME ONE Stop: 06/05/20 19:47 Last Admin: 06/05/20 22:01 Dose: Not Given Documented by: Sodium Chloride (Normal Saline) 1,000 mls @ 999 mls/hr IV BOLUS ONE; Protocol Stop: 06/05/20 20:33 Last Admin: 06/05/20 19:58 Dose: 999 mls/hr Documented by: Vancomycin HCl 1 gm/ Sodium (Chloride) 250 mls @ 167 mls/hr IV STAT ONE Stop: 06/05/20 21:02 Last Admin: 06/05/20 20:06 Dose: Not Given Documented by: Piperacillin Sod/Tazobactam (Sod 4.5 gm/ Sodium Chloride) 100 mls @ 100 mls/hr IV STAT ONE Stop: 06/05/20 20:32 Last Admin: 06/05/20 21:58 Dose: Not Given Documented by: Sodium Chloride (Normal Saline) 1,000 mls @ 75 mls/hr IV ASDIRECTED [facility] Last Admin: 06/07/20 19:40 Dose: 75 mls/hr Documented by: Azithromycin 500 mg/ Sodium (Chloride) 250 mls @ 250 mls/hr IV Q24H [facility] Last Admin: 06/07/20 19:41 Dose: 250 mls/hr Documented by: Iron Sucrose 200 mg/ Sodium (Chloride) 110 mls @ 400 mls/hr IV Q48H [facility] Last Admin: 06/05/20 23:28 Dose: 400 mls/hr Documented by: Iron Sucrose 200 mg/ Sodium (Chloride) 110 mls @ 400 mls/hr IV Q48H [facility] Stop: 06/13/20 15:47 Last Admin: 06/09/20 15:49 Dose: 400 mls/hr Documented by: Phytonadione 5 mg/ Sodium (Chloride) 50.5 mls @ 100 mls/hr IV NOW ONE Stop: 06/09/20 18:05 Last Admin: 06/09/20 19:19 Dose: 100 mls/hr Documented by: Diltiazem HCl 125 mg/ Sodium (Chloride) 125 mls @ 5 mls/hr IV TITRATE [facility]; Protocol Last Titration: 06/10/20 11:59 Dose: 15 mg/hr, 15 mls/hr Documented by: Diltiazem HCl 125 mg/ Sodium (Chloride) 125 mls @ 5 mls/hr IV TITRATE [facility]; Protocol Diltiazem HCl 100 mg/ Sodium (Chloride) 100 mls @ 5 mls/hr IV TITRATE [facility]; Protocol Stop: 06/11/20 13:45 Last Admin: 06/11/20 08:05 Dose: 15 mg/hr, 15 mls/hr Documented by: Diltiazem HCl 125 mg/ Sodium (Chloride) 125 mls @ 5 mls/hr IV TITRATE [facility]; Protocol Last Titration: 06/12/20 10:40 Dose: 0 mg/hr, 0 mls/hr Documented by: Sodium Chloride (Normal Saline) Confirm Administered Dose 100 mls @ as directed .ROUTE .STK-MED ONE Stop: 06/12/20 03:03 Last Admin: 06/12/20 07:13 Dose: Not Given Documented by: Sodium Chloride (Normal Saline) Confirm Administered Dose 100 mls @ as directed .ROUTE .[facility] ONE Stop: 06/12/20 03:09 Last Admin: 06/12/20 07:13 Dose: Not Given Documented by: Insulin Human Lispro (Insulin Lispro 100 Unit/Ml 3 Ml Kwikpen) 0 unit SUBCUT TIDMEALS [facility]; Protocol Last Admin: 06/07/20 17:59 Dose: 2 unit Documented by: Insulin Human Lispro (Insulin Lispro 100 Unit/Ml 3 Ml Kwikpen) 14 unit SUBCUT ONETIME ONE Stop: 06/06/20 21:36 Last Admin: 06/06/20 21:46 Dose: 14 units Documented by: Insulin Human Lispro (Insulin Lispro 100 Unit/Ml 3 Ml Kwikpen) 6 unit SUBCUT ONETIME ONE Stop: 06/06/20 23:11 Last Admin: 06/06/20 23:19 Dose: 6 unit Documented by: Insulin Human Lispro (Insulin Lispro 100 Unit/Ml 3 Ml Kwikpen) 0 unit SUBCUT Q IDACANDBED [facility]; Protocol Last Admin: 06/13/20 07:26 Dose: Not Given Documented by: Ketorolac Tromethamine (Ketorolac 30 Mg/Ml Sdv) 15 mg IVPUSH ONETIME ONE Stop: 06/10/20 14:46 Last Admin: 06/10/20 14:56 Dose: 15 mg Documented by: Lidocaine HCl (Lidocaine 2% Jelly 10 Ml Urojet) 10 ml MUCMEM ONETIME ONE Stop: 06/05/20 17:40 Last Admin: 06/05/20 20:06 Dose: Not Given Documented by: Methylprednisolone Sodium Succinate (Methylprednisolone Sodium Succinate 40 Mg/1 Ml Sdv) 40 mg IVPUSH Q8H [facility] Last Admin: 06/08/20 01:51 Dose: 40 mg Documented by: Metoprolol Succinate (Metoprolol Succinate 25 Mg Tab.Er) 50 mg PO DAILY [facility] Metoprolol Succinate (Metoprolol Succinate 50 Mg Tab.Er) 50 mg PO DAILY [facility] Last Admin: 06/12/20 08:07 Dose: 50 mg Documented by: Metoprolol Succinate (Metoprolol Succinate 25 Mg Tab.Er) 25 mg PO ONETIME ONE Stop: 06/11/20 10:01 Last Admin: 06/11/20 10:13 Dose: 25 mg Documented by: Metoprolol Tartrate (Metoprolol Tartrate 25 Mg Tab) 25 mg PO ONETIME ONE Stop: 06/10/20 14:46 Last Admin: 06/10/20 14:59 Dose: 25 mg Documented by: Naloxone HCl (Naloxone 0.4 Mg/Ml Sdv) 0.04 mg IVPUSH Q3M PRN PRN Reason: Respiratory Depression Non-Formulary Medication (Ropinirole [Requip]) 0.25 mg PO BEDTIME [facility] Last Admin: 06/05/20 22:01 Dose: Not Given Documented by: Phytonadione (Phytonadione 5 Mg Tab) 2.5 mg PO ONETIME ONE Stop: 06/07/20 09:31 Last Admin: 06/07/20 09:30 Dose: 2.5 mg Documented by: Phytonadione (Phytonadione 5 Mg Tab) 5 mg PO ONETIME ONE Stop: 06/07/20 17:07 Last Admin: 06/07/20 17:59 Dose: 5 mg Documented by: Phytonadione (Phytonadione 5 Mg Tab) 5 mg PO ONETIME ONE Stop: 06/12/20 08:16 Last Admin: 06/12/20 08:16 Dose: 5 mg Documented by: Potassium Chloride (Potassium Chloride 20 Meq Tab.Er) 40 meq PO ONETIME ONE Stop: 06/13/20 10:01 Last Admin: 06/13/20 09:25 Dose: 40 meq Documented by: Prednisone (Prednisone 20 Mg Tab) 20 mg PO ONETIME ONE Stop: 06/08/20 12:01 Last Admin: 06/08/20 12:40 Dose: 20 mg Documented by: Prednisone (Prednisone 20 Mg Tab) 20 mg PO WITHBREAKFAST [facility] Stop: 06/10/20 08:01 Last Admin: 06/10/20 08:53 Dose: 20 mg Documented by: Propofol (Propofol 200 Mg/20 Ml Sdv) Confirm Administered Dose 200 mg .ROUTE .STK-MED ONE Stop: 06/10/20 06:57 Sodium Chloride (Sodium Chloride 0.9% 10 Ml Syringe) 10 ml FLUSH ASDIRECTED PRN PRN Reason: Keep Vein Open Last Admin: 06/05/20 17:57 Dose: 10 ml Documented by: Warfarin Sodium (Warfarin 5 Mg Tab) 7.5 mg PO ASDIRECTED [facility] Warfarin Sodium (Warfarin 5 Mg Tab) 10 mg PO ASDIRECTED [facility] Warfarin Sodium (Warfarin 5 Mg Tab) 10 mg PO DAILY@1300 [facility] Last Admin: 06/09/20 13:55 Dose: 10 mg Documented by: - Exam Quality Assessment: Supplemental Oxygen, DVT Prophylaxis General: Alert, Oriented, Cooperative, Mild Distress Lungs: Clear to Auscultation, Normal Respiratory Effort, Decreased Breath Sounds Cardiovascular: Regular Rate, Regular Rhythm, No Murmurs GI/Abdominal Exam: Soft, Non-Tender, No Organomegaly, No Distention Extremities: Non-Tender, No Pedal Edema - Patient Data Lab Results Last 24 hrs: Laboratory Results - last 24 hr 06/15/20 06/15/20 06/15/20 Range/Units 04:10 04:10 04:10 WBC 12.9 H (4.5-11.0) K/uL RBC 2.77 L (4.30-5.90) M/uL Hgb 8.6 L (12.0-15.0) g/dL Hct 27.1 L (40.0-54.0) % MCV 98 (80-98) fL MCH 31 (27-31) pg MCHC 32 (32-36) % Plt Count 296 (150-400) K/uL PT 20.1 H (9.5-12.0) sec INR 1.87 H (0.80-1.20) Sodium 144 (140-148) mmol/L Potassium 3.4 L (3.6-5.2) mmol/L Chloride 103 (100-108) mmol/L Carbon Dioxide 32 (21-32) mmol/L Anion Gap 12.4 (5.0-14.0) mmol/L BUN 18 (7-18) mg/dL Creatinine 0.8 (0.8-1.3) mg/dL Est Cr Clr Drug Dosing 56.78 mL/min Estimated GFR (MDRD) > 60 (>60) Glucose 109 H (74-106) mg/dL Calcium 7.7 L (8.5-10.1) mg/dL Result Diagrams: 06/15/20 04:10 06/15/20 04:10 Sepsis Event Note - Evaluation Sepsis Screening Result: Severe Sepsis Risk - Focused Exam Vital Signs: Vital Signs Temp Pulse Pulse Resp BP BP Pulse Ox 06/15/20 10:11 96.3 F L 96 18 103/54 L 99 06/15/20 08:10 95 97/56 L 06/15/20 07:19 93 L 06/15/20 07:00 96.7 F L 95 18 97/56 L 92 L 06/15/20 04:00 90 96 06/15/20 02:00 97 - Problem List Review Problem List Initiated/Reviewed/Updated: Yes - My Orders Last 24 Hours: My Active Orders 06/16/20 05:00 BASIC METABOLIC PANEL,BMP [CHEM] Timed CBC WITH AUTO DIFF [HEME] Timed INR,PT,PROTHROMBIN TIME [COAG] Timed - Plan Plan:: ASSESSMENT AND PLAN - Bilateral lower lobe pneumonia-complicated by sepsis, complex pleural effusion/empyema on the right side and acute respiratory failure with hypoxia. Status post thoracentesis on 06/06 and tube thoracostomy on 06/10. He continues to require supplemental oxygen but is slowly improving. Chest tube removed this morning and he has done well since that time. -Surgical follow-up per Dr. Mustafa -Symptomatic management of pain and cough -Continue ceftriaxone (day 10) -Follow-up cultures -Supplement oxygen, wean as able -Physical therapy Atrial fibrillation with rapid ventricular response-rate control has improved. -Continue long-acting oral diltiazem -Continue metoprolol -Digoxin if needed for additional tachycardia -Continue cardiac monitoring Acute kidney injury-resolved. Type 2 diabetes mellitus-diet controlled at home. He did have some hyperglycemia when he was on steroids but blood sugars have improved. -Discontinue sliding scale insulin Coronary artery disease-complicated by mild diastolic heart failure. -Medical management Chronic atrial fibrillation Chronically anticoagulated. INR slightly sub- therapeutic. -Restart warfarin -INR in the morning Maintenance issues - -DVT prophylaxis-warfarin -GI prophylaxis-not indicated -Nutrition-heart healthy Disposition -I anticipate discharge to the shelter for subacute rehab after the hospital stay
--- NOTE | 2020-06-15 13:45 | CR ---
CHEST: Portable 06/25/2020 at 5:09 AM CLINICAL HISTORY:Chest tube COMPARISON:06/12/2020 FINDINGS: Right chest tube remains in place. There is some residual pleural fluid and pleural thickening. There is a slight increase in right upper lobe infiltrate when compared to prior study. Impression: Right chest tube remains in place Minimal fluid and pleural thickening persist Slight increase in right upper lobe infiltrate.
--- NOTE | 2020-06-15 13:46 | CR ---
CHEST: Portable 06/14/2020 at 4:43 AM CLINICAL HISTORY:Chest tube in place COMPARISON:06/13/2020 FINDINGS: Right chest tube remains in place. There is some minimal residual pleural fluid and/or pleural thickening. There is improved aeration in the right upper lobe. Impression: Chest tube remains in place Mild residual pleural fluid and/or pleural thickening Resolving right upper lobe infiltrate or atelectasis
--- NOTE | 2020-06-15 13:58 | CR ---
CHEST: Portable 06/15/2020 at 4:42 AM CLINICAL HISTORY:Chest tube COMPARISON:06/14/2020 FINDINGS: Right chest tube remains in place. There is been a slight accumulation of right pleural fluid. There are some patchy bilateral lower lobe airspace disease with slight increase since prior study. There is minimal infiltrate in the right upper lobe similar to prior study. Impression: Right chest tube remains in place Slight accumulation of right pleural fluid when compared to prior study Slight increase in bilateral infiltrates
--- NOTE | 2020-06-15 13:59 | CR ---
CHEST: Portable 06/15/2020 at 5:21 AM CLINICAL HISTORY:Post chest tube removal COMPARISON: Earlier 06/15/2020 FINDINGS: Right chest tube is been removed. There is a small right pleural effusion and some pleural thickening. There is some mild patchy airspace disease in both lower lung pillai and right upper lobe superimposed over chronic lung changes. Impression: Right chest tubes removed Small pleural effusion and/or pleural thickening No pneumothorax Residual bilateral airspace disease described above
[2020-06-15] MEDS: Melatonin 3 MG Tab PO PRN (20:50)
[2020-06-15] MEDS: rOPINIRole 0.5 MG Tab PO SCH (20:51)
[2020-06-15] MEDS: Acetaminophen 325 MG Tab PO PRN (20:51)
[2020-06-15] MEDS: atorvaSTATin 10 MG Tab PO SCH (20:51)
[2020-06-15] MEDS: cefTRIAXone 1 GM in Sodium Chloride 0.9% 50 ML IV SCH (20:55)
[2020-06-16] MEDS ORDERED: Magnesium Hydroxide 400 MG/5 ML Susp 30 ML Cup PO PRN (03:36)
[2020-06-16] MEDS: Albuterol/Ipratropium 3.0-0.5 MG/3 ML Neb Soln NEB SCH ×2 (07:22→10:44)
[2020-06-16] MEDS: Pantoprazole 40 MG Tab.CR PO SCH (07:54)
[2020-06-16] MEDS: Bisacodyl 5 MG Tab PO SCH (08:23)
[2020-06-16] MEDS: Docusate Sodium 100 MG Cap PO SCH (08:23)
[2020-06-16] MEDS: Aspirin 81 MG Tab.EC PO SCH (08:23)
[2020-06-16] MEDS: Diltiazem 180 MG Cap.CD PO SCH (08:23)
[2020-06-16] MEDS: Furosemide 40 MG Tab PO SCH (08:24)
[2020-06-16] MEDS: Metoprolol Succinate 25 MG Tab.ER PO SCH (08:24)
[2020-06-16] MEDS: Ascorbic Acid 500 MG Tab PO SCH (08:24)
[2020-06-16] MEDS ORDERED: Potassium Chloride 20 MEQ Tab.ER PO ONE (08:30)
--- NOTE | 2020-06-16 09:53 | PN ---
DATE OF SERVICE: 06/11/2020 The patient has been afebrile with stable vital signs. He was complaining of some increased discomfort from the area of the chest tube, that seems to be subsiding. Chest tube output is running around 270 mL. The chest tube showed no air leak. Chest x-ray was fairly good today. CT scan showed some minor infiltrative changes, but no masses or other problems, and the Gram stain and cultures on the pleural fluid chest tube was negative for cytology, and the pleural fluid was pending. At this point, we will leave the chest tube in place. Otherwise, we will continue medical management with Dr. Reyes blood cultures positive, so he will need to be treated with antibiotics for that. Sameer Mustafa MD /[id number]
[2020-06-16 11:01] VITALS: BP 106/51; PULSE 77
--- NOTE | 2020-06-16 11:45 | PN ---
DATE OF SERVICE: 06/14/2020 The patient has been afebrile with stable vital signs. Chest tube output went back up to around 310 over the last 24 hours. I think the plan at this point with the chest tube would be to leave it in until the day before he goes home. He probably is going to need some additional IV antibiotics with positive Haemophilus influenzae blood cultures and determine that duration. Sameer Mustafa MD /[id number]
--- NOTE | 2020-06-16 12:46 | PCM.DCSUM1 ---
Discharge Summary - Hospital Course Brief History: Mr. Marks is an 89-year-old gentleman who was admitted through the emergency department with progressive weakness secondary to right lung pneumonia and right pleural effusion. - Discharge Data Discharge Date: 06/16/20 Discharge Disposition: Home, Self-Care 01 Condition: Fair - Referral to Home Health Primary Care Physician: Yogesh Monsivais MD - Discharge Diagnosis/Problem(s) (1) Empyema of lung SNOMED Code(s): 15970473 ICD Code: J86.9 - PYOTHORAX WITHOUT FISTULA Status: Acute Current Visit: Yes (2) Community acquired bacterial pneumonia SNOMED Code(s): 216676234, 834046117 ICD Code: J15.9 - UNSPECIFIED BACTERIAL PNEUMONIA Status: Acute Priority: High Current Visit: Yes (3) Type 2 diabetes mellitus SNOMED Code(s): 17512489 ICD Code: E11.9 - TYPE 2 DIABETES MELLITUS WITHOUT COMPLICATIONS Status: Chronic Priority: Medium Current Visit: No - Patient Summary/Data Consults: Consultations 06/05/20 19:36 Consult to Physician [CONS] Routine Consulting Provider: Josesito Owens Call Completed to Consulting Physician: R pleural effusion 06/10/20 09:11 Consult to Physician [CONS] Routine Consulting Provider: Sameer Mustafa Call Completed to Consulting Physician: Yes Reason for Consult: right pleural effusion Person Notified: PORTILLO Date Notified: 06/09/20 06/12/20 14:06 PT Evaluation and Treatment [CONS] Routine Please Evaluate and Treat. PT Reason for Consult: Strengthening Special Instructions: transfer out of ICU This query below is only for informational purposes and is not editable. Admission Diagnosis/Problem: Pneumonia Hospital Course: Mr. Marks is a 89-year-old male who presents require generalized weakness. He states he started feeling unwell approximately 4 to 5 days prior to hospitalization. Since that time he is also developed anorexia. Upon further review of systems he admits to chills and cough which is nonproductive. He denies fever, nausea, vomiting, wheeze, abdominal pain, diarrhea, myalgia, dyspnea. He denies peripheral edema, a nose mouth, dysgeusia. On evaluation in the emergency department he was noted to have evidence of a right lung infiltrate and right pleural effusion. White blood cell count was elevated. There was no evidence of active sepsis, he was given IV fluids and started on IV antibiotic therapy with azithromycin and ceftriaxone after blood cultures were obtained. Despite antibiotic therapy there was a slow rise in white blood cell count over the next few days of hospitalization. White blood cell count peaked in the range of 28,000. Follow-up chest x-ray showed persistent infiltrate and pleural effusion. Surgical consult was obtained and thoracentesis was performed. Despite this there was continued increase in white blood cell count and a chest tube was then placed. He was felt to have probable underlying empyema as a cause of his ongoing infection. Following chest tube placement he had slow improvement in symptoms and white blood cell count. Chest tube was removed on the day prior to discharge. He had no further temperature elevations, white blood cell count remains modestly elevated so he will be discharged to the half-way with 5 additional days of oral antibiotic therapy with Omnicef and doxycycline. Abdominal ultrasound was obtained during hospitalization that was unremarkable. He continued to experience some weakness and will be discharged to the half-way for restorative physical therapy and Occupational Therapy. He does have a known history of diabetes and blood sugars were monitored throughout his hospital stay and managed with sliding scal e Humalog. Activity will be as tolerated and he will be on a diabetic low-salt diet. Follow-up INR will be obtained on June 18. - Patient Instructions Diet: Low Sodium, Diabetic Diet Activity: As Tolerated Other/Special Instructions: Daily physical therapy and Occupational Therapy while at the half-way. Please obtain the laboratory tests on June 18; INR. - Discharge Plan *PRESCRIPTION DRUG MONITORING PROGRAM REVIEWED*: Not Applicable *COPY OF PRESCRIPTION DRUG MONITORING REPORT IN PATIENT ERIC: Not Applicable Prescriptions/Med Rec: Warfarin [Coumadin] 7.5 mg PO DAILY #100 tab Cefdinir [Omnicef] 300 mg PO BID #10 cap Doxycycline [Vibra-Tabs] 100 mg PO Q12HR #10 tab Home Medications: Home Meds Clobetasol [Temovate 0.05% Oint] 1 applic TOP ASDIRECTED PRN 03/13/14 [History] atorvaSTATin [Lipitor] 10 mg PO BEDTIME 03/13/14 [History] Metoprolol Succinate [Toprol XL] 50 mg PO DAILY 09/30/15 [History] Calcium Carbonate/Vitamin D3 [Calcium 500 + Vit D 400] 2 tab PO DAILY 02/25/16 [History] Albuterol/Ipratropium [DuoNeb 3.0-0.5 MG/3 ML] 3 ml INH Q4H PRN 09/10/19 [History] Ferrous Sulfate 325 mg PO DAILY 09/10/19 [History] Furosemide [Lasix] 40 mg PO DAILY 09/10/19 [History] rOPINIRole [Requip] 0.25 mg PO BEDTIME 09/10/19 [History] Clobetasol [Clobetasol 0.05%] 1 gm TOP BID 11/01/19 [History] Halobetasol Propionate [Ultravate] 60 ml TP BID 11/01/19 [History] Aspirin 1 tab PO DAILY 06/05/20 [History] Magnesium Hydroxide [Milk of Magnesia] 30 ml PO DAILY PRN 06/05/20 [History] Cefdinir [Omnicef] 300 mg PO BID #10 cap 06/16/20 [Rx] Doxycycline [Vibra-Tabs] 100 mg PO Q12HR #10 tab 06/16/20 [Rx] Warfarin [Coumadin] 7.5 mg PO DAILY #100 tab 06/16/20 [Rx] Patient Handouts: Pleural Effusion, Community-Acquired Pneumonia, Adult, [id number] Referrals: Yogesh Monsivasi MD [Primary Care Provider] - (When discharged Check a Chest X Ray PA/Lat before follow up appointment with PCP ) - Discharge Summary/Plan Comment DC Time >30 min.: No - Patient Data Vitals - Most Recent: Last Vital Signs Temp 97.6 F 06/16/20 10:57 Pulse 77 06/16/20 10:57 Resp 18 06/16/20 10:57 BP 106/51 L 06/16/20 10:57 Pulse Ox 96 06/16/20 12:27 Weight - Most Recent: 179 lb 6.383 oz I&O - Last 24 hours: Intake & Output 06/15/20 06/16/20 06/16/20 22:59 06:59 14:59 Intake Total 960 300 Output Total 800 300 800 Balance 160 0 -800 Lab Results - Last 24 hrs: Laboratory Results - last 24 hr 06/16/20 06/16/20 06/16/20 Range/Units 04:00 04:00 04:00 WBC 13.3 H (4.5-11.0) K/uL RBC 2.91 L (4.30-5.90) M/uL Hgb 9.5 L (12.0-15.0) g/dL Hct 28.5 L (40.0-54.0) % MCV 98 (80-98) fL MCH 33 H (27-31) pg MCHC 33 (32-36) % Plt Count 368 (150-400) K/uL Neut % (Auto) 78 H (36-66) % Lymph % (Auto) 11 L (24-44) % [place] % (Auto) 10 H (2-6) % Eos % (Auto) 1 L (2-4) % Baso % (Auto) 0 (0-1) % PT 25.6 H (9.5-12.0) sec INR 2.39 H (0.80-1.20) Sodium 142 (140-148) mmol/L Potassium 3.5 L (3.6-5.2) mmol/L Chloride 100 (100-108) mmol/L Carbon Dioxide 32 (21-32) mmol/L Anion Gap 13.5 (5.0-14.0) mmol/L BUN 16 (7-18) mg/dL Creatinine 0.8 (0.8-1.3) mg/dL Est Cr Clr Drug Dosing 56.78 mL/min Estimated GFR (MDRD) > 60 (>60) Glucose 96 (74-106) mg/dL Calcium 7.7 L (8.5-10.1) mg/dL Med Orders - Current: Current Medications Acetaminophen (Acetaminophen 325 Mg Tab) 650 mg PO Q4H PRN PRN Reason: Pain (Mild 1-3)/fever Last Admin: 06/15/20 20:51 Dose: 650 mg Documented by: Albuterol/Ipratropium (Albuterol/Ipratropium 3.0-0.5 Mg/3 Ml Neb Soln) 3 ml NEB QIDRT [facility] Last Admin: 06/16/20 10:44 Dose: 3 ml Documented by: Ascorbic Acid (Ascorbic Acid 500 Mg Tab) 500 mg PO DAILY [facility] Last Admin: 06/16/20 08:24 Dose: 500 mg Documented by: Aspirin (Aspirin 81 Mg Tab.Ec) 81 mg PO DAILY [facility] Last Admin: 06/16/20 08:23 Dose: 81 mg Documented by: Atorvastatin Calcium (Atorvastatin 10 Mg Tab) 10 mg PO BEDTIME [facility] Last Admin: 06/15/20 20:51 Dose: 10 mg Documented by: Benzocaine/Menthol (Benzocaine/Cetylpyridinium/Menthol Lozenge) 1 lozenge MUCMEM Q2H PRN PRN Reason: Sore Throat Last Admin: 06/06/20 22:34 Dose: 1 lozenge Documented by: Bisacodyl (Bisacodyl 5 Mg Tab) 10 mg PO BID [facility] Last Admin: 06/16/20 08:23 Dose: 10 mg Documented by: Dextrose/Water (50% Dextrose In Water 50 Ml Syringe) 50 ml IVPUSH ASDIRECTED PRN PRN Reason: Hypoglycemia Diltiazem HCl (Diltiazem 180 Mg Cap.Cd) 360 mg PO DAILY [facility] Last Admin: 06/16/20 08:23 Dose: 360 mg Documented by: Docusate Sodium (Docusate Sodium 100 Mg Cap) 100 mg PO BID [facility] Last Admin: 06/16/20 08:23 Dose: 100 mg Documented by: Furosemide (Furosemide 40 Mg Tab) 40 mg PO DAILY [facility] Last Admin: 06/16/20 08:24 Dose: 40 mg Documented by: Glucagon (Glucagon,Human Recombinant 1 Mg Vial) 1 mg IM ASDIRECTED PRN PRN Reason: Hypoglycemia Guaifenesin/Dextromethorphan (Guaifenesin/Dextromethorphan 100-10 Mg/5 Ml Soln 10 Ml Cup) 10 ml PO Q4H PRN PRN Reason: Cough Last Admin: 06/13/20 14:54 Dose: 10 ml Documented by: Hydromorphone HCl (Hydromorphone 2 Mg Tab) 2 mg PO Q6H PRN PRN Reason: PAIN Last Admin: 06/10/20 12:56 Dose: 2 mg Documented by: Ceftriaxone Sodium 1 gm/ (Sodium Chloride) 50 mls @ 100 mls/hr IV Q24H [facility] Stop: 06/16/20 16:00 Last Admin: 06/15/20 20:55 Dose: 100 mls/hr Documented by: Magnesium Hydroxide (Magnesium Hydroxide 400 Mg/5 Ml Susp 30 Ml Cup) 30 ml PO DAILY PRN PRN Reason: Constipation Last Admin: 06/16/20 08:31 Dose: 30 ml Documented by: Melatonin (Melatonin 3 Mg Tab) 9 mg PO BEDTIME PRN PRN Reason: Sleep Last Admin: 06/15/20 20:50 Dose: 9 mg Documented by: Metoprolol Succinate (Metoprolol Succinate 25 Mg Tab.Er) 75 mg PO DAILY [facility] Last Admin: 06/16/20 08:24 Dose: 75 mg Documented by: Ondansetron HCl (Ondansetron 4 Mg/2 Ml Sdv) 4 mg IV Q4H PRN PRN Reason: Nausea/Vomiting Last Admin: 06/12/20 15:13 Dose: 4 mg Documented by: Pantoprazole Sodium (Pantoprazole 40 Mg Tab.Cr) 40 mg PO ACBREAKFAST [facility] Last Admin: 06/16/20 07:54 Dose: 40 mg Documented by: Ropinirole HCl (Ropinirole 0.5 Mg Tab) 0.25 mg PO BEDTIME [facility] Last Admin: 06/15/20 20:51 Dose: 0.25 mg Documented by: Sodium Chloride (Sodium Chloride 0.9% 10 Ml Syringe) 10 ml FLUSH ASDIRECTED PRN PRN Reason: Keep Vein Open Warfarin Sodium (Warfarin 2.5 Mg Tab) 7.5 mg PO DAILY@1300 [facility] Last Admin: 06/15/20 12:17 Dose: 7.5 mg Documented by: Discontinued Medications Albuterol/Ipratropium (Albuterol/Ipratropium 3.0-0.5 Mg/3 Ml Neb Soln) 3 ml NEB Q6H [facility] Last Admin: 06/06/20 07:02 Dose: 3 ml Documented by: Albuterol/Ipratropium (Albuterol/Ipratropium 3.0-0.5 Mg/3 Ml Neb Soln) 3 ml NEB Q6H [facility] Last Admin: 06/08/20 07:24 Dose: 3 ml Documented by: Azithromycin (Azithromycin 250 Mg Tab) 500 mg PO BEDTIME [facility] Last Admin: 06/10/20 20:31 Dose: 500 mg Documented by: Bacitracin (Bacitracin Oint 1 Gm U/D Packet) Confirm Administered Dose 3 dose .ROUTE .STK-MED ONE Stop: 06/06/20 08:58 Last Admin: 06/06/20 09:08 Dose: Not Given Documented by: Bupivacaine HCl/Epinephrine Bitart (Bupivacaine 0.5%/Epinephrine 1:200,000 50 Ml Mdv) Confirm Administered Dose 50 ml .ROUTE .STK-MED ONE Stop: 06/10/20 06:50 Last Admin: 06/10/20 07:35 Dose: 40 ml Documented by: Digoxin (Digoxin 500 Mcg/2 Ml Amp) 125 mcg IVPUSH ONETIME ONE Stop: 06/10/20 13:13 Last Admin: 06/10/20 13:22 Dose: 125 mcg Documented by: Diltiazem HCl (Diltiazem 25 Mg/5 Ml Sdv) 10 mg IVPUSH ONETIME ONE Stop: 06/10/20 09:07 Last Admin: 06/10/20 09:21 Dose: 10 mg Documented by: Diltiazem HCl (Diltiazem 25 Mg/5 Ml Sdv) 5 mg IVPUSH ONETIME ONE Stop: 06/10/20 10:31 Last Admin: 06/10/20 10:44 Dose: 5 mg Documented by: Diltiazem HCl (Diltiazem 25 Mg/5 Ml Sdv) 5 mg IVPUSH ONETIME ONE Stop: 06/10/20 11:46 Last Admin: 06/10/20 11:51 Dose: 5 mg Documented by: Diltiazem HCl (Diltiazem 25 Mg/5 Ml Sdv) Confirm Administered Dose 25 mg .ROUTE .STK-MED ONE Stop: 06/12/20 02:58 Last Admin: 06/12/20 07:13 Dose: Not Given Documented by: Diltiazem HCl (Diltiazem 100 Mg Advvial) Confirm Administered Dose 100 mg .ROUTE .STK-MED ONE Stop: 06/12/20 03:08 Last Admin: 06/12/20 07:13 Dose: Not Given Documented by: Diltiazem HCl (Diltiazem Ir 30 Mg Tab) 90 mg PO Q6HR [facility] Last Admin: 06/13/20 04:51 Dose: 90 mg Documented by: Ferrous Sulfate (Ferrous Sulfate 325 Mg Tab) 325 mg PO DAILY [facility] Furosemide (Furosemide 40 Mg/4 Ml Vial) 40 mg IVPUSH ONETIME ONE Stop: 06/08/20 11:11 Last Admin: 06/08/20 12:47 Dose: 40 mg Documented by: Furosemide (Furosemide 40 Mg Tab) 40 mg PO ONETIME ONE Stop: 06/11/20 15:01 Last Admin: 06/11/20 15:09 Dose: 40 mg Documented by: Furosemide (Furosemide 40 Mg/4 Ml Vial) 40 mg IVPUSH ONETIME ONE Stop: 06/13/20 15:01 Last Admin: 06/13/20 14:45 Dose: 40 mg Documented by: Furosemide (Furosemide 40 Mg/4 Ml Vial) 40 mg IVPUSH ONETIME ONE Stop: 06/14/20 15:01 Last Admin: 06/14/20 15:35 Dose: 40 mg Documented by: Hydromorphone HCl (Hydromorphone/Normal Saline 15 Mg/30 Ml Staff Scientist) 0 mg IV ASDIRECTED PRN; Protocol PRN Reason: PAIN Last Admin: 06/10/20 16:04 Dose: 15 mg Documented by: Sodium Chloride (Normal Saline) 1,000 mls @ 999 mls/hr IV .BOLUS ONE Stop: 06/05/20 19:28 Last Admin: 06/05/20 18:53 Dose: 999 mls/hr Documented by: Levofloxacin/Dextrose 750 mg/ (Premix) 150 mls @ 100 mls/hr IV ONETIME ONE Stop: 06/05/20 20:32 Last Admin: 06/05/20 22:00 Dose: Not Given Documented by: Clindamycin Phosphate 900 mg/ (Sodium Chloride) 106 mls @ 200 mls/hr IV ONETIME ONE Stop: 06/05/20 19:47 Last Admin: 06/05/20 22:01 Dose: Not Given Documented by: Sodium Chloride (Normal Saline) 1,000 mls @ 999 mls/hr IV BOLUS ONE; Protocol Stop: 06/05/20 20:33 Last Admin: 06/05/20 19:58 Dose: 999 mls/hr Documented by: Vancomycin HCl 1 gm/ Sodium (Chloride) 250 mls @ 167 mls/hr IV STAT ONE Stop: 06/05/20 21:02 Last Admin: 06/05/20 20:06 Dose: Not Given Documented by: Piperacillin Sod/Tazobactam (Sod 4.5 gm/ Sodium Chloride) 100 mls @ 100 mls/hr IV STAT ONE Stop: 06/05/20 20:32 Last Admin: 06/05/20 21:58 Dose: Not Given Documented by: Sodium Chloride (Normal Saline) 1,000 mls @ 75 mls/hr IV ASDIRECTED REBECA Last Admin: 06/07/20 19:40 Dose: 75 mls/hr Documented by: Azithromycin 500 mg/ Sodium (Chloride) 250 mls @ 250 mls/hr IV Q24H [facility] Last Admin: 06/07/20 19:41 Dose: 250 mls/hr Documented by: Iron Sucrose 200 mg/ Sodium (Chloride) 110 mls @ 400 mls/hr IV Q48H [facility] Last Admin: 06/05/20 23:28 Dose: 400 mls/hr Documented by: Iron Sucrose 200 mg/ Sodium (Chloride) 110 mls @ 400 mls/hr IV Q48H [facility] Stop: 06/13/20 15:47 Last Admin: 06/09/20 15:49 Dose: 400 mls/hr Documented by: Phytonadione 5 mg/ Sodium (Chloride) 50.5 mls @ 100 mls/hr IV NOW ONE Stop: 06/09/20 18:05 Last Admin: 06/09/20 19:19 Dose: 100 mls/hr Documented by: Diltiazem HCl 125 mg/ Sodium (Chloride) 125 mls @ 5 mls/hr IV TITRATE [facility]; Protocol Last Titration: 06/10/20 11:59 Dose: 15 mg/hr, 15 mls/hr Documented by: Diltiazem HCl 125 mg/ Sodium (Chloride) 125 mls @ 5 mls/hr IV TITRATE [facility]; Protocol Diltiazem HCl 100 mg/ Sodium (Chloride) 100 mls @ 5 mls/hr IV TITRATE REBECA; Protocol Stop: 06/11/20 13:45 Last Admin: 06/11/20 08:05 Dose: 15 mg/hr, 15 mls/hr Documented by: Diltiazem HCl 125 mg/ Sodium (Chloride) 125 mls @ 5 mls/hr IV TITRATE REBECA; Protocol Last Titration: 06/12/20 10:40 Dose: 0 mg/hr, 0 mls/hr Documented by: Sodium Chloride (Normal Saline) Confirm Administered Dose 100 mls @ as directed .ROUTE .STK-MED ONE Stop: 06/12/20 03:03 Last Admin: 06/12/20 07:13 Dose: Not Given Documented by: Sodium Chloride (Normal Saline) Confirm Administered Dose 100 mls @ as directed .ROUTE .STK-MED ONE Stop: 06/12/20 03:09 Last Admin: 06/12/20 07:13 Dose: Not Given Documented by: Insulin Human Lispro (Insulin Lispro 100 Unit/Ml 3 Ml Kwikpen) 0 unit SUBCUT TIDMEALS [facility]; Protocol Last Admin: 06/07/20 17:59 Dose: 2 unit Documented by: Insulin Human Lispro (Insulin Lispro 100 Unit/Ml 3 Ml Kwikpen) 14 unit SUBCUT ONETIME ONE Stop: 06/06/20 21:36 Last Admin: 06/06/20 21:46 Dose: 14 units Documented by: Insulin Human Lispro (Insulin Lispro 100 Unit/Ml 3 Ml Kwikpen) 6 unit SUBCUT ONETIME ONE Stop: 06/06/20 23:11 Last Admin: 06/06/20 23:19 Dose: 6 unit Documented by: Insulin Human Lispro (Insulin Lispro 100 Unit/Ml 3 Ml Kwikpen) 0 unit SUBCUT QIDACANDBED [facility]; Protocol Last Admin: 06/13/20 07:26 Dose: Not Given Documented by: Ketorolac Tromethamine (Ketorolac 30 Mg/Ml Sdv) 15 mg IVPUSH ONETIME ONE Stop: 06/10/20 14:46 Last Admin: 06/10/20 14:56 Dose: 15 mg Documented by: Lidocaine HCl (Lidocaine 2% Jelly 10 Ml Urojet) 10 ml MUCMEM ONETIME ONE Stop: 06/05/20 17:40 Last Admin: 06/05/20 20:06 Dose: Not Given Documented by: Methylprednisolone Sodium Succinate (Methylprednisolone Sodium Succinate 40 Mg/1 Ml Sdv) 40 mg IVPUSH Q8H [facility] Last Admin: 06/08/20 01:51 Dose: 40 mg Documented by: Metoprolol Succinate (Metoprolol Succinate 25 Mg Tab.Er) 50 mg PO DAILY [facility] Metoprolol Succinate (Metoprolol Succinate 50 Mg Tab.Er) 50 mg PO DAILY [facility] Last Admin: 06/12/20 08:07 Dose: 50 mg Documented by: Metoprolol Succinate (Metoprolol Succinate 25 Mg Tab.Er) 25 mg PO ONETIME ONE Stop: 06/11/20 10:01 Last Admin: 06/11/20 10:13 Dose: 25 mg Documented by: Metoprolol Tartrate (Metoprolol Tartrate 25 Mg Tab) 25 mg PO ONETIME ONE Stop: 06/10/20 14:46 Last Admin: 06/10/20 14:59 Dose: 25 mg Documented by: Naloxone HCl (Naloxone 0.4 Mg/Ml Sdv) 0.04 mg IVPUSH Q3M PRN PRN Reason: Respiratory Depression Non-Formulary Medication (Ropinirole [Requip]) 0.25 mg PO BEDTIME [facility] Last Admin: 06/05/20 22:01 Dose: Not Given Documented by: Phytonadione (Phytonadione 5 Mg Tab) 2.5 mg PO ONETIME ONE Stop: 06/07/20 09:31 Last Admin: 06/07/20 09:30 Dose: 2.5 mg Documented by: Phytonadione (Phytonadione 5 Mg Tab) 5 mg PO ONETIME ONE Stop: 06/07/20 17:07 Last Admin: 06/07/20 17:59 Dose: 5 mg Documented by: Phytonadione (Phytonadione 5 Mg Tab) 5 mg PO ONETIME ONE Stop: 06/12/20 08:16 Last Admin: 06/12/20 08:16 Dose: 5 mg Documented by: Potassium Chloride (Potassium Chloride 20 Meq Tab.Er) 40 meq PO ONETIME ONE Stop: 06/13/20 10:01 Last Admin: 06/13/20 09:25 Dose: 40 meq Documented by: Potassium Chloride (Potassium Chloride 20 Meq Tab.Er) 40 meq PO ONETIME ONE Stop: 06/16/20 08:31 Last Admin: 06/16/20 08:31 Dose: 40 meq Documented by: Prednisone (Prednisone 20 Mg Tab) 20 mg PO ONETIME ONE Stop: 06/08/20 12:01 Last Admin: 06/08/20 12:40 Dose: 20 mg Documented by: Prednisone (Prednisone 20 Mg Tab) 20 mg PO WITHBREAKFAST [facility] Stop: 06/10/20 08:01 Last Admin: 06/10/20 08:53 Dose: 20 mg Documented by: Propofol (Propofol 200 Mg/20 Ml Sdv) Confirm Administered Dose 200 mg .ROUTE .STK-MED ONE Stop: 06/10/20 06:57 Sodium Chloride (Sodium Chloride 0.9% 10 Ml Syringe) 10 ml FLUSH ASDIRECTED PRN PRN Reason: Keep Vein Open Last Admin: 06/05/20 17:57 Dose: 10 ml Documented by: Warfarin Sodium (Warfarin 5 Mg Tab) 7.5 mg PO ASDIRECTED REBECA Warfarin Sodium (Warfarin 5 Mg Tab) 10 mg PO ASDIRECTED REBECA Warfarin Sodium (Warfarin 5 Mg Tab) 10 mg PO DAILY@1300 [facility] Last Admin: 06/09/20 13:55 Dose: 10 mg Documented by: - Exam Quality Assessment: Reports: DVT Prophylaxis General: Reports: Alert, Oriented, Cooperative, Mild Distress Lungs: Reports: Clear to Auscultation, Normal Respiratory Effort Cardiovascular: Reports: Regular Rate, Regular Rhythm, No Murmurs GI/Abdominal Exam: Soft, Non-Tender, No Organomegaly, No Distention Extremities: Non-Tender, No Pedal Edema
--- NOTE | 2020-06-16 13:48 | PN ---
DATE OF SERVICE: 06/12/2020 The patient has been afebrile with stable vital signs. Chest tube, low output over the last 24 hours still fluctuating. His blood cultures remain negative. The chest x-ray is pending this morning. Assuming that the chest tube output remains relatively low over the next 24 hours, we would at that point proceed with removal of the chest tube. Sameer Mustafa MD /[id number]
--- NOTE | 2020-06-16 14:00 | PN ---
DATE OF SERVICE: 06/14/2020 The patient has been clinically stable, although quite weak. Chest tube output was 235 mL over the last 24 hours. Chest x-ray looks roughly status quo with no significant fluid collection noted. He apparently is going to be going to rehab at [facility] tomorrow, at which time, we will pull the chest tube out. This may reaccumulate fluid as I think this most likely is related to underlying congestive heart failure, and the accumulation would be dependent on adequate medical control of that to the extent that is possible. Sameer Mustafa MD /[id number]
--- NOTE | 2020-06-22 15:51 | OR ---
DATE OF PROCEDURE: 06/10/2020 SURGEON: Sameer Mustafa MD PREOPERATIVE DIAGNOSIS: Dense right pleural effusion. POSTOPERATIVE DIAGNOSIS: Dense right pleural effusion. OPERATIVE PROCEDURE: Right tube thoracostomy (46391). ANESTHESIA: Local plus IV sedation. INDICATIONS FOR PROCEDURE: An 89-year-old presenting with large right pleural effusion. By ultrasound, this appeared to be fairly dense, and plan is to proceed with a tube thoracostomy. Potential risks including bleeding, infection, injury to the lung and/or chest wall were reviewed, and the patient wishes to proceed. DETAILS OF PROCEDURE: The patient was taken to the operating room, placed in a supine position, sitting up roughly 30 degrees. The right anterolateral chest was then prepped and draped and the tenth interspace and the midclavicular line transverse incision was made and the pleural space entered going obliquely and superiorly through the underlying interspace. A size 36 chest tube was then positioned without difficulty. Around 1600 mL of somewhat thick pleural fluid was sent. This was sent for cultures and cytology, and the chest tube then secured to the skin with #2 Ethibond stitch, and the tube placed to suction. Subsequent chest x-ray showed good tube position and there was complete expansion of the adjacent lung. The patient was taken to the recovery room in satisfactory condition. Sameer Mustafa MD /[id number]
== END 2020-06-16 13:35 | disposition home or self-care (01) | DRG 871 ==
LOC: JP.ED 17:01 → JP.MS 20:10 → JP.ICU 06-10 09:11 → JP.MS 06-13 09:10
PROVIDERS: ADMIT Internal Medicine; ATTEND Hospitalist
PROC: 0W9930Z Drainage of Right Pleural Cavity with Drainage Device, Percutaneous Approach (ICD-10-PCS; principal; 2020-06-06)
PROC: 0W9930Z Drainage of Right Pleural Cavity with Drainage Device, Percutaneous Approach (ICD-10-PCS; 2020-06-09)
DX: A41.9 Sepsis, unspecified organism (principal); E86.0 Dehydration; E11.9 Type 2 diabetes mellitus without complications; R09.02 Hypoxemia; J90 Pleural effusion, not elsewhere classified; J30.9 Allergic rhinitis, unspecified; J86.9 Pyothorax without fistula; J15.9 Unspecified bacterial pneumonia; J69.0 Pneumonitis due to inhalation of food and vomit; I10 Essential (primary) hypertension; J96.01 Acute respiratory failure with hypoxia; N17.9 Acute kidney failure, unspecified; I48.20 Chronic atrial fibrillation, unspecified; I50.30 Unspecified diastolic (congestive) heart failure; N39.0 Urinary tract infection, site not specified; H54.7 Unspecified visual loss; E78.00 Pure hypercholesterolemia, unspecified; K59.09 Other constipation; K44.9 Diaphragmatic hernia without obstruction or gangrene; E66.9 Obesity, unspecified; Z66 Do not resuscitate; R74.8 Abnormal levels of other serum enzymes; M19.90 Unspecified osteoarthritis, unspecified site; L40.9 Psoriasis, unspecified; M48.00 Spinal stenosis, site unspecified; D64.9 Anemia, unspecified; J44.9 Chronic obstructive pulmonary disease, unspecified; I25.10 Atherosclerotic heart disease of native coronary artery without angina pectoris; E78.5 Hyperlipidemia, unspecified; G25.81 Restless legs syndrome; K57.90 Diverticulosis of intestine, part unspecified, without perforation or abscess without bleeding; J30.2 Other seasonal allergic rhinitis; J62.8 Pneumoconiosis due to other dust containing silica; K59.00 Constipation, unspecified; N52.9 Male erectile dysfunction, unspecified; G47.33 Obstructive sleep apnea (adult) (pediatric); Z99.81 Dependence on supplemental oxygen; E11.65 Type 2 diabetes mellitus with hyperglycemia; Z79.82 Long term (current) use of aspirin; Z79.899 Other long term (current) drug therapy; Z79.01 Long term (current) use of anticoagulants; Z98.41 Cataract extraction status, right eye; Z98.42 Cataract extraction status, left eye; Z85.828 Personal history of other malignant neoplasm of skin; Z86.010 Personal history of colon polyps; Z88.7 Allergy status to serum and vaccine; Z88.8 Allergy status to other drugs, medicaments and biological substances; Z95.2 Presence of prosthetic heart valve; Z87.891 Personal history of nicotine dependence; Z85.46 Personal history of malignant neoplasm of prostate; I11.0 Hypertensive heart disease with heart failure; Z20.822 Contact with and (suspected) exposure to COVID-19
CPT/HCPCS: 0241U; 36415; 71045; 71045-26; 71046; 71046-26; 71250; 71250-26; 74176; 76705; 80048; 80053; 81001; 82728; 82947; 83550; 83605; 83735; 83880; 84100; 84145; 85025; 85027; 85610; 87040; 87070; 87075; 87077; 87205; 88112; 88305; 88312; 94640; 94667; 94668; 94762; 97110-GO; 97110-GP; 97116-GP; 97162-GP; 97165-GO; 97530-GP; 97535-GP; 99285; 99285-25; A9270-GY; G0103; J0456; J0696; J1160; J1170; J1756; J1815; J1885; J1940; J2405; J2704; J2920; J3430; J3490; J7030; J7050; J7512; J7620-GY

== ENCOUNTER 2020-06-20 14:40 | Emergency (ER) | payer MEDICARE, BC ==
[2020-06-20 16:15] VITALS: BP 117/70; PULSE 99
--- NOTE | 2020-06-20 16:31 | EDM.PDOC ---
ED HPI GENERAL MEDICAL PROBLEM - General Chief Complaint: Cardiovascular Problem Stated Complaint: STOMACH AREA IS SWOLLEN Time Seen by Provider: 06/20/20 15:40 Source of Information: Reports: Patient, Family, RN History Limitations: Reports: No Limitations - History of Present Illness INITIAL COMMENTS - FREE TEXT/NARRATIVE: Pt lives at [facility]. It was noticed he was having difficulty buttoning his pants. He has significant pedal edema that is 'moving up'. Pt denies shortness of breath. He was recently hospitalized and had a chest tube due to pleural effusion and pneumonia. Pt brought to ER by family for evaluation of edema. Pt abdomen is distended, he is unable to button his pants, no breathing difficulty and reported 91% O2 Sat at base line. His wt was 191 #, a 4# increase. Onset: Today Onset Date: 06/20/20 Onset Time: 06:00 Duration: Getting Worse Location: Reports: Abdomen (lower abdomen ), Lower Extremity, Left, Lower Extremity, Right Severity: Moderate Improves with: Reports: None Worsens with: Reports: None Context: Reports: Other - Related Data Allergies Allergy/AdvReac Type Severity Reaction Status Date / Time lisinopril Allergy Severe Anaphylactic Verified 06/05/20 17:49 Shock tetanus toxoid, adsorbed Allergy Cannot Verified 06/05/20 17:49 Remember Home Meds: Home Meds atorvaSTATin [Lipitor] 10 mg PO BEDTIME 03/13/14 [History] Metoprolol Succinate [Toprol XL] 50 mg PO DAILY 09/30/15 [History] Calcium Carbonate/Vitamin D3 [Calcium 500 + Vit D 400] 2 tab PO DAILY 02/25/16 [History] Albuterol/Ipratropium [DuoNeb 3.0-0.5 MG/3 ML] 3 ml INH Q4H PRN 09/10/19 [History] Ferrous Sulfate 325 mg PO DAILY 09/10/19 [History] Furosemide [Lasix] 40 mg PO DAILY 09/10/19 [History] rOPINIRole [Requip] 0.25 mg PO BEDTIME 09/10/19 [History] Halobetasol Propionate [Ultravate] 1 applic TOP BID 11/01/19 [History] Aspirin 1 tab PO DAILY 06/05/20 [History] Magnesium Hydroxide [Milk of Magnesia] 30 ml PO DAILY PRN 06/05/20 [History] Cefdinir [Omnicef] 300 mg PO BID #10 cap 06/16/20 [Rx] Doxycycline [Vibra-Tabs] 100 mg PO Q12HR #10 tab 06/16/20 [Rx] Acetaminophen 650 mg PO BID 06/20/20 [History] Warfarin [Coumadin] 5 - 7.5 mg PO DAILY 06/20/20 [History] predniSONE [Prednisone] 20 mg PO DAILY 06/20/20 [History] Past Medical History HEENT History: Reports: Allergic Rhinitis, Cataract, Impaired Vision, Sinusitis Cardiovascular History: Reports: Afib, Arrhythmia, Heart Murmur, High Cholesterol, Hypertension Respiratory History: Reports: Other (See Below) Other Respiratory History: silicosis Gastrointestinal History: Reports: Chronic Constipation, Colon Polyp, Hiatal Hernia Genitourinary History: Reports: Prostate Disorder Musculoskeletal History: Reports: Fracture, Other (See Below) Other Musculoskeletal History: right knee pain Neurological History: Reports: None Psychiatric History: Reports: None Endocrine/Metabolic History: Reports: Diabetes, Type II, Obesity/BMI 30+, Other (See Below) Other Endocrine/Metabolic History: borderline type II - checks blood sugar just a few times a year Hematologic History: Reports: Anticoagulation Therapy, Other (See Below) Other Hematologic History: coumadin Immunologic History: Reports: None Oncologic (Cancer) History: Reports: Prostate, Squamous Cell Carcinoma, Other (S ee Below) Other Oncologic History: skin Dermatologic History: Reports: Psoriasis, Other (See Below) Other Dermatologic History: keratosis - Infectious Disease History Infectious Disease History: Reports: Chicken Pox, Measles, Mumps - Past Surgical History Head Surgeries/Procedures: Reports: None HEENT Surgical History: Reports: Cataract Surgery Cardiovascular Surgical History: Reports: None Respiratory Surgical History: Reports: Thoracentesis Other Respiratory Surgeries/Procedures: recent thoracentesis GI Surgical History: Reports: Colonoscopy Male Surgical History: Reports: None Endocrine Surgical History: Reports: None Neurological Surgical History: Reports: None Musculoskeletal Surgical History: Reports: Joint Replacement Other Musculoskeletal Surgeries/Procedures:: left knee x 4. right partial knee Oncologic Surgical History: Reports: Other (See Below) Other Oncologic Surgeries/Procedures: skin bx. Dermatological Surgical History: Reports: Skin Biopsy Social & Family History - Family History Family Medical History: No Pertinent Family History - Tobacco Use Tobacco Use Status *Q: Never Tobacco User - Caffeine Use Caffeine Use: Reports: Coffee Caffeine Use Comment: 0-3 cups per day ED ROS GENERAL - Review of Systems Review Of Systems: See Below Constitutional: Reports: Weight Gain (4#) HEENT: Reports: No Symptoms Respiratory: Denies: Shortness of Breath (denied on admit but on exam states he may be a bit short of breath.), Wheezing, Cough Cardiovascular: Reports: Edema. Denies: Chest Pain Endocrine: Reports: No Symptoms GI/Abdominal: Denies: Abdominal Pain : Reports: No Symptoms Musculoskeletal: Reports: No Symptoms Skin: Reports: No Symptoms Neurological: Reports: No Symptoms Psychiatric: Reports: No Symptoms Hematologic/Lymphatic: Reports: No Symptoms Immunologic: Reports: No Symptoms ED EXAM, GENERAL - Physical Exam Exam: See Below Exam Limited By: No Limitations General Appearance: Alert, WD/WN, No Apparent Distress Throat/Mouth: Normal Inspection Neck: Normal Inspection, Supple Respiratory/Chest: No Respiratory Distress, Lungs Clear, Normal Breath Sounds Cardiovascular: Irregularly Irregular. No: No Edema (edema to lower abdomen) GI/Abdominal: Normal Bowel Sounds, Non-Tender, Distended Extremities: Pedal Edema, Leg Pain. No: No Pedal Edema, Amarilys's Sign Neurological: Alert, Oriented, CN II-XII Intact Psychiatric: Normal Affect, Normal Mood Skin Exam: Warm, Dry Course - Vital Signs Last Recorded V/S: Last Vital Signs Temp 35.5 C L 06/20/20 15:18 Pulse 99 06/20/20 16:14 Resp 18 06/20/20 15:18 BP 117/70 06/20/20 16:14 Pulse Ox 93 L 06/20/20 16:14 - Orders/Labs/Meds Labs: Laboratory Tests 06/20/20 06/20/20 Range/Units 15:49 15:49 WBC 13.5 H (4.5-11.0) K/uL RBC 2.89 L (4.30-5.90) M/uL Hgb 9.0 L (12.0-15.0) g/dL Hct 27.8 L (40.0-54.0) % MCV 96 (80-98) fL MCH 31 (27-31) pg MCHC 32 (32-36) % Plt Count 321 (150-400) K/uL Neut % (Auto) 85 H (36-66) % Lymph % (Auto) 4 L (24-44) % Rice % (Auto) 11 H (2-6) % Eos % (Auto) 0 L (2-4) % Baso % (Auto) 0 (0-1) % Sodium 136 L (140-148) mmol/L Potassium 4.3 (3.6-5.2) mmol/L Chloride 96 L (100-108) mmol/L Carbon Dioxide 31 (21-32) mmol/L Anion Gap 13.3 (5.0-14.0) mmol/L BUN 22 H (7-18) mg/dL Creatinine 1.0 (0.8-1.3) mg/dL Est Cr Clr Drug Dosing 46.01 mL/min Estimated GFR (MDRD) > 60 (>60) Glucose 186 H (74-106) mg/dL Calcium 8.2 L (8.5-10.1) mg/dL Total Bilirubin 0.6 (0.2-1.0) mg/dL AST 52 H (15-37) U/L ALT 48 (12-78) U/L Alkaline Phosphatase 481 H D (46-116) U/L Total Protein 6.2 L (6.4-8.2) g/dL Albumin 1.8 L (3.4-5.0) g/dL Globulin 4.4 H (2.3-3.5) g/dL Albumin/Globulin Ratio 0.4 L (1.2-2.2) Meds: Medications Discontinued Medications Generic Name Dose Route Start Last Admin Trade Name Freq PRN Reason Stop Dose Admin Furosemide 40 mg 06/20/20 16:50 06/20/20 17:01 Furosemide 40 Mg Tab PO 06/20/20 16:51 40 mg ONETIME ONE Administration - Re-Assessments/Exams Free Text/Narrative Re-Assessment/Exam: 06/20/20 16:59 Lab work reviewed with pt and family member. Pt will receive does of lasix in ER and return to the [facility]. Will order additional dose of lasix for Monday06/21/2020. [facility] to f/u with Primary care provider (Dr. Rivera) on Monday for further direction. Pt and family in agreement with this plan. Pt to return to ER if becomes short of breath or has difficulty breathing Departure - Departure Time of Disposition: 17:33 Disposition: DC/Tfer to SNF 03 Reason for Transfer *Q: Other (pt residence prior to er visit) Condition: Fair Clinical Impression: Peripheral edema Instructions: Edema Referrals: Yogesh Monsivais MD [Primary Care Provider] - Benton Rivera MD [Physician] - Forms: ED Department Discharge Additional Instructions: Pt given additional dose of lasix in ER. Instructed [facility] to give additional does of lasix on 06/21/2020. Instructed [facility] to provide protein drink with each meal. [facility] staff to have pt followup with PCP for additional instruction/evaluation of peripheral edema. Sepsis Event Note (ED) - Evaluation Sepsis Screening Result: No Definite Risk - Focused Exam Vital Signs: Vital Signs Temp Pulse Resp BP Pulse Ox 06/20/20 16:14 99 117/70 93 L 06/20/20 15:18 35.5 C L 126 H 18 135/69 93 L 06/20/20 15:09 35.5 C L 126 H 18 135/69 93 L
[2020-06-20] MEDS ORDERED: Furosemide 40 MG Tab PO ONE (16:50)
== END 2020-06-20 17:33 ==
LOC: JP.ED 14:40
DX: R60.0 Localized edema (principal); E78.00 Pure hypercholesterolemia, unspecified; I10 Essential (primary) hypertension; E11.9 Type 2 diabetes mellitus without complications; E66.9 Obesity, unspecified; Z68.30 Body mass index [BMI] 30.0-30.9, adult; Z88.8 Allergy status to other drugs, medicaments and biological substances; Z88.7 Allergy status to serum and vaccine; Z79.82 Long term (current) use of aspirin; Z79.01 Long term (current) use of anticoagulants; Z79.899 Other long term (current) drug therapy
CPT/HCPCS: 36415; 80053; 85025; 99283; 99284; A9270

== ENCOUNTER 2020-07-21 08:09 | Day surgery (SDC) | payer MEDICARE, BC ==
[~2020-07-21 08:09] MED LIST changes: -Gentamicin 40 MG/ML 2 ML Vial ONE; +Lidocaine 2% Viscous Solution 15 ML Cup ONE; +Lidocaine 4% Top Soln 50 ML Bottle ONE; -Midazolam 1 MG/ML 2 ML SDV ONE; -Povidone-Iodine 10% Soln 118.25 ML Bottle ONE; -Propofol 200 MG/20 ML SDV ONE; -fentaNYL 100 MCG/2 ML SDV ONE
[2020-07-21] MEDS ORDERED: Albuterol/Ipratropium 3.0-0.5 MG/3 ML Neb Soln NEB ONE (09:00)
[2020-07-21] MEDS ORDERED: Dextrose 5%-Lactated Ringers 1,000 ML IV SCH (09:00)
[2020-07-21] MEDS ORDERED: fentaNYL 100 MCG/2 ML SDV ONE (09:30)
[2020-07-21] MEDS ORDERED: Propofol 200 MG/20 ML SDV ONE (09:30)
[2020-07-21] MEDS ORDERED: Lidocaine 4% Top Soln LTA 4 ML Syringe Kit ONE (11:01)
[2020-07-21] MEDS ORDERED: Pantoprazole 40 MG Vial IVPUSH ONE (12:36)
[2020-07-21 14:22] VITALS: BP 101/60; PULSE 84
--- NOTE | 2020-07-29 10:07 | OR ---
DATE OF PROCEDURE: 07/21/2020 SURGEON: Sameer Mustafa MD PREOPERATIVE DIAGNOSES: 1. Anemia. 2. Chronic right lower lobe infiltrate with associated pleural effusion. POSTOPERATIVE DIAGNOSES: 1. Anemia associated with erosive gastritis. 2. Chronic infiltrate of right lower lobe with associated pleural effusion. OPERATIVE PROCEDURES: 1. Esophagogastroduodenoscopy with antral biopsies for CLOtest (72348). 2. Flexible bronchoscopy with: a. Tracheobronchial washings (28211). b. Bronchoalveolar lavage to the right lower lobe (17409). ANESTHESIA: Topical plus IV sedation. INDICATIONS FOR PROCEDURE: An 89-year-old male presenting with some anemia and also now somewhat chronic infiltrate involving the right lower lobe with associated pleural effusion. Plan is to proceed with an upper endoscopy with biopsies as indicated along with flexible bronchoscopy with biopsies and/or other sampling as indicated. Potential risks including bleeding and aspiration of gastric contents and such were reviewed, and the patient wishes to proceed. PROCEDURE IN DETAIL: The patient was taken to the operating room, placed in a left lateral decubitus position. IV sedation was administered, after which the upper GI endoscope was passed orally through the length of the esophagus and into the stomach with retroflexion view of the fundus, and thereafter through the pyloric channel into the proximal duodenum. Findings included normal hypopharynx, larynx, upper esophageal sphincter, esophageal body. In the stomach, there was some patchy erosive gastritis with some coffee-ground type material present. No active bleeding was seen, and there were no ulcers or stricturing at the pylorus. The pyloric channel was widely open, and the visualized portions of the duodenum were unremarkable. Scope was then withdrawn and the antrum biopsies were then obtained for the CLOtest for H pylori. Minimal bleeding from the biopsy site was seen and the procedure was then concluded. The patient was now placed in a supine position somewhat soon and nasal passages, larynx, and pharynx and trachea were all anesthetized with some topical lidocaine per Anesthesia. The bronchoscope was passed through the left side of the nose and visualized portions of the nasopharynx, larynx, and hypopharynx were unremarkable. Cord motion was symmetrical. As one passed into the trachea, there was more or less a mild diffuse tracheobronchitis present. There were generally some thin watery secretions that were not overtly purulent. The left tracheobronchial tree was unremarkable. On the right side, the bronchi to the posterior and lateral basilar segments were quite edematous consistent with inflammation at that area as seen on the CT scan. To this point, the tracheobronchial washings were obtained and sent for a full microbiologic workup along with cytology. The bronchoscope was then wedged into what would be the origins of the posterolateral basilar segments of the right lower lobe and 200 mL of saline injected. The effluent was then collected and this had a slight kwong cloudiness to it, and at that point, the procedure was concluded. The patient was taken to the recovery room in satisfactory condition. There were no evident complications. The patient will be following up with Dr. Yogesh Monsivais in [facility] next week. With the erosive gastritis, we will send him on Protonix 40 mg a day, and will be following up with Dr. Monsivais next week. Sameer Mustafa MD /[id number]
== END 2020-07-21 15:05 ==
LOC: JP.SDS 08:09
PROVIDERS: ATTEND Surgery
DX: J90 Pleural effusion, not elsewhere classified (principal); K29.60 Other gastritis without bleeding; D64.9 Anemia, unspecified; R91.8 Other nonspecific abnormal finding of lung field; I10 Essential (primary) hypertension; I48.91 Unspecified atrial fibrillation; E11.9 Type 2 diabetes mellitus without complications; Z88.8 Allergy status to other drugs, medicaments and biological substances
CPT/HCPCS: 87015; 87070; 87077; 87081; 87102; 87116; 87205; 87206; 87220; 88112; 88305; 94640; A9270-GY; C9113; J2704; J3010; J7121; J7620-GY

== ENCOUNTER 2020-07-21 19:00 | Inpatient (IN) | payer MEDICARE, BC ==
--- NOTE | 2020-07-21 19:06 | EDM.PDOC ---
ED HPI GENERAL MEDICAL PROBLEM - General Stated Complaint: MED[facility] Time Seen by Provider: 07/21/20 19:06 Source of Information: Reports: Patient, EMS, [facility] Records, Old Records History Limitations: Reports: Other (Patient is a poor historian) - History of Present Illness INITIAL COMMENTS - FREE TEXT/NARRATIVE: Presents emergency room today via EMS secondary to shortness of breath hypoxia and fever he was at local retirement in which she resides in the assisted living area. Patient was seen today here at this facility in having had a bronchoscopy completed review of medical record of previous ER visit and procedures noted that on 01 July he was in the hospital for possible duration pneumonia also was noted to have a significant pleural effusion on the right on the a thoracentesis was completed with 600 cc of serous fluid removed although it is noted in the report that there is continued effusion possibly secondary to loculated fluid collections. This time of presentation in the emergency room patient denies any shortness of breath chest pain or to discomfort although as noted he is a poor historian question his reliability PMH/Meds--reviewed in EMR as well as retirement paperwork Medication allergies-lisinopril tetanus toxoid denies pain Pain Score (Numeric/FACES): 0 - Related Data Allergies Allergy/AdvReac Type Severity Reaction Status Date / Time lisinopril Allergy Severe Anaphylactic Verified 07/21/20 19:13 Shock tetanus toxoid, adsorbed Allergy Cannot Verified 07/21/20 19:13 Remember Home Meds: Home Meds atorvaSTATin [Lipitor] 10 mg PO BEDTIME 03/13/14 [History] Metoprolol Succinate [Toprol XL] 50 mg PO DAILY 09/30/15 [History] Calcium Carbonate/Vitamin D3 [Calcium 500 + Vit D 400] 2 tab PO DAILY 02/25/16 [History] Ferrous Sulfate 325 mg PO DAILY 09/10/19 [History] Furosemide [Lasix] 40 mg PO BID 09/10/19 [History] rOPINIRole [Requip] 0.25 mg PO BEDTIME 09/10/19 [History] Halobetasol Propionate [Ultravate] 1 applic TOP BID 11/01/19 [History] Aspirin 81 mg PO DAILY 06/05/20 [History] Magnesium Hydroxide [Milk of Magnesia] 30 ml PO DAILY PRN 06/05/20 [History] Acetaminophen 650 mg PO Q4HR PRN 06/20/20 [History] Warfarin [Coumadin] 5 - 7.5 mg PO DAILY 06/20/20 [History] polyethylene glycoL 3350 [MiraLAX] 17 gm PO DAILY 07/16/20 [History] Past Medical History HEENT History: Reports: Allergic Rhinitis, Cataract, Impaired Vision, Sinusitis Cardiovascular History: Reports: Afib, Arrhythmia, Heart Murmur, High Cholesterol, Hypertension, Other (See Below) Other Cardiovascular History: transcatheter aortic valve replacement Respiratory History: Reports: Other (See Below) Other Respiratory History: silicosis Gastrointestinal History: Reports: Chronic Constipation, Colon Polyp, Hiatal Hernia Genitourinary History: Reports: Prostate Disorder Musculoskeletal History: Reports: Fracture, Other (See Below) Other Musculoskeletal History: right knee pain Neurological History: Reports: Other (See Below) Other Neuro History: questionable TIA last winter 2019; couldn't speak for a short time. Able to speak now without any problems Psychiatric History: Reports: None Endocrine/Metabolic History: Reports: Diabetes, Type II, Obesity/BMI 30+, Other (See Below) Other Endocrine/Metabolic History: borderline type II - checks blood sugar just a few times a year Hematologic History: Reports: Anticoagulation Therapy, Other (See Below) Other Hematologic History: coumadin Immunologic History: Reports: None Oncologic (Cancer) History: Reports: Prostate, Squamous Cell Carcinoma, Other (See Below) Other Oncologic History: skin Dermatologic History: Reports: Psoriasis, Other (See Below) Other Dermatologic History: keratosis - Infectious Disease History Infectious Disease History: Reports: Chicken Pox, Measles, Mumps - Past Surgical History Head Surgeries/Procedures: Reports: None HEENT Surgical History: Reports: Cataract Surgery Cardiovascular Surgical History: Reports: None Respiratory Surgical History: Reports: Thoracentesis Other Respiratory Surgeries/Procedures: recent thoracentesis GI Surgical History: Reports: Colonoscopy Male Surgical History: Reports: None Endocrine Surgical History: Reports: None Neurological Surgical History: Reports: None Musculoskeletal Surgical History: Reports: Joint Replacement Other Musculoskeletal Surgeries/Procedures:: left knee x 4. right partial knee Oncologic Surgical History: Reports: Other (See Below) Other Oncologic Surgeries/Procedures: skin bx. Dermatological Surgical History: Reports: Skin Biopsy Social & Family History - Family History Family Medical History: No Pertinent Family History - Caffeine Use Caffeine Use: Reports: Coffee Caffeine Use Comment: 0-3 cups per day ED ROS GENERAL - Review of Systems Review Of Systems: Comprehensive ROS is negative, except as noted in HPI. Constitutional: Reports: Fever HEENT: Reports: No Symptoms Respiratory: Reports: Shortness of Breath, Cough Cardiovascular: Reports: Chest Pain Endocrine: Reports: No Symptoms GI/Abdominal: Reports: No Symptoms : Reports: No Symptoms Musculoskeletal: Reports: No Symptoms Skin: Reports: No Symptoms Neurological: Reports: No Symptoms Psychiatric: Reports: No Symptoms Hematologic/Lymphatic: Reports: No Symptoms Immunologic: Reports: No Symptoms ED EXAM, GENERAL - Physical Exam Exam: See Below Exam Limited By: No Limitations General Appearance: Alert, WD/WN, No Apparent Distress Eye Exam: Bilateral Eye: EOMI, Normal Inspection, PERRL Ears: Normal External Exam, Hearing Grossly Normal Ear Exam: Bilateral Ear: Auricle Normal Nose: Normal Inspection Throat/Mouth: Normal Inspection, Normal Lips, Normal Oropharynx, Normal Voice, No Airway Compromise Head: Atraumatic, Normocephalic Neck: Normal Inspection, Supple, Non-Tender. No: Lymphadenopathy (R), Lymphadenopathy (L), Thyromegaly Respiratory/Chest: No Respiratory Distress, Chest Non-Tender, Decreased Breath Sounds (right side/base), Rhonchi, Wheezing. No: Lungs Clear, Normal Breath Sounds Cardiovascular: Normal Peripheral Pulses, No Edema, No Murmur, Tachycardia (atrial fibrillation) Peripheral Pulses: 2+: Radial (L), Radial (R), Dorsalis Pedis (L), Dorsalis Pedis (R) GI/Abdominal: Normal Bowel Sounds, Soft, Non-Tender (Male) Exam: Deferred Rectal (Males) Exam: Deferred Back Exam: Normal Inspection Extremities: Normal Inspection, Normal Range of Motion, No Pedal Edema, Normal Capillary Refill Neurological: Alert, No Motor/Sensory Deficits Psychiatric: Normal Affect, Normal Mood Skin Exam: Warm, Dry, Intact, Normal Color Lymphatic: No Adenopathy Course - Vital Signs Text/Narrative:: 2200--room to discuss today's ER findings as well as care that has been provided and recommendations for further care to include hospitalization he was discussed with patient and family at bedside that there are no beds available here in the this facility at [facility] this transfer will be necessary to [place] patient was asked whether they wanted to go to [place] or [facility] he sta brenda that he prefers [facility] will attempt to facilitate transfer to [facility] in [place] as desires 0150--calls were placed to both [place] and [facility] in [place] earlier this evening around 2230 and 2300 no beds were available at either facility patient has been placed on the wait list for [facility] pending discharges tomorrow they will call back to see if he still needs admission and transfer and has been sleeping tonight since initial presentation rate did decrease after receiving initial 10 mg of Cardizem IV push to 90s to 100 it has slowly increased depending on patient movement from 100-110 at this time will provide patient with a dose of metoprolol p.o., received IV fluids as a continuous as well as a bolus IV antibiotic dose. At this time there is possible admission to our facility pending, awaiting confirmation from nursing ice platform supervisor for bed and staff availability 0200--night RN ice platform supervisor notified us that she would be able to accept patient at this facility. Case d/w Martha, [employer] Assistant. Ready for admission at this time Last Recorded V/S: Last Vital Signs Temp 96.5 F L 07/22/20 00:34 Pulse 101 H 07/22/20 02:05 Resp 25 H 07/22/20 00:34 BP 122/63 07/22/20 02:05 Pulse Ox 90 L 07/22/20 00:34 - Orders/Labs/Meds Orders: Active Orders 24 hr Category Date Time Status EKG Documentation Completion [RC] URGENT Care 07/21/20 19:21 Active Notify Provider Vital Signs [RC] ASDIRECTED Care 07/21/20 19:21 Active Peripheral IV Care [RC] . DIRECTED Care 07/21/20 19:24 Active Pulse Oximetry [RC] CONTINUOUS Care 07/21/20 19:22 Active Up With Assistance [RC] ASDIRECTED Care 07/21/20 19:21 Active Vital Signs [RC] PER UNIT ROUTINE Care 07/21/20 19:21 Active Chest 1V Frontal [CR] Urgent Exams 07/21/20 19:21 Taken CULTURE BLOOD [BC] Urgent Lab 07/21/20 19:43 Received CULTURE BLOOD [BC] Urgent Lab 07/21/20 19:48 Received Sodium Chloride 0.9% [Normal Saline] 500 ml Med 07/21/20 19:51 Active IV ASDIRECTED Sodium Chloride 0.9% [Saline Flush] Med 07/21/20 19:21 Active 10 ml FLUSH ASDIRECTED PRN Sodium Chloride 0.9% [Saline Flush] Med 07/21/20 19:21 Active 10 ml FLUSH ASDIRECTED PRN Blood Culture x2 Reflex Set [OM.PC] Urgent Oth 07/21/20 19:21 Ordered Peripheral IV Insertion Adult [OM.PC] Urgent Oth 07/21/20 19:21 Ordered EKG 12 Lead [EK] Stat Ther 07/21/20 19:21 Ordered Medication Orders Sodium Chloride (Normal Saline) 500 mls @ 500 mls/hr IV ASDIRECTED REBECA Last Admin: 07/21/20 23:30 Dose: 500 mls/hr Documented by: GORAN Sodium Chloride (Sodium Chloride 0.9% 10 Ml Syringe) 10 ml FLUSH ASDIRECTED PRN PRN Reason: Keep Vein Open Last Admin: 07/21/20 21:12 Dose: 10 ml Documented by: GORAN Sodium Chloride (Sodium Chloride 0.9% 10 Ml Syringe) 10 ml FLUSH ASDIRECTED PRN PRN Reason: Keep Vein Open Last Admin: 07/21/20 23:53 Dose: 10 ml Documented by: GORAN Labs: Laboratory Tests 07/21/20 07/21/20 07/21/20 Range/Units 19:43 19:43 19:43 WBC 14.9 H (4.5-11.0) K/uL RBC 3.16 L (4.30-5.90) M/uL Hgb 8.9 L (12.0-15.0) g/dL Hct 28.2 L (40.0-54.0) % MCV 89 (80-98) fL MCH 28 (27-31) pg MCHC 32 (32-36) % Plt Count 571 H (150-400) K/uL Neut % (Auto) 89.0 H (36-66) % Lymph % (Auto) 5.0 L (24-44) % Bradley % (Auto) 6.0 (2-6) % Eos % (Auto) 0.0 L (2-4) % Baso % (Auto) 0.0 (0-1) % PT 34.8 H (9.5-12.0) sec INR 3.27 H (0.80-1.20) APTT 46.9 H (27.0-36.0) sec Sodium 132 L (140-148) mmol/L Potassium 4.5 (3.6-5.2) mmol/L Chloride 96 L (100-108) mmol/L Carbon Dioxide 27 (21-32) mmol/L Anion Gap 13.5 (5.0-14.0) mmol/L BUN 19 H (7-18) mg/dL Creatinine 0.9 (0.8-1.3) mg/dL Est Cr Clr Drug Dosing 48.40 mL/min Estimated GFR (MDRD) > 60 (>60) Glucose 179 H (74-106) mg/dL Lactic Acid (0.4-2.0) mmol/L Calcium 8.7 (8.5-10.1) mg/dL Magnesium 1.6 L (1.8-2.4) mg/dL Total Bilirubin 0.6 (0.2-1.0) mg/dL AST 25 (15-37) U/L ALT 23 (12-78) U/L Alkaline Phosphatase 336 H (46-116) U/L Total Protein 7.0 (6.4-8.2) g/dL Albumin 2.1 L (3.4-5.0) g/dL Globulin 4.9 H (2.3-3.5) g/dL Albumin/Globulin Ratio 0.4 L (1.2-2.2) Amylase 68 (25-115) U/L Lipase 239 (73-393) U/L Urine Color (YELLOW) Urine Appearance (CLEAR) Urine pH (5.0-8.0) Ur Specific [place] (1.008-1.030) Urine Protein (NEGATIVE) mg/dL Urine Glucose (UA) (NEGATIVE) mg/dL Urine Ketones (NEGATIVE) mg/dL Urine Occult Blood (NEGATIVE) Urine Nitrite (NEGATIVE) Urine Bilirubin (NEGATIVE) Urine Urobilinogen (0.2-1.0) EU/dL Ur Leukocyte Esterase (NEGATIVE) Urine RBC (0-5) Urine WBC (0-5) Ur Epithelial Cells Amorphous Sediment Urine Bacteria Urine Mucus 07/21/20 07/21/20 Range/Units 19:43 20:57 WBC (4.5-11.0) K/uL RBC (4.30-5.90) M/uL Hgb (12.0-15.0) g/dL Hct (40.0-54.0) % MCV (80-98) fL MCH (27-31) pg MCHC (32-36) % Plt Count (150-400) K/uL Neut % (Auto) (36-66) % Lymph % (Auto) (24-44) % Bradley % (Auto) (2-6) % Eos % (Auto) (2-4) % Baso % (Auto) (0-1) % PT (9.5-12.0) sec INR (0.80-1.20) APTT (27.0-36.0) sec Sodium (140-148) mmol/L Potassium (3.6-5.2) mmol/L Chloride (100-108) mmol/L Carbon Dioxide (21-32) mmol/L Anion Gap (5.0-14.0) mmol/L BUN (7-18) mg/dL Creatinine (0.8-1.3) mg/dL Est Cr Clr Drug Dosing mL/min Estimated GFR (MDRD) (>60) Glucose (74-106) mg/dL Lactic Acid 2.0 (0.4-2.0) mmol/L Calcium (8.5-10.1) mg/dL Magnesium (1.8-2.4) mg/dL Total Bilirubin (0.2-1.0) mg/dL AST (15-37) U/L ALT (12-78) U/L Alkaline Phosphatase (46-116) U/L Total Protein (6.4-8.2) g/dL Albumin (3.4-5.0) g/dL Globulin (2.3-3.5) g/dL Albumin/Globulin Ratio (1.2-2.2) Amylase (25-115) U/L Lipase (73-393) U/L Urine Color Yellow (YELLOW) Urine Appearance Clear (CLEAR) Urine pH 6.0 (5.0-8.0) Ur Specific [place] 1.020 (1.008-1.030) Urine Protein Negative (NEGATIVE) mg/dL Urine Glucose (UA) Normal (NEGATIVE) mg/dL Urine Ketones Negative (NEGATIVE) mg/dL Urine Occult Blood Trace (NEGATIVE) Urine Nitrite Negative (NEGATIVE) Urine Bilirubin Negative (NEGATIVE) Urine Urobilinogen 0.2 (0.2-1.0) EU/dL Ur Leukocyte Esterase Trace H (NEGATIVE) Urine RBC 0-5 (0-5) Urine WBC 10-20 H (0-5) Ur Epithelial Cells Few Amorphous Sediment Few Urine Bacteria Few Urine Mucus Not seen Meds: Medications Generic Name Dose Route Start Last Admin Trade Name Freq PRN Reason Stop Dose Admin Sodium Chloride 500 mls @ 500 mls/hr 07/21/20 19:51 07/21/20 23:30 Normal Saline IV 500 mls/hr ASDIRECTED REBECA Administration Sodium Chloride 10 ml 07/21/20 19:21 07/21/20 21:12 Sodium Chloride 0.9% 10 Ml Syringe FLUSH 10 ml ASDIRECTED PRN Administration Keep Vein Open Sodium Chloride 10 ml 07/21/20 19:21 07/21/20 23:53 Sodium Chloride 0.9% 10 Ml Syringe FLUSH 10 ml ASDIRECTED PRN Administration Keep Vein Open Discontinued Medications Generic Name Dose Route Start Last Admin Trade Name Stephanie PRN Reason Stop Dose Admin Acetaminophen 650 mg 07/21/20 19:21 07/21/20 20:20 Acetaminophen 325 Mg Tab PO 07/21/20 19:22 650 mg NOW ONE Administration Digoxin Confirm 07/22/20 04:07 Digoxin 125 Mcg Tab Administered 07/22/20 04:08 Dose 250 mcg .ROUTE .STK-MED ONE Diltiazem HCl 20 mg 07/21/20 19:47 07/21/20 21:05 Diltiazem 25 Mg/5 Ml Sdv IVPUSH 07/21/20 19:48 10 mg ONETIME ONE Administration Sodium Chloride 1,000 mls @ 125 mls/hr 07/21/20 19:30 07/21/20 19:44 Normal Saline IV 125 mls/hr ASDIRECTED REBECA Administration Ceftriaxone Sodium 1 gm/ 50 mls @ 100 mls/hr 07/21/20 19:46 07/21/20 20:19 Sodium Chloride IV 07/21/20 20:15 100 mls/hr ONETIME ONE Administration Levofloxacin/Dextrose Confirm 07/22/20 04:07 Levaquin In D5w 750 Mg/150 Ml Administered 07/22/20 04:08 Dose 150 mls @ as directed IV .STK-MED ONE Metoprolol Succinate 25 mg 07/22/20 01:52 07/22/20 02:05 Metoprolol Succinate 25 Mg Tab.Er PO 07/22/20 01:53 25 mg ONETIME ONE Administration Departure - Departure Time of Disposition: 02:00 Disposition: Admitted As Inpatient 67 Condition: Good Clinical Impression: Atrial fibrillation with RVR, Hypoxia, S/P bronchoscopy, Fever - Discharge Information *PRESCRIPTION DRUG MONITORING PROGRAM REVIEWED*: Not Applicable *COPY OF PRESCRIPTION DRUG MONITORING REPORT IN PATIENT ERIC: Not Applicable Referrals: PCP,None [Primary Care Provider] - Sepsis Event Note (ED) - Focused Exam Vital Signs: Vital Signs Temp Temp Pulse Pulse Resp BP BP 07/22/20 02:05 101 H 122/63 07/22/20 00:34 96.5 F L 102 H 25 H 119/64 07/21/20 21:13 99.2 F 90 25 H 100/55 L 07/21/20 20:50 99.2 F 07/21/20 20:39 112 H 26 H 109/59 L 07/21/20 20:20 101.7 F H 07/21/20 20:09 117 H 27 H 106/50 L 07/21/20 19:39 104 H 31 H 111/56 L 07/21/20 19:31 101.7 F H 120 H 30 H 112/62 07/21/20 19:21 100.8 F H 119 H 30 H 105/56 L 07/21/20 19:13 101.7 F H 120 H 23 H 112/62 Pulse Ox 07/22/20 02:05 07/22/20 00:34 90 L 07/21/20 21:13 96 07/21/20 20:50 07/21/20 20:39 07/21/20 20:20 07/21/20 20:09 95 07/21/20 19:39 95 07/21/20 19:31 92 L 07/21/20 19:21 95 07/21/20 19:13 92 L - My Orders Last 24 Hours: My Active Orders 07/21/20 19:21 EKG Documentation Completion [RC] URGENT Notify Provider Vital Signs [RC] ASDIRECTED Up With Assistance [RC] ASDIRECTED Vital Signs [RC] PER UNIT ROUTINE Chest 1V Frontal [CR] Urgent Sodium Chloride 0.9% [Saline Flush] 10 ml FLUSH ASDIRECTED PRN Sodium Chloride 0.9% [Saline Flush] 10 ml FLUSH ASDIRECTED PRN Blood Culture x2 Reflex Set [OM.PC] Urgent Peripheral IV Insertion Adult [OM.PC] Urgent EKG 12 Lead [EK] Stat 07/21/20 19:22 Pulse Oximetry [RC] CONTINUOUS 07/21/20 19:24 Peripheral IV Care [RC] . DIRECTED 07/21/20 19:43 CULTURE BLOOD [BC] Urgent 07/21/20 19:48 CULTURE BLOOD [BC] Urgent 07/21/20 19:51 Sodium Chloride 0.9% [Normal Saline] 500 ml IV ASDIRECTED - Assessment/Plan Last 24 Hours: My Active Orders 07/21/20 19:21 EKG Documentation Completion [RC] URGENT Notify Provider Vital Signs [RC] ASDIRECTED Up With Assistance [RC] ASDIRECTED Vital Signs [RC] PER UNIT ROUTINE Chest 1V Frontal [CR] Urgent Sodium Chloride 0.9% [Saline Flush] 10 ml FLUSH ASDIRECTED PRN Sodium Chloride 0.9% [Saline Flush] 10 ml FLUSH ASDIRECTED PRN Blood Culture x2 Reflex Set [OM.PC] Urgent Peripheral IV Insertion Adult [OM.PC] Urgent EKG 12 Lead [EK] Stat 07/21/20 19:22 Pulse Oximetry [RC] CONTINUOUS 07/21/20 19:24 Peripheral IV Care [RC] . DIRECTED 07/21/20 19:43 CULTURE BLOOD [BC] Urgent 07/21/20 19:48 CULTURE BLOOD [BC] Urgent 07/21/20 19:51 Sodium Chloride 0.9% [Normal Saline] 500 ml IV ASDIRECTED
[2020-07-21] MEDS ORDERED: Sodium Chloride 0.9% 10 ML Syringe FLUSH PRN ×2 (19:21)
[2020-07-21] MEDS ORDERED: Acetaminophen 325 MG Tab PO ONE (19:21)
[2020-07-21] MEDS ORDERED: Sodium Chloride 0.9% 1,000 ML IV SCH (19:30)
[2020-07-21] MEDS ORDERED: cefTRIAXone 1 GM in Sodium Chloride 0.9% 50 ML IV ONE (19:46)
[2020-07-21] MEDS ORDERED: Diltiazem 25 MG/5 ML SDV IVPUSH ONE (19:47)
[2020-07-21] MEDS ORDERED: Sodium Chloride 0.9% 500 ML IV SCH (19:51)
[2020-07-22] MEDS ORDERED: Metoprolol Succinate 25 MG Tab.ER PO ONE (01:52)
[2020-07-22] MEDS ORDERED: Sodium Chloride 0.9% 1,000 ML IV SCH (02:15)
[2020-07-22] MEDS ORDERED: Digoxin 125 MCG Tab PO ONE (04:00)
[2020-07-22] MEDS ORDERED: Digoxin 125 MCG Tab ONE (04:07)
[2020-07-22] MEDS ORDERED: Levofloxacin/Dextrose 5%-Water 150 ML IV ONE (04:07)
[2020-07-22] MEDS: Levofloxacin/Dextrose 5%-Water 750 MG in Premix Bag 1 BAG IV SCH (04:10)
[2020-07-22] MEDS ORDERED: Acetaminophen 325 MG Tab PO PRN (07:17)
[2020-07-22] MEDS ORDERED: Acetaminophen 650 MG Supp RECTAL PRN (07:18)
[2020-07-22] MEDS ORDERED: Magnesium Hydroxide 400 MG/5 ML Susp 30 ML Cup PO PRN ×2 (07:19→07:23)
[2020-07-22] MEDS ORDERED: Insulin Lispro 100 Unit/ML 3 ML KwikPen SUBCUT PRN (07:26)
[2020-07-22] MEDS ORDERED: Glucose Gel 15 GM in 37.5 GM Tube PO PRN (07:26)
[2020-07-22] MEDS ORDERED: 50% Dextrose in Water 50 ML Syringe IVPUSH PRN (07:26)
[2020-07-22] MEDS ORDERED: Glucagon,Human Recombinant 1 MG Vial IM PRN (07:26)
[2020-07-22] MEDS ORDERED: guaiFENesin 100 MG/5 ML Soln ML (118 ML Bottle) PO PRN (07:29)
[2020-07-22] MEDS ORDERED: Clobetasol 0.05% Crm 30 GM Tube TOP PRN (07:33)
[2020-07-22] MEDS ORDERED: Furosemide 40 MG Tab PO SCH (08:00)
--- NOTE | 2020-07-22 10:14 | PCM.PN ---
- General Info Date of Service: 07/22/20 Subjective Update: No acute events overnight following admission. He is down to 2 L of supplemental oxygen reports that he is feeling a little better today. Still has mild tachycardia with his atrial fibrillation but improved compared to last night. No fever since presentation to the emergency room. Still feels quite short of breath especially with any activity. Functional Status: Reports: Pain Controlled, Tolerating Diet, Incentive Spirometry - Review of Systems General: Reports: Weakness Pulmonary: Reports: Shortness of Breath Cardiovascular: Denies: Edema - Patient Data Vitals - Most Recent: Last Vital Signs Temp 35.8 C L 07/22/20 00:34 Pulse 98 07/22/20 04:10 Resp 17 07/22/20 04:00 BP 109/63 07/22/20 04:00 Pulse Ox 94 L 07/22/20 04:00 Weight - Most Recent: 77.111 kg Lab Results Last 24 Hours: Laboratory Results - last 24 hr 07/21/20 07/21/20 07/21/20 Range/Units 19:43 19:43 19:43 WBC 14.9 H (4.5-11.0) K/uL RBC 3.16 L (4.30-5.90) M/uL Hgb 8.9 L (12.0-15.0) g/dL Hct 28.2 L (40.0-54.0) % MCV 89 (80-98) fL MCH 28 (27-31) pg MCHC 32 (32-36) % Plt Count 571 H (150-400) K/uL Neut % (Auto) 89.0 H (36-66) % Lymph % (Auto) 5.0 L (24-44) % [place] % (Auto) 6.0 (2-6) % Eos % (Auto) 0.0 L (2-4) % Baso % (Auto) 0.0 (0-1) % PT 34.8 H (9.5-12.0) sec INR 3.27 H (0.80-1.20) APTT 46.9 H (27.0-36.0) sec Sodium 132 L (140-148) mmol/L Potassium 4.5 (3.6-5.2) mmol/L Chloride 96 L (100-108) mmol/L Carbon Dioxide 27 (21-32) mmol/L Anion Gap 13.5 (5.0-14.0) mmol/L BUN 19 H (7-18) mg/dL Creatinine 0.9 (0.8-1.3) mg/dL Est Cr Clr Drug Dosing 48.40 mL/min Estimated GFR (MDRD) > 60 (>60) Glucose 179 H (74-106) mg/dL POC Glucose (74-106) mg/dL Lactic Acid (0.4-2.0) mmol/L Calcium 8.7 (8.5-10.1) mg/dL Magnesium 1.6 L (1.8-2.4) mg/dL Total Bilirubin 0.6 (0.2-1.0) mg/dL AST 25 (15-37) U/L ALT 23 (12-78) U/L Alkaline Phosphatase 336 H (46-116) U/L Total Protein 7.0 (6.4-8.2) g/dL Albumin 2.1 L (3.4-5.0) g/dL Globulin 4.9 H (2.3-3.5) g/dL Albumin/Globulin Ratio 0.4 L (1.2-2.2) Amylase 68 (25-115) U/L Lipase 239 (73-393) U/L Urine Color (YELLOW) Urine Appearance (CLEAR) Urine pH (5.0-8.0) Ur Specific [place] (1.008-1.030) Urine Protein (NEGATIVE) mg/dL Urine Glucose (UA) (NEGATIVE) mg/dL Urine Ketones (NEGATIVE) mg/dL Urine Occult Blood (NEGATIVE) Urine Nitrite (NEGATIVE) Urine Bilirubin (NEGATIVE) Urine Urobilinogen (0.2-1.0) EU/dL Ur Leukocyte Esterase (NEGATIVE) Urine RBC (0-5) Urine WBC (0-5) Ur Epithelial Cells Amorphous Sediment Urine Bacteria Urine Mucus 07/21/20 07/21/20 07/22/20 Range/Units 19:43 20:57 07:00 WBC (4.5-11.0) K/uL RBC (4.30-5.90) M/uL Hgb (12.0-15.0) g/dL Hct (40.0-54.0) % MCV (80-98) fL MCH (27-31) pg MCHC (32-36) % Plt Count (150-400) K/uL Neut % (Auto) (36-66) % Lymph % (Auto) (24-44) % [place] % (Auto) (2-6) % Eos % (Auto) (2-4) % Baso % (Auto) (0-1) % PT (9.5-12.0) sec INR (0.80-1.20) APTT (27.0-36.0) sec Sodium (140-148) mmol/L Potassium (3.6-5.2) mmol/L Chloride (100-108) mmol/L Carbon Dioxide (21-32) mmol/L Anion Gap (5.0-14.0) mmol/L BUN (7-18) mg/dL Creatinine (0.8-1.3) mg/dL Est Cr Clr Drug Dosing mL/min Estimated GFR (MDRD) (>60) Glucose (74-106) mg/dL POC Glucose 93 (74-106) mg/dL Lactic Acid 2.0 (0.4-2.0) mmol/L Calcium (8.5-10.1) mg/dL Magnesium (1.8-2.4) mg/dL Total Bilirubin (0.2-1.0) mg/dL AST (15-37) U/L ALT (12-78) U/L Alkaline Phosphatase (46-116) U/L Total Protein (6.4-8.2) g/dL Albumin (3.4-5.0) g/dL Globulin (2.3-3.5) g/dL Albumin/Globulin Ratio (1.2-2.2) Amylase (25-115) U/L Lipase (73-393) U/L Urine Color Yellow (YELLOW) Urine Appearance Clear (CLEAR) Urine pH 6.0 (5.0-8.0) Ur Specific [place] 1.020 (1.008-1.030) Urine Protein Negative (NEGATIVE) mg/dL Urine Glucose (UA) Normal (NEGATIVE) mg/dL Urine Ketones Negative (NEGATIVE) mg/dL Urine Occult Blood Trace (NEGATIVE) Urine Nitrite Negative (NEGATIVE) Urine Bilirubin Negative (NEGATIVE) Urine Urobilinogen 0.2 (0.2-1.0) EU/dL Ur Leukocyte Esterase Trace H (NEGATIVE) Urine RBC 0-5 (0-5) Urine WBC 10-20 H (0-5) Ur Epithelial Cells Few Amorphous Sediment Few Urine Bacteria Few Urine Mucus Not seen Med Orders - Current: Current Medications Acetaminophen (Acetaminophen 325 Mg Tab) 650 mg PO Q4H PRN PRN Reason: ANALGESIA/FEVER Acetaminophen (Acetaminophen 650 Mg Supp) 650 mg RECTAL Q4H PRN PRN Reason: ANALEGIA/FEVER Aspirin (Aspirin 81 Mg Tab.Ec) 81 mg PO DAILY [facility] Atorvastatin Calcium (Atorvastatin 10 Mg Tab) 10 mg PO BEDTIME [facility] Calcium Carbonate (Calcium Carbonate/Vitamin D3 1500 Mg-400 Units Tab) 2 tab PO DAILY [facility] Clobetasol Propionate (Clobetasol 0.05% Crm 30 Gm Tube) 0 gm TOP BID PRN PRN Reason: PSORIASIS LESIONS Dextrose (Glucose Gel 15 Gm In 37.5 Gm Tube) 15 gm PO ASDIRECTED PRN PRN Reason: HYPOGLYCEMIA Dextrose/Water (50% Dextrose In Water 50 Ml Syringe) 50 ml IVPUSH ASDIRECTED PRN PRN Reason: HYPOGLYCEMIA Ferrous Sulfate (Ferrous Sulfate 325 Mg Tab) 325 mg PO DAILY [facility] Glucagon (Glucagon,Human Recombinant 1 Mg Vial) 1 mg IM ASDIRECTED PRN PRN Reason: HYPOGLYCEMIA Guaifenesin (Guaifenesin 100 Mg/5 Ml Soln Ml (118 Ml Bottle)) 400 mg PO Q4H PRN PRN Reason: COUGH Ceftriaxone Sodium 1 gm/ (Sodium Chloride) 50 mls @ 100 mls/hr IV Q24H [facility]BECA Levofloxacin/Dextrose 750 mg/ (Premix) 150 mls @ 100 mls/hr IV Q24H [facility] Last Admin: 07/22/20 04:10 Dose: 100 mls/hr Documented by: Insulin Human Lispro (Insulin Lispro 100 Unit/Ml 3 Ml Kwikpen) 0 unit SUBCUT QID PRN; Protocol PRN Reason: LOW CORRECTIONAL DOSING Magnesium Hydroxide (Magnesium Hydroxide 400 Mg/5 Ml Susp 30 Ml Cup) 30 ml PO BID PRN PRN Reason: Constipation Magnesium Hydroxide (Magnesium Hydroxide 400 Mg/5 Ml Susp 30 Ml Cup) 30 ml PO DAILY PRN PRN Reason: Constipation Melatonin (Melatonin 3 Mg Tab) 6 mg PO BEDTIME PRN PRN Reason: SLEEP Metoprolol Succinate (Metoprolol Succinate 50 Mg Tab.Er) 50 mg PO DAILY [facility] Pantoprazole Sodium (Pantoprazole 40 Mg Tab.Cr) 40 mg PO ACBREAKFAST [facility] Polyethylene Glycol (Polyethylene Glycol 3350 Powder 17 Gm Packet) 17 gm PO DAILY [facility] Ropinirole HCl (Ropinirole 0.5 Mg Tab) 0.25 mg PO BEDTIME [facility] Discontinued Medications Acetaminophen (Acetaminophen 325 Mg Tab) 650 mg PO NOW ONE Stop: 07/21/20 19:22 Last Admin: 07/21/20 20:20 Dose: 650 mg Documented by: Digoxin (Digoxin 125 Mcg Tab) 250 mcg PO ONETIME ONE Stop: 07/22/20 04:01 Last Admin: 07/22/20 04:10 Dose: 250 mcg Documented by: Diltiazem HCl (Diltiazem 25 Mg/5 Ml Sdv) 20 mg IVPUSH ONETIME ONE Stop: 07/21/20 19:48 Last Admin: 07/21/20 21:05 Dose: 10 mg Documented by: Furosemide (Furosemide 40 Mg Tab) 40 mg PO BIDDIURETIC [facility] Sodium Chloride (Normal Saline) 1,000 mls @ 125 mls/hr IV ASDIRECTED [facility] Last Admin: 07/21/20 19:44 Dose: 125 mls/hr Documented by: Ceftriaxone Sodium 1 gm/ (Sodium Chloride) 50 mls @ 100 mls/hr IV ONETIME ONE Stop: 07/21/20 20:15 Last Admin: 07/21/20 20:19 Dose: 100 mls/hr Documented by: Sodium Chloride (Normal Saline) 500 mls @ 500 mls/hr IV ASDIRECTED [facility] Last Admin: 07/21/20 23:30 Dose: 500 mls/hr Documented by: Sodium Chloride (Normal Saline) 1,000 mls @ 125 mls/hr IV ASDIRECTED [facility] Metoprolol Succinate (Metoprolol Succinate 25 Mg Tab.Er) 25 mg PO ONETIME ONE Stop: 07/22/20 01:53 Last Admin: 07/22/20 02:05 Dose: 25 mg Documented by: Sodium Chloride (Sodium Chloride 0.9% 10 Ml Syringe) 10 ml FLUSH ASDIRECTED PRN PRN Reason: Keep Vein Open Last Admin: 07/21/20 21:12 Dose: 10 ml Documented by: Sodium Chloride (Sodium Chloride 0.9% 10 Ml Syringe) 10 ml FLUSH ASDIRECTED PRN PRN Reason: Keep Vein Open Last Admin: 07/21/20 23:53 Dose: 10 ml Documented by: Warfarin Sodium (Warfarin 5 Mg Tab) 5 mg PO MoTuWeThSa@1300 [facility] Warfarin Sodium (Warfarin 2.5 Mg Tab) 7.5 mg PO SuFr@1300 [facility] - Exam Quality Assessment: Supplemental Oxygen General: Alert, Oriented, Cooperative, No Acute Distress Neck: JVD Lungs: Normal Respiratory Effort, Decreased Breath Sounds (right lung base), Crackles (left lower and right midlung ), Wheezing (mild left lower lung ) Cardiovascular: Irregular Rhythm, Tachycardia, Murmurs GI/Abdominal Exam: Soft, No Distention Extremities: No Pedal Edema. No: Increased Warmth Skin: Warm, Dry Psy/Mental Status: Alert, Normal Affect - Patient Data Lab Results Last 24 hrs: Laboratory Results - last 24 hr 07/21/20 07/21/20 07/21/20 Range/Units 19:43 19:43 19:43 WBC 14.9 H (4.5-11.0) K/uL RBC 3.16 L (4.30-5.90) M/uL Hgb 8.9 L (12.0-15.0) g/dL Hct 28.2 L (40.0-54.0) % MCV 89 (80-98) fL MCH 28 (27-31) pg MCHC 32 (32-36) % Plt Count 571 H (150-400) K/uL Neut % (Auto) 89.0 H (36-66) % Lymph % (Auto) 5.0 L (24-44) % [place] % (Auto) 6.0 (2-6) % Eos % (Auto) 0.0 L (2-4) % Baso % (Auto) 0.0 (0-1) % PT 34.8 H (9.5-12.0) sec INR 3.27 H (0.80-1.20) APTT 46.9 H (27.0-36.0) sec Sodium 132 L (140-148) mmol/L Potassium 4.5 (3.6-5.2) mmol/L Chloride 96 L (100-108) mmol/L Carbon Dioxide 27 (21-32) mmol/L Anion Gap 13.5 (5.0-14.0) mmol/L BUN 19 H (7-18) mg/dL Creatinine 0.9 (0.8-1.3) mg/dL Est Cr Clr Drug Dosing 48.40 mL/min Estimated GFR (MDRD) > 60 (>60) Glucose 179 H (74-106) mg/dL POC Glucose (74-106) mg/dL Lactic Acid (0.4-2.0) mmol/L Calcium 8.7 (8.5-10.1) mg/dL Magnesium 1.6 L (1.8-2.4) mg/dL Total Bilirubin 0.6 (0.2-1.0) mg/dL AST 25 (15-37) U/L ALT 23 (12-78) U/L Alkaline Phosphatase 336 H (46-116) U/L Total Protein 7.0 (6.4-8.2) g/dL Albumin 2.1 L (3.4-5.0) g/dL Globulin 4.9 H (2.3-3.5) g/dL Albumin/Globulin Ratio 0.4 L (1.2-2.2) Amylase 68 (25-115) U/L Lipase 239 (73-393) U/L Urine Color (YELLOW) Urine Appearance (CLEAR) Urine pH (5.0-8.0) Ur Specific [place] (1.008-1.030) Urine Protein (NEGATIVE) mg/dL Urine Glucose (UA) (NEGATIVE) mg/dL Urine Ketones (NEGATIVE) mg/dL Urine Occult Blood (NEGATIVE) Urine Nitrite (NEGATIVE) Urine Bilirubin (NEGATIVE) Urine Urobilinogen (0.2-1.0) EU/dL Ur Leukocyte Esterase (NEGATIVE) Urine RBC (0-5) Urine WBC (0-5) Ur Epithelial Cells Amorphous Sediment Urine Bacteria Urine Mucus 07/21/20 07/21/20 07/22/20 Range/Units 19:43 20:57 07:00 WBC (4.5-11.0) K/uL RBC (4.30-5.90) M/uL Hgb (12.0-15.0) g/dL Hct (40.0-54.0) % MCV (80-98) fL MCH (27-31) pg MCHC (32-36) % Plt Count (150-400) K/uL Neut % (Auto) (36-66) % Lymph % (Auto) (24-44) % [place] % (Auto) (2-6) % Eos % (Auto) (2-4) % Baso % (Auto) (0-1) % PT (9.5-12.0) sec INR (0.80-1.20) APTT (27.0-36.0) sec Sodium (140-148) mmol/L Potassium (3.6-5.2) mmol/L Chloride (100-108) mmol/L Carbon Dioxide (21-32) mmol/L Anion Gap (5.0-14.0) mmol/L BUN (7-18) mg/dL Creatinine (0.8-1.3) mg/dL Est Cr Clr Drug Dosing mL/min Estimated GFR (MDRD) (>60) Glucose (74-106) mg/dL POC Glucose 93 (74-106) mg/dL Lactic Acid 2.0 (0.4-2.0) mmol/L Calcium (8.5-10.1) mg/dL Magnesium (1.8-2.4) mg/dL Total Bilirubin (0.2-1.0) mg/dL AST (15-37) U/L ALT (12-78) U/L Alkaline Phosphatase (46-116) U/L Total Protein (6.4-8.2) g/dL Albumin (3.4-5.0) g/dL Globulin (2.3-3.5) g/dL Albumin/Globulin Ratio (1.2-2.2) Amylase (25-115) U/L Lipase (73-393) U/L Urine Color Yellow (YELLOW) Urine Appearance Clear (CLEAR) Urine pH 6.0 (5.0-8.0) Ur Specific [place] 1.020 (1.008-1.030) Urine Protein Negative (NEGATIVE) mg/dL Urine Glucose (UA) Normal (NEGATIVE) mg/dL Urine Ketones Negative (NEGATIVE) mg/dL Urine Occult Blood Trace (NEGATIVE) Urine Nitrite Negative (NEGATIVE) Urine Bilirubin Negative (NEGATIVE) Urine Urobilinogen 0.2 (0.2-1.0) EU/dL Ur Leukocyte Esterase Trace H (NEGATIVE) Urine RBC 0-5 (0-5) Urine WBC 10-20 H (0-5) Ur Epithelial Cells Few Amorphous Sediment Few Urine Bacteria Few Urine Mucus Not seen Result Diagrams: 07/22/20 05:11 07/22/20 05:11 Sepsis Event Note - Evaluation Sepsis Screening Result: Possible Sepsis Risk - Focused Exam Vital Signs: Vital Signs Temp Pulse Pulse Resp BP BP Pulse Ox 07/22/20 04:10 98 07/22/20 04:00 98 17 109/63 94 L 07/22/20 02:05 101 H 122/63 07/22/20 00:34 35.8 C L 102 H 25 H 119/64 90 L - Problem List Review Problem List Initiated/Reviewed/Updated: Yes - My Orders Last 24 Hours: My Active Orders 07/22/20 10:09 Convert IV to Saline Lock [OM.PC] Routine 07/22/20 10:11 Furosemide [Lasix] 40 mg IVPUSH ONETIME ONE 07/22/20 10:12 Up With Assistance [RC] ASDIRECTED 07/23/20 05:00 BASIC METABOLIC PANEL,BMP [CHEM] Timed CBC W/O DIFF,HEMOGRAM [HEME] Timed (1) 07/23/20 07:00 Echo Comp wo Cont [US] Routine 07/23/20 13:00 Warfarin [Coumadin] 5 mg PO DAILY@1300 - Plan Plan:: ASSESSMENT AND PLAN - Probable right lower lobe pneumonia-complicated by acute respiratory failure with hypoxia. Right lung infiltrate noted today with differential including asymmetric pulmonary edema. He did have a bronchoscopy yesterday. These cultures are negative so far. -Antibiotic coverage with ceftriaxone and levofloxacin -Supplement oxygen -Follow-up cultures Congestive heart failure-evidence for volume overload including significant JVD today. 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 -Continue beta-joelle -IV furosemide this morning and reassess this afternoon -Echo in the morning when available -Cardiac monitoring Chronic atrial fibrillation-borderline rate control at this time but improved compared to admission. -Continue beta-joelle -Hold warfarin today, restart tomorrow Type 2 diabetes mellitus-diet controlled at home. -Low-dose sliding scale insulin Maintenance issues - -DVT prophylaxis-warfarin -GI prophylaxis-not indicated -Nutrition-diabetic -Weiss catheter-not indicated Disposition -I anticipate discharge home after the hospital stay Remy Reyes M.D.
[2020-07-22] MEDS ORDERED: Furosemide 40 MG/4 ML VIAL IVPUSH ONE (10:30)
[2020-07-22] MEDS: Pantoprazole 40 MG Tab.CR PO SCH (10:47)
[2020-07-22] MEDS: Calcium Carbonate/Vitamin D3 1500 MG-400 Units Tab PO SCH (10:48)
[2020-07-22] MEDS: Aspirin 81 MG Tab.EC PO SCH (10:48)
[2020-07-22] MEDS: Ferrous Sulfate 325 MG Tab PO SCH (10:49)
[2020-07-22] MEDS: Polyethylene Glycol 3350 Powder 17 GM Packet PO SCH (10:50)
[2020-07-22] MEDS: Metoprolol Succinate 50 MG Tab.ER PO SCH (11:06)
[2020-07-22] MEDS ORDERED: Warfarin 5 MG Tab PO SCH (13:00)
--- NOTE | 2020-07-22 19:06 | PCM.HP.2 ---
H&P History of Present Illness - General Date of Service: 07/21/20 (late entry due to EHR off for repairs at time of admi ssion) Admit Problem/Dx: Admission Diagnosis/Problem Admission Diagnosis/Problem Pneumonia Source of Information: EMS Notes Reviewed, Provider, RN History Limitations: Reports: Altered Mental Status (lethargic) - History of Present Illness Initial Comments - Free Text/Narative: chief complaint: shortness of breath with low oxygen saturations. ERE note Presents emergency room today via EMS secondary to shortness of breath hypoxia and fever he was at local care home in which he resides in the assisted living area. Patient was seen today here at this facility in having had a bronchoscopy completed review of medical record of previous ER visit and procedures noted that on 01 July he was in the hospital for possible duration pneumonia also was noted to have a significant pleural effusion on the right on the a thoracentesis was completed with 600 cc of serous fluid removed although it is noted in the report that there is continued effusion possibly secondary to loculated fluid collections. This time of presentation in the emergency room patient denies any shortness of breath chest pain or to discomfort although as noted he is a poor historian question his reliability Onset of Symptoms: Reports: Today Symptom Onset Date: 07/21/20 Duration of Symptoms: Reports: Hour(s):, Getting Worse Location: Reports: Generalized Improves with: Reports: Other (oxygen) Worsens with: Reports: None Associated Symptoms: Reports: Fever/Chills, Loss of Appetite, Malaise, Shortness of Breath, Weakness denies pain Pain Score (Numeric/FACES): 0 - Related Data Allergies/Adverse Reactions: Allergies Allergy/AdvReac Type Severity Reaction Status Date / Time lisinopril Allergy Severe Anaphylactic Verified 07/21/20 19:13 Shock tetanus toxoid, adsorbed Allergy Cannot Verified 07/21/20 19:13 Remember Home Medications: Home Meds atorvaSTATin [Lipitor] 10 mg PO BEDTIME 03/13/14 [History] Metoprolol Succinate [Toprol XL] 50 mg PO DAILY 09/30/15 [History] Calcium Carbonate/Vitamin D3 [Calcium 500 + Vit D 400] 2 tab PO DAILY 02/25/16 [History] Ferrous Sulfate 325 mg PO DAILY 09/10/19 [History] Furosemide [Lasix] 40 mg PO BID 09/10/19 [History] rOPINIRole [Requip] 0.25 mg PO BEDTIME 09/10/19 [History] Halobetasol Propionate [Ultravate] 1 applic TOP BID 11/01/19 [History] Aspirin 81 mg PO DAILY 06/05/20 [History] Magnesium Hydroxide [Milk of Magnesia] 30 ml PO DAILY PRN 06/05/20 [History] Acetaminophen 650 mg PO Q4HR PRN 06/20/20 [History] Warfarin [Coumadin] 5 - 7.5 mg PO DAILY 06/20/20 [History] polyethylene glycoL 3350 [MiraLAX] 17 gm PO DAILY 07/16/20 [History] Past Medical History HEENT History: Reports: Allergic Rhinitis, Cataract, Impaired Vision, Sinusitis, Other (See Below) Other HEENT History: glasses Cardiovascular History: Reports: Afib, Arrhythmia, Heart Murmur, High Cholesterol, Hypertension, Other (See Below) Other Cardiovascular History: transcatheter aortic valve replacement Respiratory History: Reports: Other (See Below) Other Respiratory History: silicosis Gastrointestinal History: Reports: Chronic Constipation, Colon Polyp, Hiatal Hernia Genitourinary History: Reports: Prostate Disorder Musculoskeletal History: Reports: Fracture, Other (See Below) Other Musculoskeletal History: right knee pain Neurological History: Reports: Other (See Below) Other Neuro History: questionable TIA last winter 2019; couldn't speak for a short time. Able to speak now without any problems Psychiatric History: Reports: None Endocrine/Metabolic History: Reports: Diabetes, Type II, Obesity/BMI 30+, Other (See Below) Other Endocrine/Metabolic History: borderline type II - checks blood sugar just a few times a year Hematologic History: Reports: Anticoagulation Therapy, Other (See Below) Other Hematologic History: coumadin Immunologic History: Reports: None Oncologic (Cancer) History: Reports: Prostate, Squamous Cell Carcinoma, Other (See Below) Other Oncologic History: skin Dermatologic History: Reports: Psoriasis, Other (See Below) Other Dermatologic History: keratosis - Infectious Disease History Infectious Disease History: Reports: Chicken Pox, Measles, Mumps - Past Surgical History Head Surgeries/Procedures: Reports: None HEENT Surgical History: Reports: Cataract Surgery Cardiovascular Surgical History: Reports: None Respiratory Surgical History: Reports: Thoracentesis Other Respiratory Surgeries/Procedures: recent thoracentesis GI Surgical History: Reports: Colonoscopy Male Surgical History: Reports: None Endocrine Surgical History: Reports: None Neurological Surgical History: Reports: None Musculoskeletal Surgical History: Reports: Joint Replacement Other Musculoskeletal Surgeries/Procedures:: left knee x 4. right partial knee Oncologic Surgical History: Reports: Other (See Below) Other Oncologic Surgeries/Procedures: skin bx. Dermatological Surgical History: Reports: Skin Biopsy Social & Family History - Family History Family Medical History: No Pertinent Family History - Tobacco Use Tobacco Use Status *Q: Never Tobacco User - Caffeine Use Caffeine Use: Reports: Coffee Caffeine Use Comment: 0-3 cups per day - Recreational Drug Use Recreational Drug Use: No H&P Review of Systems - Review of Systems: Review Of Systems: See Below General: Reports: Fever, Chills, Malaise, Weakness HEENT: Reports: No Symptoms Pulmonary: Reports: Shortness of Breath Cardiovascular: Reports: Palpitations, Dyspnea on Exertion Gastrointestinal: Reports: No Symptoms Genitourinary: Reports: Incontinence Musculoskeletal: Reports: No Symptoms Skin: Reports: No Symptoms Psychiatric: Reports: No Symptoms Neurological: Reports: No Symptoms Hematologic/Lymphatic: Reports: No Symptoms Immunologic: Reports: No Symptoms Exam - Exam Exam: See Below - Vital Signs Vital Signs: Last Vital Signs Temp 97.1 F 07/22/20 17:36 Pulse 86 07/22/20 17:36 Resp 18 07/22/20 17:36 BP 112/63 07/22/20 17:36 Pulse Ox 97 07/22/20 17:36 Weight: 170 lb - Exam Quality Assessment: Supplemental Oxygen, DVT Prophylaxis General: Alert, Cooperative, Mild Distress HEENT: PERRLA, Hearing Intact, Mucosa Moist & [place], Nares Patent, Normal Nasal Septum, Posterior Pharynx Clear, Conjunctiva Clear, EOMI, EACs Clear, TMs Clear Neck: Supple, Trachea Midline, 2 Lungs: Normal Respiratory Effort, Decreased Breath Sounds (right lung with decrease to absent breath sounds at bases) Cardiovascular: Irregular Rhythm GI/Abdominal Exam: Normal Bowel Sounds, Soft, Non-Tender, No Organomegaly, No Distention, No Abnormal Bruit, No Mass, Pelvis Stable (Male) Exam: Deferred Rectal (Males) Exam: Deferred Back Exam: Normal Inspection Extremities: Normal Inspection, Normal Range of Motion, Non-Tender, No Pedal Edema (wear bilateral MORGAN stocking) Peripheral Pulses: 2+: Radial (L), Radial (R) Skin: Warm, Dry, Intact Neurological: Cranial Nerves Intact, Reflexes Equal Bilateral, Strength Equal Bilateral Neuro Extensive - Mental Status: Alert, Normal Mood/Affect Psychiatric: Alert, Normal Affect, Normal Mood - Patient Data Lab Results Last 24 hrs: Laboratory Results - last 24 hr 07/21/20 07/21/20 07/21/20 Range/Units 19:43 19:43 19:43 WBC 14.9 H (4.5-11.0) K/uL RBC 3.16 L (4.30-5.90) M/uL Hgb 8.9 L (12.0-15.0) g/dL Hct 28.2 L (40.0-54.0) % MCV 89 (80-98) fL MCH 28 (27-31) pg MCHC 32 (32-36) % Plt Count 571 H (150-400) K/uL Neut % (Auto) 89.0 H (36-66) % Lymph % (Auto) 5.0 L (24-44) % Lyon % (Auto) 6.0 (2-6) % Eos % (Auto) 0.0 L (2-4) % Baso % (Auto) 0.0 (0-1) % PT 34.8 H (9.5-12.0) sec INR 3.27 H (0.80-1.20) APTT 46.9 H (27.0-36.0) sec Sodium 132 L (140-148) mmol/L Potassium 4.5 (3.6-5.2) mmol/L Chloride 96 L (100-108) mmol/L Carbon Dioxide 27 (21-32) mmol/L Anion Gap 13.5 (5.0-14.0) mmol/L BUN 19 H (7-18) mg/dL Creatinine 0.9 (0.8-1.3) mg/dL Est Cr Clr Drug Dosing 48.40 mL/min Estimated GFR (MDRD) > 60 (>60) Glucose 179 H (74-106) mg/dL POC Glucose (74-106) mg/dL Lactic Acid (0.4-2.0) mmol/L Calcium 8.7 (8.5-10.1) mg/dL Magnesium 1.6 L (1.8-2.4) mg/dL Total Bilirubin 0.6 (0.2-1.0) mg/dL AST 25 (15-37) U/L ALT 23 (12-78) U/L Alkaline Phosphatase 336 H (46-116) U/L Total Protein 7.0 (6.4-8.2) g/dL Albumin 2.1 L (3.4-5.0) g/dL Globulin 4.9 H (2.3-3.5) g/dL Albumin/Globulin Ratio 0.4 L (1.2-2.2) Amylase 68 (25-115) U/L Lipase 239 (73-393) U/L Urine Color (YELLOW) Urine Appearance (CLEAR) Urine pH (5.0-8.0) Ur Specific Stephen (1.008-1.030) Urine Protein (NEGATIVE) mg/dL Urine Glucose (UA) (NEGATIVE) mg/dL Urine Ketones (NEGATIVE) mg/dL Urine Occult Blood (NEGATIVE) Urine Nitrite (NEGATIVE) Urine Bilirubin (NEGATIVE) Urine Urobilinogen (0.2-1.0) EU/dL Ur Leukocyte Esterase (NEGATIVE) Urine RBC (0-5) Urine WBC (0-5) Ur Epithelial Cells Amorphous Sediment Urine Bacteria Urine Mucus 07/21/20 07/21/20 07/22/20 Range/Units 19:43 20:57 05:11 WBC (4.5-11.0) K/uL RBC (4.30-5.90) M/uL Hgb (12.0-15.0) g/dL Hct (40.0-54.0) % MCV (80-98) fL MCH (27-31) pg MCHC (32-36) % Plt Count (150-400) K/uL Neut % (Auto) (36-66) % Lymph % (Auto) (24-44) % Lyon % (Auto) (2-6) % Eos % (Auto) (2-4) % Baso % (Auto) (0-1) % PT (9.5-12.0) sec INR (0.80-1.20) APTT (27.0-36.0) sec Sodium 136 L (140-148) mmol/L Potassium 4.3 (3.6-5.2) mmol/L Chloride 99 L (100-108) mmol/L Carbon Dioxide 26 (21-32) mmol/L Anion Gap 15.3 H (5.0-14.0) mmol/L BUN 18 (7-18) mg/dL Creatinine 0.8 (0.8-1.3) mg/dL Est Cr Clr Drug Dosing 54.45 mL/min Estimated GFR (MDRD) > 60 (>60) Glucose 106 (74-106) mg/dL POC Glucose (74-106) mg/dL Lactic Acid 2.0 (0.4-2.0) mmol/L Calcium 8.4 L (8.5-10.1) mg/dL Magnesium (1.8-2.4) mg/dL Total Bilirubin (0.2-1.0) mg/dL AST (15-37) U/L ALT (12-78) U/L Alkaline Phosphatase (46-116) U/L Total Protein (6.4-8.2) g/dL Albumin (3.4-5.0) g/dL Globulin (2.3-3.5) g/dL Albumin/Globulin Ratio (1.2-2.2) Amylase (25-115) U/L Lipase (73-393) U/L Urine Color Yellow (YELLOW) Urine Appearance Clear (CLEAR) Urine pH 6.0 (5.0-8.0) Ur Specific Stephen 1.020 (1.008-1.030) Urine Protein Negative (NEGATIVE) mg/dL Urine Glucose (UA) Normal (NEGATIVE) mg/dL Urine Ketones Negative (NEGATIVE) mg/dL Urine Occult Blood Trace (NEGATIVE) Urine Nitrite Negative (NEGATIVE) Urine Bilirubin Negative (NEGATIVE) Urine Urobilinogen 0.2 (0.2-1.0) EU/dL Ur Leukocyte Esterase Trace H (NEGATIVE) Urine RBC 0-5 (0-5) Urine WBC 10-20 H (0-5) Ur Epithelial Cells Few Amorphous Sediment Few Urine Bacteria Few Urine Mucus Not seen 07/22/20 07/22/20 07/22/20 Range/Units 05:11 05:11 07:00 WBC 13.3 H (4.5-11.0) K/uL RBC 3.01 L (4.30-5.90) M/uL Hgb 8.5 L (12.0-15.0) g/dL Hct 27.0 L (40.0-54.0) % MCV 90 (80-98) fL MCH 28 (27-31) pg MCHC 32 (32-36) % Plt Count 486 H (150-400) K/uL Neut % (Auto) (36-66) % Lymph % (Auto) (24-44) % Lyon % (Auto) (2-6) % Eos % (Auto) (2-4) % Baso % (Auto) (0-1) % PT 37.3 H (9.5-12.0) sec INR 3.51 H (0.80-1.20) APTT (27.0-36.0) sec Sodium (140-148) mmol/L Potassium (3.6-5.2) mmol/L Chloride (100-108) mmol/L Carbon Dioxide (21-32) mmol/L Anion Gap (5.0-14.0) mmol/L BUN (7-18) mg/dL Creatinine (0.8-1.3) mg/dL Est Cr Clr Drug Dosing mL/min Estimated GFR (MDRD) (>60) Glucose (74-106) mg/dL POC Glucose 93 (74-106) mg/dL Lactic Acid (0.4-2.0) mmol/L Calcium (8.5-10.1) mg/dL Magnesium (1.8-2.4) mg/dL Total Bilirubin (0.2-1.0) mg/dL AST (15-37) U/L ALT (12-78) U/L Alkaline Phosphatase (46-116) U/L Total Protein (6.4-8.2) g/dL Albumin (3.4-5.0) g/dL Globulin (2.3-3.5) g/dL Albumin/Globulin Ratio (1.2-2.2) Amylase (25-115) U/L Lipase (73-393) U/L Urine Color (YELLOW) Urine Appearance (CLEAR) Urine pH (5.0-8.0) Ur Specific Stephen (1.008-1.030) Urine Protein (NEGATIVE) mg/dL Urine Glucose (UA) (NEGATIVE) mg/dL Urine Ketones (NEGATIVE) mg/dL Urine Occult Blood (NEGATIVE) Urine Nitrite (NEGATIVE) Urine Bilirubin (NEGATIVE) Urine Urobilinogen (0.2-1.0) EU/dL Ur Leukocyte Esterase (NEGATIVE) Urine RBC (0-5) Urine WBC (0-5) Ur Epithelial Cells Amorphous Sediment Urine Bacteria Urine Mucus 06/16/21 06/16/21 Range/Units 12:11 17:20 WBC (4.5-11.0) K/uL RBC (4.30-5.90) M/uL Hgb (12.0-15.0) g/dL Hct (40.0-54.0) % MCV (80-98) fL MCH (27-31) pg MCHC (32-36) % Plt Count (150-400) K/uL Neut % (Auto) (36-66) % Lymph % (Auto) (24-44) % Lyon % (Auto) (2-6) % Eos % (Auto) (2-4) % Baso % (Auto) (0-1) % PT (9.5-12.0) sec INR (0.80-1.20) APTT (27.0-36.0) sec Sodium (140-148) mmol/L Potassium (3.6-5.2) mmol/L Chloride (100-108) mmol/L Carbon Dioxide (21-32) mmol/L Anion Gap (5.0-14.0) mmol/L BUN (7-18) mg/dL Creatinine (0.8-1.3) mg/dL Est Cr Clr Drug Dosing mL/min Estimated GFR (MDRD) (>60) Glucose (74-106) mg/dL POC Glucose 86 95 (74-106) mg/dL Lactic Acid (0.4-2.0) mmol/L Calcium (8.5-10.1) mg/dL Magnesium (1.8-2.4) mg/dL Total Bilirubin (0.2-1.0) mg/dL AST (15-37) U/L ALT (12-78) U/L Alkaline Phosphatase (46-116) U/L Total Protein (6.4-8.2) g/dL Albumin (3.4-5.0) g/dL Globulin (2.3-3.5) g/dL Albumin/Globulin Ratio (1.2-2.2) Amylase (25-115) U/L Lipase (73-393) U/L Urine Color (YELLOW) Urine Appearance (CLEAR) Urine pH (5.0-8.0) Ur Specific Stephen (1.008-1.030) Urine Protein (NEGATIVE) mg/dL Urine Glucose (UA) (NEGATIVE) mg/dL Urine Ketones (NEGATIVE) mg/dL Urine Occult Blood (NEGATIVE) Urine Nitrite (NEGATIVE) Urine Bilirubin (NEGATIVE) Urine Urobilinogen (0.2-1.0) EU/dL Ur Leukocyte Esterase (NEGATIVE) Urine RBC (0-5) Urine WBC (0-5) Ur Epithelial Cells Amorphous Sediment Urine Bacteria Urine Mucus Result Diagrams: 07/22/20 05:11 07/22/20 05:11 Sepsis Event Note - Evaluation Sepsis Screening Result: Sepsis Risk - Focused Exam Vital Signs: Vital Signs Temp Pulse Pulse Resp BP BP Pulse Ox 07/22/20 17:36 97.1 F 86 18 112/63 97 07/22/20 16:00 97.6 F 95 22 H 110/68 99 07/22/20 12:00 98.2 F 91 20 114/63 98 07/22/20 11:06 92 112/63 07/22/20 08:00 97.8 F 92 20 112/63 96 - Problem List (1) Pneumonia SNOMED Code(s): 624039706 ICD Code: J18.9 - PNEUMONIA, UNSPECIFIED ORGANISM Status: Acute Priority: High Current Visit: Yes Qualifiers: Pneumonia type: due to unspecified organism Laterality: right Lung location: unspecified part of lung Qualified Code(s): J18.9 - Pneumonia, unspecified organism (2) Atrial fibrillation with RVR SNOMED Code(s): 835190002989428 ICD Code: I48.91 - UNSPECIFIED ATRIAL FIBRILLATION Status: Acute Priority: High Current Visit: Yes (3) S/P bronchoscopy SNOMED Code(s): 519811560 ICD Code: Z98.890 - OTHER SPECIFIED POSTPROCEDURAL STATES Status: Acute Priority: High Current Visit: Yes (4) Type 2 diabetes mellitus SNOMED Code(s): 06897438 ICD Code: E11.9 - TYPE 2 DIABETES MELLITUS WITHOUT COMPLICATIONS Status: Chronic Priority: Medium Current Visit: Yes Qualifiers: Diabetes mellitus roasterman insulin use: without skilled nursing use (5) Congestive heart failure SNOMED Code(s): 35050385 ICD Code: I50.9 - HEART FAILURE, UNSPECIFIED Status: Acute Priority: High Current Visit: Yes Qualifiers: Heart failure chronicity: chronic Problem List Initiated/Reviewed/Updated: Yes Orders Last 24hrs: Active Orders 24 hr Category Date Time Status Admission Status [Patient Status] [ADT] Routine ADT 07/22/20 02:15 Active POC Glucose [Blood Glucose Check, Bedside] [] Care 07/22/20 08:47 Active TIDMEALS Up With Assistance [] ASDIRECTED Care 07/22/20 10:12 Active Vital Signs [RC] Q4H Care 07/22/20 08:46 Active Consistent Carbohydrate Diet [DIET] Diet 07/22/20 Lunch Active Chest 1V Frontal [CR] Urgent Exams 07/21/20 19:21 Taken Echo Comp wo Cont [US] Routine Exams 07/23/20 07:00 Ordered BASIC METABOLIC PANEL,BMP [CHEM] Timed Lab 07/23/20 05:00 Ordered CBC W/O DIFF,HEMOGRAM [HEME] Timed (1) Lab 07/23/20 05:00 Ordered CULTURE BLOOD [BC] Urgent Lab 07/21/20 19:43 Received CULTURE BLOOD [BC] Urgent Lab 07/21/20 19:48 Received Acetaminophen [TylenoL] Med 07/22/20 07:17 Active 650 mg PO Q4H PRN Acetaminophen [Tylenol] Med 07/22/20 07:18 Active 650 mg RECTAL Q4H PRN Aspirin [Halfprin] Med 07/22/20 09:00 Active 81 mg PO DAILY Calcium Carbonate/Vitamin D3 [Caltrate 600+D 1500 MG- Med 07/22/20 09:00 Active 400 Units] 2 tab PO DAILY Clobetasol [Clobetasol 0.05%] Med 07/22/20 07:33 Active 0 gm TOP BID PRN Dextrose 50% in Water Med 07/22/20 07:26 Active 50 ml IVPUSH ASDIRECTED PRN Dextrose [Glutose 15] Med 07/22/20 07:26 Active 15 gm PO ASDIRECTED PRN Ferrous Sulfate Med 07/22/20 09:00 Active 325 mg PO DAILY Glucagon,Human Recombinant [GlucaGen] Med 07/22/20 07:26 Active 1 mg IM ASDIRECTED PRN Insulin Lispro [HumaLOG] Med 07/22/20 07:26 Active 0 unit SUBCUT QID PRN Levofloxacin/Dextrose 5%-Water [Levaquin in D5W 750 MG/ Med 07/22/20 04:00 Active 150 ML] 750 mg Premix Bag 1 bag IV Q24H Magnesium Hydroxide [Milk of Magnesia] Med 07/22/20 07:19 Active 30 ml PO BID PRN Magnesium Hydroxide [Milk of Magnesia] Med 07/22/20 07:23 Active 30 ml PO DAILY PRN Melatonin Med 07/22/20 07:24 Active 6 mg PO BEDTIME PRN Metoprolol Succinate [Toprol XL] Med 07/22/20 09:00 Active 50 mg PO DAILY Pantoprazole [ProTONIX] Med 07/22/20 07:30 Active 40 mg PO ACBREAKFAST Warfarin [Coumadin] Med 07/23/20 13:00 Active 5 mg PO DAILY@1300 atorvaSTATin [Lipitor] Med 07/22/20 21:00 Active 10 mg PO BEDTIME cefTRIAXone [Rocephin] 1 gm Med 07/22/20 20:00 Active Sodium Chloride 0.9% [Normal Saline] 50 ml IV Q24H guaiFENesin [Q-Tussin] Med 07/22/20 07:29 Active 400 mg PO Q4H PRN polyethylene glycoL 3350 [MiraLAX] Med 07/22/20 09:00 Active 17 gm PO DAILY rOPINIRole [Requip] Med 07/22/20 21:00 Active 0.25 mg PO BEDTIME Blood Culture x2 Reflex Set [OM.PC] Urgent Oth 07/21/20 19:21 Ordered Convert IV to Saline Lock [OM.PC] Routine Oth 07/22/20 10:09 Ordered Peripheral IV Insertion Adult [OM.PC] Urgent Oth 07/21/20 19:21 Ordered Code Status [Resuscitation Status] Routine Resus Stat 07/22/20 08:49 Ordered EKG 12 Lead [EK] Stat Ther 07/21/20 19:21 Ordered Medication Orders Acetaminophen (Acetaminophen 325 Mg Tab) 650 mg PO Q4H PRN PRN Reason: ANALGESIA/FEVER Acetaminophen (Acetaminophen 650 Mg Supp) 650 mg RECTAL Q4H PRN PRN Reason: ANALEGIA/FEVER Aspirin (Aspirin 81 Mg Tab.Ec) 81 mg PO DAILY [facility] Last Admin: 07/22/20 10:48 Dose: 81 mg Documented by: JOSÉ MIGUEL Atorvastatin Calcium (Atorvastatin 10 Mg Tab) 10 mg PO BEDTIME [facility] Calcium Carbonate (Calcium Carbonate/Vitamin D3 1500 Mg-400 Units Tab) 2 tab PO DAILY [facility] Last Admin: 07/22/20 10:48 Dose: 2 tab Documented by: JOSÉ MIGUEL Clobetasol Propionate (Clobetasol 0.05% Crm 30 Gm Tube) 0 gm TOP BID PRN PRN Reason: PSORIASIS LESIONS Dextrose (Glucose Gel 15 Gm In 37.5 Gm Tube) 15 gm PO ASDIRECTED PRN PRN Reason: HYPOGLYCEMIA Dextrose/Water (50% Dextrose In Water 50 Ml Syringe) 50 ml IVPUSH ASDIRECTED PRN PRN Reason: HYPOGLYCEMIA Ferrous Sulfate (Ferrous Sulfate 325 Mg Tab) 325 mg PO DAILY [facility] Last Admin: 07/22/20 10:49 Dose: 325 mg Documented by: JOSÉ MIGUEL Glucagon (Glucagon,Human Recombinant 1 Mg Vial) 1 mg IM ASDIRECTED PRN PRN Reason: HYPOGLYCEMIA Guaifenesin (Guaifenesin 100 Mg/5 Ml Soln Ml (118 Ml Bottle)) 400 mg PO Q4H PRN PRN Reason: COUGH Ceftriaxone Sodium 1 gm/ (Sodium Chloride) 50 mls @ 100 mls/hr IV Q24H REBECA Levofloxacin/Dextrose 750 mg/ (Premix) 150 mls @ 100 mls/hr IV Q24H [facility] Last Admin: 07/22/20 04:10 Dose: 100 mls/hr Documented by: HAYDEE Insulin Human Lispro (Insulin Lispro 100 Unit/Ml 3 Ml Kwikpen) 0 unit SUBCUT QID PRN; Protocol PRN Reason: LOW CORRECTIONAL DOSING Magnesium Hydroxide (Magnesium Hydroxide 400 Mg/5 Ml Susp 30 Ml Cup) 30 ml PO BID PRN PRN Reason: Constipation Magnesium Hydroxide (Magnesium Hydroxide 400 Mg/5 Ml Susp 30 Ml Cup) 30 ml PO DAILY PRN PRN Reason: Constipation Melatonin (Melatonin 3 Mg Tab) 6 mg PO BEDTIME PRN PRN Reason: SLEEP Metoprolol Succinate (Metoprolol Succinate 50 Mg Tab.Er) 50 mg PO DAILY [facility] Last Admin: 07/22/20 11:06 Dose: 50 mg Documented by: JOSÉ MIGUEL Pantoprazole Sodium (Pantoprazole 40 Mg Tab.Cr) 40 mg PO ACBREAKFAST [facility] Last Admin: 07/22/20 10:47 Dose: 40 mg Documented by: JOSÉ MIGUEL Polyethylene Glycol (Polyethylene Glycol 3350 Powder 17 Gm Packet) 17 gm PO DAILY [facility] Last Admin: 07/22/20 10:50 Dose: 17 gm Documented by: JOSÉ MIGUEL Ropinirole HCl (Ropinirole 0.5 Mg Tab) 0.25 mg PO BEDTIME [facility] Warfarin Sodium (Warfarin 5 Mg Tab) 5 mg PO DAILY@1300 [facility] Assessment/Plan Comment:: ASSESSMENT AND PLAN - Pneumonia-complicated by acute respiratory failure with hypoxia. Mr. Marks [facility]. The staff report he had a bronchoscopy today. Since then he hasn't been doing well and was found to have a fever and low oxygen saturations in 70's to low 80's. ER evaluation noted a elevated WBC 14.9. chest xray show a right middle to lower lobe infiltrate with early sepsis, Atrial fib with RVR -IV ceftriaxone 1 gram every 24 hours -IV levofloxacin 750 mg every 24 hours -IV fluids Normal saline at 125 ml/hr -Supplement oxygen -Blood cultures x 2 pending Congestive heart failure-. -Continue beta-joelle -furosemide bid -I & O -Cardiac monitoring Chronic atrial fibrillation-variable rate from 100 to 140's -Telemetry -Continue beta-joelle -Digoxin 250 mcg po one time Type 2 diabetes mellitus- -blood glucose check before meals and at bedtime -Low-dose sliding scale insulin Maintenance issues - -DVT prophylaxis-warfarin -GI prophylaxis-PPI -Nutrition-diabetic -Weiss catheter-not indicated CODE STATUS-DNR/DNI ADMISSION STATUS-patient will be admitted to inpatient status, expect at least a 2 night hospital stay for evaluation and management of problems as outlined above. At the time of this admission I do not reasonably expected evaluation and management of this problem will require more than a 96 hour hospital stay. DISPOSITION-anticipate discharge to [facility] after the hospital stay. PRIMARY CARE PROVIDER- [facility] HOSPITALIST-Remy Reyes M.D. - Mortality Measure Prognosis:: Good
[2020-07-22] MEDS: cefTRIAXone 1 GM in Sodium Chloride 0.9% 50 ML IV SCH (20:36)
[2020-07-22] MEDS: atorvaSTATin 10 MG Tab PO SCH (20:37)
[2020-07-22] MEDS: rOPINIRole 0.5 MG Tab PO SCH (20:39)
[2020-07-22] MEDS: Melatonin 3 MG Tab PO PRN (20:40)
[2020-07-23] MEDS: Levofloxacin/Dextrose 5%-Water 750 MG in Premix Bag 1 BAG IV SCH (03:27)
[2020-07-23] MEDS: Pantoprazole 40 MG Tab.CR PO SCH (07:33)
[2020-07-23] MEDS: Calcium Carbonate/Vitamin D3 1500 MG-400 Units Tab PO SCH (08:07)
[2020-07-23] MEDS: Aspirin 81 MG Tab.EC PO SCH (08:08)
[2020-07-23] MEDS: Polyethylene Glycol 3350 Powder 17 GM Packet PO SCH (08:08)
[2020-07-23] MEDS: Ferrous Sulfate 325 MG Tab PO SCH (08:08)
[2020-07-23] MEDS: Metoprolol Succinate 50 MG Tab.ER PO SCH (08:08)
--- NOTE | 2020-07-23 09:14 | CR ---
CHEST: Portable CLINICAL HISTORY:Post bronchoscopy COMPARISON:07/01/2020 FINDINGS: Patient has diffuse pleural plaque disease. Heart is upper limits of normal size. Pulmonary vascularity appears normal. There is a small to moderate right pleural effusion. There is opacification in the right lower lung field which is increased when compared to prior study. This may represent some infiltrate, consolidation or atelectasis. IMPRESSION: Moderate right lower lobe airspace disease may be infiltrate consolidation or atelectasis Small to moderate right pleural effusion Diffuse pleural plaque disease
[2020-07-23] MEDS ORDERED: Furosemide 40 MG/4 ML VIAL IVPUSH ONE (12:39)
--- NOTE | 2020-07-23 12:41 | PCM.PN ---
- General Info Date of Service: 07/23/20 Subjective Update: No acute events overnight. Shortness of breath is much better today. No complaints of chest pain. Still requiring a small amount of supplemental oxygen. No edema. Strength improving. Cultures from the bronchoscopy are growing alpha strep that was not pneumococcus. Functional Status: Reports: Pain Controlled, Tolerating Diet - Review of Systems Pulmonary: Reports: Shortness of Breath - Patient Data Vitals - Most Recent: Last Vital Signs Temp 36.1 C 07/23/20 11:00 Pulse 102 H 07/23/20 11:00 Resp 16 07/23/20 11:00 BP 111/53 L 07/23/20 11:00 Pulse Ox 95 07/23/20 11:00 Weight - Most Recent: 77.111 kg I&O - Last 24 Hours: Intake & Output 07/22/20 07/23/20 07/23/20 22:59 06:59 14:59 Intake Total 50 300 300 Output Total 450 350 Balance 50 -150 -50 Lab Results Last 24 Hours: Laboratory Results - last 24 hr 07/22/20 07/22/20 07/23/20 Range/Units 17:20 21:34 05:13 WBC 7.9 (4.5-11.0) K/uL RBC 2.88 L (4.30-5.90) M/uL Hgb 8.1 L (12.0-15.0) g/dL Hct 25.9 L (40.0-54.0) % MCV 90 (80-98) fL MCH 28 (27-31) pg MCHC 31 L (32-36) % Plt Count 435 H (150-400) K/uL Sodium (140-148) mmol/L Potassium (3.6-5.2) mmol/L Chloride (100-108) mmol/L Carbon Dioxide (21-32) mmol/L Anion Gap (5.0-14.0) mmol/L BUN (7-18) mg/dL Creatinine (0.8-1.3) mg/dL Est Cr Clr Drug Dosing mL/min Estimated GFR (MDRD) (>60) Glucose (74-106) mg/dL POC Glucose 95 119 H (74-106) mg/dL Calcium (8.5-10.1) mg/dL 07/23/20 07/23/20 07/23/20 Range/Units 05:13 07:37 11:23 WBC (4.5-11.0) K/uL RBC (4.30-5.90) M/uL Hgb (12.0-15.0) g/dL Hct (40.0-54.0) % MCV (80-98) fL MCH (27-31) pg MCHC (32-36) % Plt Count (150-400) K/uL Sodium 133 L (140-148) mmol/L Potassium 4.0 (3.6-5.2) mmol/L Chloride 98 L (100-108) mmol/L Carbon Dioxide 25 (21-32) mmol/L Anion Gap 14.0 (5.0-14.0) mmol/L BUN 20 H (7-18) mg/dL Creatinine 0.8 (0.8-1.3) mg/dL Est Cr Clr Drug Dosing 54.45 mL/min Estimated GFR (MDRD) > 60 (>60) Glucose 106 (74-106) mg/dL POC Glucose 95 111 H (74-106) mg/dL Calcium 8.3 L (8.5-10.1) mg/dL Atul Results Last 24 Hours: Microbiology 07/21/20 19:48 Aerobic Blood Culture - Preliminary Blood - Arm, Right NO GROWTH AFTER 1 DAY Anaerobic Blood Culture - Preliminary NO GROWTH AFTER 1 DAY 07/21/20 19:43 Aerobic Blood Culture - Preliminary Blood - Arm, Left NO GROWTH AFTER 1 DAY Anaerobic Blood Culture - Preliminary NO GROWTH AFTER 1 DAY Med Orders - Current: Current Medications Acetaminophen (Acetaminophen 325 Mg Tab) 650 mg PO Q4H PRN PRN Reason: ANALGESIA/FEVER Acetaminophen (Acetaminophen 650 Mg Supp) 650 mg RECTAL Q4H PRN PRN Reason: ANALEGIA/FEVER Aspirin (Aspirin 81 Mg Tab.Ec) 81 mg PO DAILY [facility] Last Admin: 07/23/20 08:08 Dose: 81 mg Documented by: Atorvastatin Calcium (Atorvastatin 10 Mg Tab) 10 mg PO BEDTIME [facility] Last Admin: 07/22/20 20:37 Dose: 10 mg Documented by: Calcium Carbonate (Calcium Carbonate/Vitamin D3 1500 Mg-400 Units Tab) 2 tab PO DAILY [facility] Last Admin: 07/23/20 08:07 Dose: 2 tab Documented by: Clobetasol Propionate (Clobetasol 0.05% Crm 30 Gm Tube) 0 gm TOP BID PRN PRN Reason: PSORIASIS LESIONS Dextrose (Glucose Gel 15 Gm In 37.5 Gm Tube) 15 gm PO ASDIRECTED PRN PRN Reason: HYPOGLYCEMIA Dextrose/Water (50% Dextrose In Water 50 Ml Syringe) 50 ml IVPUSH ASDIRECTED PRN PRN Reason: HYPOGLYCEMIA Ferrous Sulfate (Ferrous Sulfate 325 Mg Tab) 325 mg PO DAILY [facility] Last Admin: 07/23/20 08:08 Dose: 325 mg Documented by: Glucagon (Glucagon,Human Recombinant 1 Mg Vial) 1 mg IM ASDIRECTED PRN PRN Reason: HYPOGLYCEMIA Guaifenesin (Guaifenesin 100 Mg/5 Ml Soln Ml (118 Ml Bottle)) 400 mg PO Q4H PRN PRN Reason: COUGH Ceftriaxone Sodium 1 gm/ (Sodium Chloride) 50 mls @ 100 mls/hr IV Q24H [facility] Last Admin: 07/22/20 20:36 Dose: 100 mls/hr Documented by: Levofloxacin/Dextrose 750 mg/ (Premix) 150 mls @ 100 mls/hr IV Q24H [facility] Last Admin: 07/23/20 03:27 Dose: 100 mls/hr Documented by: Insulin Human Lispro (Insulin Lispro 100 Unit/Ml 3 Ml Kwikpen) 0 unit SUBCUT QID PRN; Protocol PRN Reason: LOW CORRECTIONAL DOSING Magnesium Hydroxide (Magnesium Hydroxide 400 Mg/5 Ml Susp 30 Ml Cup) 30 ml PO BID PRN PRN Reason: Constipation Magnesium Hydroxide (Magnesium Hydroxide 400 Mg/5 Ml Susp 30 Ml Cup) 30 ml PO DAILY PRN PRN Reason: Constipation Melatonin (Melatonin 3 Mg Tab) 6 mg PO BEDTIME PRN PRN Reason: SLEEP Last Admin: 07/22/20 20:40 Dose: 6 mg Documented by: Metoprolol Succinate (Metoprolol Succinate 50 Mg Tab.Er) 50 mg PO DAILY [facility] Last Admin: 07/23/20 08:08 Dose: 50 mg Documented by: Pantoprazole Sodium (Pantoprazole 40 Mg Tab.Cr) 40 mg PO ACBREAKFAST [facility] Last Admin: 07/23/20 07:33 Dose: 40 mg Documented by: Polyethylene Glycol (Polyethylene Glycol 3350 Powder 17 Gm Packet) 17 gm PO DAILY [facility] Last Admin: 07/23/20 08:08 Dose: 17 gm Documented by: Ropinirole HCl (Ropinirole 0.5 Mg Tab) 0.25 mg PO BEDTIME [facility] Last Admin: 07/22/20 20:39 Dose: 0.25 mg Documented by: Warfarin Sodium (Warfarin 5 Mg Tab) 5 mg PO DAILY@1300 [facility] Discontinued Medications Acetaminophen (Acetaminophen 325 Mg Tab) 650 mg PO NOW ONE Stop: 07/21/20 19:22 Last Admin: 07/21/20 20:20 Dose: 650 mg Documented by: Digoxin (Digoxin 125 Mcg Tab) 250 mcg PO ONETIME ONE Stop: 07/22/20 04:01 Last Admin: 07/22/20 04:10 Dose: 250 mcg Documented by: Diltiazem HCl (Diltiazem 25 Mg/5 Ml Sdv) 20 mg IVPUSH ONETIME ONE Stop: 07/21/20 19:48 Last Admin: 07/21/20 21:05 Dose: 10 mg Documented by: Furosemide (Furosemide 40 Mg Tab) 40 mg PO BIDDIURETIC [facility] Last Admin: 07/22/20 12:28 Dose: Not Given Documented by: Furosemide (Furosemide 40 Mg/4 Ml Vial) 40 mg IVPUSH ONETIME ONE Stop: 07/22/20 10:31 Last Admin: 07/22/20 10:51 Dose: 40 mg Documented by: Sodium Chloride (Normal Saline) 1,000 mls @ 125 mls/hr IV ASDIRECTED [facility] Last Admin: 07/21/20 19:44 Dose: 125 mls/hr Documented by: Ceftriaxone Sodium 1 gm/ (Sodium Chloride) 50 mls @ 100 mls/hr IV ONETIME ONE Stop: 07/21/20 20:15 Last Admin: 07/21/20 20:19 Dose: 100 mls/hr Documented by: Sodium Chloride (Normal Saline) 500 mls @ 500 mls/hr IV ASDIRECTED [facility] Last Admin: 07/21/20 23:30 Dose: 500 mls/hr Documented by: Sodium Chloride (Normal Saline) 1,000 mls @ 125 mls/hr IV ASDIRECTED [facility] Metoprolol Succinate (Metoprolol Succinate 25 Mg Tab.Er) 25 mg PO ONETIME ONE Stop: 07/22/20 01:53 Last Admin: 07/22/20 02:05 Dose: 25 mg Documented by: Sodium Chloride (Sodium Chloride 0.9% 10 Ml Syringe) 10 ml FLUSH ASDIRECTED PRN PRN Reason: Keep Vein Open Last Admin: 07/21/20 21:12 Dose: 10 ml Documented by: Sodium Chloride (Sodium Chloride 0.9% 10 Ml Syringe) 10 ml FLUSH ASDIRECTED PRN PRN Reason: Keep Vein Open Last Admin: 07/21/20 23:53 Dose: 10 ml Documented by: Warfarin Sodium (Warfarin 5 Mg Tab) 5 mg PO MoTuWeThSa@1300 [facility] Warfarin Sodium (Warfarin 2.5 Mg Tab) 7.5 mg PO SuFr@1300 [facility] - Exam Quality Assessment: Supplemental Oxygen General: Alert, Oriented, Cooperative, No Acute Distress Neck: JVD Lungs: Normal Respiratory Effort, Crackles (mild right lung base) Cardiovascular: Regular Rate, Irregular Rhythm GI/Abdominal Exam: Soft, No Distention Extremities: No Pedal Edema. No: Increased Warmth Skin: Warm, Dry Psy/Mental Status: Alert, Normal Affect - Patient Data Lab Results Last 24 hrs: Laboratory Results - last 24 hr 07/22/20 07/22/20 07/23/20 Range/Units 17:20 21:34 05:13 WBC 7.9 (4.5-11.0) K/uL RBC 2.88 L (4.30-5.90) M/uL Hgb 8.1 L (12.0-15.0) g/dL Hct 25.9 L (40.0-54.0) % MCV 90 (80-98) fL MCH 28 (27-31) pg MCHC 31 L (32-36) % Plt Count 435 H (150-400) K/uL Sodium (140-148) mmol/L Potassium (3.6-5.2) mmol/L Chloride (100-108) mmol/L Carbon Dioxide (21-32) mmol/L Anion Gap (5.0-14.0) mmol/L BUN (7-18) mg/dL Creatinine (0.8-1.3) mg/dL Est Cr Clr Drug Dosing mL/min Estimated GFR (MDRD) (>60) Glucose (74-106) mg/dL POC Glucose 95 119 H (74-106) mg/dL Calcium (8.5-10.1) mg/dL 07/23/20 07/23/20 07/23/20 Range/Units 05:13 07:37 11:23 WBC (4.5-11.0) K/uL RBC (4.30-5.90) M/uL Hgb (12.0-15.0) g/dL Hct (40.0-54.0) % MCV (80-98) fL MCH (27-31) pg MCHC (32-36) % Plt Count (150-400) K/uL Sodium 133 L (140-148) mmol/L Potassium 4.0 (3.6-5.2) mmol/L Chloride 98 L (100-108) mmol/L Carbon Dioxide 25 (21-32) mmol/L Anion Gap 14.0 (5.0-14.0) mmol/L BUN 20 H (7-18) mg/dL Creatinine 0.8 (0.8-1.3) mg/dL Est Cr Clr Drug Dosing 54.45 mL/min Estimated GFR (MDRD) > 60 (>60) Glucose 106 (74-106) mg/dL POC Glucose 95 111 H (74-106) mg/dL Calcium 8.3 L (8.5-10.1) mg/dL Result Diagrams: 07/23/20 05:13 07/23/20 05:13 Atul Results Last 24 hrs: Microbiology 07/21/20 19:48 Aerobic Blood Culture - Preliminary Blood - Arm, Right NO GROWTH AFTER 1 DAY Anaerobic Blood Culture - Preliminary NO GROWTH AFTER 1 DAY 07/21/20 19:43 Aerobic Blood Culture - Preliminary Blood - Arm, Left NO GROWTH AFTER 1 DAY Anaerobic Blood Culture - Preliminary NO GROWTH AFTER 1 DAY Sepsis Event Note - Evaluation Sepsis Screening Result: No Definite Risk - Focused Exam Vital Signs: Vital Signs Temp Pulse Pulse Resp BP BP Pulse Ox 07/23/20 11:00 36.1 C 102 H 16 111/53 L 95 07/23/20 08:08 90 119/82 07/23/20 07:38 36.6 C 94 16 119/81 97 07/23/20 02:32 36.3 C 59 L 16 119/69 96 - Problem List Review Problem List Initiated/Reviewed/Updated: Yes - My Orders Last 24 Hours: My Active Orders 07/23/20 07:00 Echo Comp wo Cont [US] Routine 07/23/20 12:39 Furosemide [Lasix] 40 mg IVPUSH ONETIME ONE 07/23/20 13:00 Warfarin [Coumadin] 5 mg PO DAILY@1300 07/24/20 05:00 BASIC METABOLIC PANEL,BMP [CHEM] Timed INR,PT,PROTHROMBIN TIME [COAG] Timed - Plan Plan:: ASSESSMENT AND PLAN - Pneumonia-complicated by acute respiratory failure with hypoxia. Steadily improving with treatment as discussed below. Bronchoscopy culture growing alpha strep. -Continue ceftriaxone and levofloxacin, anticipate discharge on cefdinir -Saline lock -Supplement oxygen -Follow-up cultures Congestive heart failure-mild systolic failure and some pulmonary hypertension noted on echocardiogram today mild valvular issues. -Continue beta-joelle -furosemide second dose of furosemide this afternoon -I & O -Cardiac monitoring Chronic atrial fibrillation-heart rate stable and doing well with current treatment -Continue beta-joelle -Continue warfarin Type 2 diabetes mellitus-diet controlled. Maintenance issues - -DVT prophylaxis-warfarin -GI prophylaxis-PPI -Nutrition-diabetic DISPOSITION-anticipate discharge to home with home care after the hospital stay. Remy Reyes M.D.
[2020-07-23] MEDS: Warfarin 5 MG Tab PO SCH (12:56)
[2020-07-23] MEDS: cefTRIAXone 1 GM in Sodium Chloride 0.9% 50 ML IV SCH (19:50)
[2020-07-23] MEDS: atorvaSTATin 10 MG Tab PO SCH (20:43)
[2020-07-23] MEDS: rOPINIRole 0.5 MG Tab PO SCH (20:44)
[2020-07-23] MEDS: Melatonin 3 MG Tab PO PRN (21:09)
[2020-07-24] MEDS: Levofloxacin/Dextrose 5%-Water 750 MG in Premix Bag 1 BAG IV SCH (04:27)
[2020-07-24] MEDS: Polyethylene Glycol 3350 Powder 17 GM Packet PO SCH (08:09)
[2020-07-24] MEDS: Calcium Carbonate/Vitamin D3 1500 MG-400 Units Tab PO SCH (08:09)
[2020-07-24] MEDS: Ferrous Sulfate 325 MG Tab PO SCH (08:10)
[2020-07-24] MEDS: Metoprolol Succinate 50 MG Tab.ER PO SCH (08:10)
[2020-07-24] MEDS: Pantoprazole 40 MG Tab.CR PO SCH (08:10)
[2020-07-24] MEDS: Aspirin 81 MG Tab.EC PO SCH (08:10)
[2020-07-24 10:33] VITALS: BP 116/59; PULSE 105
[2020-07-24] MEDS ORDERED: predniSONE 20 MG Tab PO ONE (12:00)
--- NOTE | 2020-07-24 12:36 | PCM.DCSUM1 ---
Discharge Summary - Hospital Course Brief History: 89-year-old male with history of combined systolic and diastolic heart failure, recent bronchoscopy, chronic atrial fibrillation and diet- controlled diabetes who [facility] after a bronchoscopy with fever and shortness of breath. He was admitted for management of a right lower lobe pneumonia with acute on chronic respiratory failure and atrial fibrillation with a rapid ventricular response. Diagnosis: Stroke: No - Discharge Data Discharge Date: 07/24/20 Discharge Disposition: Home, W Home Health Agency 06 Condition: Good - Referral to Home Health Date of Face to Face Encounter: 07/24/20 Reason for Homebound Status: Acute on chronic weakness as well as dyspnea with exertion following an acute medical problem Primary Care Physician: PCP None Skilled Need: Nursing and physical therapy - Discharge Diagnosis/Problem(s) (1) Community acquired bacterial pneumonia SNOMED Code(s): 066677753, 950391085 ICD Code: J15.9 - UNSPECIFIED BACTERIAL PNEUMONIA Status: Acute Priority: High (2) Acute respiratory failure with hypoxia SNOMED Code(s): 11049779, 451906063 ICD Code: J96.01 - ACUTE RESPIRATORY FAILURE WITH HYPOXIA Status: Acute (3) Atrial fibrillation with RVR SNOMED Code(s): 301251397243134 ICD Code: I48.91 - UNSPECIFIED ATRIAL FIBRILLATION Status: Acute Priority: High (4) Pleural effusion, right SNOMED Code(s): 25364443 ICD Code: J90 - PLEURAL EFFUSION, NOT ELSEWHERE CLASSIFIED Status: Chronic Priority: High (5) Congestive heart failure SNOMED Code(s): 20602854 ICD Code: I50.9 - HEART FAILURE, UNSPECIFIED Status: Chronic Priority: High Qualifiers: Heart failure type: combined systolic and diastolic Heart failure chronicity: chronic Qualified Code(s): I50.42 - Chronic combined systolic (congestive) and diastolic (congestive) heart failure (6) Type 2 diabetes mellitus SNOMED Code(s): 54408305 ICD Code: E11.9 - TYPE 2 DIABETES MELLITUS WITHOUT COMPLICATIONS Status: Chronic Priority: Medium Qualifiers: Diabetes mellitus residential insulin use: without residential use Diabetes mellitus complication status: without complication Qualified Code(s): E11.9 - Type 2 diabetes mellitus without complications - Patient Summary/Data Hospital Course: Abhishek presented to the emergency room the evening after a bronchoscopy with fever and increased shortness of breath. Work-up in the emergency room revealed evidence for atrial fibrillation with a rapid ventricular response as well as right lower lobe pneumonia with acute respiratory failure with hypoxia. He was started on ceftriaxone and levofloxacin for the pneumonia and had an extra dose of metoprolol and a dose of digoxin to help with the atrial fibrillation. He was admitted for further management. Over the next couple of days we saw steady improvement in his respiratory status. His bronchoscopy cultures returned positive for alpha strep that was not pneumococcus. Additional cultures obtained from the emergency room did not show any growth by the time of discharge. We have seen steady improvement in his clinical status with good strength and appetite. We have been able to wean him off supplemental oxygen. He feels well. [facility] but the plan had been for discharge home today. He is doing well enough that I think he can go home rather than back to the [facility] for any additional rehab. He does not currently require any supplemental oxygen. He was interested in home care to help ease the transition home. The plan is for him to go home with cefdinir to treat the alpha strep pneumonia. Prescriptions for his medications were sent since he has been away from home for so long and is not quite sure if what he is taking now match what he was taking before. He will have early follow-up with primary care. - Patient Instructions Diet: Usual Diet as Tolerated Activity: As Tolerated Showering/Bathing: May Shower Notify Provider of: Fever, Increased Pain Other/Special Instructions: 1. You were in the hospital for management of right lower lobe pneumonia caused by a bacteria called alpha strep. Your condition has been improving with antibiotic therapy and additional cares provided in the hospital. I do recommend additional antibiotic therapy after hospital discharge. Please take cefdinir (Omnicef) 300 mg twice daily with food for 12 doses. Your first dose outside of the hospital will be due tongris. 2. I have placed a referral to home health care. They will provide nursing and physical therapy services to help ease your transition home after the hospital stay. 3. Follow up with Dr. Yogesh Monsivais in 1 to 2 weeks -follow-up hospital stay as well as recent [facility] discharge. - Discharge Plan *PRESCRIPTION DRUG MONITORING PROGRAM REVIEWED*: Not Applicable *COPY OF PRESCRIPTION DRUG MONITORING REPORT IN PATIENT ERIC: Not Applicable Prescriptions/Med Rec: Cefdinir 300 mg PO BID #12 capsule Warfarin [Coumadin] 5 mg PO ASDIRECTED #30 tab Warfarin [Coumadin] 5 mg PO ASDIRECTED #15 tablet Ferrous Sulfate 325 mg PO DAILY #30 tablet Furosemide [Lasix] 40 mg PO BID #60 tab atorvaSTATin [Lipitor] 10 mg PO BEDTIME #30 tab Metoprolol Succinate 50 mg PO DAILY #30 tab.er.24h predniSONE [Prednisone] 20 mg PO PCLUNCH #2 tablet rOPINIRole [Requip] 0.25 mg PO BEDTIME #30 tablet Home Medications: Home Meds Calcium Carbonate/Vitamin D3 [Calcium 500 + Vit D 400] 2 tab PO DAILY 02/25/16 [History] Halobetasol Propionate [Ultravate] 1 applic TOP BID 11/01/19 [History] Aspirin 81 mg PO DAILY 06/05/20 [History] Magnesium Hydroxide [Milk of Magnesia] 30 ml PO DAILY PRN 06/05/20 [History] Acetaminophen 650 mg PO Q4HR PRN 06/20/20 [History] polyethylene glycoL 3350 [MiraLAX] 17 gm PO DAILY 07/16/20 [History] Cefdinir 300 mg PO BID #12 capsule 07/24/20 [Rx] Ferrous Sulfate 325 mg PO DAILY #30 tablet 07/24/20 [Rx] Furosemide [Lasix] 40 mg PO BID #60 tab 07/24/20 [Rx] Metoprolol Succinate 50 mg PO DAILY #30 tab.er.24h 07/24/20 [Rx] Warfarin [Coumadin] 5 mg PO ASDIRECTED #15 tablet 07/24/20 [Rx] Warfarin [Coumadin] 5 mg PO ASDIRECTED #30 tab 07/24/20 [Rx] atorvaSTATin [Lipitor] 10 mg PO BEDTIME #30 tab 07/24/20 [Rx] predniSONE [Prednisone] 20 mg PO PCLUNCH #2 tablet 07/24/20 [Rx] rOPINIRole [Requip] 0.25 mg PO BEDTIME #30 tablet 07/24/20 [Rx] Oxygen Therapy Mode: Room Air Patient Handouts: Cefdinir Capsules, Community-Acquired Pneumonia, Adult Referrals: Yogesh Monsivais MD [Physician] - 08/03/20 1:30 pm (1-2 weeks -follow-up hospital stay for right lower lobe pneumonia) - Discharge Summary/Plan Comment DC Time >30 min.: Yes (35-set up home care ) - Patient Data Vitals - Most Recent: Last Vital Signs Temp 36.6 C 07/24/20 10:23 Pulse 105 H 07/24/20 10:23 Resp 18 07/24/20 10:23 BP 116/59 L 07/24/20 10:23 Pulse Ox 94 L 07/24/20 12:09 Weight - Most Recent: 77.111 kg I&O - Last 24 hours: Intake & Output 07/23/20 07/24/20 07/24/20 22:59 06:59 14:59 Intake Total 300 250 265 Output Total 1400 700 Balance -1100 -450 265 Lab Results - Last 24 hrs: Laboratory Results - last 24 hr 07/23/20 07/23/20 07/24/20 Range/Units 17:21 20:59 05:35 PT 25.6 H (9.5-12.0) sec INR 2.39 H (0.80-1.20) Sodium (140-148) mmol/L Potassium (3.6-5.2) mmol/L Chloride (100-108) mmol/L Carbon Dioxide (21-32) mmol/L Anion Gap (5.0-14.0) mmol/L BUN (7-18) mg/dL Creatinine (0.8-1.3) mg/dL Est Cr Clr Drug Dosing mL/min Estimated GFR (MDRD) (>60) Glucose (74-106) mg/dL POC Glucose 132 H 160 H (74-106) mg/dL Calcium (8.5-10.1) mg/dL 07/24/20 07/24/20 07/24/20 Range/Units 05:35 07:18 11:21 PT (9.5-12.0) sec INR (0.80-1.20) Sodium 136 L (140-148) mmol/L Potassium 3.7 (3.6-5.2) mmol/L Chloride 98 L (100-108) mmol/L Carbon Dioxide 27 (21-32) mmol/L Anion Gap 14.7 H (5.0-14.0) mmol/L BUN 18 (7-18) mg/dL Creatinine 0.8 (0.8-1.3) mg/dL Est Cr Clr Drug Dosing 54.37 mL/min Estimated GFR (MDRD) > 60 (>60) Glucose 117 H (74-106) mg/dL POC Glucose 112 H 147 H (74-106) mg/dL Calcium 8.5 (8.5-10.1) mg/dL GIDEON Results - Last 24 hrs: Microbiology 07/21/20 19:48 Aerobic Blood Culture - Preliminary Blood - Arm, Right NO GROWTH AFTER 2 DAYS Anaerobic Blood Culture - Preliminary NO GROWTH AFTER 2 DAYS 07/21/20 19:43 Aerobic Blood Culture - Preliminary Blood - Arm, Left NO GROWTH AFTER 2 DAYS Anaerobic Blood Culture - Preliminary NO GROWTH AFTER 2 DAYS Med Orders - Current: Current Medications Acetaminophen (Acetaminophen 325 Mg Tab) 650 mg PO Q4H PRN PRN Reason: ANALGESIA/FEVER Last Admin: 07/23/20 23:26 Dose: 650 mg Documented by: Acetaminophen (Acetaminophen 650 Mg Supp) 650 mg RECTAL Q4H PRN PRN Reason: ANALEGIA/FEVER Aspirin (Aspirin 81 Mg Tab.Ec) 81 mg PO DAILY [facility] Last Admin: 07/24/20 08:10 Dose: 81 mg Documented by: Atorvastatin Calcium (Atorvastatin 10 Mg Tab) 10 mg PO BEDTIME [facility] Last Admin: 07/23/20 20:43 Dose: 10 mg Documented by: Calcium Carbonate (Calcium Carbonate/Vitamin D3 1500 Mg-400 Units Tab) 2 tab PO DAILY [facility] Last Admin: 07/24/20 08:09 Dose: 2 tab Documented by: Clobetasol Propionate (Clobetasol 0.05% Crm 30 Gm Tube) 0 gm TOP BID PRN PRN Reason: PSORIASIS LESIONS Dextrose (Glucose Gel 15 Gm In 37.5 Gm Tube) 15 gm PO ASDIRECTED PRN PRN Reason: HYPOGLYCEMIA Dextrose/Water (50% Dextrose In Water 50 Ml Syringe) 50 ml IVPUSH ASDIRECTED PRN PRN Reason: HYPOGLYCEMIA Ferrous Sulfate (Ferrous Sulfate 325 Mg Tab) 325 mg PO DAILY [facility] Last Admin: 07/24/20 08:10 Dose: 325 mg Documented by: Glucagon (Glucagon,Human Recombinant 1 Mg Vial) 1 mg IM ASDIRECTED PRN PRN Reason: HYPOGLYCEMIA Guaifenesin (Guaifenesin 100 Mg/5 Ml Soln Ml (118 Ml Bottle)) 400 mg PO Q4H PRN PRN Reason: COUGH Ceftriaxone Sodium 1 gm/ (Sodium Chloride) 50 mls @ 100 mls/hr IV Q24H [facility] Last Admin: 07/23/20 19:50 Dose: 100 mls/hr Documented by: Levofloxacin/Dextrose 750 mg/ (Premix) 150 mls @ 100 mls/hr IV Q24H [facility] Last Admin: 07/24/20 04:27 Dose: 100 mls/hr Documented by: Insulin Human Lispro (Insulin Lispro 100 Unit/Ml 3 Ml Kwikpen) 0 unit SUBCUT QID PRN; Protocol PRN Reason: LOW CORRECTIONAL DOSING Magnesium Hydroxide (Magnesium Hydroxide 400 Mg/5 Ml Susp 30 Ml Cup) 30 ml PO BID PRN PRN Reason: Constipation Melatonin (Melatonin 3 Mg Tab) 6 mg PO BEDTIME PRN PRN Reason: SLEEP Last Admin: 07/23/20 21:09 Dose: 6 mg Documented by: Metoprolol Succinate (Metoprolol Succinate 50 Mg Tab.Er) 50 mg PO DAILY [facility] Last Admin: 07/24/20 08:10 Dose: 50 mg Documented by: Pantoprazole Sodium (Pantoprazole 40 Mg Tab.Cr) 40 mg PO ACBREAKFAST [facility] Last Admin: 07/24/20 08:10 Dose: 40 mg Documented by: Polyethylene Glycol (Polyethylene Glycol 3350 Powder 17 Gm Packet) 17 gm PO DAILY [facility] Last Admin: 07/24/20 08:09 Dose: 17 gm Documented by: Ropinirole HCl (Ropinirole 0.5 Mg Tab) 0.25 mg PO BEDTIME [facility] Last Admin: 07/23/20 20:44 Dose: 0.25 mg Documented by: Warfarin Sodium (Warfarin 5 Mg Tab) 5 mg PO DAILY@1300 [facility] Last Admin: 07/23/20 12:56 Dose: 5 mg Documented by: Discontinued Medications Acetaminophen (Acetaminophen 325 Mg Tab) 650 mg PO NOW ONE Stop: 07/21/20 19:22 Last Admin: 07/21/20 20:20 Dose: 650 mg Documented by: Digoxin (Digoxin 125 Mcg Tab) 250 mcg PO ONETIME ONE Stop: 07/22/20 04:01 Last Admin: 07/22/20 04:10 Dose: 250 mcg Documented by: Diltiazem HCl (Diltiazem 25 Mg/5 Ml Sdv) 20 mg IVPUSH ONETIME ONE Stop: 07/21/20 19:48 Last Admin: 07/21/20 21:05 Dose: 10 mg Documented by: Furosemide (Furosemide 40 Mg Tab) 40 mg PO BIDDIURETIC [facility] Last Admin: 07/22/20 12:28 Dose: Not Given Documented by: Furosemide (Furosemide 40 Mg/4 Ml Vial) 40 mg IVPUSH ONETIME ONE Stop: 07/22/20 10:31 Last Admin: 07/22/20 10:51 Dose: 40 mg Documented by: Furosemide (Furosemide 40 Mg/4 Ml Vial) 40 mg IVPUSH ONETIME ONE Stop: 07/23/20 12:40 Last Admin: 07/23/20 12:56 Dose: 40 mg Documented by: Sodium Chloride (Normal Saline) 1,000 mls @ 125 mls/hr IV ASDIRECTED [facility] Last Admin: 07/21/20 19:44 Dose: 125 mls/hr Documented by: Ceftriaxone Sodium 1 gm/ (Sodium Chloride) 50 mls @ 100 mls/hr IV ONETIME ONE Stop: 07/21/20 20:15 Last Admin: 07/21/20 20:19 Dose: 100 mls/hr Documented by: Sodium Chloride (Normal Saline) 500 mls @ 500 mls/hr IV ASDIRECTED [facility] Last Admin: 07/21/20 23:30 Dose: 500 mls/hr Documented by: Sodium Chloride (Normal Saline) 1,000 mls @ 125 mls/hr IV ASDIRECTED [facility] Metoprolol Succinate (Metoprolol Succinate 25 Mg Tab.Er) 25 mg PO ONETIME ONE Stop: 07/22/20 01:53 Last Admin: 07/22/20 02:05 Dose: 25 mg Documented by: Prednisone (Prednisone 20 Mg Tab) 20 mg PO ONETIME ONE Stop: 07/24/20 12:01 Sodium Chloride (Sodium Chloride 0.9% 10 Ml Syringe) 10 ml FLUSH ASDIRECTED PRN PRN Reason: Keep Vein Open Last Admin: 07/21/20 21:12 Dose: 10 ml Documented by: Sodium Chloride (Sodium Chloride 0.9% 10 Ml Syringe) 10 ml FLUSH ASDIRECTED PRN PRN Reason: Keep Vein Open Last Admin: 07/21/20 23:53 Dose: 10 ml Documented by: Warfarin Sodium (Warfarin 5 Mg Tab) 5 mg PO [id number]@1300 [facility] Warfarin Sodium (Warfarin 2.5 Mg Tab) 7.5 mg PO SuFr@1300 [facility]
[2020-07-24] MEDS: Warfarin 5 MG Tab PO SCH (12:58)
[2020-07-24] MEDS ORDERED: Warfarin 2.5 MG Tab PO SCH (13:00)
== END 2020-07-24 13:55 | disposition home health service (06) | DRG 193 ==
LOC: JP.ED 19:00 → JP.ICU 07-22 02:15 → JP.MS 07-22 17:49
PROVIDERS: ADMIT Nurse Practitioner; ATTEND Nurse Practitioner
DX: J15.4 Pneumonia due to other streptococci (principal); R50.9 Fever, unspecified; R09.02 Hypoxemia; J96.21 Acute and chronic respiratory failure with hypoxia; J30.9 Allergic rhinitis, unspecified; H54.7 Unspecified visual loss; E78.00 Pure hypercholesterolemia, unspecified; I10 Essential (primary) hypertension; Z95.4 Presence of other heart-valve replacement; J62.8 Pneumoconiosis due to other dust containing silica; J90 Pleural effusion, not elsewhere classified; K44.9 Diaphragmatic hernia without obstruction or gangrene; N42.9 Disorder of prostate, unspecified; I50.42 Chronic combined systolic (congestive) and diastolic (congestive) heart failure; E66.9 Obesity, unspecified; Z85.46 Personal history of malignant neoplasm of prostate; Z85.828 Personal history of other malignant neoplasm of skin; Z88.7 Allergy status to serum and vaccine; Z88.8 Allergy status to other drugs, medicaments and biological substances; I48.91 Unspecified atrial fibrillation; Z79.82 Long term (current) use of aspirin; Z79.899 Other long term (current) drug therapy; Z79.01 Long term (current) use of anticoagulants; E11.9 Type 2 diabetes mellitus without complications; E78.5 Hyperlipidemia, unspecified; Z95.2 Presence of prosthetic heart valve; I11.0 Hypertensive heart disease with heart failure; K59.09 Other constipation; Z86.010 Personal history of colon polyps; Z98.41 Cataract extraction status, right eye; Z96.653 Presence of artificial knee joint, bilateral; Z86.73 Personal history of transient ischemic attack (TIA), and cerebral infarction without residual deficits; Z79.4 Long term (current) use of insulin; Z98.890 Other specified postprocedural states; Z66 Do not resuscitate
CPT/HCPCS: 36415; 71045; 71045-26; 80048; 80053; 81001; 82150; 82947; 83605; 83690; 83735; 85025; 85027; 85610; 85730; 87015; 87040; 87070; 87081; 87102; 87116; 87205; 87206; 87220; 93005; 93010; 93306; 94640; 96365; 96375; 99285; 99285-25; A9270-GY; C9113; J0696; J1940; J1956; J2704; J3010; J3490; J7030; J7121; J7512; J7620-GY